=== PATIENT | male | born 1960 | race Caucasian/White ===

== ENCOUNTER → 2016-08-14 | Outpatient (CLI) | payer OTHER ==
--- NOTE | 2016-08-14 09:29 | CTL ---
EXAMINATION TYPE: CT Low Dose Lung DATE OF EXAM ORDERED: 08/14/2016 HISTORY: Lung cancer screening CT DLP: 94.[address] CTDI: 3.0 mGy Automated exposure control for dose reduction was used. COMPARISON: None TECHNIQUE: Low dose computed tomography scan was performed through the chest at 1 mm thick sections a nd reconstructed images in the coronal plane at [address] DIAGNOSTIC QUALITY: Satisfactory FINDINGS: LUNG NODULES: There is a 4 mm nodule in the left upper lobe. Additional 2 to 3 mm subpleural nodulari ty bilaterally. Linear subsegmental changes are seen bilaterally suggestive of scar or atelectasis basilar bronchiect asis changes noted. No pleural effusion or consolidation. Heart is at the upper limits of normal. No significant coronary artery calcification. Aorta of normal caliber with mild atherosclerotic changes. No diagnostic evidence of interstitial pulmonary fibrosis. Mild diffuse emphysematous changes.. Assessment for adenopathy limited by noncontrast technique. No gross evidence of pathologic adenopath y. OTHER FINDINGS: Osseous structures and upper abdomen demonstrate no acute abnormality. Mild hypertrophic change of th e spine noted. Mild diffuse emphysematous changes seen. Shotty adenopathy in the axilla. IMPRESSION: Benign findings FOLLOW UP CT CHEST RECOMMENDATION: [address] LUNG RAD: 2
--- NOTE | 2016-08-14 09:31 | XR ---
Lumbosacral spine HISTORY: Radiculopathy, pain and numbness 5 views of the lumbosacral spine Lumbar vertebral bodies show preserved height and alignment. Bone mineralization is reduced. No evide nt spondylolysis. There is multilevel spondylosis. Loss of disc height greatest at L5-S1 with associa arturo vacuum phenomenon. Atherosclerotic vascular calcifications noted within the aorta. Sclerosis pres ent in the posterior elements of the lumbosacral junction. IMPRESSION: Degenerative disc disease, facet arthropathy. Osteopenia.
== END | disposition home or self-care (01) ==
LOC: RADCTMAIN 08:29
PROVIDERS: ATTEND Family Medicine
DX: Z12.2 Encounter for screening for malignant neoplasm of respiratory organs (principal); M51.36 Other intervertebral disc degeneration, lumbar region; M46.86 Other specified inflammatory spondylopathies, lumbar region; Z87.891 Personal history of nicotine dependence
CPT/HCPCS: 72110; G0297

== ENCOUNTER → 2016-11-04 | Outpatient (CLI) | payer OTHER ==
--- NOTE | 2016-11-04 16:13 | XR ---
Limited skull HISTORY: Pre-MRI 2 views of the skull No radiopaque foreign body evident. IMPRESSION: No counterindication to MRI is evident.
--- NOTE | 2016-11-05 01:51 | MR ---
EXAMINATION TYPE: MR lumbar spine wo con DATE OF EXAM: 11/04/2016 COMPARISON: NONE HISTORY: pain and numbness in back and rt side TECHNIQUE: Multiplanar, multisequence images of the lumbar spine were acquired. There is a 5 mm anterior subluxation of L5 in relation to S1. There is probably a right-sided L5 spon dylolysis. There is hypertrophic facet arthropathy at L5-S1. There is decreased signal and narrowing slightly of the disc spaces from L3 to S1. L5-S1 disc space is more severely narrowed. There is no pa raspinal mass. The upper sacroiliac joints appear intact. There is bilateral narrowing of the neural foramina at L5-S1 due to the subluxation deformity and disc space narrowing. There is a small posteri or L5-S1 lumbar disc herniation. There is no significant spinal stenosis as a result. IMPRESSION: Degenerative first-degree L5-S1 spondylolisthesis. Small posterior L5-S1 disc herniation. No acute arlene ny abnormality. L5-S1 neural foraminal stenosis.
== END | disposition home or self-care (01) ==
LOC: RADMRIMAIN 15:14
PROVIDERS: ATTEND Family Medicine
DX: M99.73 Connective tissue and disc stenosis of intervertebral foramina of lumbar region (principal); M51.17 Intervertebral disc disorders with radiculopathy, lumbosacral region; M43.17 Spondylolisthesis, lumbosacral region; S02.30XA Fracture of orbital floor, unspecified side, initial encounter for closed fracture
CPT/HCPCS: 70250; 72148

== ENCOUNTER → 2016-12-14 | Outpatient (CLI) | payer OTHER ==
[2016-12-14 13:45] VITALS: BP 93/63; PULSE 68; RESP 16
--- NOTE | 2016-12-14 14:16 | P.HPIM ---
History of Present Illness H&P Date: 12/14/16 Chief Complaint: low back pain and right leg pain/numbness/tingling This is a 56-year-old patient referred by Dr. Gibbons for chronic pain in low back with radiation to RLE. Patient has been taking medications from primary care physician including Ultram medications with some relief. Patient denies adverse drug effects from medications. Patient also denies new-onset weakness, bowel/bladder incontinence, or any other signs or symptoms of cauda equina syndrome. There are no signs of acute intoxication, and no indications of medication diversion or overuse. Patient notes that pain worsens significantly with standing and walking, and improves with rest, ice, and medication. Patient has used several types of medications for pain, including NSAIDS, OPIOIDS, TRAMADOL. Patient HAS NOT had surgery. Patient HAS NOT had injections previously. Patient HAS had physical therapy without significant relief. In addition to above, 13-point review of systems is also negative for chest pain , shortness of breath, changes in vision, changes in hearing, new onset weakness , abdominal pain, diarrhea, extreme fatigue, malaise, fever, skin changes, homicidal or suicidal ideation, or bowel or bladder incontinence. Vital Signs: Reviewed in EMR Gen: WDWN, AAOx3, NAD HEENT: NCAT, EOMI, hearing grossly normal Pulm: resp unlabored Abd: soft, NT, ND Neck: supple, trachea midline ROM in flexion lumbar spine: reduced ROM in extension lumbar spine: reduced Lumbar paravertebral tenderness: + Facet loading: + bilateral SI joint tenderness: + R side Tyler's test: + R side Straight leg raise: + RLE at 10 degrees Neuro: CN II-XII grossly intact, muscle strength lower extremities PRESERVED Past Medical History Past Medical History: Hyperlipidemia, Hypertension, Osteoarthritis (OA) Additional Past Medical History / Comment(s): DIZZINESS. History of Any Multi-Drug Resistant Organisms: None Reported Past Surgical History: Tonsillectomy Additional Past Surgical History / Comment(s): RIGHT EYE SURGERY-PLATE. JAW SURGERY. Past Anesthesia/Blood Transfusion Reactions: No Reported Reaction Past Psychological History: Anxiety Smoking Status: Current every day smoker Past Alcohol Use History: Daily, Heavy Additional Past Alcohol Use History / Comment(s): 8 CIGARETTES PER DAY. 6 OR MORE BEERS A DAY FOR 4 YEARS. Past Drug Use History: Marijuana Additional Drug Use History / Comment(s): LAST USED 2 DAYS AGO. - Past Family History Father Family Medical History: GERD/Reflux Mother Family Medical History: Coronary Artery Disease (CAD), Myocardial Infarction (SD ) Medications and Allergies Home Medications Medication Instructions Recorded Confirmed Type Atenolol [Tenormin] 50 mg PO BID 12/14/16 12/14/16 History Atorvastatin [Lipitor] 20 mg PO DAILY 12/14/16 12/14/16 History Butalbital/Aspirin/Caffeine 1 cap PO DIRECTED PRN 12/14/16 12/14/16 History [Gtjlhdiwpm-UEP-Krefylmi Cap 50-325-40] Chlorthalidone 25 mg PO DAILY 12/14/16 12/14/16 History DULoxetine HCL [Cymbalta] 60 mg PO DAILY 12/14/16 12/14/16 History Ibuprofen [Motrin] 800 mg PO DAILY PRN 12/14/16 12/14/16 History Losartan Potassium 100 mg PO DAILY 12/14/16 12/14/16 History Meloxicam [Mobic] 7.5 mg PO Q12HR 12/14/16 12/14/16 History Naproxen 500 mg PO DAILY PRN 12/14/16 12/14/16 History SUMAtriptan SUCCINATE [Imitrex] 100 mg PO DAILY PRN 12/14/16 12/14/16 History Tamsulosin [Flomax] 0.4 mg PO DAILY 12/14/16 12/14/16 History amLODIPine BESYLATE [Norvasc] 5 mg PO DAILY 12/14/16 12/14/16 History traMADol HCL [Ultram] 100 mg PO DAILY PRN 12/14/16 12/14/16 History Allergies Allergy/AdvReac Type Severity Reaction Status Date / Time acetaminophen [From Vicodin] Allergy Severe Itching Verified 12/14/16 13:21 codeine Allergy Severe Itching Verified 12/14/16 13:21 hydrocodone [From Vicodin] Allergy Severe Itching Verified 12/14/16 13:21 Physical Exam Vitals: Intake and Output 12/13/16 12/14/16 12/14/16 22:59 06:59 14:59 Other: Weight 90.718 kg Patient Weight 12/15/16 06:59 Weight 90.718 kg Results Comments: MRI lumbar spine dated 11/04/2016 demonstrates a 5 m anterior subluxation of L5 in relation to S1 with right L5 spondylolysis. There is hypertrophic facet arthropathy worst at the L5-S1 level and narrowing of the L5-S1 disc space. There is bilateral neural foraminal narrowing at the L5-S1 level secondary to the subluxation deformity. There is also small posterior L5-S1 lumbar disc herniation. Assessment and Plan (1) Lumbar disc herniation Status: Acute (2) Anterolisthesis Status: Acute (3) Lumbar facet arthropathy Status: Acute (4) Neural foraminal stenosis of lumbar spine Status: Acute Plan: 1. Explanation: Opioid and psychological risk scores were reviewed. Diagnoses , prognoses, and multiple treatment options including but not limited to physical therapy, interventional therapies, adjuvant medical therapies, narcotic medication therapies, and surgery were discussed with the patient and all questions were answered to the patient's satisfaction. 2. Opioid agreement: no opioids prescribed today 3. Counseling: The patient was counseled extensively on SMOKING CESSATION, BODY MASS INDEX, EXERCISE. Specifically, the patient was instructed regarding the importance of smoking cessation, weight control, and exercise in the context of both chronic pain and overall health. 4. Procedures: LESI series L5-S1 5. Consultations: none 6. Investigations: none 7. Medications: none prescribed 8. Disposition: f/u for procedure as scheduled PQRS measures: 1-Patient's medications are documented in the chart. 2-Tobacco use is positive, counseling given 3-Patient has not had a pneumococcal vaccine. 4-Advanced care planning discussed, patient unable to give. 5-Opioid contract NOT signed with the patient. 6-Pain positive, follow-up visit or procedure scheduled 7-Patient's blood pressure measured and documented, and patient will follow up with PCP 8-Patient's weight was measured, and body mass index ABOVE the normal limits, and counseling was done. Patient instructed to follow up with PCP. 9-Patient WAS identified as an unhealthy alcohol user and was counseled to decrease his alcohol intake to prevent liver damage, cardiac problems, and kidney problems He verbalized understanding. Time with Patient: Greater than 30
== END ==
LOC: PNWHC3 13:00
PROVIDERS: ATTEND Anesthesiology
DX: M99.73 Connective tissue and disc stenosis of intervertebral foramina of lumbar region (principal); M43.16 Spondylolisthesis, lumbar region; M51.26 Other intervertebral disc displacement, lumbar region; M46.86 Other specified inflammatory spondylopathies, lumbar region; F17.200 Nicotine dependence, unspecified, uncomplicated; Z88.5 Allergy status to narcotic agent; Z88.6 Allergy status to analgesic agent; Z79.899 Other long term (current) drug therapy
CPT/HCPCS: 99211

== ENCOUNTER 2017-01-07 06:18 | Day surgery (SDC) | payer OTHER ==
[2017-01-05 16:31] VITALS: BMI 28.8
[~2017-01-07 06:18] MED LIST: LACTATED RINGERS 1,000 ML IV ONE
[2017-01-07 06:54] VITALS: RESP 18; TEMP 98.2
[2017-01-07] MEDS ORDERED: LIDOCAINE 1% 20 ML VIAL (10MG/ML) FOR IV START INTRADERMA ONE (07:05)
[2017-01-07] MEDS ORDERED: IV FLUID CONTINUATION 1,000 ML IV ONE (07:26)
--- NOTE | 2017-01-07 07:26 | P.PCN ---
Date of Procedure: 01/07/17 Preoperative Diagnosis: lumbar radiculopathy Postoperative Diagnosis: lumbar radiculopathy Procedure(s) Performed: lumbar epidural steroid injection under fluoroscopic guidance in the interlaminar approach at the L5-S1 level Anesthesia: MAC (conscious sedation with IV fentanyl and Versed) Surgeon: Mi Younger Pathology: none sent Condition: stable Disposition: PACU Description of Procedure: The patient was seen and identified in the preoperative area. Risks, benefits, complications including but not limited to infections ,bleeding ,allergic reaction to the medications ,nerve damage and not complete pain releife , and alternatives were discussed with the patient. The patient agreed to proceed with the procedure and signed the consent. IV was started, and vital signs were stable. Patient was taken to the OR and time out was completed. The patient was placed in the prone position on procedure table and a pillow was placed under the abdomen to reduce lumbar lordosis. The lumbosacral area was prepped and draped in the usual sterile fashion with Betadine 3.Patient was closely monitored during the procedure. Conscious sedation was used during the procedure to decrease patients anxiety. Vital signs were monitered during the entire procedure. Using anterior-posterior fluoroscopy, the L5-S1 interlaminar space was identified and the skin over this site was marked and then infiltrated with 1% lidocaine subcutaneously. Subsequently, a 20-gauge Tuohy epidural needle was inserted and advanced toward the epidural space using the Loss of resistance to air technique and guided by AP and lateral fluoroscopy. The correct needle position in the epidural space was verified with the injection of 1 mL of the water soluble contrast dye Omnipaque 180 contrast and observing an excellent epidurogram with the epidural spread of the dye, after negative aspiration for blood and CSF and in the absence of paresthesias. Again after negative aspiration, a 8 ml mixture containing 80 mg of Kenalog and 5 ml of preservative free Normal Saline, and 2 ml of preservative free Marcaine 0.25% solution was injected and a washout of epidurogram was seen. Needle was withdrawn intact, skin was cleansed, and bandages were applied. patient tolerated procedure well and was transferred to PACU in stable condition.
[2017-01-07 07:44] VITALS: BP 101/72; PULSE 62
--- NOTE | 2017-01-07 09:45 | FL ---
Fluoroscopy HISTORY: Pain 4 seconds fluoroscopy time supplied to the referring clinician. 2 intraoperative C-arm images docume nt the procedure. See dictated report from anesthesia.
== END 2017-01-07 08:08 | disposition home or self-care (01) ==
LOC: ORPAIN 06:18
PROVIDERS: ATTEND Anesthesiology
DX: G89.29 Other chronic pain (principal); M51.16 Intervertebral disc disorders with radiculopathy, lumbar region; M46.96 Unspecified inflammatory spondylopathy, lumbar region; M48.061 Spinal stenosis, lumbar region without neurogenic claudication; M19.90 Unspecified osteoarthritis, unspecified site; I10 Essential (primary) hypertension; E78.5 Hyperlipidemia, unspecified; F41.9 Anxiety disorder, unspecified; F17.210 Nicotine dependence, cigarettes, uncomplicated; Z79.899 Other long term (current) drug therapy; Z79.1 Long term (current) use of non-steroidal anti-inflammatories (NSAID); Z79.891 Long term (current) use of opiate analgesic; Z88.5 Allergy status to narcotic agent
CPT/HCPCS: 62323; J2250; J3301; Q9965; J3010; 99152

== ENCOUNTER 2017-02-08 06:19 | Day surgery (SDC) | payer OTHER ==
[2017-02-05 09:01] VITALS: BMI 30.1
[~2017-02-08 06:19] MED LIST changes: -LACTATED RINGERS 1,000 ML IV ONE; +LACTATED RINGERS 1,000 ML IV SCH
[2017-02-08 06:43] VITALS: RESP 18; TEMP 96.9
[2017-02-08] MEDS ORDERED: LIDOCAINE 1% 20 ML VIAL (10MG/ML) FOR IV START INTRADERMA ONE (06:45)
[2017-02-08] MEDS ORDERED: IV FLUID CONTINUATION 750 ML IV ONE (07:30)
[2017-02-08 07:55] VITALS: BP 121/76; PULSE 71
--- NOTE | 2017-02-08 08:42 | P.PCN ---
Date of Procedure: 02/08/17 Surgeon: Alexander Davidson Pathology: none sent Condition: stable Disposition: PACU Description of Procedure: PREOPERATIVE DIAGNOSIS: 1-Lumbar radiculitis. POSTOPERATIVE DIAGNOSIS: 1-Lumbar radiculitis. PROCEDURE 1. Lumbar epidural steroid injection under fluoroscopic guidance at the L5-S1 level. 2. Lumbar epidurogram. ANESTHESIA: Local with 1% lidocaine; IV sedation with Versed/fentanyl. EBL: Minimal PROCEDURE INDICATION: The patient with low back pain and radiculitis symptoms unresponsive to conservative treatment. Fluoroscopy was used to optimize visualization of the needle placement and to maximize safety. No use of blood thinners. PROCEDURE DESCRIPTION / TECHNIQUE: The patient was seen and identified in the preoperative area. Risks, benefits, complications, and alternatives were discussed with the patient, including but not limited to bleeding, infection, nerve damage, allergic reactions to medications, and incomplete pain relief. The patient agreed to proceed with the procedure and signed the consent after all questions were answered. IV was started, and vital signs were stable. Patient was taken to the OR and time out was completed to confirm patient position, procedure, laterality of pain, and allergies. The patient was placed in the prone position on procedure table and a pillow was placed under the abdomen to reduce lumbar lordosis. The lumbosacral area was prepped and draped in the usual sterile fashion. Critical pause was taken. Vital signs were closely monitored during the procedure. Conscious sedation was used during the procedure to decrease patients anxiety. Using anterior-posterior fluoroscopy, the L5-S1 interlaminar space was identified and the skin over this site was marked and then infiltrated with 1% lidocaine subcutaneously. Subsequently, a 20-gauge Tuohy epidural needle was inserted and advanced toward the epidural space using the Loss of resistance technique and guided by AP and lateral fluoroscopy. The correct needle position in the epidural space was verified with the injection of 2 mL of the water soluble contrast dye Omnipaque 300 contrast and observing an excellent epidurogram with the epidural spread of the dye, after negative aspiration for blood and CSF and in the absence of paresthesias. Again after negative aspiration, a 6 ml mixture containing 20 mg of PF Decadron and 2 ml of preservative free Normal Saline, and 2 ml of preservative free lidocaine 1% solution was injected and a washout of epidurogram was seen. Needle was withdrawn intact, skin was cleansed, and bandages were applied. COMPLICATIONS: None COMMENTS: DISPOSITION / PLANS: The patient was placed in a supine position and transferred to the recovery area in a stable condition for observation. There was no evidence of lower extremity motor or sensory deficit after the procedure. Patient was discharged from the recovery room after meeting discharge criteria. Home discharge instructions were given to the patient by the staff. The patient was reexamined prior to discharge and there were no issues. The patient will schedule a follow up in the clinic in 2-4 weeks.
--- NOTE | 2017-02-08 08:56 | FL ---
EXAMINATION TYPE: FL guided pain mgmt statistic DATE OF EXAM: 02/08/2017 HISTORY: Flouroscopy time 8 seconds of fluoroscopy provided. IMPRESSION: 1. Fluoroscopy time.
== END 2017-02-08 08:02 | disposition home or self-care (01) ==
LOC: ORPAIN 06:19
PROVIDERS: ATTEND Anesthesiology
DX: M54.16 Radiculopathy, lumbar region (principal); G89.29 Other chronic pain; I10 Essential (primary) hypertension; E78.5 Hyperlipidemia, unspecified; Z88.5 Allergy status to narcotic agent; Z88.6 Allergy status to analgesic agent
CPT/HCPCS: 62323; J2250; J1100; Q9965; J3010; 99152

== ENCOUNTER → 2017-03-16 | Outpatient (CLI) | payer OTHER ==
[2017-03-16 14:12] VITALS: BP 114/76; PULSE 70; RESP 16
--- NOTE | 2017-03-16 14:22 | P.PN ---
Progress Note - Text Progress Note Date: 03/16/17 Patient returns for followup for chronic back pain with radiation to lower legs. Patient recently underwent LESI #1 with Kenalog, LESI #2 with Decadron, the first of which worked substantially for > 1 month and the second of which gave him very little relief. Patient continues on tramadol medications for pain from Dr. Gibbons with good relief. Patient denies adverse drug effects from medications. Today, pt denies new-onset weakness, bowel/bladder incontinence, or any other signs or symptoms of cauda equina syndrome. There are no signs of acute intoxication, and no indications of medication diversion or overuse. In addition to above, 13-point review of systems is also negative for chest pain , shortness of breath, changes in vision, changes in hearing, new onset weakness , abdominal pain, diarrhea, extreme fatigue, malaise, fever, skin changes, homicidal or suicidal ideation, or bowel or bladder incontinence. Vital Signs: Reviewed in EMR Gen: WDWN, AAOx3, NAD HEENT: NCAT, EOMI, hearing grossly normal Pulm: resp unlabored Abd: soft, NT, ND Neck: supple, trachea midline ROM in flexion lumbar spine: reduced ROM in extension lumbar spine: reduced Lumbar paravertebral tenderness: + Facet loading: + R > L SI joint tenderness: + R > L Tyler's test: + R side Straight leg raise: + RLE at 15 degrees Neuro: CN II-XII grossly intact, muscle strength lower extremities PRESERVED Imaging: Reviewed in EMR Assessment: 1. lumbar radiculitis 2. lumbar disc herniation 3. chronic pain syndrome Plan: 1. Explanation: Opioid and psychological risk scores were reviewed. Diagnoses , prognoses, and multiple treatment options including but not limited to physical therapy, interventional therapies, adjuvant medical therapies, narcotic medication therapies, and surgery were discussed with the patient and all questions were answered to the patient's satisfaction. 2. Opioid agreement: no opioids prescribed today 3. Counseling: The patient was counseled extensively on MARIJUANA, SMOKING CESSATION, BODY MASS INDEX, EXERCISE. Specifically, the patient was instructed regarding the importance of smoking cessation, weight control, and exercise in the context of both chronic pain and overall health. 4. Procedures: LESI #3 with Depo Medrol (patient had relief with Kenalog, no relief with Decadron) 5. Consultations: None 6. Investigations: None 7. Medications: none prescribed 8. Disposition: f/u for procedure as scheduled PQRS measures: 1-Patient's medications are documented in the chart. 2-Tobacco use is positive, counseling refused 3-Patient has not had a pneumococcal vaccine. 4-Advanced care planning discussed, patient unable to give. 5-Opioid contract NOT signed with the patient. 6-Pain positive, follow-up visit or procedure scheduled 7-Patient's blood pressure measured and documented, and patient will follow up with the primary care due to hypertension. 8-Patient's weight was measured, and body mass index ABOVE the normal limits, and counseling was done. Patient instructed to follow up with PCP. 9-Patient WAS NOT identified as an unhealthy alcohol user.
== END | disposition home or self-care (01) ==
LOC: PNWHC3 13:46
PROVIDERS: ATTEND Anesthesiology
DX: G89.4 Chronic pain syndrome (principal); M51.16 Intervertebral disc disorders with radiculopathy, lumbar region; Z79.891 Long term (current) use of opiate analgesic
CPT/HCPCS: 99211

== ENCOUNTER 2017-04-27 08:39 | Day surgery (SDC) | payer OTHER ==
[2017-04-23 09:25] VITALS: BMI 30.4
[2017-04-27 08:50] VITALS: TEMP 97.3
[2017-04-27] MEDS ORDERED: LIDOCAINE 1% 20 ML VIAL (10MG/ML) FOR IV START INTRADERMA ONE (08:52)
[2017-04-27] MEDS ORDERED: LACTATED RINGERS 1,000 ML IV ONE (08:52)
--- NOTE | 2017-04-27 09:42 | FL ---
EXAMINATION TYPE: FL guided pain mgmt statistic DATE OF EXAM: 04/27/2017 HISTORY: Flouroscopy time 6 seconds of fluoroscopy provided. IMPRESSION: 1. Fluoroscopy time.
[2017-04-27 09:44] VITALS: RESP 18
[2017-04-27 10:03] VITALS: BP 118/78; PULSE 67
--- NOTE | 2017-04-27 10:20 | P.PCN ---
Date of Procedure: 04/27/17 Surgeon: Alexander Davidson Pathology: none sent Condition: stable Disposition: PACU Description of Procedure: PREOPERATIVE DIAGNOSIS: 1-Lumbar radiculitis. POSTOPERATIVE DIAGNOSIS: 1-Lumbar radiculitis. PROCEDURE 1. Lumbar epidural steroid injection under fluoroscopic guidance at the L5-S1 level. 2. Lumbar epidurogram. ANESTHESIA: Local with 1% lidocaine; IV sedation with Versed/fentanyl. EBL: Minimal PROCEDURE INDICATION: The patient with low back pain and radiculitis symptoms unresponsive to conservative treatment. Fluoroscopy was used to optimize visualization of the needle placement and to maximize safety. No use of blood thinners. PROCEDURE DESCRIPTION / TECHNIQUE: The patient was seen and identified in the preoperative area. Risks, benefits, complications, and alternatives were discussed with the patient, including but not limited to bleeding, infection, nerve damage, allergic reactions to medications, and incomplete pain relief. The patient agreed to proceed with the procedure and signed the consent after all questions were answered. IV was started, and vital signs were stable. Patient was taken to the OR and time out was completed to confirm patient position, procedure, laterality of pain, and allergies. The patient was placed in the prone position on procedure table and a pillow was placed under the abdomen to reduce lumbar lordosis. The lumbosacral area was prepped and draped in the usual sterile fashion. Critical pause was taken. Vital signs were closely monitored during the procedure. Conscious sedation was used during the procedure to decrease patients anxiety. Using anterior-posterior fluoroscopy, the L5-S1 interlaminar space was identified and the skin over this site was marked and then infiltrated with 1% lidocaine subcutaneously. Subsequently, a 20-gauge 3.5-inch Tuohy epidural needle was inserted and advanced toward the epidural space using the Loss of resistance technique and guided by AP and lateral fluoroscopy. The correct needle position in the epidural space was verified with the injection of 2 mL of the water soluble contrast dye Omnipaque 300 contrast and observing an excellent epidurogram with the epidural spread of the dye, after negative aspiration for blood and CSF and in the absence of paresthesias. Again after negative aspiration, a 6 ml mixture containing 80 mg of Depo Medrol and 2 ml of preservative free Normal Saline, and 2 ml of preservative free lidocaine 1% solution was injected and a washout of epidurogram was seen. Needle was withdrawn intact, skin was cleansed, and bandages were applied. COMPLICATIONS: None COMMENTS: DISPOSITION / PLANS: The patient was placed in a supine position and transferred to the recovery area in a stable condition for observation. There was no evidence of lower extremity motor or sensory deficit after the procedure. Patient was discharged from the recovery room after meeting discharge criteria. Home discharge instructions were given to the patient by the staff. The patient was reexamined prior to discharge and there were no issues. The patient will schedule a follow up in the clinic in 2-4 weeks.
== END 2017-04-27 09:48 | disposition home or self-care (01) ==
LOC: ORPAIN 08:39
PROVIDERS: ATTEND Anesthesiology
DX: M54.16 Radiculopathy, lumbar region (principal); E78.5 Hyperlipidemia, unspecified; I10 Essential (primary) hypertension; Z88.6 Allergy status to analgesic agent; Z88.5 Allergy status to narcotic agent
CPT/HCPCS: 62323; J1030; Q9965

== ENCOUNTER → 2017-05-26 | Outpatient (CLI) | payer OTHER ==
[2017-05-26 13:07] VITALS: BP 111/71; PULSE 82; RESP 18; TEMP 98.5
--- NOTE | 2017-05-26 14:02 | P.PN ---
Subjective Progress Note Date: 05/26/17 This is follow-up visit for this patient with a history of severe and chronic low back pain secondary to lumbar degenerative disc disease, lumbar facet arthropathy, we have done Lumbar epidural steroid injections 3 , he developed short-term benefit after each injection , his currently complaining of severe low back pain patient currently on Ultram 50 mg every 6 hours when necessary Patient denies any side effects of the medication, denies excessive drowsiness or sleepiness, denies suicidal ideation, and reports that the current pain medication is NOT helping To control the pain and improve activity of daily living . Patient denies any motor or sensory deficit, denies change in bowel movement or urination, patient denies any fever or night sweats and patient here for follow-up visit and medication refill Objective - Vital Signs Vital signs: Vital Signs Temp 98.5 F 05/26/17 13:00 Pulse 82 05/26/17 13:00 Resp 18 05/26/17 13:00 BP 111/71 05/26/17 13:00 Pulse Ox Intake & Output 05/25/17 05/26/17 05/26/17 18:59 06:59 18:59 Weight 90.718 kg - Exam Physical Examinations : 1-Constitutiona : Cooperative , not in acute distress . 2-HEENT : nech ; supple , no Lymphadenopathy , normal thyroid size . eyes : no ptosis , no icterus, no photophobia . ENT : normal of hearing , normal oropharynx , no Thrush . 3- Respiratory : Chest clear to auscultations Bilaterally , no wheezing , no Rhonchi . 4- Cardiovascular : regular rate and rhythem , S1 , S2 , no S3 , no S4. 5- Gastrointestinal : abdomen soft no tenderness , bowel sounds positive all four quadrents , no organomegally . 6- Genitourinary : Defferred . 7- neurologic : Cranial nerve II to XII intact , no focal neurological deffecit . 8-psychatric : alert , oriented X 3 , appropriate affect , intact judgment and insight . 9-Lymphatic : no Lymphadenopathy . 10- musculoskeltal : cervical spine = motor stregnth in the deltoid and biceps, , Lumber spine = normal moter stegnth lower extremities ,thigh and legs .5/5 deep tendon reflexes : normal Knee Jerk , normal ankle Jerk . lumber facet Loading Test positive strait leg raising test negative bilaterally Fabere test negative bilaterally Assessment and Plan Plan: Assessment and plan= chronic severe low back pain secondary to lumbar degenerative disc disease and lumbar spondylosis and lumbar facet arthropathy Patient had short-term and partial benefit after the lumbar epidural steroid injections done on 3 different occasions, he will be in good candidate to have, agnostic medial branch block lumbar area and if he had a good result and we will proceed with the radiofrequency ablation of the medial branch lumbar area L3-4 , L4-5 , L5-S1 , procedure risk and benefits and alternatives discussed with the patient ,he agreed with proceeding Time with Patient: Less than 30
== END | disposition home or self-care (01) ==
LOC: PNWHC3 12:50
PROVIDERS: ATTEND Specialist
DX: G89.29 Other chronic pain (principal); M51.36 Other intervertebral disc degeneration, lumbar region; M47.816 Spondylosis without myelopathy or radiculopathy, lumbar region; M46.86 Other specified inflammatory spondylopathies, lumbar region; Z79.891 Long term (current) use of opiate analgesic
CPT/HCPCS: 99211

== ENCOUNTER 2017-06-29 06:28 | Day surgery (SDC) | payer OTHER ==
[2017-06-24 09:23] VITALS: BMI 30.4
[2017-06-29 07:28] VITALS: TEMP 97.2
[2017-06-29] MEDS ORDERED: LIDOCAINE 1% 20 ML VIAL (10MG/ML) FOR IV START INTRADERMA ONE (07:28)
--- NOTE | 2017-06-29 08:38 | P.PCN ---
Date of Procedure: 06/29/17 Procedure(s) Performed: PREOPERATIVE DIAGNOSIS : 1- Lumbar spondylosis with Facet Arthropathy without myelopathy . 2- Lumber degenerative disc disease POSTOPERATIVE DIAGNOSIS: 1- Lumbar spondylosis with Facet Arthropathy without myelopathy . 2- Lumber degenerative disc disease PROCEDURE: Diagnostic bilateral L3 -4 , L4 -5 , and L5-S1 medial branch block under fluoroscopy ANESTHESIA: Local with 1% lidocaine 6 ml , moderate sedation with intravenous Versed 2 mg and Fentanyl 100 mcg. EBL: Minimal COMPLICATION: None. IV FLUIDS: 100 mL of normal saline. PROCEDURE INDICATION: Chronic low back pain secondary to Facet arthropathy unresponsive to conservative treatment. PROCEDURE DESCRIPTION: the patient was seen and identified in the preop holding area , risks and benefits and possible complications of the procedure and alternative were discussed with the patient, and the patient agreed to proceed with the procedure and signed the consent IV was started and vital signs monitored during the procedure and fluoroscopy was used to maximize the benefit and accuracy of the needle placement, and sedation was given to decrease patient anxiety, patient was taken to the procedure room and placed in prone position vital signs monitored in the back prepped with chlorhexidine X3 then under strict sterile technique using a right oblique fluoroscopy ,the junction of the transverse process and the superior articulating process of the right L3- 4 , L4- 5, and L5-S1 vertebra which corresponding to the fluoroscopy image of the eye of the Tyler dog on the block side for the medial branches and subsequently , after local infiltration of skin and subcu tissuies with lidocaine 1% one mL at each level ,then 22- gauge Quincke-type needles , 3 needle was used , each one of them placed at the junction of the base of the transverse process and the superior articular process at the appropriate level, and the needle was advanced until the periosteum contacted, needle placement confirmed with AP oblique and lateral view and after appropriate needle placement confirmed, and after negative aspiration for heme and CSF and there was no paresthesia 1-1/2 mL of Marcaine 0.5% mixed with 20 mg Kenalog , then half mL injected at each level after negative aspiration the needle subsequently removed and the same procedure repeated for the left side at left side at L3-4, L4- 5 and L5-S1 levels. At the end of the procedure and the needles removed and a bandage applied after the skin was cleaned the cleaning solution patient taken to recovery room in stable condition and monitors in the recovery room for 20-30 minutes and discharged home in stable condition after discharge criteria met and patient will follow up with the pain clinic in 2-4 weeks
[2017-06-29] MEDS ORDERED: IV FLUID CONTINUATION 800 ML IV ONE (08:48)
[2017-06-29 08:58] VITALS: RESP 18
[2017-06-29 09:25] VITALS: BP 110/74; PULSE 60
--- NOTE | 2017-06-29 12:17 | FL ---
Fluoroscopy HISTORY: Pain 6 seconds fluoroscopy time supplied to the referring clinician. 4 intraoperative C-arm images docume nt the procedure. See dictated report from anesthesia.
== END 2017-06-29 09:23 | disposition home or self-care (01) ==
LOC: ORPAIN 06:28
PROVIDERS: ATTEND Specialist
DX: G89.29 Other chronic pain (principal); M47.816 Spondylosis without myelopathy or radiculopathy, lumbar region; M51.36 Other intervertebral disc degeneration, lumbar region; I10 Essential (primary) hypertension; F17.200 Nicotine dependence, unspecified, uncomplicated; Z88.6 Allergy status to analgesic agent; Z88.5 Allergy status to narcotic agent
CPT/HCPCS: 64493; 64494; 64495; J2250; J3301; J3010; 99152

== ENCOUNTER 2017-07-21 06:41 | Day surgery (SDC) | payer OTHER ==
[2017-07-16 13:58] VITALS: BMI 30.4
[2017-07-21 07:33] VITALS: TEMP 98
[2017-07-21] MEDS ORDERED: LIDOCAINE 1% 20 ML VIAL (10MG/ML) FOR IV START INTRAPLEUR ONE (07:33)
[2017-07-21] MEDS ORDERED: LACTATED RINGERS 1,000 ML IV ONE (07:33)
--- NOTE | 2017-07-21 08:10 | P.PCN ---
Date of Procedure: 07/21/17 Surgeon: Jaime Carrera Description of Procedure: PREOPERATIVE DIAGNOSIS : 1- Lumbar spondylosis with Facet Arthropathy without myelopathy . 2- Lumber degenerative disc disease POSTOPERATIVE DIAGNOSIS: 1- Lumbar spondylosis with Facet Arthropathy without myelopathy . 2- Lumber degenerative disc disease PROCEDURE: Diagnostic bilateral L3 -4 , L4 -5 , and L5-S1 medial branch block under fluoroscopy ANESTHESIA: Local anesthetic, intravenous sedation provided with midazolam 2 mg and fentanyl 100 g EBL: Minimal COMPLICATION: None. IV FLUIDS: none PROCEDURE INDICATION: Chronic low back pain secondary to Facet arthropathy unresponsive to conservative treatment. He reports that he has back pain as well as pain which radiates into both legs bilaterally down to approximately the knees. He is undergone this procedure before. He reports that last time, this relieved his pain for approximately 2-4 hours by 100%. PROCEDURE DESCRIPTION: the patient was seen and identified in the preop holding area , risks and benefits and possible complications of the procedure and alternative were discussed with the patient, and the patient agreed to proceed with the procedure and signed the consent .IV was started and vital signs monitored during the procedure and fluoroscopy was used to maximize the benefit and accuracy of the needle placement, and sedation was given to decrease patient anxiety, patient was taken to the procedure room and placed in prone position vital signs monitored in the back prepped. Under strict sterile technique using a right oblique fluoroscopy ,the junction of the transverse process and the superior articulating process of the right L3- 4 , L4- 5, and L5-S1 vertebra which corresponding to the fluoroscopy image of the eye of the Tyler dog on the block side for the medial branches and subsequently , after local infiltration of skin and subcu tissuies with lidocaine 1% one mL at each level ,then one 25-gauge Quincke-type needles was placed at the junction of the base of the transverse process and the superior articular process at the appropriate level, and the needle was advanced until the periosteum contacted, needle placement confirmed with AP oblique and lateral view and after appropriate needle placement confirmed, and after negative aspiration, 0.5 mL of Marcaine 0.25% mixed with 40 mg depomedrol in divided doses was injected at each level and the needle subsequently removed and the same procedure repeated for the left side at left side at L3-4, L4- 5 and L5-S1 levels. At the end of the procedure and the needles removed and a bandage applied after the skin was cleaned the cleaning solution patient taken to recovery room in stable condition and monitors in the recovery room for 20-30 minutes and discharged home in stable condition after discharge criteria met and patient will follow up repeat of this procedure in 2-4 weeks.
[2017-07-21] MEDS ORDERED: LACTATED RINGERS 1,000 ML IV SCH (08:15)
[2017-07-21 09:02] VITALS: BP 106/69; PULSE 67; RESP 18
[2017-07-21] MEDS ORDERED: IV FLUID CONTINUATION 750 ML IV ONE (09:08)
--- NOTE | 2017-07-21 09:18 | FL ---
Fluoroscopy HISTORY: Pain 3 seconds fluoroscopy time supplied to the referring clinician. 1 intraoperative C-arm images docume nt the procedure. See dictated report from anesthesia.
--- NOTE | 2017-07-23 11:39 | CDI ---
Date: 07/21/17 CDS/Operator Receptionist Name: Leslie Lindo Phone: If any questions, call Anna Alford Defense Travel Administrator at [phone] Patient Name: Jovany Saldana Admit Date: 07/21/17 Discharge Date: 07/21/17 ATTENTION: The [facility] Coding Staff appreciate your assistance in clarifying documentation. Please respond to the clarification below the line at the bottom and electronically sign. The [facility] Coding staff will review the response and follow-up if needed. Please note: Queries are made part of the Legal Health Record. If you have any questions, please contact the Defense Travel Administrator. Dear Dr. Carrera, Please provide clarification on type of sedation provided. The operative report documents LOCAL anesthestic Intravenous sedation provided with Midazolam 2md and Fentanyl 100 Mg. On the Pain Procedure record under Anesthesia Plan, nothing is checked off. Please clarify if Moderate/conscious sedation was provided. Thank you for your kind consideration. The Patient had conscious sedation. thank you. MIKE
== END 2017-07-21 09:13 | disposition home or self-care (01) ==
LOC: ORPAIN 06:41
PROVIDERS: ATTEND Pain Medicine Pain Medicine
DX: G89.29 Other chronic pain (principal); M47.816 Spondylosis without myelopathy or radiculopathy, lumbar region; M51.36 Other intervertebral disc degeneration, lumbar region; Z88.5 Allergy status to narcotic agent
CPT/HCPCS: 64493; 64494; 64495; J2250; J1030; J3010; 99152

== ENCOUNTER 2017-08-11 05:53 | Day surgery (SDC) | payer OTHER ==
[2017-08-11 06:23] VITALS: TEMP 98
[2017-08-11] MEDS ORDERED: LACTATED RINGERS 1,000 ML IV ONE (06:28)
[2017-08-11] MEDS ORDERED: LIDOCAINE 1% 20 ML VIAL (10MG/ML) FOR IV START INTRADERMA ONE (06:28)
[2017-08-11] MEDS ORDERED: LACTATED RINGERS 1,000 ML IV SCH (07:15)
[2017-08-11] MEDS ORDERED: IV FLUID CONTINUATION 1,000 ML IV ONE (07:31)
[2017-08-11 07:36] VITALS: RESP 16
[2017-08-11 07:55] VITALS: BP 96/60; PULSE 57
--- NOTE | 2017-08-11 08:14 | P.PCN ---
Date of Procedure: 08/11/17 Surgeon: Alexander Davidson Pathology: none sent Condition: stable Disposition: PACU Description of Procedure: PREOPERATIVE DIAGNOSIS: Lumbar spondylosis without myelopathy and facet arthropathy. POSTOPERATIVE DIAGNOSIS: Lumbar spondylosis without myelopathy and facet arthropathy. PROCEDURE DESCRIPTION: Patient presents for L3-L4, L4-L5 and L5-S1 diagnostic medial branch blocks under fluoroscopic guidance. The procedure is performed using fluoroscopic guidance during needle placement to assure proper position and maximize safety. ANESTHESIA: Local with 1% lidocaine; conscious sedation EBL: Minimal PROCEDURE INDICATION: Patient with lumbar facet arthropathy signs and symptoms, here for diagnostic medial branch block #3 after little relief from second for one hour only but good relief from first procedure for one week. Pt does not take any blood thinning medications. PROCEDURE DESCRIPTION: The patient was seen and identified in the preoperative area. Risks, benefits, complications, and alternatives were discussed with the patient (including but not limited to incomplete pain relief, bleeding, infection, nerve damage, and allergies to medications), the patient agreed to proceed with the procedure and signed the consent after all questions were answered. Patient was taken to the OR and time out was completed to verify proper patient, position, laterality of pain, and allergies. Pt was placed in the prone position and a pillow was placed under the abdomen to reduce lumbar lordosis. The lumbosacral area was prepped and draped in the usual sterile fashion. Using oblique fluoroscopy, the eye of the "Tyler dog" of right L4 vertebral body, which corresponds to the path of the medial branch originating from the level above, which is L3 in this case, was identified. Subsequently, a 22-gauge 3.5-inch spinal needle was inserted under fluoroscopic guidance toward the eye of the "Tyler dog" of the right L4 vertebral body, corresponding to the junction of the superior articular process and the transverse process of the pedicle of the same level. After needle tip confirmation on lateral view and after negative aspiration for CSF and blood and without paresthesias, 1 mL of a 6 ml solution of 0.5% preservative-free bupivacaine and 40 mg Kenalog was injected. Subsequently the needle was withdrawn intact and the same procedure was repeated for the right L4, right L5, left L3, left L4, and left L5 medial branches which together with right L3 medial branch correspond to the sensory innervation of the bilateral L3-L4, L4-L5, and L5-S1 facet joints. Needle was withdrawn intact after each injection. At the end of the procedure, the skin was cleansed and bandages were applied. COMPLICATIONS: None. DISPOSITION/PLAN: The patient taken to the recovery area after the procedure in a stable condition for observation. Patient was reexamined prior to discharge and there were no issues, and he had immediate relief after the procedure of his back pain. Patient was discharged home, accompanied by an adult, after meeting discharge criteria. Discharge instructions were give to the patient by the staff. Patient was specifically instructed not to drive today and to rest for the rest of the day. Patient will follow up in clinic to discuss efficacy.
--- NOTE | 2017-08-11 09:34 | FL ---
Fluoroscopy HISTORY: Pain 15 seconds fluoroscopy time supplied to the referring clinician. 4 intraoperative C-arm images docum ent the procedure. See dictated report from anesthesia.
== END 2017-08-11 08:10 | disposition home or self-care (01) ==
LOC: ORPAIN 05:53
PROVIDERS: ATTEND Anesthesiology
DX: M47.816 Spondylosis without myelopathy or radiculopathy, lumbar region (principal); I10 Essential (primary) hypertension; E78.5 Hyperlipidemia, unspecified; Z88.6 Allergy status to analgesic agent; Z88.5 Allergy status to narcotic agent
CPT/HCPCS: 64493; 64494; 64495; J2250; J3301

== ENCOUNTER → 2017-08-30 | Outpatient (CLI) | payer OTHER ==
[2017-08-30 12:11] VITALS: BP 128/85; PULSE 77; RESP 18
--- NOTE | 2017-08-30 12:48 | P.PAINPG ---
Subjective Progress Note Date: 08/30/17 This is follow-up visit for this patient with a history of severe and chronic low back pain secondary to lumbar degenerative disc disease, lumbar facet arthropathy, We have done an interventional pain procedure lumbar epidural steroid injections and he got short-term benefits from it, and recently been done diagnostic medial branch block lumbar area L3 to S1, first diagnostic medial branch block pain decreased from 7/10 decreased to 0/10 after the block , the second diagnostic medial branch block patient reported that he had 0 benefit from the injection, and he reported that his pain was the same before and after the block, although this is in the diagnostic medial branch block was repeated, and within steroid injection a few weeks ago and he reported that his pain was 7-8/10 before the block and became 0 /10 after the block Objective - Vital Signs Vital signs: Vital Signs Temp Pulse 77 08/30/17 12:05 Resp 18 08/30/17 12:05 BP 128/85 08/30/17 12:05 Pulse Ox 94 L 08/30/17 12:05 Intake & Output 08/29/17 08/30/17 08/30/17 18:59 06:59 18:59 Weight 90.718 kg - Exam Physical Examinations : 1-Constitutiona : Cooperative , not in acute distress . 2-HEENT : nech ; supple , no Lymphadenopathy , normal thyroid size . eyes : no ptosis , no icterus , no photophobia . ENT : normal of hearing , normal oropharynx , no Thrush . 3- Respiratory : Chest clear to auscultations Bilaterally , no wheezing , no Rhonchi . 4- Cardiovascular : regular rate and rhythem , S1 , S2 , no S3 , no S4. 5- Gastrointestinal : abdomen soft no tenderness , bowel sounds , no organomegally . 6- Genitourinary : Defferred . 7- neurologic : Cranial nerve II to XII intact , no focal neurological deffecit . 8-psychatric : alert , oriented X 3 , appropriate affect , intact judgment and insight . 9-Lymphatic : no Lymphadenopathy . 10- musculoskeltal : , Lumber spine = normal moter stegnth lower extremities ,thigh and legs .5/5 deep tendon reflexes : normal Knee Jerk , normal ankle Jerk . lumber facet Loading Test positive strait leg raising test negative bilaterally Fabere test negative bilaterally Assessment and Plan Plan: Assessment and plan= chronic low back pain secondary to lumbar degenerative disc disease , lumbar spondylosis with lumbar facet arthropathy . Patient had good results after the diagnostic medial branch block He will be good candidate to have radiofrequency ablation of the medial branch lumbar area right side L3-4 , L4 5 ,L5-S1 Patient reported that most of his pain on the right side for this reason we will do the right side only , in the future if he had pain on the left side then will consider doing radiofrequency on the left Time with Patient: Less than 30 PQRS Measure Charge Sheet Measure #130: Documentation of Current Meds in Medical Chart: Patient's medications documented in chart Measure #226: Tobacco Use: Screen & Cessation Intervention: Pt screened for tobacco use AND intervention given Measure #111: Pneumonia Vaccination: Pneumococcal vaccine NOT administered or previously given Measure #47: Advance Care Plan: Advance care planning discussed & documented, plan or surrogate given Measure #412: Opioid Treatment Agreement: No documentation of signed opioid treatment agreement Measure #408: Opioid Therapy Follow-up Evaluation: Patient had NO f/u eval minimum every 3 months during opioid therapy Measure #317: Preventitive Care & Scrn High Bld Press & F/U: Normal blood pressure, f/u not required Measure #128: Body Mass Index (BMI) Screening & Follow-up: BMI documented ABOVE normal parameters - f/u documented Measure #131: Pain Assessment & Follow-up: Pain positive & plan documented, Follow-up scheduled Measure #431: Unhealthy Alcohol Use Preventative Care & Scrn: Patient not identified as an unhealthy alcohol user PQRS Narrative: Smoking Status Current every day smoker Do You Want the Pneumonia No Vaccine AT THIS TIME? Blood Pressure 128/85 Pain Intensity [Lower Back] 5 Scale Used Numeric (1 - 10) Hx Alcohol Use (MH) Yes: 6 OR MORE BEERS PER DAY X 4 YEARS. Home Medications: Ambulatory Orders Atenolol [Tenormin] 100 mg PO DAILY 12/14/16 Atorvastatin [Lipitor] 20 mg PO DAILY 12/14/16 Butalbital/Aspirin/Caffeine [Mffsxazwho-KNM-Fopxirpd Cap 50-325-40] 1 cap PO DIRECTED PRN 12/14/16 Chlorthalidone 25 mg PO DAILY 12/14/16 DULoxetine HCL [Cymbalta] 60 mg PO DAILY 12/14/16 Losartan Potassium 100 mg PO DAILY 12/14/16 SUMAtriptan SUCCINATE [Imitrex] 100 mg PO DAILY PRN 12/14/16 Tamsulosin [Flomax] 0.4 mg PO DAILY 12/14/16 amLODIPine BESYLATE [Norvasc] 5 mg PO DAILY 12/14/16 traMADol HCL [Ultram] 100 mg PO DAILY PRN 12/14/16 Controlled Substance Measures - Controlled Substance Measures Is patient prescribed a controlled substance at discharge?: No When asked, does pt state using other controlled substances?: No If prescribed controlled substance>3 days was MAPS reviewed?: No If Rx opioid, was Start Talking consent form obtained?: No If opioid is for acute pain is fill amount 7 days or less?: No Was information provided regarding opioid addiction?: No
== END | disposition home or self-care (01) ==
LOC: PNWHC3 11:55
PROVIDERS: ATTEND Specialist
DX: G89.29 Other chronic pain (principal); M51.36 Other intervertebral disc degeneration, lumbar region; M47.816 Spondylosis without myelopathy or radiculopathy, lumbar region; M46.96 Unspecified inflammatory spondylopathy, lumbar region; F17.200 Nicotine dependence, unspecified, uncomplicated; Z79.899 Other long term (current) drug therapy; Z79.82 Long term (current) use of aspirin; Z79.891 Long term (current) use of opiate analgesic
CPT/HCPCS: 99211

== ENCOUNTER 2017-10-04 08:37 | Day surgery (SDC) | payer OTHER ==
[2017-09-16 12:26] VITALS: BMI 31.1
[2017-10-04 09:18] VITALS: TEMP 98
[2017-10-04] MEDS ORDERED: LIDOCAINE 1% 20 ML VIAL (10MG/ML) FOR IV START INTRADERMA ONE (09:34)
--- NOTE | 2017-10-04 10:28 | P.PCN ---
Date of Procedure: 10/04/17 Postoperative Diagnosis: PREOPERATIVE DIAGNOSIS: 1-Lumbar Spondylosis with Facet Arthropathy without myelopathy. POSTOPERATIVE DIAGNOSIS: 1- Lumbar Spondylosis with Facet Arthropathy without myelopathy. PROCEDURES : Right Radiofrequency thermocoagulation, L3-L4, L4-L5, and L5-S1 medial branch, with fluoroscopic guidance ANESTHESIA: Moderate sedation with intravenous versed 2 mg and fentaneyl 50 mcg and local infiltration with lidocaine 1% 3 ml EBL: Minimal PROCEDURE INDICATION: The patient with low back pain secondary to lumbar facet arthropathy who had more than 50% relief of her pain with previous diagnostic lumbar medial branch block with bupivacaine. PROCEDURE DESCRIPTION / TECHNIQUE: The patient was seen and identified in the preoperative area. Risks, benefits, complications, including but not limited to risk of infection ,bleeding , allergic reactions to the medications and no complete pain releife , and alternatives were discussed with the patient, the patient agreed to proceed with the procedure and signed the consent. IV was started. Vital signs remained stable throughout the procedure. Patient was taken to the OR and time out was completed. The patient was placed in the prone position on the procedure table. The lumber area was prepped and draped in the usual sterile fashion. Vital signs were closely monitored during the procedure .IV sedation was used during the procedure to decrease patients anxiety. Using AP and then oblique fluoroscopy, the ``eye of the Tyler dog corresponding to the connection between the superior and transverse articular processes of right L3, L4, and L5 were identified, marked, and localized with 1 % lidocaine. Subsequently, a [id number] radiofrequency cannula with a 10- mm active tip was advanced guided by fluoroscopy to each of the ``eyes of the Tyler dog at right L3, L4, and L5. Each site then underwent sensory testing at 50 Hz and 0 to 1 volt and motor testing at 2.5 Hz and 0 to 3 volt with local stimulation, but no radicular symptoms down the legs. Thereafter the right L3-4, L4-5, and L5-S1 sites underwent radiofrequency thermocoagulation at 80 degrees celsius for 90 seconds after injecting 0.5 ml of PF lidocaine 1%. then After the thermocoagulation done , 1 ml of the block solution containing Kenalog 40 mg and 3 ml of Ropivacaine 0.5% was injected at the right L3-4 , L4-5 , and L5-S1, levels after negative aspiration of CSF and blood and with no paresthesias. Cannulas were retracted while injecting lidocaine 1% until the needle is out. At the end of the procedure, the skin was cleansed and bandages were applied. COMPLICATIONS: No acute complications. DISPOSITION / PLANS: The patient was placed in a supine position and transferred to the recovery area in a stable condition for observation and was discharged from the recovery room after meeting discharge criteria. Home discharge instructions given to the patient by the staff. The patient was reexamined prior to discharge. The patient will schedule a follow up in the clinic in 2-4 weeks.
[2017-10-04] MEDS ORDERED: IV FLUID CONTINUATION 700 ML IV ONE (10:35)
[2017-10-04 10:42] VITALS: RESP 16
[2017-10-04 10:53] VITALS: BP 135/89; PULSE 62
--- NOTE | 2017-10-04 10:58 | FL ---
Fluoroscopy HISTORY: Pain 13 seconds fluoroscopy time supplied to the referring clinician. 3 intraoperative C-arm images docum ent the procedure. See dictated report from anesthesia.
== END 2017-10-04 11:13 | disposition home or self-care (01) ==
LOC: ORPAIN 08:37
PROVIDERS: ATTEND Specialist
DX: M47.816 Spondylosis without myelopathy or radiculopathy, lumbar region (principal); I10 Essential (primary) hypertension; Z87.891 Personal history of nicotine dependence; Z88.5 Allergy status to narcotic agent
CPT/HCPCS: 64635; 64636 ×2; J2250; J3301; J3010; 99152

== ENCOUNTER → 2018-01-18 | Outpatient (CLI) | payer OTHER ==
[2018-01-18 12:18] VITALS: BP 127/88; PULSE 71; RESP 16
--- NOTE | 2018-01-18 12:31 | P.PAINPG ---
Subjective Progress Note Date: 01/18/18 Principal diagnosis: Bilateral lumbar radiculopathy This is a 57-year-old gentleman with a long-standing history of back pain as well as leg numbness with standing and numbness in his feet. He is undergone previous diagnostic medial branch nerve blocks as well as radiofrequency ablation which afforded him significant reduction of his back pain. He continues to complain of numbness in his thighs and pain down his legs into his feet when standing. His last MRI demonstrates a herniated nucleus pulposus at L5-S1. He denies bowel or bladder dysfunction. Objective - Vital Signs Vital signs: Vital Signs Temp Pulse 71 01/18/18 12:06 Resp 16 01/18/18 12:06 BP 127/88 01/18/18 12:06 Pulse Ox Intake & Output 01/17/18 01/18/18 01/18/18 18:59 06:59 18:59 Weight 90.718 kg - Exam General: The patient is alert and oriented. Patient is not sedated Patient answers all question appropriately. Cardiac: Heart is regular in rate and rhythm Respiratory: Clear to auscultation. No audible wheezes. Abdomen: Soft nontender nondistended. Lower extremities: Strength is normal bilaterally. Sensation is normal bilaterally. Reflexes are preserved and symmetric bilaterally. Straight leg raise is negative bilaterally. Assessment and Plan (1) Lumbar disc herniation Current Visit: No Status: Acute Code(s): M51.26 - OTHER INTERVERTEBRAL DISC DISPLACEMENT, LUMBAR REGION SNOMED Code(s): 052057248 (2) Lumbar facet arthropathy Current Visit: No Status: Acute Code(s): M12.88 - OTH SPECIFIC ARTHROPATHIES , NEC, OT SITE SNOMED Code(s): 900263551 (3) Neural foraminal stenosis of lumbar spine Narrative/Plan: Plan of Care 1. Medications: Patient will continue to utilize marijuana and alcohol. This is something he regulates himself. He does not utilize opiates secondary to side effects. 2. Interventions: We will schedule the patient for a lumbar epidural steroid injection at L5-S1 using Depo-Medrol. 3. Referrals: None 4. Testing: The patient will have liver function tests as well as PT, PTT and INR tested prior to undergoing this procedure to evaluate for alcohol-induced coagulopathy. 5. Follow-up: Lumbar epidural steroid injection at L5-S1 if left values are okay. Current Visit: No Status: Acute Code(s): M99.83 - OTHER BIOMECHANICAL LESIONS OF LUMBAR REGION SNOMED Code(s): 273391975886 PQRS Measure Charge Sheet Measure #130: Documentation of Current Meds in Medical Chart: Patient's medications documented in chart (She documented) Measure #226: Tobacco Use: Screen & Cessation Intervention: Pt screened for tobacco use AND intervention given Measure #111: Pneumonia Vaccination: Pneumococcal vaccine NOT administered or previously given Measure #47: Advance Care Plan: Advance care planning discussed & documented, pt chose/unable to give Measure #412: Opioid Treatment Agreement: No documentation of signed opioid treatment agreement Measure #408: Opioid Therapy Follow-up Evaluation: Patient had NO f/u eval minimum every 3 months during opioid therapy Measure #317: Preventitive Care & Scrn High Bld Press & F/U: Pre-hypertensive or hypertensive BP documented, pt will f/u with PCP Measure #128: Body Mass Index (BMI) Screening & Follow-up: BMI documented ABOVE normal parameters - f/u documented Measure #131: Pain Assessment & Follow-up: Pain positive & plan documented Measure #431: Unhealthy Alcohol Use Preventative Care & Scrn: Patient identified as unhealthy alcohol user; counseling given PQRS Narrative: Smoking Status Current every day smoker Do You Want the Pneumonia No Vaccine AT THIS TIME? Blood Pressure 127/88 Pain Intensity [Bilateral 8 Lower Back] Scale Used Numeric (1 - 10) Hx Alcohol Use (MH) Yes: 6 OR MORE BEERS PER DAY X 4 YEARS. Home Medications: Ambulatory Orders Atenolol [Tenormin] 100 mg PO DAILY 12/14/16 Atorvastatin [Lipitor] 20 mg PO DAILY 12/14/16 Butalbital/Aspirin/Caffeine [Unsgugbjux-YUL-Kpvkiolu Cap 50-325-40] 1 cap PO DIRECTED PRN 12/14/16 Chlorthalidone 25 mg PO DAILY 12/14/16 DULoxetine HCL [Cymbalta] 60 mg PO DAILY 12/14/16 Losartan Potassium 100 mg PO DAILY 12/14/16 SUMAtriptan SUCCINATE [Imitrex] 100 mg PO DAILY PRN 12/14/16 Tamsulosin [Flomax] 0.4 mg PO DAILY 12/14/16 traMADol HCL [Ultram] 100 mg PO DAILY PRN 12/14/16 Controlled Substance Measures - Controlled Substance Measures Is patient prescribed a controlled substance at discharge?: No
== END ==
LOC: PNWHC3 11:54
PROVIDERS: ATTEND Pain Medicine Pain Medicine
DX: M99.73 Connective tissue and disc stenosis of intervertebral foramina of lumbar region (principal); M51.26 Other intervertebral disc displacement, lumbar region; M46.96 Unspecified inflammatory spondylopathy, lumbar region; F17.200 Nicotine dependence, unspecified, uncomplicated; Z79.899 Other long term (current) drug therapy
CPT/HCPCS: 99211

== ENCOUNTER → 2018-01-18 | Outpatient (CLI) | payer OTHER ==
[2018-01-18 13:31] LABS: Partial Thromboplastin Time 22.9 sec (22.0-30.0); Prothrombin Time 9.8 sec (9.0-12.0)
[2018-01-18 21:44] LABS: ALT 50 U/L (10-49); AST 47 U/L (14-35); Alkaline Phosphatase 82 U/L (41-126); Bilirubin, Conjugated <0.20 mg/dL (0.20-0.40); Globulin 2.1 g/dL (2.1-3.7); Total Bilirubin 0.3 mg/dL (0.2-1.2); Total Protein 6.5 g/dL (6.2-8.2)
== END ==
LOC: LABWHC1 12:34
PROVIDERS: ATTEND Pain Medicine Pain Medicine
DX: D68.9 Coagulation defect, unspecified (principal)
CPT/HCPCS: 36415; 80076; 85610; 85730

== ENCOUNTER → 2018-01-26 | Outpatient (CLI) | payer OTHER ==
[2018-01-26 14:30] LABS: Basophils % (A) 0 %; Eosinophils # (A) 0.3 k/uL (0-0.7); Eosinophils % (A) 4 %; HCT 36.7 % (39.0-53.0); HGB 12.5 gm/dL (13.0-17.5); Lymphocytes # (A) 2.2 k/uL (1.0-4.8); Lymphocytes % (A) 28 %; MCH 34.1 pg (25.0-35.0); MCHC 34.2 g/dL (31.0-37.0); Mean Platelet Volume 6.5; Monocytes # (A) 0.6 k/uL (0-1.0); Monocytes % (A) 8 %; Neutrophils # (A) 4.3 k/uL (1.3-7.7); Neutrophils % (A) 56 %; Platelet Count 240 k/uL (150-450); RBC 3.67 m/uL (4.30-5.90); RDW 12.6 % (11.5-15.5); WBC 7.7 k/uL (3.8-10.6)
== END | disposition home or self-care (01) ==
LOC: LABWHC1 13:31
PROVIDERS: ATTEND Specialist
DX: D69.6 Thrombocytopenia, unspecified (principal)
CPT/HCPCS: 36415; 85025

== ENCOUNTER → 2018-02-03 | Day surgery (SDC) | payer OTHER ==
[2018-02-02 09:47] VITALS: BMI 28.8
[~2018-02-03] MED LIST changes: +IV FLUID CONTINUATION 800 ML IV ONE; +LACTATED RINGERS 1,000 ML IV ONE; -LACTATED RINGERS 1,000 ML IV SCH; +LIDOCAINE 1% 20 ML VIAL (10MG/ML) FOR IV START INTRADERMA ONE
[2018-02-03 07:50] VITALS: TEMP 97.8
--- NOTE | 2018-02-03 08:39 | P.PCN ---
Date of Procedure: 02/03/18 Preoperative Diagnosis: Lumbar radiculopathy Postoperative Diagnosis: Same Procedure(s) Performed: Lumbar epidural steroid injection at L5-S1 Anesthesia: MAC Description of Procedure: PREOPERATIVE DIAGNOSIS: 1-lumbar radiculopathy POSTOPERATIVE DIAGNOSIS: Lumbar radiculopathy PROCEDURE 1. Lumbar epidural steroid injection under fluoroscopic guidance at the L5-S1 level. 2. Lumbar epidurogram. ANESTHESIA: Local with 1% lidocaine 5 ml EBL: Minimal PROCEDURE INDICATION: The patient with low back pain and radiculitis symptoms unresponsive to conservative treatment. Fluoroscopy was used to optimize visualization of the needle placement and to maximize safety. PROCEDURE DESCRIPTION / TECHNIQUE: The patient was seen and identified in the preoperative area. Risks, benefits , complications including but not limited to infections ,bleeding ,allergic reaction to the medications ,nerve damage and incomplete pain relief , as well as alternatives to the procedure were discussed with the patient. The patient agreed to proceed with the procedure and signed the consent. IV was started, and vital signs were stable. Patient was taken to the OR and time out was completed. The patient was placed in the prone position on procedure table and a pillow was placed under the abdomen to reduce lumbar lordosis. The lumbosacral area was prepped and draped in the usual sterile fashion.ere closely monitored during the procedure. Conscious sedation was used during the procedure to decrease patients anxiety. Vital signs was monitered during the entire procedure. Using anterior-posterior fluoroscopy, the L L5-S1 interlaminar space was identified and the skin over this site was marked and then infiltrated with 1% lidocaine subcutaneously. Subsequently, a 20-gauge Tuohy epidural needle was inserted and advanced toward the epidural space using the ``Loss of resistance technique and guided by AP and lateral fluoroscopy. The correct needle position in the epidural space was verified with the injection of 1 mL of the water soluble contrast dye Omnipaque 180 contrast and observing an excellent epidurogram with the epidural spread of the dye, after negative aspiration for blood and CSF and in the absence of paresthesias. Again after negative aspiration, a 4 ml mixture containing 10 mg of Dexamethasone and 3 ml of preservative free Normal Saline was injected and a washout of epidurogram was seen. Needle was withdrawn intact, skin was cleansed, and bandages were applied. COMPLICATIONS: None DISPOSITION / PLANS: The patient was placed in a supine position and transferred to the recovery area in a stable condition for observation. There was no evidence of lower extremity motor or sensory deficit after the procedure. Patient was discharged from the recovery room after meeting discharge criteria. Home discharge instructions were given to the patient by the staff. The patient was reexamined prior to discharge. The patient will schedule a follow up in the clinic in 2-4 weeks.
[2018-02-03 09:05] VITALS: RESP 18
[2018-02-03 09:08] VITALS: BP 105/73; PULSE 87
--- NOTE | 2018-02-03 10:39 | FL ---
Fluoroscopy HISTORY: Pain 1 seconds fluoroscopy time supplied to the referring clinician. 1 intraoperative C-arm images docume nt the procedure. See dictated report from anesthesia.
== END | disposition home or self-care (01) ==
LOC: ORPAIN 07:21
PROVIDERS: ATTEND Hospitalist
DX: M54.16 Radiculopathy, lumbar region (principal); Z88.5 Allergy status to narcotic agent
CPT/HCPCS: 62323; J2250; J1100; J3010; Q9966

== ENCOUNTER → 2018-03-15 | Outpatient (CLI) | payer OTHER ==
[2018-03-15 12:38] VITALS: BP 131/82; PULSE 70; RESP 18
--- NOTE | 2018-03-15 21:31 | P.PN ---
Subjective Progress Note Date: 03/15/18 This is follow-up visit for this patient with a history of severe and chronic low back pain secondary to lumbar degenerative disc disease, lumbar spondylosis with facet arthropathy, We have done an interventional pain procedure lumbar epidural steroid injections and he got short-term benefits from it, and recently within the radiofrequency ablation of the medial branch lumbar area on the right side, he reported that his pain improved significantly and currently has no pain, and since the procedure he had minimal pain and currently is complaining of severe pain mainly on the left side of the low back area ,he uses Ultram 50 mg when necessary, he denies any side effect of the medication, he denies any motor or sensory deficit to denies any fever or night sweats he denies any change in bowel movement or urination. Physical Examinations : 1-Constitutiona : Cooperative , not in acute distress . 2-HEENT : nech ; supple , no Lymphadenopathy , normal thyroid size . eyes : no ptosis , no icterus, no photophobia . ENT : normal of hearing , normal oropharynx , no Thrush . 3- Respiratory : Chest clear to auscultations Bilaterally , no wheezing , no Rhonchi . 4- Cardiovascular : regular rate and rhythem , S1 , S2 , no S3 , no S4. 5- Gastrointestinal : abdomen soft no tenderness , bowel sounds , no organomegally . 6- Genitourinary : Defferred . 7- neurologic : Cranial nerve II to XII intact , no focal neurological deffecit . 8-psychatric : alert , oriented X 3 , appropriate affect , intact judgment and insight . 9-Lymphatic : no Lymphadenopathy . 10- musculoskeltal : Lumber spine moter stegnth lower extremities , thigh and legs 5/5 Right side , 5/5 Left side deep tendon reflexes : normal Knee Jerk , normal ankle Jerk positive lumber facet Loading Test on the left side Range of motion of the lumbar spine decreased strait leg raising test negative bilaterally Fabere test negative bilaterally Sever tenderness over the Sacroiliac joint on the Left sides Assessment and plan= chronic low back pain secondary to lumbar degenerative disc disease , lumbar spondylosis with lumbar facet arthropathy . Patient had good results after the radiofrequency ablation of the medial branch on the right side, he had good response to the diagnostic medial branch block Patient will be good candidate to have radiofrequency ablation of the medial branch on the left side at L3/L4 5/L5-S1 PQRS Measure Charge Sheet Measure #130: Documentation of Current Meds in Medical Chart: Patient's medications documented in chart Measure #226: Tobacco Use: Screen & Cessation Intervention: Pt screened for tobacco use AND intervention given Measure #111: Pneumonia Vaccination: Pneumococcal vaccine NOT administered or previously given Measure #47: Advance Care Plan: Advance care planning discussed & documented, pt chose/unable to give Measure #412: Opioid Treatment Agreement: No documentation of signed opioid treatment agreement Measure #408: Opioid Therapy Follow-up Evaluation: Patient had NO f/u eval minimum every 3 months during opioid therapy Measure #317: Preventitive Care & Scrn High Bld Press & F/U: Normal blood pressure, f/u not required Measure #128: Body Mass Index (BMI) Screening & Follow-up: BMI documented ABOVE normal parameters - f/u documented Measure #131: Pain Assessment & Follow-up: Pain negative & plan not documented Measure #431: Unhealthy Alcohol Use Preventative Care & Scrn: Patient not identified as an unhealthy alcohol user PQRS Narrative: - Controlled Substance Measures Is patient prescribed a controlled substance at discharge?: No When asked, does pt state using other controlled substances?: No If prescribed controlled substance>3 days was MAPS reviewed?: No If Rx opioid, was Start Talking consent form obtained?: No If opioid is for acute pain is fill amount 7 days or less?: No Was information provided regarding opioid addiction?: No Objective - Vital Signs Vital signs: Vital Signs Temp Pulse 70 03/15/18 12:31 Resp 18 03/15/18 12:31 BP 131/82 03/15/18 12:31 Pulse Ox 96 03/15/18 12:31 Intake & Output 03/15/18 03/15/18 03/16/18 06:59 18:59 06:59 Weight 86.183 kg
== END | disposition home or self-care (01) ==
LOC: PNWHC3 12:15
PROVIDERS: ATTEND Specialist
DX: G89.29 Other chronic pain (principal); M54.5 Low back pain; M51.36 Other intervertebral disc degeneration, lumbar region; M47.816 Spondylosis without myelopathy or radiculopathy, lumbar region; M46.86 Other specified inflammatory spondylopathies, lumbar region; Z79.891 Long term (current) use of opiate analgesic
CPT/HCPCS: 99211

== ENCOUNTER 2018-03-29 08:11 | Day surgery (SDC) | payer OTHER ==
[2018-03-28 12:13] VITALS: BMI 28.8
[~2018-03-29 08:11] MED LIST changes: -IV FLUID CONTINUATION 800 ML IV ONE; -LACTATED RINGERS 1,000 ML IV ONE; -LIDOCAINE 1% 20 ML VIAL (10MG/ML) FOR IV START INTRADERMA ONE; +SODIUM CHLORIDE 0.9% 500 ML 500 ML IV SCH
[2018-03-29 09:04] VITALS: RESP 16; TEMP 97.4
[2018-03-29] MEDS ORDERED: LIDOCAINE 1% 20 ML VIAL (10MG/ML) FOR IV START INTRADERMA ONE (09:07)
[2018-03-29] MEDS ORDERED: LACTATED RINGERS 1,000 ML IV ONE (09:07)
[2018-03-29] MEDS: IV FLUID CONTINUATION 1,000 ML IV ONE ×2 (09:09→10:16)
--- NOTE | 2018-03-29 10:06 | P.PCN ---
Date of Procedure: 03/29/18 Surgeon: Mi Younger Pathology: none sent Condition: stable Disposition: PACU Description of Procedure: PREOPERATIVE DIAGNOSIS: Lumbar spondylosis without myelopathy, morbid obesity POSTOPERATIVE DIAGNOSIS: Lumbar spondylosis without myelopathy,morbid obesity PROCEDURES : Left Radiofrequency thermocoagulation L3-L4, L4-L5, and L5-S1 medial branch, with fluoroscopic guidance ANESTHESIA: IV moderate conscious sedation with versed and fentanyl and local infiltration with lidocaine 1% 5 ml EBL: Minimal PROCEDURE INDICATION: The patient with low back pain secondary to lumbar facet arthropathy who had more than 50% relief of her pain with previous diagnostic lumbar medial branch block with bupivacaine. PROCEDURE DESCRIPTION / TECHNIQUE: The patient was seen and identified in the preoperative area. Risks, benefits, complications, including but not limited to risk of infection ,bleeding , allergic reactions to the medications and no complete pain relief , and alternatives were discussed with the patient, the patient agreed to proceed with the procedure and signed the consent. IV was started. Vital signs remained stable throughout the procedure. Patient was taken to the OR and time out was completed. The patient was placed in the prone position on the procedure table. The lumber area was prepped and draped in the usual sterile fashion. . Vital signs were closely monitored during the procedure .IV sedation was used during the procedure to decrease patients anxiety. The target points were identified as follows: For the L5-S1 level which corresponds to the dorsal ramus of L5 the target point was at the superior medial aspect of the sacral ala on the Left side of the spine on the AP view of fluoroscopy and for the L2, L3, and L4 medial branches the target points were at the connection between the transverse process and the superior articular process of L3, L4, and L5 vertebra respectively on the Left oblique view of fluoroscopy. skin was marked, and localized with 1% lidocaineat these points. Subsequently, an 18 [id number] radiofrequency needles with a 10-mm curved active tips were advanced guided by fluoroscopy to each of the target points mentioned above in a superior medial direction to get the active tips as parallel as possible to the medial branches tracks. AP, oblique, and lateral views of fluoroscopy were used to verify needle tips position. Each level then underwent motor testing at 2.5 Hz and 0 to 3 volt with local stimulation, but no radicular symptoms down the legs. Thereafter radiofrequency thermocoagulation at 80 degrees celsius for 90 seconds after injecting 1 ml of PF Marcaine 0.5%(3 mls) with 40 mg of Kenalog. At the end of the procedure, the skin was cleansed and bandages were applied. COMPLICATIONS: No acute complications. DISPOSITION / PLANS: The patient was placed in a supine position and transferred to the recovery area in a stable condition for observation and was discharged from the recovery room after meeting discharge criteria. Home discharge instructions given to the patient by the staff. The patient was reexamined prior to discharge. The patient will schedule a follow up in the clinic in 2-4 weeks.
--- NOTE | 2018-03-29 10:20 | FL ---
EXAMINATION TYPE: FL guided pain mgmt statistic DATE OF EXAM: 03/29/2018 HISTORY: Flouroscopy time 10 seconds of fluoroscopy provided. IMPRESSION: 1. Fluoroscopy time.
[2018-03-29 10:36] VITALS: BP 128/77; PULSE 66
== END 2018-03-29 10:50 | disposition home or self-care (01) ==
LOC: ORPAIN 08:11
PROVIDERS: ATTEND Anesthesiology
DX: M47.816 Spondylosis without myelopathy or radiculopathy, lumbar region (principal); I10 Essential (primary) hypertension; E66.01 Morbid (severe) obesity due to excess calories; Z68.28 Body mass index [BMI] 28.0-28.9, adult
CPT/HCPCS: 64635; 64636 ×2; J2250; J3301; J3010; 99152; 99153

== ENCOUNTER → 2018-05-03 | Outpatient (CLI) | payer OTHER ==
[2018-05-03 11:48] VITALS: RESP 16
[2018-05-03 11:54] VITALS: BP 114/81; PULSE 80; TEMP 97.9
--- NOTE | 2018-05-04 09:42 | P.PAINPG ---
Subjective Progress Note Date: 05/03/18 This is a follow-up visit for this 58 years old male with a chronic history of severe low back pain patient diagnosed with lumbar degenerative disc disease and lumbar spondylosis, recently we did radiofrequency ablation of the medial branch lumbar area on the left side at L3 4 L4 5 and L5-S1, and in September 2017 we did radiofrequency ablation of the medial branch lumbar area on the right side, patient reported that his low back pain improved but currently is complaining of severe numbness and tingling sensation in the lower extremity bilaterally, the numbness this constant and increases with any activity, he denies any fever or night sweats. Patient currently on Tylenol 3 and Motrin 3 times a day when necessary and Cymbalta 60 mg daily, he denies any side effect of the medication, and he is getting prescription refills from his primary care. Objective - Vital Signs Vital signs: Vital Signs Temp 97.9 F 05/03/18 11:48 Pulse 80 05/03/18 11:48 Resp 16 05/03/18 11:48 BP 114/81 05/03/18 11:48 Pulse Ox 99 05/03/18 11:48 Intake & Output 05/03/18 05/04/18 05/04/18 18:59 06:59 18:59 Weight 80 kg - Exam Physical Examinations : -Constitutiona : Cooperative , not in acute distress . -HEENT : nech ; supple , no Lymphadenopathy , normal thyroid size . eyes : no ptosis , no icterus, no photophobia . ENT : normal of hearing , normal oropharynx , no Thrush . - Respiratory : Chest clear to auscultations Bilaterally , no wheezing , no Rhonchi . - Cardiovascula : regular rate and rhythem , S1 , S2 , no S3 , no S4. - Gastrointestina : abdomen soft no tenderness , bowel sounds , no organomegally . - Genitourinary : Defferred . - neurologic : Cranial nerve II to XII intact , no focal neurological deffecit . -psychatric : alert , oriented X 3 , appropriate affect , intact judgment and insight . -Lymphatic : no Lymphadenopathy . - musculoskeltal : Lumber spine moter stegnth lower extremities ,thigh and legs 5/5 Right side , 5/5 Left side deep tendon reflexes : normal Knee Jerk , normal ankle Jerk positive lumber facet Loading Test Range of motion of the lumbar spine Flexion 30 degrees, extension 10 degrees strait leg raising test , positive at degree Fabere test positive RT and positive LT . Sever tenderness over the Sacroiliac joint on the R and L sides Gaenslen test positive bilaterally. Seated flexion test positive bilaterally. Assessment and Plan Plan: Assessment and plan= lumbar radiculopathy, lumbar spondylosis with lumbar facet arthropathy. Patient continue to have low back pain and numbness in the lower extremity bilaterally after the radiofrequency ablation of the medial branch. He could benefit from lumbar epidural steroid injections under fluoroscopy guidance at L5-S1. Patient could benefit from Neurontin 100 mg 3 times a day and can be increased gradually to 300 mg 3 times a day, (should have contract with Dr. Gibbons his primary care, currently Neurontin consider controlled substance) Vi Time with Patient: Less than 30 PQRS Measure Charge Sheet Measure #130: Documentation of Current Meds in Medical Chart: Patient's medications documented in chart Measure #226: Tobacco Use: Screen & Cessation Intervention: Pt screened for tobacco use AND intervention given Measure #111: Pneumonia Vaccination: Pneumococcal vaccine NOT administered or previously given Measure #47: Advance Care Plan: Advance care planning discussed & documented, pt chose/unable to give Measure #412: Opioid Treatment Agreement: No documentation of signed opioid treatment agreement Measure #408: Opioid Therapy Follow-up Evaluation: Patient had NO f/u eval minimum every 3 months during opioid therapy Measure #317: Preventitive Care & Scrn High Bld Press & F/U: Normal blood pressure, f/u not required Measure #128: Body Mass Index (BMI) Screening & Follow-up: BMI documented ABOVE normal parameters - f/u documented Measure #131: Pain Assessment & Follow-up: Pain positive & plan documented, Follow-up scheduled Measure #431: Unhealthy Alcohol Use Preventative Care & Scrn: Patient not identified as an unhealthy alcohol user PQRS Narrative: Smoking Status Current every day smoker Do You Want the Pneumonia No Vaccine AT THIS TIME? Blood Pressure 114/81 Pain Intensity [Bilateral 7 Lower Back] Scale Used Numeric (1 - 10) Hx Alcohol Use (MH) Yes: 2 beers/liquor daily Home Medications: Ambulatory Orders Atenolol [Tenormin] 100 mg PO DAILY 12/14/16 Atorvastatin [Lipitor] 20 mg PO DAILY 12/14/16 Butalbital/Aspirin/Caffeine [Ecxfdpzhqi-KVA-Mnbcpowd Cap 50-325-40] 1 cap PO DIRECTED PRN 12/14/16 Chlorthalidone 25 mg PO DAILY 12/14/16 DULoxetine HCL [Cymbalta] 60 mg PO DAILY 12/14/16 Losartan Potassium 100 mg PO DAILY 12/14/16 SUMAtriptan SUCCINATE [Imitrex] 100 mg PO DAILY PRN 12/14/16 Tamsulosin [Flomax] 0.4 mg PO DAILY 12/14/16 Ibuprofen 800 mg PO QAM PRN 02/02/18 Acetaminophen-Codeine 300-30mg [Tylenol w/codeine #3] 1 tab PO DAILY PRN Controlled Substance Measures - Controlled Substance Measures Is patient prescribed a controlled substance at discharge?: No
== END ==
LOC: PNWHC3 11:30
PROVIDERS: ATTEND Specialist
DX: G89.29 Other chronic pain (principal); M47.26 Other spondylosis with radiculopathy, lumbar region; M46.96 Unspecified inflammatory spondylopathy, lumbar region; F17.200 Nicotine dependence, unspecified, uncomplicated; Z79.899 Other long term (current) drug therapy; Z79.82 Long term (current) use of aspirin; Z79.1 Long term (current) use of non-steroidal anti-inflammatories (NSAID)
CPT/HCPCS: 99211

== ENCOUNTER 2018-05-17 06:09 | Day surgery (SDC) | payer OTHER ==
[2018-05-16 08:46] VITALS: BMI 30.4
[2018-05-17 06:50] VITALS: RESP 16; TEMP 98
[2018-05-17] MEDS ORDERED: LIDOCAINE 1% 20 ML VIAL (10MG/ML) FOR IV START INTRADERMA ONE (06:58)
[2018-05-17] MEDS ORDERED: LACTATED RINGERS 1,000 ML IV ONE (06:58)
[2018-05-17] MEDS ORDERED: SODIUM CHLORIDE 0.9% 500 ML 500 ML IV SCH (07:00)
[2018-05-17 07:27] VITALS: BP 156/118; PULSE 107
== END 2018-05-17 07:42 | disposition home or self-care (01) ==
LOC: ORPAIN 06:09
PROVIDERS: ATTEND Pain Medicine Pain Medicine
DX: M51.06 Intervertebral disc disorders with myelopathy, lumbar region (principal); Z53.9 Procedure and treatment not carried out, unspecified reason; Z88.5 Allergy status to narcotic agent

== ENCOUNTER 2018-05-24 09:38 | Day surgery (SDC) | payer OTHER ==
[2018-05-18 16:23] VITALS: BMI 29.2
[2018-05-24 10:10] VITALS: RESP 18; TEMP 97.6
[2018-05-24] MEDS ORDERED: LIDOCAINE 1% 20 ML VIAL (10MG/ML) FOR IV START INTRADERMA ONE (10:13)
[2018-05-24] MEDS ORDERED: LACTATED RINGERS 1,000 ML IV ONE (10:13)
--- NOTE | 2018-05-24 11:16 | P.PCN ---
Date of Procedure: 05/24/18 Procedure(s) Performed: PREOPERATIVE DIAGNOSIS: 1- Lumbar radiculopathy 2-Lumbar spondylosis with Facet arthropathy without myelopathy POSTOPERATIVE DIAGNOSIS: 1-Lumber radiculopathy 2-Lumbar spondylosis with Facet arthropathy without myelopathy PROCEDURE 1. Lumbar epidural steroid injection under fluoroscopic guidance at the L5-S1 level. 2. Lumbar epidurogram. ANESTHESIA: Local with 1% lidocaine 3 ml and , moderate sedation with intravenous Versed 2 mg ,and fentanyle 50 Mcg EBL: Minimal PROCEDURE INDICATION: The patient with low back pain and radiculitis symptoms unresponsive to conservative treatment. Fluoroscopy was used to optimize visualization of the needle placement and to maximize safety. PROCEDURE DESCRIPTION / TECHNIQUE: The patient was seen and identified in the preoperative area. Risks, benefits, complications including but not limited to infections ,bleeding ,allergic reaction to the medications ,nerve damage and not complete pain releife , and alternatives were discussed with the patient. The patient agreed to proceed with the procedure and signed the consent. IV was started, and vital signs were stable. Patient was taken to the OR and time out was completed. The patient was placed in the prone position on procedure table and a pillow was placed under the abdomen to reduce lumbar lordosis. The lumbosacral area was prepped and draped in the usual sterile fashion.ere closely monitored during the procedure. Conscious sedation was used during the procedure to decrease patients anxiety. Vital signs was monitered during the entire procedure. Using anterior-posterior fluoroscopy, the L5-S1 interlaminar space was identifi ed and the skin over this site was marked and then infiltrated with 1% lidocaine subcutaneously. Subsequently, a 20-gauge Tuohy epidural needle was inserted and advanced toward the epidural space using the ``Loss of resistance technique and guided by AP and lateral fluoroscopy. The correct needle position in the epidural space was verified with the injection of 2 mL of the water soluble contrast dye Isovue 200 contrast and observing an excellent epidurogram with the epidural spread of the dye, after negative aspiration for blood and CSF and in the absence of paresthesias. Again after negative aspiration, a 6 ml mixture containing 80 mg of Depo-medrol , and 2 ml of preservative free Normal Saline, and 2 ml of preservative free lidocaine 1% solution was injected and a washout of epidurogram was seen. Needle was withdrawn intact, skin was cleansed, and bandages were applied. COMPLICATIONS: None DISPOSITION / PLANS: The patient was placed in a supine position and transferred to the recovery area in a stable condition for observation. There was no evidence of lower extremity motor or sensory deficit after the procedure. Patient was discharged from the recovery room after meeting discharge criteria. Home discharge instructions were given to the patient by the staff. The patient was reexamined prior to discharge. The patient will schedule a follow up in the clinic in 2-4 weeks.
[2018-05-24] MEDS ORDERED: IV FLUID CONTINUATION 1,000 ML IV ONE (11:22)
[2018-05-24 11:25] VITALS: PULSE 57
[2018-05-24 11:38] VITALS: BP 113/74
--- NOTE | 2018-05-24 11:38 | FL ---
EXAMINATION TYPE: FL guided pain mgmt statistic DATE OF EXAM: 05/24/2018 HISTORY: Flouroscopy time 1 seconds of fluoroscopy provided. IMPRESSION: 1. Fluoroscopy time.
== END 2018-05-24 11:52 | disposition home or self-care (01) ==
LOC: ORPAIN 09:38
PROVIDERS: ATTEND Specialist
DX: M47.26 Other spondylosis with radiculopathy, lumbar region (principal); M51.16 Intervertebral disc disorders with radiculopathy, lumbar region; I10 Essential (primary) hypertension; Z88.5 Allergy status to narcotic agent
CPT/HCPCS: 62323; J2250; J1030; J3010; Q9966

== ENCOUNTER → 2018-06-09 | Outpatient (CLI) | payer OTHER ==
[2018-06-09 13:38] VITALS: BP 122/90; RESP 16
--- NOTE | 2018-06-09 14:25 | P.PN ---
Subjective Progress Note Date: 06/09/18 This is follow-up visit for this patient with a history of severe and chronic low back pain secondary to lumbar degenerative disc diseases , lumbar spondylosis with facet arthropathy, We have done interventional pain procedures lumbar epidural steroid injections, and radiofrequency ablation of the medial branch lumbar area Patient's report that he had no benefits from the interventional pain procedures, he continued to have severe low back pain with radiation to the lower extremity associated with numbness and tingling sensation Patients currently on Neurontin 300 mg 3 times a day Motrin 600 mg every 8 hours, Tylenol 3 when necessary Patient denies any side effects of the medication, denies excessive drowsiness or sleepiness, denies suicidal ideation, and reports that the current pain medication is helping to control the pain and improve activity of daily living is getting prescription refills from his primary care Patient denies any motor or sensory deficit , patient denies any fever or night sweats, denies any change in the bowel movements or urination Physical Examinations : -Constitutional : Cooperative , not in acute distress . -HEENT : nech ; supple , no Lymphadenopathy , no Thyromegaly , normal thyroid size . eyes : no ptosis , no icterus, no photophobia . ENT : normal of hearing , normal oropharynx , no Thrush . - Respiratory : Chest clear to auscultations Bilaterally , no wheezing , no Rhonchi . - Cardiovascular : regular rate and rhythem , S1 , S2 , no S3 , no S4. - Gastrointestinal : abdomen soft no tenderness , bowel sounds positive all four quadrents , no organomegally . - Genitourinary : Defferred . - neurologic: Cranial nerve II to XII intact , no focal neurological deffecit . - Psychatric: alert , oriented X 3 , appropriate affect , intact judgment and insight . - Lymphatic : no Lymphadenopathy . - Musculoskeltal : exams of the cervical spine = motor strength normal bilateral upper extremities facet loading test cervical area positive. exams of the Lumber spine =motor strength lower extremities ,thigh and legs .5/5 deep tendon reflexes : normal Knee Jerk , normal ankle Jerk . lumber facet Loading Test positive strait leg raising test positive at 30 degree , RT ,LT , Fabere test positive RT and positive LT . Range of motion: Range of motion in flexion of the lumbar spine 30 degrees Range of motion range of motion of extension of the lumbar spine 10 Assessment and plan = Lumbar radiculopathy , lumbar degenerative disc disease , lumbar spondylosis with facet arthropathy without myelopathy Patient had no benefit from interventional pain procedures, lumbar epidural steroid injections, and had no benefit from radiofrequency ablation of the medial branch We'll order MRI of the lumbar spine to evaluate if there is any new trauma causing his persistent symptoms , and possibly patient will be referred for surgical evaluation Patient reported that he already done physical therapy without any benefit, and he presented to physical therapy increased his pain Objective - Vital Signs Vital signs: Vital Signs Temp Pulse Resp 16 06/09/18 13:30 BP 122/90 06/09/18 13:30 Pulse Ox 95 06/09/18 13:30 Intake & Output 06/08/18 06/09/18 06/09/18 18:59 06:59 18:59 Weight 86.183 kg
== END ==
LOC: PNWHC3 12:46
PROVIDERS: ATTEND Specialist
DX: M51.16 Intervertebral disc disorders with radiculopathy, lumbar region (principal); M47.26 Other spondylosis with radiculopathy, lumbar region; M46.96 Unspecified inflammatory spondylopathy, lumbar region
CPT/HCPCS: 99211

== ENCOUNTER → 2018-06-23 | Outpatient (CLI) | payer OTHER ==
--- NOTE | 2018-06-23 19:02 | MR ---
EXAMINATION TYPE: MR lumbar spine wo con DATE OF EXAM: 06/23/2018 COMPARISON: 11/04/2016 HISTORY: 58-year-old male Low back pain TECHNIQUE: Multiplanar, multisequence images of the lumbar spine were acquired. FINDINGS: Vertebral body heights are preserved. Facet arthropathy lower lumbar spine with grade 1 anterolisthesis at L5-S1. Mild multilevel degenerative disc disease with variable disc desiccation and disc bulging. More moder ate degenerative change at L5-S1 with disc vacuum and diffuse disc bulging. Conus medullaris is normal. Mild heterogeneous marrow signal without suspicious bone marrow placement. There is fatty Modic type II endplate change at L5-S1 with slight associated Modic type I changes well. No prevertebral or paravertebral soft tissue abnormality. There is epidural lipomatosis demonstrated from L3-L4 levels extending inferiorly. By the L5 level, t here is trefoil configuration to the thecal sac, unchanged from prior. However, the degree of epidura l lipomatosis has progressed up to the L3 level. At T12-L1, no spinal canal or foraminal stenosis. At L1-L2, the spinal canal or foraminal stenosis. At L2-L3, prominent dorsal epidural fat and ligamentum flavum thickening. There is mild attenuation o f the thecal sac without significant spinal canal or foraminal stenosis. At L3-L4, there is bulging disc with ligamentum flavum thickening and facet are uropathy. Prominent d orsal epidural fat. There is overall mild to moderate attenuation of the thecal sac, increased from p rior. Mild bilateral inferior foraminal narrowing. At L4, there is progressive ventral epidural fat now causing moderate to severe thecal sac compressio n with loss of CSF signal. At L4-L5, there is diffuse disc bulge with facet arthropathy and ligamentum flavum thickening. There is epidural lipomatosis with now moderate to severe thecal sac compression. Some areas show loss of C SF signal. There is mild bilateral neural foraminal stenosis. At L5, after for configuration to the thecal sac is demonstrated. At L5-S1, disc bulge with facet arthropathy, ligamentum flavum thickening, and epidural lipomatosis a long with grade 1 anterolisthesis. Changes result in severe bilateral neural foraminal stenosis stabl e to slightly progressed from prior. Trefoil configuration to the thecal sac is unchanged. IMPRESSION: 1. Mild multilevel degenerative disc disease, more moderate at L5-S1 with associated Modic type II an d some Modic type II endplate change, all relatively similar. 2. Facet arthropathy and ligamentum flavum thickening is also relatively similar. Trace grade 1 anter olisthesis at L5-S1 unchanged. 3. However, there has been progression in epidural lipomatosis from L3 down. The previous epidural li pomatosis at L5 down continues to show trefoil configuration to the thecal sac secondary to circumfer ential compression. The trefoil configuration now extends to just below L4-L5 where there is moderate to severe thecal sac compression. Additional moderate to severe thecal sac compression opposite L4. Overall mild to moderate thecal sac compression at L3-L4 due to increased epidural lipomatosis. 4. Stable to slightly progressed severe bilateral neuroforaminal stenosis at L5-S1.
== END | disposition home or self-care (01) ==
LOC: RADMRIMAIN 11:43
PROVIDERS: ATTEND Specialist
DX: M48.07 Spinal stenosis, lumbosacral region (principal); M51.17 Intervertebral disc disorders with radiculopathy, lumbosacral region; M46.97 Unspecified inflammatory spondylopathy, lumbosacral region; M24.28 Disorder of ligament, vertebrae; G95.29 Other cord compression
CPT/HCPCS: 72148

== ENCOUNTER → 2018-06-29 | Outpatient (CLI) | payer OTHER ==
[2018-06-29 14:52] VITALS: BP 151/100; PULSE 74; RESP 16; TEMP 98.2
--- NOTE | 2018-06-29 21:10 | P.PN ---
Progress Note - Text Progress Note Date: 06/29/18 This is follow-up visit for this patient with a history of severe and chronic low back pain secondary to lumbar degenerative disc diseases , lumbar spondylosis with facet arthropathy, We have done interventional pain procedures lumbar epidural steroid injections, and radiofrequency ablation of the medial branch lumbar area Patient's report that he had no benefits from the interventional pain procedures, he continued to have severe low back pain with radiation to the lower extremity associated with numbness and tingling sensation Patients currently on Neurontin 300 mg 3 times a day Motrin 800 mg every 8 hours, Tylenol 3 when necessary Patient denies any side effects of the medication, denies excessive drowsiness or sleepiness, denies suicidal ideation, and reports that the current pain medication is helping to control the pain and improve activity of daily living is getting prescription refills from his primary care Patient denies any motor or sensory deficit , patient denies any fever or night sweats, denies any change in the bowel movements or urination, patient had a new MRI done a few days ago, at each patient had multilevel lumbar degenerative disc disease, and he had epidural lipomatosis, and multilevel lumbar facet arthropathy, patient will be referred to orthopedic spine surgeon for evaluation for possible surgical intervention, patient referred to Dr. Peace
== END ==
LOC: PNWHC3 13:49
PROVIDERS: ATTEND Specialist
DX: G89.29 Other chronic pain (principal); M51.36 Other intervertebral disc degeneration, lumbar region; M47.816 Spondylosis without myelopathy or radiculopathy, lumbar region; M46.96 Unspecified inflammatory spondylopathy, lumbar region; Z79.899 Other long term (current) drug therapy; Z79.1 Long term (current) use of non-steroidal anti-inflammatories (NSAID)
CPT/HCPCS: 99211

== ENCOUNTER → 2018-08-03 | Outpatient (CLI) | payer OTHER ==
[2018-08-03 11:00] LABS: Basophils % (A) 0 %; Eosinophils # (A) 0.2 k/uL (0-0.7); Eosinophils % (A) 3 %; HCT 36.3 % (39.0-53.0); HGB 11.8 gm/dL (13.0-17.5); Lymphocytes # (A) 1.6 k/uL (1.0-4.8); Lymphocytes % (A) 17 %; MCHC 32.5 g/dL (31.0-37.0); MCV 98.5 fL (80.0-100.0); Mean Platelet Volume 6.7; Monocytes # (A) 0.8 k/uL (0-1.0); Monocytes % (A) 8 %; Neutrophils # (A) 6.6 k/uL (1.3-7.7); Neutrophils % (A) 69 %; Platelet Count 304 k/uL (150-450); RBC 3.68 m/uL (4.30-5.90); RDW 13.8 % (11.5-15.5); WBC 9.5 k/uL (3.8-10.6)
[2018-08-03 11:01] LABS: Calcium 9.8 mg/dL (8.4-10.2); Potassium 5.2 mmol/L (3.5-5.1)
[2018-08-03 11:03] LABS: INR 0.9 (<1.2); Partial Thromboplastin Time 24.8 sec (22.0-30.0); Prothrombin Time 9.9 sec (9.0-12.0)
--- NOTE | 2018-08-03 13:55 | XR ---
EXAMINATION TYPE: XR chest 2V DATE OF EXAM: 08/03/2018 COMPARISON: CT chest 08/14/2016 HISTORY: Presurgical testing TECHNIQUE: Frontal and lateral views of the chest are obtained. FINDINGS: There is blunting the right costophrenic angle. Hyperinflation with flattening the hemidia phragms is noted. There is no evident pneumothorax. Aorta is dense. Heart is normal in size. IMPRESSION: Difficult to exclude small effusion on the right although sometimes blunting of the cost ophrenic angles be seen with hyperinflation. Correlate for COPD.
== END ==
LOC: LABPAT 09:17
PROVIDERS: ATTEND Orthopaedic Surgery Orthopaedic Surgery of the Spine
DX: Z01.818 Encounter for other preprocedural examination (principal); Z01.812 Encounter for preprocedural laboratory examination; R91.8 Other nonspecific abnormal finding of lung field; M48.061 Spinal stenosis, lumbar region without neurogenic claudication
CPT/HCPCS: 36415; 71046; 80048; 85025; 85610; 85730; 87070

== ENCOUNTER → 2018-08-10 | Day surgery (SDC) | payer OTHER ==
[~2018-08-10] MED LIST changes: +BACITRACIN 50,000 UNIT, POLYMYXIN B 500,000 UNIT in SODIUM CHLORIDE 0.9% IRRIGATIO 1,00... IRRIGATION ONE; +GLYCOPYRROLATE 0.2 MG/ML 2 ML VIAL ONE; +LACTATED RINGERS 1,000 ML IV SCH; +LIDOCAINE 1% 20 ML VIAL (10MG/ML) FOR IV START INTRADERMA PRN; +MIDAZOLAM 2 MG/2 ML VIAL ONE; +NEOSTIGMINE 1 MG/ML 10 ML VIAL ONE; +ONDANSETRON 4 MG/2 ML VIAL IVP ONE; +PHENYLEPHRINE-0.9% NACL SYG 1 MG/10 ML SYRINGE ONE; +PROPOFOL 10 MG/ML 20 ML VIAL IV ONE; +ROCURONIUM BROMIDE 10 MG/ML 10 ML VIAL IV ONE; -SODIUM CHLORIDE 0.9% 500 ML 500 ML IV SCH; +SUCCINYLCHOLINE CHLORIDE 100 MG/5 ML SYR IV ONE; +ceFAZolin IN SWFI 2 GM/20 ML SYRINGE IVP ONE; +ePHEDrine SULFATE/0.9% NACL/PF 50 MG/5 ML SYRINGE IV ONE; +fentaNYL (PF) 50 MCG/ML 2 ML AMP IV PRN
--- NOTE | 2018-08-10 10:58 | P.DS ---
Providers Date of admission: 08/10/18 07:50 Attending physician: Elin Peace Primary care physician: [facility] [place] Course: Patient is a 58-year-old male who presented today to the hospital for surgery for his lumbar spine with our service. He has a long history of issues with his lumbar spine and was found have severe disc degeneration with stenosis correlate well with his lower extremity radiculopathy. He was scheduled for decompression and fusion at L5-S1 with the orthopedic spine service. He had undergone preoperative medical evaluation and clearance prior to his presentation. The patient was seen and examined in the preoperative holding area with our service as well as with anesthesia. We answered his questions appropriately and the surgical site was marked. He is not having chest pain shortness of breath. He is not having lightheadedness or dizziness. He had signed his informed consent for surgical intervention for minimally invasive decompression fusion and all L5-S1 as planned. The patient was brought to the operating room by anesthesia staff and anesthesiologist. Once he is in the room he was on his stretcher he was sedated and intubated by anesthesia in standard fashion. However as he was intubated his blood pressure dropped to the 60s over 30s. His airway and C-spine were stable and they continue to monitor his blood pressure closely and provide treatment with medication to support his blood pressure. He was somewhat slow to respond and did come up into the 70s over 50s. He continues to be monitored closely and have continued medical treatment for his blood pressure support which had little response remained 70s over 50s. The patient was not having cardiac-monitoring changes but his blood pressure was minimally responsive beyond this. Due to his hypotension and the nature of the procedure with him in a prone position with several hours of surgical intervention we felt that it would be safest for him to forego his elective surgery today. It was decided that the patient should be woken up and have further evaluation with cardiology to further monitor and treat his blood pressure issues or closely before proceeding with surgical intervention. I discussed with anesthesiology at length. I discussed this with his as well and she understands. The patient has been woken up by anesthesia and will go through postanesthesia recovery area where he'll be able to be discharged when stable from postanesthesia recovery for further workup and follow up and potential rescheduling at a later date. Patient Condition at Discharge: Fair Plan - Discharge Summary Discharge Rx Participant: No New Discharge Prescriptions: No Action Butalbital/Aspirin/Caffeine [Mfklgirhvn-VPD-Idqlaomg Cap 50-325-40] 1 cap PO DIRECTED PRN PRN Reason: Migraine Headache SUMAtriptan SUCCINATE [Imitrex] 100 mg PO DAILY PRN PRN Reason: Migraine Headache Losartan Potassium 100 mg PO QAM Atorvastatin [Lipitor] 20 mg PO HS@1100 Chlorthalidone 25 mg PO QAM Tamsulosin [Flomax] 0.4 mg PO DAILY DULoxetine HCL [Cymbalta] 60 mg PO DAILY Atenolol [Tenormin] 100 mg PO HS@1100 Ibuprofen 800 mg PO QAM PRN PRN Reason: Pain Gabapentin [Neurontin] 300 mg PO HS Vitamin B Complex 1 cap PO DAILY Discharge Medication List Atenolol [Tenormin] 100 mg PO HS@1100 12/14/16 [History] Atorvastatin [Lipitor] 20 mg PO HS@1100 12/14/16 [History] Butalbital/Aspirin/Caffeine [Ymnrhpdldg-AWD-Ttpqjmom Cap 50-325-40] 1 cap PO DIRECTED PRN 12/14/16 [History] Chlorthalidone 25 mg PO QAM 12/14/16 [History] DULoxetine HCL [Cymbalta] 60 mg PO DAILY 12/14/16 [History] Losartan Potassium 100 mg PO QAM 12/14/16 [History] SUMAtriptan SUCCINATE [Imitrex] 100 mg PO DAILY PRN 12/14/16 [History] Tamsulosin [Flomax] 0.4 mg PO DAILY 12/14/16 [History] Ibuprofen 800 mg PO QAM PRN 02/02/18 [History] Gabapentin [Neurontin] 300 mg PO HS 05/16/18 [History] Vitamin B Complex 1 cap PO DAILY 08/04/18 [History] Follow up Appointment(s)/Referral(s): Elin Peace DO [Doctor of Osteopathic Medicine] - 1 Week Discharge Disposition: HOME SELF-CARE
[2018-08-10 11:24] VITALS: TEMP 97.5
[2018-08-10 12:12] VITALS: BP 128/80; PULSE 65; RESP 16
== END ==
LOC: 2ORMAIN 07:50 → OR 07:50 → UNDOADMIN 07:50 → EDSTATUS 11:30 → UNDODISIN 12:37
PROVIDERS: ATTEND Orthopaedic Surgery Orthopaedic Surgery of the Spine
DX: M51.16 Intervertebral disc disorders with radiculopathy, lumbar region (principal); M48.061 Spinal stenosis, lumbar region without neurogenic claudication; M43.16 Spondylolisthesis, lumbar region; I10 Essential (primary) hypertension; E78.49 Other hyperlipidemia; J44.9 Chronic obstructive pulmonary disease, unspecified; Z87.891 Personal history of nicotine dependence; K21.9 Gastro-esophageal reflux disease without esophagitis; Z79.891 Long term (current) use of opiate analgesic; Z79.899 Other long term (current) drug therapy; Z97.3 Presence of spectacles and contact lenses; E88.2 Lipomatosis, not elsewhere classified; G43.909 Migraine, unspecified, not intractable, without status migrainosus; Z88.6 Allergy status to analgesic agent; Z88.5 Allergy status to narcotic agent; Z97.2 Presence of dental prosthetic device (complete) (partial); Z53.8 Procedure and treatment not carried out for other reasons
CPT/HCPCS: 22630; 84132; J2250; J2710; J2405; J2370; J0330; J2704; 86850; 86900; 86901

== ENCOUNTER → 2018-11-03 | Outpatient (CLI) | payer OTHER ==
[2018-11-03 12:10] LABS: Appearance,Urine Clear (Clear); Basophils % (A) 1 %; Bilirubin,Urine Negative (Negative); Blood,Urine Negative (Negative); Color,Urine Yellow; Eosinophils # (A) 0.3 k/uL (0-0.7); Eosinophils % (A) 4 %; Glucose,Urine (UA) Negative (Negative); HCT 36.6 % (39.0-53.0); HGB 12.2 gm/dL (13.0-17.5); Ketones,Urine Negative (Negative); Leukocyte Esterase,Urine Negative (Negative); Lymphocytes # (A) 1.7 k/uL (1.0-4.8); Lymphocytes % (A) 20 %; MCH 33.5 pg (25.0-35.0); MCHC 33.2 g/dL (31.0-37.0); MCV 100.6 fL (80.0-100.0); Mean Platelet Volume 6.9; Monocytes # (A) 0.6 k/uL (0-1.0); Monocytes % (A) 7 %; Neutrophils # (A) 5.6 k/uL (1.3-7.7); Neutrophils % (A) 67 %; Nitrite,Urine Negative (Negative); PH, Urine 6.5 (5.0-8.0); Platelet Count 287 k/uL (150-450); Protein,Urine Negative (Negative); RBC 3.64 m/uL (4.30-5.90); RDW 13.8 % (11.5-15.5); Specific Gravity,Urine 1.012 (1.001-1.035); Urobilinogen,Urine <2.0 mg/dL (<2.0); WBC 8.4 k/uL (3.8-10.6)
[2018-11-03 12:14] LABS: Calcium 9.9 mg/dL (8.4-10.2); Potassium 4.9 mmol/L (3.5-5.1); Prothrombin Time 10.3 sec (9.0-12.0)
[2018-11-03 12:15] LABS: Partial Thromboplastin Time 25.3 sec (22.0-30.0)
== END | disposition home or self-care (01) ==
LOC: LABPAT 11:01
PROVIDERS: ATTEND Orthopaedic Surgery Orthopaedic Surgery of the Spine
DX: Z01.812 Encounter for preprocedural laboratory examination (principal); M51.26 Other intervertebral disc displacement, lumbar region
CPT/HCPCS: 36415; 80048; 81003; 85025; 85610; 85730; 87070

== ENCOUNTER 2018-11-09 06:18 | Inpatient (IN) | payer OTHER ==
[~2018-11-09 06:18] MED LIST changes: +DEXAMETHASONE SOD PHOSPHATE 10 MG/ML 1 ML VIAL IV ONE; -GLYCOPYRROLATE 0.2 MG/ML 2 ML VIAL ONE; -LACTATED RINGERS 1,000 ML IV SCH; +MIDAZOLAM 2 MG/2 ML VIAL IV PRN; -MIDAZOLAM 2 MG/2 ML VIAL ONE; -NEOSTIGMINE 1 MG/ML 10 ML VIAL ONE; -PHENYLEPHRINE-0.9% NACL SYG 1 MG/10 ML SYRINGE ONE; -PROPOFOL 10 MG/ML 20 ML VIAL IV ONE; -ROCURONIUM BROMIDE 10 MG/ML 10 ML VIAL IV ONE; +SCOPOLAMINE 1.5MG/72HR PATCH TRANSDERM ONE; -SUCCINYLCHOLINE CHLORIDE 100 MG/5 ML SYR IV ONE; -ceFAZolin IN SWFI 2 GM/20 ML SYRINGE IVP ONE; -ePHEDrine SULFATE/0.9% NACL/PF 50 MG/5 ML SYRINGE IV ONE; -fentaNYL (PF) 50 MCG/ML 2 ML AMP IV PRN
[2018-11-09] MEDS: LACTATED RINGERS 1,000 ML IV SCH ×2 (06:46→16:05)
[2018-11-09] MEDS ORDERED: PROPOFOL 10 MG/ML 20 ML VIAL IV ONE (07:31)
[2018-11-09] MEDS ORDERED: fentaNYL (PF) 50 MCG/ML 2 ML AMP ONE (07:31)
[2018-11-09] MEDS ORDERED: PHENYLEPHRINE-0.9% NACL SYG 1 MG/10 ML SYRINGE ONE (07:31)
[2018-11-09] MEDS ORDERED: NEOSTIGMINE 1 MG/ML 10 ML VIAL ONE (07:31)
[2018-11-09] MEDS ORDERED: GLYCOPYRROLATE 0.2 MG/ML 2 ML VIAL ONE (07:31)
[2018-11-09] MEDS ORDERED: ePHEDrine SULFATE/0.9% NACL/PF 50 MG/5 ML SYRINGE IV ONE (07:31)
[2018-11-09] MEDS ORDERED: SUCCINYLCHOLINE CHLORIDE 100 MG/5 ML SYR IV ONE (07:31)
[2018-11-09] MEDS ORDERED: diphenhydrAMINE 50 MG/ML 1 ML VIAL ONE (07:31)
[2018-11-09] MEDS ORDERED: MIDAZOLAM 2 MG/2 ML VIAL ONE (07:31)
[2018-11-09] MEDS ORDERED: CALCIUM CHLORIDE 100 MG/ML 10 ML SYRINGE ONE (07:31)
[2018-11-09] MEDS ORDERED: LIDOCAINE 1% INJ 10MG/ML (20 ML MDV) ONE (07:31)
[2018-11-09] MEDS ORDERED: ROCURONIUM BROMIDE 10 MG/ML 10 ML VIAL IV ONE (07:31)
[2018-11-09] MEDS ORDERED: ONDANSETRON 4 MG/2 ML VIAL ONE (07:31)
[2018-11-09] MEDS ORDERED: KETAMINE 10 MG/ML 20 ML VIAL ONE (07:31)
[2018-11-09] MEDS ORDERED: VASOPRESSIN 20 UNIT/ML 1 ML VIAL ONE (07:31)
[2018-11-09] MEDS ORDERED: THROMBIN (BOVINE) 5,000 UNIT VIAL TOPICAL ONE (08:14)
[2018-11-09] MEDS ORDERED: LIDOCAINE 0.5%-EPI 1:200,000 50 ML VIAL SQ ONE (08:14)
[2018-11-09] MEDS ORDERED: GELATIN SPONGE,ABSORB (LARGE) 1 EACH SPONGE TOPICAL ONE (08:14)
[2018-11-09] MEDS ORDERED: LACTATED RINGERS 1,000 ML IV ONE ×2 (08:23→08:58)
--- NOTE | 2018-11-09 11:09 | FL ---
EXAMINATION TYPE: FL guidance operating room DATE OF EXAM: 11/09/2018 CLINICAL HISTORY: Low back pain. TECHNIQUE: Fluoroscopy. COMPARISON: None. FINDINGS: Fluoroscopic guidance was provided during pain relief procedure performed by Dr. Milan . A total of 35 seconds of fluoroscopic time was utilized during the procedure and 8 spot images are ac quired. Images acquired shows localization of the lumbosacral spine. IMPRESSION: As Above.
[2018-11-09] MEDS ORDERED: BENZOCAINE/MENTHOL LOZENG 1 EACH LOZENGE MUCOUS MEM PRN (11:15)
[2018-11-09] MEDS: HYDROmorphone 0.5 MG/0.5 ML SYRINGE IVP PRN ×2 (11:15→11:46)
[2018-11-09] MEDS ORDERED: HYDROmorphone 0.5 MG/0.5 ML SYRINGE IVP PRN (11:15)
[2018-11-09] MEDS ORDERED: HYDROcodone/APAP 5-325MG 1 EACH TAB PO PRN (11:15)
[2018-11-09] MEDS ORDERED: MAGNESIUM HYDROXIDE 2,400 MG/10 ML CUP PO PRN (11:15)
[2018-11-09] MEDS ORDERED: ONDANSETRON 4 MG/2 ML VIAL IVP PRN (11:15)
[2018-11-09] MEDS ORDERED: diphenhydrAMINE 50 MG CAP PO PRN (11:18)
[2018-11-09] MEDS ORDERED: diphenhydrAMINE 2% CREAM 28.4 GM TUBE TOPICAL PRN (11:18)
--- NOTE | 2018-11-09 11:26 | P.OP ---
Date of Procedure: 11/09/18 Preoperative Diagnosis: Spinal stenosis L5-S1, degenerative disc disease L5-S1, facet arthrosis L5-S1, bilateral lower extremity radiculopathy Postoperative Diagnosis: Same Anesthesia: GETA Pathology: none sent Condition: stable Disposition: PACU Description of Procedure: DESCRIPTION OF PROCEDURE(S): BRIEF OPERATIVE NOTE Preoperative Diagnosis: Spinal stenosis L5-S1, degenerative disc disease L5-S1, facet arthrosis L5-S1, bilateral lower extremity radiculopathy Postoperative Diagnosis:Spinal stenosis L5-S1, degenerative disc disease L5-S1, facet arthrosis L5-S1, bilateral lower extremity radiculopathy Procedure: Laminectomy and decompression L5-S1 Minimally invasive Posterior lateral decompression and facet fusion L5-S1 Minimally invasive Transforaminal lumbar interbody fusion for a 360 fusion L5-S1 Discectomy for decompression L5-S1 Placement of interbody graft L5-S1 Local autogenous bone grafting Harvesting of bone marrow aspirate via the pedicle of L5 Use of Cell Saver Use of bone graft extenders Use of computer navigation surgical system Surgeon: Dr. Peace Lead Operator: Dio North is present throughout the entire the case persistence during positioning, dissection, exposure, visualization, and all crucial elements of the case as well as closure. Anesthesia: General anesthesia Estimated blood loss: Approximately 80 mL Complications: None apparent Components implanted: K2M minimally invasive [place] pedicle screw system with interbody cage and 1 osteal amp sponge to supplemental local autogenous and bone marrow aspirate grafts and 30 mL of DBX bone fibers Disposition: To recovery room in good stable condition. OPERATIVE INDICATIONS The patient has had long-standing issues in their lower back and lower extremities. He is having worsening pain in his back and his lower extremities despite aggressive conservative care. He is having neurogenic claudication with radiculopathy and severe back pain. We next we tried to have him go through surgery several months ago but he had some issues with his blood pressure which have been medically managed in the interim and he has been significant stabilized medically. The patient has been through conservative treatment. He is not having any benefit despite aggressive conservative care for his back and he was interested in surgical intervention. We discussed various treatment options including surgery, and the patient wishes to proceed with surgery We discussed the risk, patient's alternatives and benefits of surgery including but not limited to, risk of bleeding risk of infection, risk of need for further surgery, risk of decreased, loss of motion, muscle function, malunion nonunion, hardware failure, nerve damage, paralysis, heart attack, blindness and . OPERATIVE SUMMARY After discussing all the risks, patient alternatives and benefits at length, the patient elected to proceed with surgical intervention, signed informed consent, and presented for their procedure. The patient was seen and examined in the preoperative holding area and the surgical site was marked. The patient was given antibiotics and brought to the operating room. The patient was sedated and intubated by anesthesia in standard fashion. The patient was positioned on to the operating room table in a prone position on the appropriate frame which was well-padded and well molded. We were careful to pad any bony prominences and pressure points. We were careful to maintain the patient's cervical spine and good neutral alignment and position throughout. The patient was prepped and draped in a normal standard fashion. An appropriate timeout and keystone protocol performed. We were able to proceed with the surgery. The local wound area was infiltrated with local anesthetic. I was able utilize C-arm guidance and computer navigation to establish appropriate position over the pedicles bilaterally at the appropriate levels. I was able place a bony fixation computer navigation sensor with pins in the posterior superior iliac spine 2 on the left. His were well fixed and the navigation system was aligned and covered appropriately to correlate with the C- arm guidance and navigation system and appropriate transportation. With the appropriate levels confirmed at L5 and S1 was able to make small stab incisions over the appropriate pedicle sites bilaterally. Utilizing C-arm and computer n avigation able to establish a Jamshidi needle over the lateral aspect of the pedicle and advanced the trocar into the pedicle being careful not to breech superiorly inferiorly medially or laterally. Position was confirmed regularly with AP and lateral images on C-arm and with the computer navigation system. I was able to establish the trocar into the pedicle appropriately into the posterior aspect of the vertebral body bilaterally at the appropriate levels. This was done at each of the pedicle positions and each of the vertebrae. I was able place the guidewire into the trocar and into the vertebral body appropriately under C-arm guidance and computer navigation. Dissection was taken down over the wire to the appropriate starting position for the screw placed. The appropriate length screw was chosen, threaded over the guidewire and screwed appropriately into the pedicle and vertebral body under C-arm guidance and computer navigation in excellent alignment and position with good bony purchase. This is done at each of the screw sites at the appropriate levels at L5 and S1. With the screws intact I extended the incision to connect the screw hole sites on the most symptomatic side on the right. I dissected down to establish access over the pars and lamina to the base of the spinous process. I was able to expose the facet joint. The capsule the facet was taken down and showed some facet arthrosis at the joint. I was able to use a combination of curettes and Kerrison rongeurs and a high-speed drill to take down the facet joint and do a facetectomy. Partial laminectomy was also performed. I was able get excellent foraminal decompression and central decompression with undermining across midline to perform a laminectomy centrally and contralaterally. As able get go od central decompression. The ligamentum flavum was taken down to further decompress centrally and at bilateral neural foramen. I was able to expose the disc space and visualize the traversing nerve root. Note was made of some disc protrusion at the level causing further compression of the nerve root. There is severe disc height loss. I was able to establish a annulotomy at the appropriate level protecting soft tissue and neural structures. Note was made of some disc desiccation at the disc. I performed a complete discectomy with accommodation of curettes and rasps and scrapers. I was able get good endplate preparation at the disc space. I sized for the appropriate size interbody spacer protecting the soft tissue and neural structures. The wound was copiously irrigated and suctioned dry. There is no evidence of any dural tear or leak. I was able to pack the disc space with local autogenous bone graft as well as a small amount of bone graft which was also placed into the interbody cage itself. Protecting the soft tissue structures and neural structures I was able place the interbody cage in good alignment and good position with good fit and fill at the interbody space. His issues was confirmed with C-arm guidance. Good hemostasis maintained. There is no evidence of any dural tear or leak. The wound was irrigated and suctioned dry. With the hardware intact, intraoperative C-arm imaging was again taken which showed good alignment and position of the hardware at the appropriate levels at L5 and S1. We were then able to measure, contour and place the rods and ap propriate hardware bilaterally. I was able to place capcrews, tighten them down, and torque them with the torque screwdriver appropriately. With this intact I was able to place the local autogenous bone graft with additional bone graft enhancer as necessary into the posterior lateral gutters over the decorticated transverse processes. The remainder of the bone graft was placed over the facet joint on the contralateral side after taking down the facet joint capsule. With the bone graft intact, a stable construct, and good decompression at the appropriate levels, we were able to proceed with closure. Good hemostasis was maintained. There is no evidence of dural tear or leak. The fascia was closed for a watertight closure. he subcuticular tissue was closed with absorbable suture. The wound was cleaned and dried and dressed with the appropriate dressing. The drapes were broken down. The patient was gently rolled back onto their hospital bed being careful to maintain their cervical spine and good neutral alignment and position. They were woken up by anesthesia, extubated, and brought to the recovery room in good stable condition. The patient will be admitted to the hospital for appropriate postoperative care, medical management and monitoring. We will continue to follow them closely about the postoperative course.
[2018-11-09] MEDS: SODIUM CHLORIDE 0.9% 1,000 ML IV SCH (11:32)
[2018-11-09 12:30] VITALS: BMI 29.6
[2018-11-09] MEDS: HYDROcodone/APAP 5-325MG 1 EACH TAB PO PRN ×2 (12:36→21:35)
[2018-11-09] MEDS: PANTOPRAZOLE 40 MG/10 ML VIAL IVP SCH (13:52)
[2018-11-09 14:10] LABS: Albumin 3.2 g/dL (3.5-5.0); Calcium 9.3 mg/dL (8.4-10.2); Potassium 3.6 mmol/L (3.5-5.1); Total Bilirubin 0.4 mg/dL (0.2-1.3); Total Protein 5.4 g/dL (6.3-8.2)
--- NOTE | 2018-11-09 14:11 | XR ---
Lumbar spine HISTORY: L5-S1 stenosis 8 intraoperative C-arm images document the procedure
[2018-11-09 14:54] LABS: Basophils # (A) 0.1 k/uL (0-0.2); Basophils % (A) 1 %; Eosinophils # (A) 0.1 k/uL (0-0.7); Eosinophils % (A) 1 %; HCT 29.3 % (39.0-53.0); Lymphocytes # (A) 0.7 k/uL (1.0-4.8); Lymphocytes % (A) 7 %; MCHC 32.9 g/dL (31.0-37.0); MCV 100.1 fL (80.0-100.0); Mean Platelet Volume 6.7; Monocytes # (A) 0.5 k/uL (0-1.0); Monocytes % (A) 5 %; Neutrophils # (A) 8.7 k/uL (1.3-7.7); Neutrophils % (A) 85 %; Platelet Count 220 k/uL (150-450); RBC 2.92 m/uL (4.30-5.90); RDW 12.7 % (11.5-15.5); WBC 10.2 k/uL (3.8-10.6)
[2018-11-09 14:55] LABS: HGB 9.6 gm/dL (13.0-17.5)
[2018-11-09] MEDS: HYDROmorphone 1 MG/ML 1 ML SYRINGE IVP PRN ×2 (15:23→19:18)
[2018-11-09] MEDS: CYCLOBENZAPRINE 10 MG TAB PO PRN (16:20)
[2018-11-09] MEDS ORDERED: ARTIFICIAL TEARS-HYPROMELLOSE DROPS 15 ML BTL LEFT EYE PRN (18:27)
--- NOTE | 2018-11-09 22:55 | CONS ---
CONSULTATION CHIEF COMPLAINT: Itchiness, redness and pain in the left eye. HISTORY OF PRESENT ILLNESS: Patient developed itchiness and redness in the left eye today, possibly after the chest procedure he had done. PAST OPHTHALMIC HISTORY (EYE HISTORY): The patient had a right orbital floor fracture 4 years ago and a bone graft was inserted under the right eyeball. The patient denies any double vision. EYE EXAMINATION: Vision is 20/30 OU with reading glasses. Extraocular motility full. Lids normal. Left eye shows 1+ conjunctival injection. Cornea shows a small corneal abrasion 1 mm at 6 o'clock. Very superficial. Intraocular pressure was 18 mmHg both eyes. Retina was deferred. ASSESSMENT: 1. Left corneal abrasion. 2. Left conjunctivitis. PLAN: I advised the patient to use Artificial Tears 3 times a day for the left eye until discharge. Patient to call our office for further followup for a full eye examination, including glasses checked. MMODL / IJN: [id number] /
[2018-11-10] MEDS: CYCLOBENZAPRINE 10 MG TAB PO PRN (00:41)
[2018-11-10] MEDS: SODIUM CHLORIDE 0.9% 1,000 ML IV SCH (00:44)
[2018-11-10] MEDS: HYDROmorphone 1 MG/ML 1 ML SYRINGE IVP PRN ×2 (02:04→07:31)
[2018-11-10] MEDS: HYDROcodone/APAP 5-325MG 1 EACH TAB PO PRN (05:37)
[2018-11-10] MEDS: PANTOPRAZOLE 40 MG/10 ML VIAL IVP SCH (07:31)
[2018-11-10 07:54] VITALS: RESP 16
--- NOTE | 2018-11-10 08:06 | P.PN ---
Progress Note - Text Progress Note Date: 11/10/18 Postoperative day #1 Patient is seen and examined today at bedside. The patient has some pain around the surgical site as expected. Pain is being controlled with medication. The Jorge is still intact. He had required some IV medication as well as oral medication overnight. He is tolerating his breakfast adequately. He says he was not able to sleep as of this pain and discomfort. Physical Exam Afebrile with stable vital signs Abdomen is soft nontender. Chest has good excursion deep and space expiration The incision site is clean dry and intact. No erythema there is no purulence. There is no significant drainage on the dressing. His back is clear. Extremities have not had neurologic change from prior to surgery. He has sustained dorsal flexion plantar flexion and EHL intact Calves and thighs were soft nontender without evidence of DVT. Assessment/Plan Postoperative day #1 status post minimally invasive decompression and fusion with computer navigation at L5-S1 for his severe disc degeneration with listhesis and stenosis and lower extremity radiculopathy. Patient is progressing as expected from the surgery. He is hoping to potentially go home today or tomorrow morning. He still has full intact and he has not yet been up out of bed so he needs to be able to urinate on his own and getting in and out of bed on his own and ambulate independently before he can go home. He feels he will be able to tolerate his pain adequately with oral medication today. It is more likely patient is able to go home tomorrow once he is able to mobilize independently, void freely, tolerating oral medications adequately as well as his diet as long as his wound stays clear. I discussed this with him at bedside and he understands. We will continue to increase the patient's mobilization with therapy. We will continue pain control with oral or IV medications. We'll continue to follow patient closely.
[2018-11-10 08:38] LABS: Basophils # (A) 0.3 k/uL (0-0.2); Basophils % (A) 2 %; Eosinophils # (A) 0.2 k/uL (0-0.7); Eosinophils % (A) 2 %; HGB 10.6 gm/dL (13.0-17.5); Lymphocytes # (A) 0.4 k/uL (1.0-4.8); Lymphocytes % (A) 3 %; MCH 33.3 pg (25.0-35.0); MCV 100.9 fL (80.0-100.0); Mean Platelet Volume 8.6; Monocytes # (A) 0.9 k/uL (0-1.0); Monocytes % (A) 7 %; Neutrophils # (A) 11.3 k/uL (1.3-7.7); Neutrophils % (A) 86 %; Platelet Count 197 k/uL (150-450); RBC 3.17 m/uL (4.30-5.90); RDW 12.8 % (11.5-15.5); WBC 13.2 k/uL (3.8-10.6)
[2018-11-10] MEDS ORDERED: SENNOSIDES-DOCUSATE SODIUM 1 EACH TAB PO SCH (09:00)
[2018-11-10] MEDS ORDERED: ATENOLOL 50 MG TAB PO SCH ×2 (11:00)
--- NOTE | 2018-11-10 11:17 | P.CONS ---
History of Present Illness - Reason for Consult Consult date: 11/09/18 Medical management hypertension, gastro-reflux disease, anxiety, ongoing ni Requesting physician: Elin Peace - Chief Complaint Back pain, spinal stenosis, degenerative disc disease - History of Present Illness This is a 58-year-old gentleman with history of gastroesophageal reflux disease, hypertension, nicotine dependence, anxiety, right orbital floor fracture with arlene ne graft and spinal stenosis/degenerative disc disease/facet arthrosis/bilateral lower extremity radiculopathy of L5-S1 and multiple other medical issues, status post laminectomy and decompression of L5-S1. Tolerated procedure well. Shortly after returning to [facility] unit developed postoperative hypotension, received 1 unit IV fluid bolus with significant clinical improvement. Hemoglobin 9.6, c reatinine 1.28 Vital signs stable. Pain currently controlled. Complains of left eye itchiness and redness, grinder operator consulted. Denies lightheadedness dizziness or focal deficits. Denies chest pain, palpitations or shortness of breath. Reports he is currently nicotine dependence as well as medical marijuana use. Review of Systems ROS Statement: Those systems with pertinent positive or pertinent negative responses have been documented in the HPI. ROS Other: All systems not noted in ROS Statement are negative. Past Medical History Past Medical History: GERD/Reflux, Hyperlipidemia, Hypertension, Osteoarthritis (OA) Additional Past Medical History / Comment(s): occ.DIZZINESS; migraines; DDD. herniated disk, gets numbness right and left foot which occ has caused falls. uses cane at times History of Any Multi-Drug Resistant Organisms: None Reported Past Surgical History: Tonsillectomy Additional Past Surgical History / Comment(s): RIGHT EYE surgery for shattered eye socket-plastic PLATE. JAW SURGERY age 11. Pain Procedures Past Anesthesia/Blood Transfusion Reactions: No Reported Reaction, Previous Problems w/ Anesthesia Additional Past Anesthesia/Blood Transfusion Reaction / Comm: patient states his blood paper went low surgery was cancelled Past Psychological History: Anxiety Smoking Status: Current every day smoker Past Alcohol Use History: Occasional Additional Past Alcohol Use History / Comment(s): started smoking at age 11 smokes approx 1/4 - 1/2 PPD, has smoked for 40 yrs. drinks beer and mixed drinks DAILY 1-2 drinks a day per patient Past Drug Use History: Marijuana Additional Drug Use History / Comment(s): medical-INSTRUCTED TO REFRAIN FROM USE FOR AT LEAST 24 HOURS PRIOR TO PROCEDURE - Past Family History Father Family Medical History: GERD/Reflux Mother Family Medical History: Coronary Artery Disease (CAD), Myocardial Infarction (IN) Medications and Allergies Home Medications Medication Instructions Recorded Confirmed Type Atenolol [Tenormin] 100 mg PO HS@1100 12/14/16 11/09/18 History Atorvastatin [Lipitor] 20 mg PO HS@1100 12/14/16 11/09/18 History Butalbital/Aspirin/Caffeine 1 cap PO DAILY PRN 12/14/16 11/09/18 History [Dhjqmkmjih-BNE-Jhstqkjm Cap 50-325-40] Chlorthalidone 25 mg PO DAILY@1600 12/14/16 11/09/18 History DULoxetine HCL [Cymbalta] 60 mg PO DAILY@1600 12/14/16 11/09/18 History Losartan Potassium 100 mg PO DAILY@1600 12/14/16 11/09/18 History SUMAtriptan SUCCINATE [Imitrex] 100 mg PO DAILY PRN 12/14/16 11/09/18 History Tamsulosin [Flomax] 0.4 mg PO DAILY@1600 12/14/16 11/09/18 History Gabapentin [Neurontin] 300 mg PO HS 05/16/18 11/09/18 History Vitamin B Complex 1 cap PO DAILY 08/04/18 11/09/18 History Acetaminophen Tab [Tylenol Tab] 650 mg PO Q4H PRN 11/02/18 11/09/18 History HYDROcodone/APAP 5-325MG [[place] 5] 1 - 2 each PO Q4H #56 tab 11/10/18 Rx Allergies Allergy/AdvReac Type Severity Reaction Status Date / Time codeine Allergy Severe Itching Verified 11/09/18 12:08 hydrocodone [From Vicodin] Allergy Severe Itching Verified 11/09/18 12:08 Physical Exam Vitals: Vital Signs Temp Pulse Pulse Resp BP Pulse Ox 11/09/18 15:20 111/76 11/09/18 14:00 69 113/77 11/09/18 13:45 69 123/77 11/09/18 13:30 73 118/73 11/09/18 13:15 72 127/82 11/09/18 13:00 68 104/73 11/09/18 12:45 71 100/64 11/09/18 12:30 71 68/39 11/09/18 12:15 97.5 F L 74 16 98/66 93 L 11/09/18 12:00 86 16 98/60 98 11/09/18 11:45 97 18 101/61 98 11/09/18 11:30 65 16 96/61 92 L 11/09/18 11:15 68 16 102/62 92 L 11/09/18 11:00 97.0 F L 73 16 127/70 96 11/09/18 06:36 97.0 F L 74 16 119/58 97 Intake and Output 11/09/18 11/09/18 11/09/18 06:59 14:59 22:59 Intake Total 100 3151 Output Total 180 Balance 100 2971 Intake: IV 100 2151 Intake, IV Titration 1000 Amount Sodium Chloride 0.9% 1, 1000 000 ml @ 75 mls/hr IV . [id number] [facility] Rx#:[id number] Output: Urine 130 Estimated Blood Loss 50 Other: Weight 88.451 kg PHYSICAL EXAM: VITAL SIGNS: As above GENERAL: Sitting up in bed, no acute distress HEENT: Conjunctivae normal. eyes normal. NECK: No JVD. No thyroid enlargement. No LNs CARDIOVASCULAR: S1, S2 regular.No murmur RESPIRATION: Breath sounds diminished in the bases.No rhonchi or crackles. No bronchial breathing. ABDOMEN: Soft, nontender . No guarding. no masses palpable. No ascites, No hepatosplenomegaly.Bowel sounds heard. LEGS: No edema. no swelling. Calves nontender. PSYCHIATRY: Alert and oriented X3, mood and affect normal. NERVOUS SYSTEM: Cranial N 2-12 grossly normal. Moves all 4 limbs. Diffuse weakness No focal deficits. Strength and sensation grossly intact.. Skin: no lesions, no rash . Back dressing clean dry and intact. Lymphatic system. No LN neck axilla or groin. Results CBC & Chem 7: 11/10/18 07:00 11/10/18 07:00 Labs: Abnormal Lab Results - Last 24 Hours (Table) 11/09/18 11/09/18 Range/Units 13:27 13:27 RBC 2.92 L (4.30-5.90) m/uL Hgb 9.6 L D (13.0-17.5) gm/dL Hct 29.3 L (39.0-53.0) % MCV 100.1 H (80.0-100.0) fL Neutrophils # 8.7 H (1.3-7.7) k/uL Lymphocytes # 0.7 L (1.0-4.8) k/uL Sodium 132 L (137-145) mmol/L Creatinine 1.28 H (0.66-1.25) mg/dL Glucose 116 H (74-99) mg/dL Total Protein 5.4 L (6.3-8.2) g/dL Albumin 3.2 L (3.5-5.0) g/dL Assessment and Plan Assessment: -Status post laminectomy and decompression of L5-S1, secondary to spinal stenosis/degenerative disc disease/facet arthrosis/bilateral lower extremity radiculopathy of L5-S1 . -Anemia, postop, expected outcome. -Possible left corneal abrasion, conjunctivitis -Gastroesophageal reflux disease -Hyperlipidemia -Hypertension -Osteoarthritis -Anxiety -Ongoing nicotine dependence -Medical marijuana use Plan: Continue on current medication regime ,monitoring and symptomatic treatment. Finishing up IV fluid bolus with maintenance IV fluids of 0.9 at 100 MLS ordered. GI prophylaxis in place. Reviewing her medications, antihypertensives temporarily on hold, will reevaluate in a.m. smoking cessation readdressed. Aggressive pulmonary toileting with incentive spirometer reinforced. Close monitoring of hemoglobin with repeat labs ordered for a.m. Tool Design Checker consult in place .Further recommendations to follow. The impression and plan of care has been dictated as directed. : I performed a history and examination of this patient, discussed the same with the dictator. I agree with the dictator's note ,documented as a scribe. Any additional findings or plans will be noted. Time taken: 35 minutes
--- NOTE | 2018-11-10 12:02 | CDI ---
Documentation Clarification Form Date: 11/10/2018 11:46:36 AM From: Minal Emanuel RN, CCDS Admit Date: 11/09/2018 6:18:00 AM Patient Name: Jovany Saldana Visit Number: [id number] Discharge Date: ATTENTION: The Clinical Documentation Specialists (CDI) and [facility] Coding Staff appreciate your assistance in clarifying documentation. Please respond to the clarification below the line at the bottom and electronically sign. The CDI & [facility] Coding staff will review the response and follow-up if needed. Please note: Queries are made part of the Legal Health Record. If you have any questions, please contact the author of this message via ITS. Dr. Carlos Gibbons A diagnosis of anemia lacks specificity to accurately reflect your patients severity of condition and clarification is needed. History/Risk Factors: Hypertension, Right orbital floor fracture with bone graft, Spinal Stenosis, Clinical indicators: 58-year-old male who is post laminectomy and decompression of L5-S1. 11/09/[address] Gibbons has noted anemia, postop, expected outcome and additional clarification is needed. In the OR report: Estimated blood loss: Approximately 80 mL. Hemoglobin: 9.6 (was 12.2 on 11/03/18 per lab report) Hematocrit: 29.3 Treatment: Monitor CBC In order to capture the severity of condition, please clarify the type of anemia and etiology if known: Acute blood loss anemia, Expected Other, please specify Unable to determine (Last Revision: November 2016) MTDD
--- NOTE | 2018-11-10 12:38 | CDI ---
Documentation Clarification Form Date: 11/10/2018 12:03:35 PM From: Minal Emanuel RN, CCDS Admit Date: 11/09/2018 6:18:00 AM Patient Name: Jovany Saldana Visit Number: [id number] Discharge Date: ATTENTION: The Clinical Documentation Specialists (CDI) and [facility] Coding Staff appreciate your assistance in clarifying documentation. Please respond to the clarification below the line at the bottom and electronically sign. The CDI & [facility] Coding staff will review the response and follow-up if needed. Please note: Queries are made part of the Legal Health Record. If you have any questions, please contact the author of this message via ITS. Dr. Carlos Gibbons Postoperative hypotension is documented in your consult on 11/09/18 and further clarification is needed. Patients Admitting Diagnosis: Spinal stenosis, DJD Post-Operative Diagnosis: same Procedure performed: Laminectomy and Decompression of L5-S1 History/Risk Factors: Spinal stenosis, DJD, Hypertension, Nicotine dependence Clinical Indicators: 58-year-old male who was status post laminectomy and decompression of L5-S1. Shortly after returning to [facility] unit develop postoperative hypertension per documentation He was treated with 1 unit IV fluid bolus with significant clinical improvement. Vital signs: 98/66 74 16 97.5 93 % 2/L NC; 68/39 71, 100/64 71, 104/82 68, 127/82 72 Treatment 1 unit IV fliuid bolus Antihypertensives on hold (reevaluate) Monitor Vital signs Monitor CBC In order to accurately reflect this patients severity of illness, please clarify if the post-operative diagnosis Postoperative Hypotension is: An expected post-procedural or post-surgical condition (specify cause if known) An unexpected post-procedural or post-surgical condition, related to the patients underlying medical comorbidities Other, please specify Unable to determine (Last Revision: May 2018) MTDD
[2018-11-10 15:20] VITALS: BP 148/88; PULSE 105; TEMP 98.5
[2018-11-10] MEDS ORDERED: TAMSULOSIN 0.4 MG CAP.ER.24H PO SCH (16:00)
[2018-11-10] MEDS ORDERED: DULoxetine HCL 60 MG CAPSULE.DR PO SCH (16:00)
--- NOTE | 2018-11-10 16:03 | US ---
EXAMINATION TYPE: US venous doppler duplex UE RT DATE OF EXAM: 11/10/2018 COMPARISON: NONE CLINICAL HISTORY: redness. Right arm swelling and pain. SIDE PERFORMED: Right There is normal flow, compressability and vascular waveforms within the visualized right internal j ugular vein, left subclavian vein, axillary vein, brachial, radial and ulnar veins. Right Arm: Negative for DVT There is superficial thrombus noted in the basilic in the upper arm, and the cephalic in the lower a rm. IMPRESSION: Superficial venous thrombosis
[2018-11-10] MEDS ORDERED: GABAPENTIN 100 MG CAP PO SCH (21:00)
[2018-11-11] MEDS ORDERED: PANTOPRAZOLE 40 MG TABLET PO SCH (07:30)
--- NOTE | 2018-11-11 08:15 | P.DS ---
Providers Date of admission: 11/09/18 06:18 Expected date of discharge: 11/10/18 Attending physician: Elin Peace Consults: 11/09/18 11:15 Consult Physician Routine Consulting Provider: Carlos Gibbons Consult Reason/Comments: Medical management Do you want consulting provider notified?: Yes 11/09/18 12:23 Consult Physician Urgent Consulting Provider: Ana Rosa Boucher Consult Reason/Comments: possible corneal abrasion Do you want consulting provider notified?: Yes Primary care physician: Carlos Gibbons - Discharge Diagnosis(es) (1) Facet arthropathy, lumbosacral Status: Acute (2) Facet arthritis, degenerative, L5-S1 level, lumbosacral spine Status: Acute (3) Lumbosacral spinal stenosis Status: Acute (4) Radiculopathy with lower extremity symptoms Status: Acute (5) Hypertension Status: Acute (6) Hyperlipidemia Status: Acute Hospital Course: This is a pleasant 58-year-old male who presented with L5-S1 facet arthrosis, spinal canal stenosis, and degenerative disc disease with bilateral lower extremity radiculopathy who failed outpatient conservative therapy. He was admitted for an L5-S1 minimally invasive posterior lateral decompression and fusion with transforaminal lumbar interbody fusion. The patient tolerated the procedure well and did well postoperatively. His Jorge catheter was discontinued. He was able to ambulate on his own with the assistance of a walker. His pain was able to be controlled with oral medications. He felt he was ready for discharge home. Condition on day of discharge stable. Patient will be discharged home. Patient was cleared preoperatively for surgery by Dr. Gibbons. Patient is eating and voiding freely without difficulty. Patient may shower Tegaderm dressing intact. Patient may remove Tegaderm dressing in 3 days and shower without a dressing at that time. Patient should keep Exofin glue intact and allow it to fall off naturally. Patient should refrain from driving until at least after their first follow-up appointment in the office. Patient should avoid excessive bending, lifting, and twisting; no lifting greater than 10 pounds. Patient is given a prescription for [place] 5 mg/325 mg 1-2 tabs every 4 hours as needed for pain, dispensed #56 at discharge. MAPS was reviewed. An "Opioid Start Talking" form was signed. Patient is also given a prescription for docusate 100 mg by mouth twice a day dispensed #60 as needed for constipation. Patient may resume his other previously prescribed home medications. He should avoid anti-inflammatories over the next 6 weeks postoperatively. Patient does have a medical history which includes hypertension and hyperlipidemia. Procedures: L5-S1 minimally invasive posterior lateral decompression and fusion with transforaminal lumbar interbody fusion Patient Condition at Discharge: Stable Plan - Discharge Summary Discharge Rx Participant: Yes New Discharge Prescriptions: New HYDROcodone/APAP 5-325MG [[place] 5] 1 - 2 each PO Q4H #56 tab Docusate [Colace] 100 mg PO BID #60 capsule No Action Butalbital/Aspirin/Caffeine [Jkrhcxbntp-TRR-Bqocihrj Cap 50-325-40] 1 cap PO DAILY PRN PRN Reason: Migraine Headache SUMAtriptan SUCCINATE [Imitrex] 100 mg PO DAILY PRN PRN Reason: Migraine Headache Losartan Potassium 100 mg PO DAILY@1600 Atorvastatin [Lipitor] 20 mg PO HS@1100 Chlorthalidone 25 mg PO DAILY@1600 Tamsulosin [Flomax] 0.4 mg PO DAILY@1600 DULoxetine HCL [Cymbalta] 60 mg PO DAILY@1600 Atenolol [Tenormin] 100 mg PO HS@1100 Gabapentin [Neurontin] 300 mg PO HS Vitamin B Complex 1 cap PO DAILY Acetaminophen Tab [Tylenol Tab] 650 mg PO Q4H PRN PRN Reason: Pain Discharge Medication List Atenolol [Tenormin] 100 mg PO HS@1100 12/14/16 [History] Atorvastatin [Lipitor] 20 mg PO HS@1100 12/14/16 [History] Butalbital/Aspirin/Caffeine [Vfscgnyhzt-HYA-Okarlptu Cap 50-325-40] 1 cap PO DAILY PRN 12/14/16 [History] Chlorthalidone 25 mg PO DAILY@1600 12/14/16 [History] DULoxetine HCL [Cymbalta] 60 mg PO DAILY@1600 12/14/16 [History] Losartan Potassium 100 mg PO DAILY@1600 12/14/16 [History] SUMAtriptan SUCCINATE [Imitrex] 100 mg PO DAILY PRN 12/14/16 [History] Tamsulosin [Flomax] 0.4 mg PO DAILY@1600 12/14/16 [History] Gabapentin [Neurontin] 300 mg PO HS 05/16/18 [History] Vitamin B Complex 1 cap PO DAILY 08/04/18 [History] Acetaminophen Tab [Tylenol Tab] 650 mg PO Q4H PRN 11/02/18 [History] Docusate [Colace] 100 mg PO BID #60 capsule 11/10/18 [Rx] HYDROcodone/APAP 5-325MG [[place] 5] 1 - 2 each PO Q4H #56 tab 11/10/18 [Rx] Follow up Appointment(s)/Referral(s): Elin Peace DO [Doctor of Osteopathic Medicine] - 11/25/18 1:00 pm [facility],Equipment [NON-STAFF] - As Needed (walker) Activity/Diet/Wound Care/Special Instructions: Keep site clean. May shower with waterproof Tegaderm intact. Do not soak in a tub. After 72 hours postoperatively, patient May remove dressing and then may shower with area uncovered. Leave Steri-Strips intact and allow them to fall off on their own. May ambulate as tolerated. Avoid heavy or rigorous activity. No repetitive bending twisting or lifting. No overhead work. Discharge Disposition: HOME SELF-CARE
--- NOTE | 2018-11-11 10:51 | P.PN ---
Subjective Progress Note Date: 11/10/18 This is a 58-year-old gentleman with history of gastroesophageal reflux disease, hypertension, nicotine dependence, anxiety, right orbital floor fracture with bone graft and spinal stenosis/degenerative disc disease/facet arthrosis/bilateral lower extremity radiculopathy of L5-S1 and multiple other medical issues, status post laminectomy and decompression of L5-S1. Tolerated procedure well. Shortly after returning to [facility] unit developed postoperative hypotension, received 1 unit IV fluid bolus with significant clinical improvement. Hemoglobin 9.6, creatinine 1.28 Vital signs stable. Pain curre ntly controlled. Complains of left eye itchiness and redness, papeterie table assembler consulted. Denies lightheadedness dizziness or focal deficits. Denies chest pain, palpitations or shortness of breath. Reports he is currently nicotine dependence as well as medical marijuana use. 11/10/18 reports did not sleep well secondary to pain, received further IV pain medication, pain currently controlled .Jorge discontinued, voiding without difficulty. Passing flatus, no bowel movement. PT at bedside and patient is scheduled to get up out of bed for the first time with walker assistance. Denies lightheadedness dizziness or focal deficits. Evaluated by papeterie table assembler, recommendations noted. Sodium 128 Hemoglobin improved, 10.6. Good diet intake with no nausea vomiting or diarrhea. Creatinine improving, 1.15, baseline. Complaints of Right forearm tenderness with mild edema, faint red streak distal to IV site Objective - Vital Signs Vital signs: Vital Signs Temp 98.7 F 11/10/18 07:00 Pulse 101 H 11/10/18 07:00 Resp 16 11/10/18 07:00 BP 142/82 11/10/18 07:00 Pulse Ox 92 L 11/10/18 07:00 Intake & Output 11/09/18 11/10/18 11/10/18 18:59 06:59 18:59 Intake Total 3151 480 Output Total 180 1800 700 Balance 2971 -1320 -700 Intake: IV 2151 Intake, IV Titration 1000 Amount Sodium Chloride 0.9% 1, 1000 000 ml @ 75 mls/hr IV . [id number] [facility] Rx#:[id number] Oral 480 Output: Urine 130 1800 700 Uretheral (Jorge) 700 Estimated Blood Loss 50 Other: Voiding Method Indwelling Catheter Indwelling Catheter Indwelling Catheter - Exam VITAL SIGNS: As above GENERAL: Sitting up in bed, no acute distress HEENT: Conjunctivae normal. eyes normal. Oral mucosa moist NECK: No JVD. No thyroid enlargement. No LNs CARDIOVASCULAR: S1, S2 regular.No murmur RESPIRATION: Breath sounds diminished in the bases.No rhonchi or crackles. No bronchial breathing. ABDOMEN: Soft, nontender . No guarding. no masses palpable. No ascites, No hepatosplenomegaly.Bowel sounds heard. LEGS: No edema. no swelling. Calves nontender. PSYCHIATRY: Alert and oriented X3, mood and affect normal. NERVOUS SYSTEM: Cranial N 2-12 grossly normal. Moves all 4 limbs. Diffuse weakness No focal deficits. Strength and sensation grossly intact.. Skin: no lesions, no rash . Back dressing clean dry and intact. Lymphatic system. No LN neck axilla or groin. - Labs CBC & Chem 7: 11/10/18 07:00 11/10/18 07:00 Labs: Abnormal Lab Results - Last 24 Hours (Table) 11/09/18 11/09/18 11/10/18 Range/Units 13:27 13:27 07:00 WBC 13.2 H (3.8-10.6) k/uL RBC 2.92 L 3.17 L (4.30-5.90) m/uL Hgb 9.6 L D 10.6 L (13.0-17.5) gm/dL Hct 29.3 L 32.0 L (39.0-53.0) % MCV 100.1 H 100.9 H (80.0-100.0) fL Neutrophils # 8.7 H 11.3 H (1.3-7.7) k/uL Lymphocytes # 0.7 L 0.4 L (1.0-4.8) k/uL Basophils # 0.3 H (0-0.2) k/uL Sodium 132 L (137-145) mmol/L Chloride (98-107) mmol/L Carbon Dioxide (22-30) mmol/L Creatinine 1.28 H (0.66-1.25) mg/dL Glucose 116 H (74-99) mg/dL Total Protein 5.4 L (6.3-8.2) g/dL Albumin 3.2 L (3.5-5.0) g/dL 11/10/18 Range/Units 07:00 WBC (3.8-10.6) k/uL RBC (4.30-5.90) m/uL Hgb (13.0-17.5) gm/dL Hct (39.0-53.0) % MCV (80.0-100.0) fL Neutrophils # (1.3-7.7) k/uL Lymphocytes # (1.0-4.8) k/uL Basophils # (0-0.2) k/uL Sodium 128 L (137-145) mmol/L Chloride 95 L (98-107) mmol/L Carbon Dioxide 17 L (22-30) mmol/L Creatinine (0.66-1.25) mg/dL Glucose (74-99) mg/dL Total Protein (6.3-8.2) g/dL Albumin (3.5-5.0) g/dL Assessment and Plan Assessment: -Status post laminectomy and decompression of L5-S1, secondary to spinal stenosis/degenerative disc disease/facet arthrosis/bilateral lower extremity radiculopathy of L5-S1 . -Postoperative hypotension, expected outcome, status post fluid boluse, resolved. -Acute blood loss Anemia, postop, expected outcome. -Left corneal abrasion, conjunctivitis -Gastroesophageal reflux disease -Hyperlipidemia -Hypertension -Osteoarthritis -Anxiety -Ongoing nicotine dependence -Medical marijuana use Plan: Continue on current medication regime ,monitoring and symptomatic treatment. Antihypertensives slowly reintroduced. Continue aggressive pulmonary toileting with incentive spirometer reinforced. Smoking cessation readdressed.Further recommendations to follow. The impression and plan of care has been dictated as directed. : I performed a history and examination of this patient, discussed the same with the dictator. I agree with the dictator's note ,documented as a scribe. Any additional findings or plans will be noted. Time taken: 35 minutes
== END 2018-11-10 15:44 | disposition home or self-care (01) | DRG 454 ==
LOC: 2ORMAIN 06:18 → 4SSUR 11:06
PROVIDERS: ADMIT Orthopaedic Surgery Orthopaedic Surgery of the Spine; ATTEND Orthopaedic Surgery Orthopaedic Surgery of the Spine
PROC: 0SG3071 Fusion of Lumbosacral Joint with Autologous Tissue Substitute, Posterior Approach, Posterior Column, Open Approach (ICD-10-PCS; principal; 2018-11-09 07:30)
PROC: 0ST40ZZ Resection of Lumbosacral Disc, Open Approach (ICD-10-PCS; principal; 2018-11-09 07:30)
PROC: 0SG30AJ Fusion of Lumbosacral Joint with Interbody Fusion Device, Posterior Approach, Anterior Column, Open Approach (ICD-10-PCS; principal; 2018-11-09 07:30)
PROC: 30233H0 Transfusion of Autologous Whole Blood into Peripheral Vein, Percutaneous Approach (ICD-10-PCS; principal; 2018-11-09 07:30)
DX: M48.07 Spinal stenosis, lumbosacral region (principal); D62 Acute posthemorrhagic anemia; M51.17 Intervertebral disc disorders with radiculopathy, lumbosacral region; M47.27 Other spondylosis with radiculopathy, lumbosacral region; M46.97 Unspecified inflammatory spondylopathy, lumbosacral region; I10 Essential (primary) hypertension; E78.5 Hyperlipidemia, unspecified; F17.210 Nicotine dependence, cigarettes, uncomplicated; F41.9 Anxiety disorder, unspecified; H10.9 Unspecified conjunctivitis; K21.9 Gastro-esophageal reflux disease without esophagitis; S05.02XA Injury of conjunctiva and corneal abrasion without foreign body, left eye, initial encounter; Z79.891 Long term (current) use of opiate analgesic; Z71.6 Tobacco abuse counseling; Z79.899 Other long term (current) drug therapy; Z82.49 Family history of ischemic heart disease and other diseases of the circulatory system; I95.9 Hypotension, unspecified
CPT/HCPCS: 72100; 80048; 80053; 85025; 86850; 86900; 86901; 94760

== ENCOUNTER 2020-12-11 10:33 | Inpatient (IN) | payer OTHER ==
--- NOTE | 2020-12-11 12:01 | ED ---
General Adult HPI - General Chief complaint: Recheck/Abnormal Lab/Rx Stated complaint: Liver failure Time Seen by Provider: 12/11/20 10:53 Source: patient, family, RN notes reviewed Mode of arrival: wheelchair Limitations: no limitations - History of Present Illness Initial comments: Patient is a 60-year-old male that presents to emergency department sent by primary care for possible liver failure. Patient notes that he is been drinking alcohol since he was 14 years old. He notes that this morning he drank a pint of vodka with orange juice prior to arrival. Patient notes that his abdomen is distended and uncomfortable. Patient notes that he is also retaining fluid in his bilateral lower extremities. Patient notes that he's been putting is o ffered to on. He denied any chest pain shortness of breath headache nausea vomiting diarrhea constipation fever fatigue chills. - Related Data Home Medications Medication Instructions Recorded Confirmed Atenolol [Tenormin] 100 mg PO HS@1100 12/14/16 11/09/18 Atorvastatin [Lipitor] 20 mg PO HS@1100 12/14/16 11/09/18 Butalbital/Aspirin/Caffeine 1 cap PO DAILY PRN 12/14/16 11/09/18 [Hluksqdqej-VWJ-Exfhdtri Cap 50-325-40] Chlorthalidone 25 mg PO DAILY@1600 12/14/16 11/09/18 DULoxetine HCL [Cymbalta] 60 mg PO DAILY@1600 12/14/16 11/09/18 Losartan Potassium 100 mg PO DAILY@1600 12/14/16 11/09/18 SUMAtriptan SUCCINATE [Imitrex] 100 mg PO DAILY PRN 12/14/16 11/09/18 Tamsulosin [Flomax] 0.4 mg PO DAILY@1600 12/14/16 11/09/18 Gabapentin [Neurontin] 300 mg PO HS 05/16/18 11/09/18 Vitamin B Complex 1 cap PO DAILY 08/04/18 11/09/18 Acetaminophen Tab [Tylenol Tab] 650 mg PO Q4H PRN 11/02/18 11/09/18 Previous Rx's Medication Instructions Recorded Docusate [Colace] 100 mg PO BID #60 capsule 11/10/18 HYDROcodone/APAP 5-325MG [Chamberlain 5] 1 - 2 each PO Q4H #56 tab 11/10/18 Allergies Allergy/AdvReac Type Severity Reaction Status Date / Time codeine Allergy Severe Itching Verified 12/11/20 10:45 hydrocodone [From Vicodin] Allergy Severe Itching Verified 12/11/20 10:45 Review of Systems ROS Statement: Those systems with pertinent positive or pertinent negative responses have been documented in the HPI. ROS Other: All systems not noted in ROS Statement are negative. Past Medical History Past Medical History: GERD/Reflux, Hyperlipidemia, Hypertension, Osteoarthritis (OA) Additional Past Medical History / Comment(s): occ.DIZZINESS; migraines; DDD. herniated disk, gets numbness right and left foot which occ has caused falls. uses cane at times History of Any Multi-Drug Resistant Organisms: None Reported Past Surgical History: Tonsillectomy Additional Past Surgical History / Comment(s): RIGHT EYE surgery for shattered eye socket-plastic PLATE. JAW SURGERY age 11. Pain Procedures Past Anesthesia/Blood Transfusion Reactions: No Reported Reaction, Previous Problems w/ Anesthesia Additional Past Anesthesia/Blood Transfusion Reaction / Comment(s): patient states his blood paper went low surgery was cancelled Past Psychological History: Anxiety Smoking Status: Current every day smoker Past Alcohol Use History: Heavy, Occasional Past Drug Use History: Marijuana - Past Family History Father Family Medical History: GERD/Reflux Mother Family Medical History: Coronary Artery Disease (CAD), Myocardial Infarction ([place]) General Exam Limitations: no limitations General appearance: alert, in no apparent distress Head exam: Present: atraumatic, normocephalic, normal inspection Eye exam: Present: normal appearance, PERRL, EOMI. Absent: scleral icterus, conjunctival injection, periorbital swelling ENT exam: Present: normal exam, mucous membranes moist Neck exam: Present: normal inspection Respiratory exam: Present: normal lung sounds bilaterally. Absent: respiratory distress, wheezes, rales, rhonchi, stridor Cardiovascular Exam: Present: regular rate, normal rhythm, normal heart sounds. Absent: systolic murmur, diastolic murmur, rubs, gallop, clicks GI/Abdominal exam: Present: soft, distended, normal bowel sounds. Absent: tenderness, guarding, rebound, rigid Extremities exam: Present: normal inspection, full ROM, normal capillary refill, pedal edema (2+ bilaterally). Absent: tenderness, joint swelling, calf tenderness Neurological exam: Present: alert, oriented X3 Psychiatric exam: Present: normal affect, normal mood Skin exam: Present: warm, dry, intact, normal color, other (Jaundiced). Absent: rash Course Vital Signs 12/11/20 10:45 Temperature 99.2 F Pulse Rate 121 H Respiratory 18 Rate Blood Pressure 113/80 O2 Sat by Pulse 96 Oximetry Medical Decision Making - Medical Decision Making 60-year-old male sent by primary care for possible liver failure, chronic alcoholic. Labs, CT of the abdomen and pelvis, Covid test ordered. CT shows diffuse abdominal ascites cannot rule out neoplasm pancreas, possible colitis. Case discussed with Dr. Butt, patient will be admitted. Dr. Gibbons was consulted looks of the abdomen with GI and interventional radiology on consult for paracentesis. - Lab Data Lab Results 12/11/20 Range/Units 12:23 Coronavirus (PCR) Not Detected (Not Detectd) - Radiology Data Radiology results: report reviewed, image reviewed Abdominal CT: Diffuse abdominal ascites correlate for hepatocellular disease. Cannot exclude a mass near the MAKE process and head of the pancreas posteriorly. Recommend MRI to exclude pancreatic neoplasm. Consider tumor marker analysis. Mild thickening of the wall the right colon could be related to the ascites correlate clinically to exclude mild colitis. Bibasilar subsegmental atelectasis favored over infiltrate correlate clinically pleural- based calcification can be associated with absestos lately disease. Disposition Clinical Impression: Ascites, Abdominal distention, Jaundice Disposition: ADMITTED IP TO THIS HOSP Condition: Stable Is patient prescribed a controlled substance at d/c from ED?: No Referrals: Carlos Gibbons MD [Primary Care Provider] - 1-2 days Time of Disposition: 13:46
--- NOTE | 2020-12-11 12:41 | CT ---
EXAMINATION TYPE: CT abdomen pelvis w con DATE OF EXAM: 12/11/2020 COMPARISON: HISTORY: Generalized pain with distention. CT DLP: 1878.9 mGycm Automated exposure control for dose reduction was used. CONTRAST: CT scan of the abdomen pelvis is performed with IV Contrast, patient injected with 100 mL of Isovue 3 00. FINDINGS- LUNG BASES-subsegmental peripheral areas of consolidation noted. Pleural-based calcifications are not ed. LIVER/GB-liver is somewhat lobulated and heterogeneous contour. Correlate for hepatocellular disease. There is diffuse abdominal ascites. Vicarious excretion of contrast in the gallbladder. PANCREAS-lung the posterior margin of the uncinate process there is a 1 cm hypoechoic nodule regard t o the pancreas. Neoplastic process not excluded. MRI strongly advised. Correlate with serum tumor mar kers.. SPLEEN- No gross abnormality is seen. ADRENALS- No gross abnormality is seen. KIDNEYS/BLADDER- no hydronephrosis nephrolithiasis or renal mass. BOWEL- no bowel dilatation. Normal appendix. LYMPH NODES- No greater than 1cm abdominal or pelvic lymph nodes areappreciated. OSSEOUS STRUCTURES-postsurgical change lower lumbar spine. Chronic rib deformities noted. Mild degene rative disc disease and hypertrophic changes.. OTHER- aorta of normal caliber with atherosclerotic changes of the aorta and its branches including the mesenteric vasculature.. IMPRESSION- 1. Diffuse abdominal ascites correlate for hepatocellular disease. 2. Could not exclude a mass near the uncinate process and head of the pancreas posteriorly. Recommend MRI to exclude pancreatic neoplasm. Consider tumor marker analysis. 3. Mild thickening the wall the right colon could be related to the ascites correlate clinically to e xclude a mild colitis. 4. Bibasilar subsegmental atelectasis favored over infiltrate correlate clinically. Pleural-based sanchez cifications can be associated with asbestos related disease.
[2020-12-11] MEDS ORDERED: NALOXONE 0.4 MG/ML 1 ML VIAL IV PRN (13:40)
[2020-12-11] MEDS: SODIUM CHLORIDE 0.9% 1,000 ML IV SCH (14:39)
[2020-12-11 16:10] LABS: Basophils # (A) 0.1 k/uL (0-0.2); Basophils % (A) 0 %; Eosinophils # (A) 0.2 k/uL (0-0.7); Eosinophils % (A) 2 %; HCT 34.9 % (39.0-53.0); HGB 11.4 gm/dL (13.0-17.5); Lymphocytes % (A) 8 %; MCH 37.7 pg (25.0-35.0); MCHC 32.8 g/dL (31.0-37.0); MCV 114.9 fL (80.0-100.0); Macrocytosis Marked; Mean Platelet Volume 9.4; Monocytes # (A) 0.9 k/uL (0-1.0); Monocytes % (A) 7 %; Neutrophils # (A) 10.5 k/uL (1.3-7.7); Neutrophils % (A) 82 %; Platelet Count 191 k/uL (150-450); RBC 3.03 m/uL (4.30-5.90); RDW 12.7 % (11.5-15.5); WBC 12.8 k/uL (3.8-10.6)
[2020-12-11 16:18] LABS: African American GFR (CKD) >90 (>60 ml/min/1.73 sqM); Anion Gap 10 mmol/L; Blood Urea Nitrogen 13 mg/dL (9-20); Carbon Dioxide 19 mmol/L (22-30); Chloride 95 mmol/L (98-107); Glucose 101 mg/dL (74-99); Potassium 4.5 mmol/L (3.5-5.1); Sodium 124 mmol/L (137-145)
[2020-12-11 16:19] LABS: ALT 71 U/L (4-49); AST 123 U/L (17-59); Albumin 2.9 g/dL (3.5-5.0); Alkaline Phosphatase 222 U/L (38-126); Amylase 54 U/L (30-110); Calcium 8.8 mg/dL (8.4-10.2); Lipase 366 U/L (23-300); Non-African American GFR(CKD) >90 (>60 ml/min/1.73 sqM); Total Bilirubin 4.9 mg/dL (0.2-1.3); Total Protein 6.6 g/dL (6.3-8.2)
[2020-12-11 16:24] LABS: INR 1.3 (<1.2); Partial Thromboplastin Time 22.5 sec (22.0-30.0); Prothrombin Time 13.5 sec (9.0-12.0)
[2020-12-11] MEDS: traMADol 50 MG TAB PO SCH (19:49)
[2020-12-12] MEDS: SODIUM CHLORIDE 0.9% 1,000 ML IV SCH ×4 (00:17→23:47)
[2020-12-12] MEDS: traMADol 50 MG TAB PO SCH ×3 (08:13→23:45)
[2020-12-12] MEDS ORDERED: THIAMINE 100 MG/ML 2 ML VIAL IM STA (09:34)
[2020-12-12] MEDS ORDERED: LORazepam 2 MG/ML INJ IV PRN ×3 (09:34)
[2020-12-12] MEDS: ALBUMIN HUMAN 25% 50 ML in EMPTY BAG 1 BAG IVPB SCH ×4 (11:53→16:07)
[2020-12-12] MEDS: FOLIC ACID 1 MG TAB PO SCH (11:57)
[2020-12-12] MEDS: TAMSULOSIN 0.4 MG CAP.ER.24H PO SCH (11:57)
[2020-12-12] MEDS: PANTOPRAZOLE 40 MG/10 ML VIAL IVP SCH (11:57)
[2020-12-12] MEDS: DULoxetine HCL 60 MG CAPSULE.DR PO SCH (11:57)
--- NOTE | 2020-12-12 13:28 | P.HPIM ---
History of Present Illness H&P Date: 12/12/20 Chief Complaint: Ascites, abdominal pain This is a 60-year-old gentleman with past medical history of gastroesophageal reflux disease, hypertension, ongoing nicotine dependence, anxiety, spinal stenosis/degenerative disc disease, alcohol abuse/dependence-drinks daily, presented to the ER with worsening abdominal pain, abdominal distention and lower extremity edema. Reports prior to arriving, consumed a pint of vodka with orange juice. Denies chest pain, palpitations or shortness of breath. Denies lightheadedness dizziness or focal deficits. Patient's brother has been living at patient's house, creating increased stress as per . Patient states has not had diagnostic paracentesis previously. CT of abdomen and pelvis reporting diffuse abdominal ascites, possible hepatocellular disease, possible mass near the uncinate process and head of the pancreas posteriorly,mild thickened right colon, bibasilar subsegmental atelectasis.Afebrile, WBC 12.3. Hemoglobin 11.4, platelets 191, INR 1.3, sodium 124, potassium 4.5, BUN 13, creatinine 0.79, total bili 4.9, AST 123, ALT 71, alk phos 222, albumin 2.9, lipase 366. Review of Systems ROS Statement: Those systems with pertinent positive or pertinent negative responses have been documented in the HPI. ROS Other: All systems not noted in ROS Statement are negative. Past Medical History Past Medical History: GERD/Reflux, Hyperlipidemia, Hypertension, Osteoarthritis (OA) Additional Past Medical History / Comment(s): occ.DIZZINESS; migraines; DDD. herniated disk, gets numbness right and left foot which occ has caused falls. uses cane at times History of Any Multi-Drug Resistant Organisms: None Reported Past Surgical History: Tonsillectomy Additional Past Surgical History / Comment(s): RIGHT EYE surgery for shattered eye socket-plastic PLATE. JAW SURGERY age 11. Pain Procedures. back surgery 2019 Past Anesthesia/Blood Transfusion Reactions: No Reported Reaction, Previous Problems w/ Anesthesia Additional Past Anesthesia/Blood Transfusion Reaction / Comment(s): Blood pressure dropped too low, surgery was cancelled. Past Psychological History: Anxiety Smoking Status: Current every day smoker Past Alcohol Use History: Heavy, Occasional Additional Past Alcohol Use History / Comment(s): started smoking at age 11 smokes approx 1/4 - 1/2 PPD, has smoked for 40 yrs. drinks beer and mixed drinks DAILY 3-4 drinks a day per patient Past Drug Use History: Marijuana Additional Drug Use History / Comment(s): medical-INSTRUCTED TO REFRAIN FROM USE FOR AT LEAST 24 HOURS PRIOR TO PROCEDURE - Past Family History Father Family Medical History: GERD/Reflux Mother Family Medical History: Coronary Artery Disease (CAD), Myocardial Infarction ([place]) Medications and Allergies Home Medications Medication Instructions Recorded Confirmed Type DULoxetine HCL [Cymbalta] 60 mg PO DAILY 12/14/16 12/11/20 History Tamsulosin [Flomax] 0.4 mg PO DAILY 12/14/16 12/11/20 History Albuterol Sulfate [Proair Hfa] 2 puff INHALATION RT-Q4H PRN 12/11/20 12/11/20 History Allergies Allergy/AdvReac Type Severity Reaction Status Date / Time codeine Allergy Severe Itching Verified 12/11/20 16:07 hydrocodone [From Vicodin] Allergy Severe Itching Verified 12/11/20 16:07 Physical Exam Vitals: Vital Signs Temp Pulse Pulse Pulse Resp BP BP 12/12/20 11:15 100 18 144/100 12/12/20 11:00 98 18 142/98 12/12/20 10:45 101 H 16 140/98 12/12/20 10:30 104 H 18 140/99 12/12/20 10:15 105 H 16 144/104 12/12/20 10:00 105 H 18 144/100 12/12/20 09:41 109 H 18 126/83 12/12/20 07:51 98.1 F 108 H 18 138/95 12/12/20 02:00 98.1 F 108 H 153/113 12/11/20 23:16 98.1 F 94 16 139/101 12/11/20 21:43 98.8 F 110 H 19 123/85 12/11/20 13:45 94 16 Pulse Ox 12/12/20 11:15 96 12/12/20 11:00 95 12/12/20 10:45 96 12/12/20 10:30 96 12/12/20 10:15 96 12/12/20 10:00 95 12/12/20 09:41 95 12/12/20 07:51 93 L 12/12/20 02:00 93 L 12/11/20 23:16 94 L 12/11/20 21:43 97 12/11/20 13:45 Intake and Output 12/11/20 12/12/20 12/12/20 22:59 06:59 14:59 Intake Total 400 Output Total 500 Balance -100 Intake: Oral 400 Output: Urine 500 Other: # Voids 3 Weight 93.44 kg PHYSICAL EXAM: VITAL SIGNS: As above GENERAL: Sitting up in bed, no acute distress, jaundiced. HEENT: Conjunctivae normal. eyes normal. NECK: No JVD. No thyroid enlargement. No LNs CARDIOVASCULAR: S1, S2 regular.No murmur RESPIRATION: Breath sounds diminished in the bases.No rhonchi or crackles. No bronchial breathing. ABDOMEN: Soft, distended, diffuse generalized tenderness, No guarding. no ma sses palpable. Positive ascites.Bowel sounds heard. LEGS: Positive edema, Calves nontender. PSYCHIATRY: Alert and oriented X3, mood and affect normal. NERVOUS SYSTEM: Cranial N 2-12 grossly normal. Moves all 4 limbs. No focal deficits. Strength and sensation grossly intact. Skin: Warm and dry, no rash Results CBC & Chem 7: 12/11/20 11:49 12/11/20 11:49 Labs: Abnormal Lab Results - Last 24 Hours (Table) 12/11/20 12/11/20 12/11/20 Range/Units 11:49 11:49 11:49 WBC 12.8 H (3.8-10.6) k/uL RBC 3.03 L (4.30-5.90) m/uL Hgb 11.4 L (13.0-17.5) gm/dL Hct 34.9 L (39.0-53.0) % MCV 114.9 H (80.0-100.0) fL MCH 37.7 H (25.0-35.0) pg Neutrophils # 10.5 H (1.3-7.7) k/uL Macrocytosis Marked A PT 13.5 H (9.0-12.0) sec INR 1.3 H (<1.2) Sodium 124 L (137-145) mmol/L Chloride 95 L (98-107) mmol/L Carbon Dioxide 19 L (22-30) mmol/L Glucose 101 H (74-99) mg/dL Total Bilirubin 4.9 H (0.2-1.3) mg/dL AST 123 H (17-59) U/L ALT 71 H (4-49) U/L Alkaline Phosphatase 222 H (38-126) U/L Albumin 2.9 L (3.5-5.0) g/dL Lipase 366 H (23-300) U/L Thrombosis Risk Factor Assmnt - Choose All That Apply Any of the Below Risk Factors Present?: Yes Each Factor Represents 1 point: Age 41-60 years, Minor surgery planned, Swollen legs (current) Thrombosis Risk Factor Assessment Total Risk Factor Score: 3 Thrombosis Risk Factor Assessment Level: Moderate Risk Assessment and Plan Assessment: Abdominal pain, positive ascites, hepatocellular disease -Possible pancreatic mass, GI following -Alcohol abuse, dependence, drinks beer and mixed drinks daily -Gastroesophageal reflux disease -Hyperlipidemia -Hypertension -Osteoarthritis -Anxiety -Ongoing nicotine dependence -Medical marijuana use Plan: Continue on current medication regime ,monitoring and symptomatic treatment. Ammonia level ordered. Ultrasound pending, diagnostic and therapeutic Paracentesis pending. Monitor for DTs,CIWA protocol. Possible kerr creatic mass, further workup/tumor markers as per GI eval/review/recommendations. Alcohol abstinence reinforced. The impression and plan of care has been dictated as directed. : I performed a history and examination of this patient, discussed the same with the dictator. I agree with the dictator's note ,documented as a scribe. Any additional findings or plans will be noted.
--- NOTE | 2020-12-12 14:32 | US ---
EXAMINATION TYPE: US paracentesis abd w/image DATE OF EXAM: 12/12/2020 COMPARISON: NONE HISTORY: Ascites. PROCEDURE: Maximal barrier technique was utilized. The skin overlying a suitable pocket of fluid was localized with ultrasound and the overlying skin was prepped and draped. Ultrasound was utilized with sterile technique. Lidocaine was used for local anesthesia and a skin yelitza made with a scalpel. Catheter was advanced under direct ultrasound guidance into a suitable pocket of fluid and approximately 10.3 lite rs of serous fluid were removed. Catheter was withdrawn and hemostasis achieved. There is no immedi ate complication; the patient is discharged in stable condition. IMPRESSION: STATUS POST ULTRASOUND GUIDED PARACENTESIS FOR PALLIATION OF ASCITES. Specimen sent for laboratory analysis. THIS PROCEDURE WAS PERFORMED BY THE UNDERSIGNED.
[2020-12-12 15:27] LABS: Appearance,BF Clear; Color,BF Yellow; Nucleated Cells, Body Fluid 28 /uL; RBC, Body Fluid 79 /uL
[2020-12-12 15:30] LABS: Mononuclear WBC,Body Fluid 69 %; Polynuclear WBC,Body Fluid 31 %; Total Cells Counted,Body Fluid 100
[2020-12-12 16:08] LABS: Appearance,Urine Clear (Clear); Bilirubin,Urine 2+ (Negative); Blood,Urine Negative (Negative); Color,Urine Orange; Glucose,Urine (UA) Negative (Negative); Ketones,Urine Trace (Negative); Leukocyte Esterase,Urine Negative (Negative); Nitrite,Urine Negative (Negative); PH, Urine 6.5 (5.0-8.0); Protein,Urine Trace (Negative); Specific Gravity,Urine 1.042 (1.001-1.035)
[2020-12-12] MEDS: THIAMINE 100 MG TAB PO SCH (16:08)
--- NOTE | 2020-12-12 16:56 | P.CONS ---
History of Present Illness - Reason for Consult Consult date: 12/12/20 ascites Requesting physician: Carlos Gibbons - Chief Complaint Abdominal pain and distention - History of Present Illness This a 60-year-old male who presented to the emergency department with complaints of abdominal pain and distention. Patient states he started noticing abdominal distention approximately one month ago along with swelling in his lower extremities. He has a significant history of alcohol abuse since the age of [age] years old. He has been drinking up to at least 1/5 a day of vodka since he has been on [facility] leave. He denies previously being diagnosed with alcoholic cirrhosis of the liver, he has not followed with a [facility] or liver specialist. He has no previous history of paracentesis. On admission he had a CT of the abdomen and pelvis that showed abdominal ascites correlate for hepatocellular disease. Cannot exclude a mass near the uncinate process and head of the pancreas posteriorly. Recommend MRI to exclude pancreatic neoplasm. Consider tumor marker analysis. Mild thickening of the wall of the right colon could be related to ascites correlate clinically to exclude a mild colitis. Bibasilar subsegmental atelectasis favored over infiltrate correlate clinically. Pleural-based calcifications can be associated with us this disc related disease He denies any previous history of liver disease or hepatitis. He underwent a paracentesis today with removal of 10.3 L of fluid with fluid studies pending. He denies any previous history of pancreatitis. He currently states he is feeling much better. Denies any abdominal pain, fever, nausea, or vomiting. Review of Systems REVIEW OF SYSTEMS: CARDIOPULMONARY: No chest pain or shortness of breath. Lower extremity swelling. Gastrointestinal: Abdominal pain and distention. No nausea or vomiting. No hematemesis, coffee-ground emesis. No rectal bleeding, or melena. GENITOURINARY: No dysuria or hematuria. MUSCULOSKELETAL: Reports normal range of motion., Joint pain. SKIN: No rashes. No jaundice. ENDOCRINE: No chills, fevers. No excessive weight gain or loss. No polydipsia or polyuria. PSYCHIATRIC: Unremarkable. NEUROLOGY: No change in mental status. Denies dizziness, headache. ENT: Vision unremarkable. CONSTITUTIONAL: No recent weight loss. No fever, chills, night sweats. Past Medical History Past Medical History: GERD/Reflux, Hyperlipidemia, Hypertension, Osteoarthritis (OA) Additional Past Medical History / Comment(s): occ.DIZZINESS; migraines; DDD. herniated disk, gets numbness right and left foot which occ has caused falls. uses cane at times History of Any Multi-Drug Resistant Organisms: None Reported Past Surgical History: Tonsillectomy Additional Past Surgical History / Comment(s): RIGHT EYE surgery for shattered eye socket-plastic PLATE. JAW SURGERY age 11. Pain Procedures. back surgery 2020 Past Anesthesia/Blood Transfusion Reactions: No Reported Reaction, Previous Problems w/ Anesthesia Additional Past Anesthesia/Blood Transfusion Reaction / Comm: Blood pressure dropped too low, surgery was cancelled. Past Psychological History: Anxiety Smoking Status: Current every day smoker Past Alcohol Use History: Heavy, Occasional Additional Past Alcohol Use History / Comment(s): started smoking at age 11 smokes approx 1/4 - 1/2 PPD, has smoked for 40 yrs. drinks beer and mixed drinks DAILY 3-4 drinks a day per patient Past Drug Use History: Marijuana Additional Drug Use History / Comment(s): medical-INSTRUCTED TO REFRAIN FROM USE FOR AT LEAST 24 HOURS PRIOR TO PROCEDURE - Past Family History Father Family Medical History: GERD/Reflux Mother Family Medical History: Coronary Artery Disease (CAD), Myocardial Infarction ([place]) Medications and Allergies Home Medications Medication Instructions Recorded Confirmed Type DULoxetine HCL [Cymbalta] 60 mg PO DAILY 12/14/16 12/11/20 History Tamsulosin [Flomax] 0.4 mg PO DAILY 12/14/16 12/11/20 History Albuterol Sulfate [Proair Hfa] 2 puff INHALATION RT-Q4H PRN 12/11/20 12/11/20 History Allergies Allergy/AdvReac Type Severity Reaction Status Date / Time codeine Allergy Severe Itching Verified 12/11/20 16:07 hydrocodone [From Vicodin] Allergy Severe Itching Verified 12/11/20 16:07 Physical Exam Vitals: Vital Signs Temp Pulse Pulse Resp BP BP Pulse Ox 12/12/20 07:51 98.1 F 108 H 18 138/95 93 L 12/12/20 02:00 98.1 F 108 H 153/113 93 L 12/11/20 23:16 98.1 F 94 16 139/101 94 L 12/11/20 21:43 98.8 F 110 H 19 123/85 97 12/11/20 13:45 94 16 12/11/20 10:45 99.2 F 121 H 18 113/80 96 Intake and Output 12/11/20 12/12/20 12/12/20 22:59 06:59 14:59 Intake Total 400 Output Total 500 Balance -100 Intake: Oral 400 Output: Urine 500 Other: # Voids 3 Weight 93.44 kg General appearance: The patient is alert, oriented, appears in no acute distress. HET: Head is normocephalic and atraumatic. Conjunctiva pink. Sclera icteric. Neck: Supple without lymphadenopathy. Trachea midline. Heart: S1 S2. Regular rate and rhythm. Lungs: Clear to auscultation. Abdomen: Soft, nontender, nondistended with bowel sounds. No guarding or rig idity. Skin: No rashes. Jaundice. Extremities: Normal skin color and turgor. Bilateral lower extremity pitting edema. Neurological: No focal deficits. Alert and oriented x3. Results CBC & Chem 7: 12/11/20 11:49 12/11/20 11:49 Labs: Abnormal Lab Results - Last 24 Hours (Table) 12/11/20 12/11/20 12/11/20 Range/Units 11:49 11:49 11:49 WBC 12.8 H (3.8-10.6) k/uL RBC 3.03 L (4.30-5.90) m/uL Hgb 11.4 L (13.0-17.5) gm/dL Hct 34.9 L (39.0-53.0) % MCV 114.9 H (80.0-100.0) fL MCH 37.7 H (25.0-35.0) pg Neutrophils # 10.5 H (1.3-7.7) k/uL Macrocytosis Marked A PT 13.5 H (9.0-12.0) sec INR 1.3 H (<1.2) Sodium 124 L (137-145) mmol/L Chloride 95 L (98-107) mmol/L Carbon Dioxide 19 L (22-30) mmol/L Glucose 101 H (74-99) mg/dL Total Bilirubin 4.9 H (0.2-1.3) mg/dL AST 123 H (17-59) U/L ALT 71 H (4-49) U/L Alkaline Phosphatase 222 H (38-126) U/L Albumin 2.9 L (3.5-5.0) g/dL Lipase 366 H (23-300) U/L Comments: CT of the abdomen and pelvis that showed abdominal ascites correlate for hepatocellular disease. Cannot exclude a mass near the uncinate process and head of the pancreas posteriorly. Recommend MRI to e Assessment and Plan (1) Ascites Narrative/Plan: D10-year-old male who presented to the emergency department with complaints of abdominal pain and distention. Patient has a significant history of alcohol abuse over the past 30 or more years since age of 14. He admits to drinking one fifth of vodka a day. No previous history of liver disease, no previous history of ascites or paracentesis. He had a CT of the abdomen and pelvis concerning for large amount of ascites, also seen was a pancreatic lesion. Patient denies any previous history of pancreatitis. States he noticed abdominal distention and swelling in lower extremities beginning about one month ago which progressively had gotten worse. Likely patient has ascites consistent with portal hypertension from alcoholic cirrhosis of the liver. Fluid studies are pending. Patient did receive albumin status post paracentesis of 10.3 L removed. Current Visit: Yes Status: Acute Code(s): R18.8 - OTHER ASCITES SNOMED Code(s): 252800518 (2) Jaundice Current Visit: Yes Status: Acute Code(s): R17 - UNSPECIFIED JAUNDICE SNOMED Code(s): 34799636 Plan: 1. Continue symptomatic and supportive care 2. Agree with paracentesis 3. Fluid studies ordered 4. Start Aldactone 100 mg daily and Lasix 40 mg daily 5. Continue to watch and monitor for alcohol withdrawal symptoms 6. Albumin ordered status post paracentesis 7. MRI of the pancreas ordered 8. Repeat daily CMP, CA-19-9 ordered, hepatitis panel ordered Thank you for this consultation, we will continue to follow. Dr. Karly Tobin I agree with the dictator's note, documented as a scribe by Cheryl Duke.
[2020-12-13] MEDS: SODIUM CHLORIDE 0.9% 1,000 ML IV SCH ×3 (02:01→20:45)
[2020-12-13 05:02] LABS: Total Protein, Body Fluid 1250 mg/dL
[2020-12-13 05:27] LABS: Albumin, Fluid Source Peritoneal Fluid
[2020-12-13 08:23] LABS: ALT 47 U/L (4-49); AST 88 U/L (17-59); African American GFR (CKD) >90 (>60 ml/min/1.73 sqM); Albumin 2.9 g/dL (3.5-5.0); Albumin/Globulin Ratio 0.9; Alkaline Phosphatase 156 U/L (38-126); Anion Gap 6 mmol/L; Blood Urea Nitrogen 13 mg/dL (9-20); Calcium 8.5 mg/dL (8.4-10.2); Carbon Dioxide 25 mmol/L (22-30); Chloride 95 mmol/L (98-107); Globulin 3.1 g/dL; Glucose 99 mg/dL (74-99); Non-African American GFR(CKD) >90 (>60 ml/min/1.73 sqM); Potassium 4.7 mmol/L (3.5-5.1); Sodium 126 mmol/L (137-145); Total Bilirubin 4.6 mg/dL (0.2-1.3)
[2020-12-13] MEDS: FUROSEMIDE 40 MG TAB PO SCH (08:32)
[2020-12-13] MEDS: THIAMINE 100 MG TAB PO SCH ×2 (08:32→16:59)
[2020-12-13] MEDS: PANTOPRAZOLE 40 MG/10 ML VIAL IVP SCH (08:32)
[2020-12-13] MEDS: FOLIC ACID 1 MG TAB PO SCH (08:32)
[2020-12-13] MEDS: DULoxetine HCL 60 MG CAPSULE.DR PO SCH (08:32)
[2020-12-13] MEDS: TAMSULOSIN 0.4 MG CAP.ER.24H PO SCH (08:32)
[2020-12-13] MEDS: traMADol 50 MG TAB PO SCH ×3 (08:33→21:18)
[2020-12-13] MEDS: SPIRONOLACTONE 25 MG TAB PO SCH (08:33)
[2020-12-13 09:30] LABS: HCT 32.5 % (39.6-50.0); HGB 10.7 g/dL (13.0-17.0); MCH 36.8 pg (27.0-32.0); MCHC 32.9 g/dL (32.0-37.0); MCV 111.7 fL (80.0-97.0); Mean Platelet Volume 11.1 fL (9.5-12.2); Platelet Count 172 X 10*3/uL (140-440); RBC 2.91 X 10*6/uL (4.40-5.60); WBC 10.69 X 10*3/uL (4.50-10.00)
[2020-12-13 09:40] LABS: INR 1.27 (0.90-1.11); Prothrombin Time 13.6 sec (9.9-11.9)
[2020-12-13 11:26] LABS: Basophils # (A) 0.02 X 10*3/uL (0.00-0.10); Basophils % (A) 0.2 %; Eosinophils # (A) 0.06 X 10*3/uL (0.04-0.35); Eosinophils % (A) 0.6 %; Lymphocytes # (A) 0.67 X 10*3/uL (0.90-5.00); Lymphocytes % (A) 6.3 %; Monocytes # (A) 1.05 X 10*3/uL (0.20-1.00); Monocytes % (A) 9.8 %; Neutrophils % (A) 82.3 %
[2020-12-13 11:27] LABS: Macrocytosis (M) 3+
--- NOTE | 2020-12-13 12:16 | MR ---
EXAMINATION TYPE: MR pancreas wo/w con DATE OF EXAM: 12/13/2020 COMPARISON: CT abdomen and pelvis 2 days ago HISTORY: Abnormal CT with pancreatic lesion CONTRAST: Standard multiplanar, multisequence MRI departmental protocol images were obtained without contrast a nd with 9 mL intravenous Gadavist gadolinium contrast. Imaging performed of the abdomen focusing on the pancreas. FINDINGS: Pancreas: Exam noted suboptimal as there is significant artifact on images acquired particularly post contrast fat saturation images. Corresponding to CT there is persistent suspicious oval lesion in the inferior aspect of the uncinate process of the pancreas measuring approximately 2.1 x 1.1 cm coronal image 19. This likely shows diminished enhancement relative to adjacent pancreatic gland on postcont rast images seen best image 28 series 1301. It is likely just superior to the duodenal sweep or proxi mal third portion. Remainder pancreas is normal in size without ductal dilatation. Other: Persistent small to moderate amount of intra-abdominal ascites less prominent than recent CT. Interval paracentesis noted. Marked signal dropout in the liver is present. Finding consistent with m arked diffuse fatty infiltration. Dependent density nearly completely fills the gallbladder lumen of increased T1 and diminished T2 signal. Correlate clinically. Persistent distended margins. Bowel loops show mild to moderate diffuse wall thickening particularly central small bowel loops. The y are slightly more prominent. Finding presumed product of underlying hepatocellular disease. There is suspicious exophytic lesion from the upper pole right kidney measuring 2.4 cm image 54 serie s [address] axial image 31 in retrospect. This may have some enhancement and washout o n visualizing series 1101 versus 1201 and subsequent later postcontrast images. No hydronephrosis elba aterally. This does not show significant enhancement on the delayed postcontrast coronal sequence. Artifact from postsurgical change lumbosacral junction is present. IMPRESSION: Suboptimal study. Suspicious lesion measured 2.0 x 1.0 cm inferior uncinate process could reflect solid pancreatic mass or adjacent adenopathy. Consider endoscopic ultrasound to further eval uate and/or sample. Correlate with tumor markers. Improved ascites after interval paracentesis. Marke d fatty infiltration of liver redemonstrated. New diffuse bowel wall thickening is presumed product o f underlying hepatocellular disease. Suspicious exophytic lesion upper pole of the right kidney could reflect proteinaceous cyst but enhancing solid mass cannot be excluded. Advise ultrasound follow-up to further evaluate.
[2020-12-13 12:32] LABS: Hepatitis A Antibody IgM Nonreactive (Nonreactive); Hepatitis B Core IgM Nonreactive (Nonreactive); Hepatitis B Surface Antigen Nonreactive (Nonreactive); Hepatitis C IgG Antibody Nonreactive (Nonreactive)
--- NOTE | 2020-12-13 14:58 | P.PN ---
Subjective Progress Note Date: 12/13/20 This is a 60-year-old gentleman with past medical history of gastroesophageal reflux disease, hypertension, ongoing nicotine dependence, anxiety, spinal stenosis/degenerative disc disease, alcohol abuse/dependence-drinks daily, presented to the ER with worsening abdominal pain, abdominal distention and low er extremity edema. Reports prior to arriving, consumed a pint of vodka with orange juice. Denies chest pain, palpitations or shortness of breath. Denies lightheadedness dizziness or focal deficits. Patient's brother has been living at patient's house, creating increased stress as per . Patient states has not had diagnostic paracentesis previously. CT of abdomen and pelvis reporting diffuse abdominal ascites, possible hepatocellular disease, possible mass near the uncinate process and head of the pancreas posteriorly,mild thickened right colon, bibasilar subsegmental atelectasis.Afebrile, WBC 12.3. Hemoglobin 11.4, platelets 191, INR 1.3, sodium 124, potassium 4.5, BUN 13, creatinine 0.79, total bili 4.9, AST 123, ALT 71, alk phos 222, albumin 2.9, lipase 366. 12/13/2020 Active Dts, seeing cats in his room. Ammonia level XI. Continues on CIWA protocol. Yesterday underwent large volume paracentesis 10.3 L of serous fluid removed, tolerated procedure well. Ascites fluid cultures pending. This morning underwent pancreas MRI, suboptimal study, suspicious lesion measuring 2 x 1 cm inferior uncinate process, possible solid pancreatic mass or adjacent adenopathy. CA-19 pending. Afebrile. Objective - Vital Signs Vital signs: Vital Signs Temp 98.1 F 12/13/20 07:28 Pulse 100 12/13/20 07:28 Resp 16 12/13/20 07:28 BP 120/84 12/13/20 07:28 Pulse Ox 94 L 12/13/20 02:13 Intake & Output 12/12/20 12/13/20 12/13/20 18:59 06:59 18:59 Intake Total 480 Output Total 0 Balance 0 480 Intake: Oral 480 Output: Urine 0 Other: Voiding Method Toilet # Voids 3 0 2 # Bowel Movements 0 - Exam PHYSICAL EXAM: VITAL SIGNS: As above GENERAL: Sitting up in bed, no acute distress, jaundiced. HEENT: Conjunctivae normal. eyes normal. NECK: No JVD. No thyroid enlargement. No LNs CARDIOVASCULAR: S1, S2 regular.No murmur RESPIRATION: Breath sounds diminished in the bases.No rhonchi or crackles. No bronchial breathing. ABDOMEN: Soft, distended, diffuse generalized tenderness, No guarding. no masses palpable. Positive ascites.Bowel sounds heard. LEGS: Decreased edema, Calves nontender. PSYCHIATRY: Alert and oriented X3, mood and affect normal. NERVOUS SYSTEM: Cranial N 2-12 grossly normal. Moves all 4 limbs. No focal deficits. Strength and sensation grossly intact. Skin: Warm and dry, no rash - Labs CBC & Chem 7: 12/13/20 06:01 12/13/20 06:01 Labs: Abnormal Lab Results - Last 24 Hours (Table) 12/11/20 12/13/20 12/13/20 Range/Units 12:23 06:01 06:01 WBC 10.69 H (4.50-10.00) X 10*3/uL RBC 2.91 L (4.40-5.60) X 10*6/uL Hgb 10.7 L (13.0-17.0) g/dL Hct 32.5 L (39.6-50.0) % MCV 111.7 H (80.0-97.0) fL MCH 36.8 H (27.0-32.0) pg Immature Gran # 0.09 H (0.00-0.04) X 10*3/uL Neutrophils # 8.80 H (1.80-7.70) X 10*3/uL Lymphocytes # 0.67 L (0.90-5.00) X 10*3/uL Monocytes # 1.05 H (0.20-1.00) X 10*3/uL PT 13.6 H (9.9-11.9) sec INR 1.27 H (0.90-1.11) Sodium (137-145) mmol/L Chloride (98-107) mmol/L Total Bilirubin (0.2-1.3) mg/dL AST (17-59) U/L Alkaline Phosphatase (38-126) U/L Total Protein (6.3-8.2) g/dL Albumin (3.5-5.0) g/dL Ur Specific [place] 1.042 H (1.001-1.035) Urine Protein Trace H (Negative) Urine Ketones Trace H (Negative) Urine Bilirubin 2+ H (Negative) 12/13/20 Range/Units 06:01 WBC (4.50-10.00) X 10*3/uL RBC (4.40-5.60) X 10*6/uL Hgb (13.0-17.0) g/dL Hct (39.6-50.0) % MCV (80.0-97.0) fL MCH (27.0-32.0) pg Immature Gran # (0.00-0.04) X 10*3/uL Neutrophils # (1.80-7.70) X 10*3/uL Lymphocytes # (0.90-5.00) X 10*3/uL Monocytes # (0.20-1.00) X 10*3/uL PT (9.9-11.9) sec INR (0.90-1.11) Sodium 126 L (137-145) mmol/L Chloride 95 L (98-107) mmol/L Total Bilirubin 4.6 H (0.2-1.3) mg/dL AST 88 H (17-59) U/L Alkaline Phosphatase 156 H (38-126) U/L Total Protein 6.0 L (6.3-8.2) g/dL Albumin 2.9 L (3.5-5.0) g/dL Ur Specific [place] (1.001-1.035) Urine Protein (Negative) Urine Ketones (Negative) Urine Bilirubin (Negative) Microbiology - Last 24 Hours (Table) 12/12/20 10:00 Gram Stain - Preliminary Ascites Fluid Body Fluid Culture - Preliminary 12/12/20 10:00 Anaerobic Culture - Preliminary Ascites Fluid Assessment and Plan Assessment: Abdominal pain, positive ascites, hepatocellular disease -Possible pancreatic mass, -Alcohol abuse, dependence, drinks beer and mixed drinks daily -Gastroesophageal reflux disease -Hyperlipidemia -Hypertension -Osteoarthritis -Anxiety -Ongoing nicotine dependence -Medical marijuana use Plan: Continue on current medication regime ,monitoring and symptomatic treatment. Maintain CIWA protocol. Possible pancreatic mass, tumor markers pending. Outpatient EUS. If CA-19-9 elevated consult oncology. Alcohol abstinence reinforced. The impression and plan of care has been dictated as directed. : I performed a history and examination of this patient, discussed the same with the dictator. I agree with the dictator's note ,documented as a scribe. Any additional findings or plans will be noted.
--- NOTE | 2020-12-13 15:36 | P.PN ---
Subjective Progress Note Date: 12/13/20 Principal diagnosis: Ascites This a 60-year-old male who presented to the emergency department with complaints of abdominal distention and jaundice. He has a significant history of alcohol abuse since age of 14. Admits to drinking about a fifth of vodka a day. He was noted to have abdominal ascites and underwent paracentesis with temporary 3 L removed. He also had concern for a pancreatic lesion on the CT of the abdomen and pelvis. MRI of pancreas shows suspicious lesion measuring 2.0 x 1.0 cm inferior gluconate process could reflect solid pancreatic mass or adjacent adenopathy. Consider endoscopic ultrasound to further evaluate and/or sample. Correlate with tumor markers. Improved ascites after interval paracentesis. Marked fatty infiltration of liver redemonstrated. New diffuse bowel wall thickening is presumed product of underlying hepatocellular disease. Suspicious exophytic lesion upper pole of the right kidney could reflect protein A show a cyst but enhancing solid mass cannot be excluded and 5 ultrasound follow-up for further evaluation. Today he states abdominal distention and pain is much improved. He does seem to be going through some withdrawals and the does have some shakes and tremors. He denies any nausea or vomiting. Bowel movements normal. Hepatitis panel nonreactive. WBC 10.69 hemoglobin 10.7 hematocrit 32, platelet count 172,000 INR 1.27 Total bilirubin 4.6 AST 88 ALT 47 alkaline phosphatase 156 ammonia 11 Objective - Vital Signs Vital signs: Vital Signs Temp 98.1 F 12/13/20 07:28 Pulse 100 12/13/20 07:28 Resp 16 12/13/20 07:28 BP 120/84 12/13/20 07:28 Pulse Ox 94 L 12/13/20 02:13 Intake & Output 12/12/20 12/13/20 12/13/20 18:59 06:59 18:59 Output Total 0 Balance 0 Output: Urine 0 Other: Voiding Method Toilet # Voids 3 0 # Bowel Movements 0 - Exam General appearance: The patient is alert, oriented, appears in no acute distress. HET: Head is normocephalic and atraumatic. Conjunctiva pink. Sclera icteric. Neck: Supple without lymphadenopathy. Abdomen: Soft, nontender, nondistended with bowel sounds. No guarding or rigidity. Extremities: Normal skin color and turgor. Bilateral pedal edema Skin: No rashes, jaundice Neurological: No focal deficits. Alert and oriented x3. - Labs CBC & Chem 7: 12/13/20 06:01 12/13/20 06:01 Labs: Abnormal Lab Results - Last 24 Hours (Table) 12/11/20 12/13/20 12/13/20 Range/Units 12:23 06:01 06:01 WBC 10.69 H (4.50-10.00) X 10*3/uL RBC 2.91 L (4.40-5.60) X 10*6/uL Hgb 10.7 L (13.0-17.0) g/dL Hct 32.5 L (39.6-50.0) % MCV 111.7 H (80.0-97.0) fL MCH 36.8 H (27.0-32.0) pg Sodium 126 L (137-145) mmol/L Chloride 95 L (98-107) mmol/L Total Bilirubin 4.6 H (0.2-1.3) mg/dL AST 88 H (17-59) U/L Alkaline Phosphatase 156 H (38-126) U/L Total Protein 6.0 L (6.3-8.2) g/dL Albumin 2.9 L (3.5-5.0) g/dL Ur Specific [place] 1.042 H (1.001-1.035) Urine Protein Trace H (Negative) Urine Ketones Trace H (Negative) Urine Bilirubin 2+ H (Negative) Microbiology - Last 24 Hours (Table) 12/12/20 10:00 Gram Stain - Preliminary Ascites Fluid Body Fluid Culture - Preliminary 12/12/20 10:00 Anaerobic Culture - Preliminary Ascites Fluid Assessment and Plan (1) Ascites Narrative/Plan: D10-year-old male who presented to the emergency department with complaints of abdominal pain and distention. Patient has a significant history of alcohol abuse over the past 30 or more years since age of 14. He admits to drinking one fifth of vodka a day. No previous history of liver disease, no previous history of ascites or paracentesis. He had a CT of the abdomen and pelvis concerning for large amount of ascites, also seen was a pancreatic lesion. Patient denies any previous history of pancreatitis. States he noticed abdominal distention and swelling in lower extremities beginning about one month ago which progre ssively had gotten worse. Likely patient has ascites consistent with portal hypertension from alcoholic cirrhosis of the liver. Fluid studies are pending. Patient did receive albumin status post paracentesis of 10.3 L removed. Current Visit: Yes Status: Acute Code(s): R18.8 - OTHER ASCITES SNOMED Code(s): 931354302 (2) Jaundice Current Visit: Yes Status: Acute Code(s): R17 - UNSPECIFIED JAUNDICE SNOMED Code(s): 22605945 (3) Alcoholic cirrhosis of liver Current Visit: Yes Status: Acute Code(s): K70.30 - ALCOHOLIC CIRRHOSIS OF LIVER WITHOUT ASCITES SNOMED Code(s): 867468623 (4) Alcohol abuse Current Visit: Yes Status: Acute Code(s): F10.10 - ALCOHOL ABUSE, UNCOMPLICATED SNOMED Code(s): 29910082 (5) Pancreatic lesion Narrative/Plan: Patient underwent MRI of the pancreaswith findings of a suspicious lesion measuring 2.0 x 1.0 cm inferior night process could reflect solid pancreatic mass or adjacent adenopathy. Consider endoscopic ultrasound to further evaluate and/or sample. Correlate with tumor markers. Improved ascites after interval paracentesis. Marked fatty infiltration of liver redemonstrated. New diffuse bowel wall thickening presumed products of underlying hepatocellular disease. Patient will need follow-up with gastroenterology and will be preferred to [facility] for outpatient EUS. This was discussed with both the patient and his . Current Visit: Yes Status: Acute Code(s): K86.9 - DISEASE OF PANCREAS, UNSPECIFIED SNOMED Code(s): 2484554 Plan: 1. Continue symptomatic and supportive care 2. Agree with paracentesis 3. Fluid studies ordered 4. Continue Aldactone 100 mg daily and Lasix 40 mg daily 5. Continue to monitor for alcohol withdrawal symptoms 6. MRI of the pancreas ordered and reviewed. Recommend patient EUS done at [facility]. This can be done as an outpatient. 7. CA-19-9 has been ordered, results are pending. 8. Hepatitis panel ordered, nonreactive 9. Patient will need outpatient follow-up with gastroenterology 10. Recommend Alcohol cessation Dr. Karly Tobin I agree with the dictator's note, documented as a scribe by Cheryl Duke.
[2020-12-14] MEDS: SODIUM CHLORIDE 0.9% 1,000 ML IV SCH ×2 (05:03→12:50)
[2020-12-14] MEDS: THIAMINE 100 MG TAB PO SCH (07:50)
[2020-12-14] MEDS: PANTOPRAZOLE 40 MG/10 ML VIAL IVP SCH (07:50)
[2020-12-14] MEDS: TAMSULOSIN 0.4 MG CAP.ER.24H PO SCH (07:50)
[2020-12-14] MEDS: FOLIC ACID 1 MG TAB PO SCH (07:50)
[2020-12-14] MEDS: DULoxetine HCL 60 MG CAPSULE.DR PO SCH (07:51)
[2020-12-14] MEDS: SPIRONOLACTONE 25 MG TAB PO SCH (07:51)
[2020-12-14] MEDS: FUROSEMIDE 40 MG TAB PO SCH (07:51)
[2020-12-14] MEDS: traMADol 50 MG TAB PO SCH ×2 (07:59→12:49)
--- NOTE | 2020-12-14 11:49 | P.DS ---
Providers Date of admission: 12/11/20 13:40 Expected date of discharge: 12/14/20 Attending physician: Carlos Gibbons Consults: 12/11/20 13:41 Consult Physician Urgent Consulting Provider: Amanda Tobin Consult Reason/Comments: ascites/liver failure Do you want consulting provider notified?: Yes 12/11/20 13:45 Consult Physician Urgent Consulting Provider: Juan Jose Aldana Consult Reason/Comments: ascites Do you want consulting provider notified?: Yes Primary care physician: Carlos Gibbons [facility] Course: This is a 60-year-old gentleman with past medical history of gastroesophageal reflux disease, hypertension, ongoing nicotine dependence, anxiety, spinal stenosis/degenerative disc disease, alcohol abuse/dependence-drinks daily, presented to the ER with worsening abdominal pain, abdominal distention and lower extremity edema. Reports prior to arriving, consumed a pint of vodka with orange juice. Denies chest pain, palpitations or shortness of breath. Denies lightheadedness dizziness or focal deficits. Patient's brother has been living at patient's house, creating increased stress as per . Patient states has not had diagnostic paracentesis previously. CT of abdomen and pelvis reporting diffuse abdominal ascites, possible hepatocellular disease, possible mass near the uncinate process and head of the pancreas posteriorly,mild thickened right colon, bibasilar subsegmental atelectasis.Afebrile, WBC 12.3. Hemoglobin 11.4, platelets 191, INR 1.3, sodium 124, potassium 4.5, BUN 13, creatinine 0.79, total bili 4.9, AST 123, ALT 71, alk phos 222, albumin 2.9, lipase 366. 12/13/2020 Active Dts, seeing cats in his room. Ammonia level XI. Continues on CIWA protocol. Yesterday underwent large volume paracentesis 10.3 L of serous fluid removed, tolerated procedure well. Ascites fluid cultures pending. This morning underwent pancreas MRI, suboptimal study, suspicious lesion measuring 2 x 1 cm inferior uncinate process, possible solid pancreatic mass or adjacent adenopathy. CA-19 pending. Afebrile. 12/14/2020: Patient is doing better. No significant DTs. Liver failure, and possible pancreatic mass. He remains on Lasix and spironolactone for diuresis. He reports no plans to return to drinking alcohol. CA-19-9 is still pending. He is requesting discharge. We discussed at length the need for outpatient follow-up need for alcohol abstinence. He seems to understand this. He currently is stable he'll be discharged home. Patient Condition at Discharge: Stable Plan - Discharge Summary Discharge Rx Participant: No New Discharge Prescriptions: New B Complex W-C No.20/Folic Acid [Renal Caps Softgel] 1 mg PO DAILY #90 Spironolactone [Aldactone] 100 mg PO DAILY 30 Days #30 tab Furosemide [Lasix] 40 mg PO DAILY #30 tab Continue Tamsulosin [Flomax] 0.4 mg PO DAILY DULoxetine HCL [Cymbalta] 60 mg PO DAILY Albuterol Sulfate [Proair Hfa] 2 puff INHALATION RT-Q4H PRN PRN Reason: Shortness Of Breath Discharge Medication List DULoxetine HCL [Cymbalta] 60 mg PO DAILY 12/14/16 [History] Tamsulosin [Flomax] 0.4 mg PO DAILY 12/14/16 [History] Albuterol Sulfate [Proair Hfa] 2 puff INHALATION RT-Q4H PRN 12/11/20 [History] B Complex W-C No.20/Folic Acid [Renal Caps Softgel] 1 mg PO DAILY #90 12/14/20 [Rx] Furosemide [Lasix] 40 mg PO DAILY #30 tab 12/14/20 [Rx] Spironolactone [Aldactone] 100 mg PO DAILY 30 Days #30 tab 12/14/20 [Rx] Follow up Appointment(s)/Referral(s): Carlos Gibbons MD [Primary Care Provider] - 1-2 days Amanda Tobin MD [STAFF PHYSICIAN] - 1 Week Discharge Disposition: HOME SELF-CARE
[2020-12-14 15:21] VITALS: BP 143/88; PULSE 121; RESP 18; TEMP 98.3
[2020-12-14 20:26] LABS: Cancer Antigen 19-9 24.2 U/mL (0.0-34.9)
== END 2020-12-14 15:27 | disposition home or self-care (01) | DRG 442 ==
LOC: EC 10:33 → 4SSUR 13:40
PROVIDERS: ADMIT Family Medicine; ATTEND Family Medicine
PROC: 0W9G3ZX Drainage of Peritoneal Cavity, Percutaneous Approach, Diagnostic (ICD-10-PCS; principal; 2020-12-12)
DX: K72.90 Hepatic failure, unspecified without coma (principal); J98.11 Atelectasis; K76.6 Portal hypertension; E78.5 Hyperlipidemia, unspecified; F10.10 Alcohol abuse, uncomplicated; F17.200 Nicotine dependence, unspecified, uncomplicated; F41.9 Anxiety disorder, unspecified; I10 Essential (primary) hypertension; K21.9 Gastro-esophageal reflux disease without esophagitis; K70.31 Alcoholic cirrhosis of liver with ascites; K76.0 Fatty (change of) liver, not elsewhere classified; K86.9 Disease of pancreas, unspecified; M19.90 Unspecified osteoarthritis, unspecified site; Z20.822 Contact with and (suspected) exposure to COVID-19; Z79.899 Other long term (current) drug therapy; Z82.49 Family history of ischemic heart disease and other diseases of the circulatory system
CPT/HCPCS: 49083; 74177; 74183; 80053; 80074; 81003; 82042; 82140; 82150; 83690; 83880; 84157; 85025; 85610; 85730; 86301; 87070; 87075; 87205; 87635; 88108; 88305; 89050; 96372; 99285

== ENCOUNTER 2021-09-26 22:31 | Emergency (ER) | payer OTHER ==
[2021-09-26 22:40] VITALS: BP 165/95; PULSE 84; RESP 22; TEMP 97.9
--- NOTE | 2021-09-26 23:29 | XR ---
EXAMINATION TYPE: XR foot complete RT DATE OF EXAM: 09/26/2021 COMPARISON: None HISTORY: Pain TECHNIQUE: 3 views FINDINGS: There is nondisplaced acute transverse fracture across the base of the second metatarsal. N o dislocation. Tarsal bones are intact. The toes appear intact.. IMPRESSION: Acute nondisplaced second metatarsal fracture.
--- NOTE | 2021-09-26 23:32 | ED ---
Lower Extremity Injury HPI - General Chief Complaint: Extremity Injury, Lower Stated Complaint: Right Foot Injury Time Seen by Provider: 09/26/21 22:43 Source: patient, family, RN notes reviewed Mode of arrival: wheelchair Limitations: no limitations - History of Present Illness Initial Comments: This is a 61-year-old male who presents to the emergency department for a right foot injury. Patient states that last night he tripped over his foot and fell. When he fell, his foot turned downwards and all of the pressure and all of his weight went onto the right foot. States that the pain is continuing to get worse. He has not taken any medications for the pain or iced the foot. He is using a cane to ambulate. Denies any fevers, chills, sore throat, cough, dyspnea, chest pain, palpitations, abdominal pain, nausea, vomiting, diarrhea, back pain, or headaches. MD Complaint: foot injury Onset/Timin Type of Injury: hyperextension Place: home Improves With: immobilization, rest Worsens With: weight bearing, movement, palpation Context: fall Associated Symptoms: swelling, unable to bear weight - Related Data Home Medications Medication Instructions Recorded Confirmed DULoxetine HCL [Cymbalta] 60 mg PO DAILY 12/14/16 12/11/20 Tamsulosin [Flomax] 0.4 mg PO DAILY 12/14/16 12/11/20 Albuterol Sulfate [Proair Hfa] 2 puff INHALATION RT-Q4H PRN 12/11/20 12/11/20 Previous Rx's Medication Instructions Recorded B Complex W-C No.20/Folic Acid 1 mg PO DAILY #90 12/14/20 [Renal Caps Softgel] Furosemide [Lasix] 40 mg PO DAILY #30 tab 12/14/20 Spironolactone [Aldactone] 100 mg PO DAILY 30 Days #30 tab 12/14/20 Allergies Allergy/AdvReac Type Severity Reaction Status Date / Time codeine Allergy Severe Itching Verified 09/26/21 22:40 hydrocodone [From Vicodin] Allergy Severe Itching Verified 09/26/21 22:40 Review of Systems ROS Statement: Those systems with pertinent positive or pertinent negative responses have been documented in the HPI. ROS Other: All systems not noted in ROS Statement are negative. Past Medical History Past Medical History: GERD/Reflux, Hyperlipidemia, Hypertension, Osteoarthritis (OA) Additional Past Medical History / Comment(s): occ.DIZZINESS; migraines; DDD. herniated disk, gets numbness right and left foot which occ has caused falls. uses cane at times History of Any Multi-Drug Resistant Organisms: None Reported Past Surgical History: Tonsillectomy Additional Past Surgical History / Comment(s): RIGHT EYE surgery for shattered eye socket-plastic PLATE. JAW SURGERY age 11. Pain Procedures. back surgery 2020 Past Anesthesia/Blood Transfusion Reactions: No Reported Reaction, Previous Problems w/ Anesthesia Additional Past Anesthesia/Blood Transfusion Reaction / Comment(s): Blood pressure dropped too low, surgery was cancelled. Past Psychological History: Anxiety Smoking Status: Current every day smoker Past Alcohol Use History: Heavy, Occasional Past Drug Use History: Marijuana - Past Family History Father Family Medical History: GERD/Reflux Mother Family Medical History: Coronary Artery Disease (CAD), Myocardial Infarction (ME) General Exam Limitations: no limitations General appearance: alert, in no apparent distress Head exam: Present: atraumatic, normocephalic, normal inspection Respiratory exam: Present: normal lung sounds bilaterally. Absent: respiratory distress, wheezes, rales, rhonchi, stridor Cardiovascular Exam: Present: regular rate, normal rhythm, normal heart sounds. Absent: systolic murmur, diastolic murmur, rubs, gallop, clicks Extremities exam: Present: other (Swelling, ecchymosis, and tenderness over the right midfoot. 2+ dorsalis pedis and tibialis posterior pulses and capillary refill less than 1 second. Full range of motion at the ankle.) Neurological exam: Present: alert, oriented X3, CN II-XII intact Psychiatric exam: Present: normal affect, normal mood Skin exam: Present: warm, dry, intact, normal color. Absent: rash Course Vital Signs 09/26/21 22:35 Temperature 97.9 F Pulse Rate 84 Respiratory 22 Rate Blood Pressure 165/95 O2 Sat by Pulse 96 Oximetry Medical Decision Making - Medical Decision Making This is a 61-year-old male who presents to the emergency department with right foot pain. X-rays obtained revealing a nondisplaced second metatarsal fracture. Patient was given a postop shoe and instructed to either wear this or something with a hard sole. He was also given Aren bandages in the event he wants to wrap the foot as well. Advised him to ice the foot for the first 2-3 days followed by heat there afterwards. Also instructed him to take Tylenol and ibuprofen as needed for pain relief. He can bear weight as tolerated, but should not put pressure on it if it is too painful. Follow-up for orthopedics provided, instructed him to contact the office next week. Return precautions reviewed in depth, the patient is instructed to return to the emergency department with any new, worsening, or concerning symptoms. Patient verbalized understanding. This case was discussed in detail with the attending ED physician. Presentation, findings, and treatment plan discussed in detail as well. - Radiology Data Radiology results: report reviewed, image reviewed Disposition Clinical Impression: Fracture of metatarsal of right foot, closed Disposition: HOME SELF-CARE Instructions (If sedation given, give patient instructions): Foot Fracture in Adults (ED), Post Surgical Shoe (ED) Additional Instructions: Return to the emergency department with any new, worsening, or concerning symptoms. Make sure you are wearing a hard sole shoe such as the one provided. You may walk on the foot as tolerated, but do not put excess pressure on it if it is too painful. You may also wrap the foot with an Aren bandage if you would like. Apply ice for the first 2-3 days followed by heat there afterwards. Take ibuprofen and Tylenol as needed for pain relief. Contact orthopedics as listed below for a follow-up appointment. Is patient prescribed a controlled substance at d/c from ED?: No Referrals: Carlos Gibbons MD [Primary Care Provider] - 1-2 days Gerardo Lovett MD [STAFF PHYSICIAN] - 1-2 days
== END 2021-09-26 23:56 | disposition home or self-care (01) ==
LOC: EC 22:31
DX: S92.324A Nondisplaced fracture of second metatarsal bone, right foot, initial encounter for closed fracture (principal); K21.9 Gastro-esophageal reflux disease without esophagitis; E78.5 Hyperlipidemia, unspecified; I10 Essential (primary) hypertension; M19.90 Unspecified osteoarthritis, unspecified site; F41.9 Anxiety disorder, unspecified; F17.200 Nicotine dependence, unspecified, uncomplicated; F12.90 Cannabis use, unspecified, uncomplicated; Z88.5 Allergy status to narcotic agent; Z79.899 Other long term (current) drug therapy; W01.0XXA Fall on same level from slipping, tripping and stumbling without subsequent striking against object, initial encounter; Y93.9 Activity, unspecified
CPT/HCPCS: 99284

== ENCOUNTER 2024-02-21 05:42 | Emergency (ER) | payer OTHER ==
[2024-02-21 06:05] VITALS: TEMP 97.3
--- NOTE | 2024-02-21 06:14 | ED ---
Fall HPI - General Chief Complaint: Fall Stated Complaint: Fall Time Seen by Provider: 02/21/24 05:59 Source: patient, EMS, RN notes reviewed Mode of arrival: EMS Limitations: no limitations - History of Present Illness Initial Comments: 63-year-old male presents emergency department chief complaint of left shoulder injury. Patient tripped and fell at home onto his left shoulder there is no head injury no loss conscious. Per patient's he is at his baseline. Patient had no complaints of neck, back pain no leg injuries. Patient had a prior left shoulder injury with clavicle fracture - Related Data Home Medications Medication Instructions Recorded Confirmed DULoxetine HCL [Cymbalta] 60 mg PO DAILY 12/14/16 12/11/20 Tamsulosin [Flomax] 0.4 mg PO DAILY 12/14/16 12/11/20 Albuterol Sulfate [Proair Hfa] 2 puff INHALATION RT-Q4H PRN 12/11/20 12/11/20 Previous Rx's Medication Instructions Recorded B Complex W-C No.20/Folic Acid 1 mg PO DAILY #90 12/14/20 [Renal Caps Softgel] Furosemide [Lasix] 40 mg PO DAILY #30 tab 12/14/20 Spironolactone [Aldactone] 100 mg PO DAILY 30 Days #30 tab 12/14/20 Allergies Allergy/AdvReac Type Severity Reaction Status Date / Time codeine Allergy Severe Itching Verified 02/21/24 05:47 hydrocodone [From Vicodin] Allergy Severe Itching Verified 02/21/24 05:47 Review of Systems ROS Statement: Those systems with pertinent positive or pertinent negative responses have been documented in the HPI. ROS Other: All systems not noted in ROS Statement are negative. Past Medical History Past Medical History: GERD/Reflux, Hyperlipidemia, Hypertension, Osteoarthritis (OA) Additional Past Medical History / Comment(s): occ.DIZZINESS; migraines; DDD. herniated disk, gets numbness right and left foot which occ has caused falls. uses cane at times History of Any Multi-Drug Resistant Organisms: None Reported Past Surgical History: Tonsillectomy Additional Past Surgical History / Comment(s): RIGHT EYE surgery for shattered eye socket-plastic PLATE. JAW SURGERY age 11. Pain Procedures. back surgery 2019 Past Anesthesia/Blood Transfusion Reactions: No Reported Reaction, Previous Problems w/ Anesthesia Additional Past Anesthesia/Blood Transfusion Reaction / Comment(s): Blood pressure dropped too low, surgery was cancelled. Past Psychological History: Anxiety Smoking Status: Current every day smoker Past Alcohol Use History: Heavy, Occasional Past Drug Use History: Marijuana - Past Family History Father Family Medical History: GERD/Reflux Mother Family Medical History: Coronary Artery Disease (CAD), Myocardial Infarction (PA) General Exam Limitations: no limitations General appearance: alert, in no apparent distress Head exam: Present: atraumatic, normocephalic, normal inspection Neck exam: Present: normal inspection, full ROM. Absent: tenderness, meningismus, lymphadenopathy Respiratory exam: Present: normal lung sounds bilaterally. Absent: respiratory distress, wheezes, rales, rhonchi, stridor Cardiovascular Exam: Present: regular rate, normal rhythm, normal heart sounds. Absent: systolic murmur, diastolic murmur, rubs, gallop, clicks Extremities exam: Absent: full ROM (Range of motion left shoulder, there is moderate swelling, tenderness with palpation neurovascular intact), other Back exam: Present: full ROM. Absent: tenderness, paraspinal tenderness, vertebral tenderness Neurological exam: Present: alert, oriented X3, CN II-XII intact, reflexes normal. Absent: motor sensory deficit Course Vital Signs 02/21/24 02/21/24 05:43 05:59 Temperature 97.2 F L 97.3 F L Pulse Rate 74 76 Respiratory 16 16 Rate Blood Pressure 116/84 100/74 O2 Sat by Pulse 94 L 93 L Oximetry Medical Decision Making - Medical Decision Making Was pt. sent in by a medical professional or institution (, PA, IMPLEMENTATION CONSULTANT, urgent care, hospital, or care home...) When possible be specific @ -No Did you speak to anyone other than the patient for history (EMS, parent, family, police, friend...)? What history was obtained from this source @ -No Did you review nursing and triage notes (agree or disagree)? Why? @ -I reviewed and agree with nursing and triage notes Were old charts reviewed (outside hosp., previous admission, EMS record, old EKG, old radiological studies, urgent care reports/EKG's, care home records)? Report findings @ -No old charts were reviewed Differential Diagnosis (chest pain, altered mental status, abdominal pain women, abdominal pain men, vaginal bleeding, weakness, fever, dyspnea, syncope, headache, dizziness, GI bleed, back pain, seizure, CVA, palpatations, mental health, musculoskeletal)? @ -[Fall, shoulder dislocation, arm fracture EKG interpreted by me (3pts min.). @ -None X-rays interpreted by me (1pt min.). @ -X-ray shows comminuted humerus shaft fracture CT interpreted by me (1pt min.). @ -None done U/S interpreted by me (1pt. min.). @ -None done What testing was considered but not performed or refused? (CT, X-rays, U/S, labs)? Why? @ -None What meds were considered but not given or refused? Why? @ -None Did you discuss the management of the patient with other professionals (professionals i.e. , PA, IMPLEMENTATION CONSULTANT, lab, RT, psych nurse, social work associate, sink cutter, teacher, banking officer, caseworker protective services)? Give summary @ -No Was smoking cessation discussed for >3mins.? @ -No Was critical care preformed (if so, how long)? @ -No Were there social determinants of health that impacted care today? How? (Homelessness, low income, unemployed, alcoholism, drug addiction, transportation, low edu. Level, literacy, decrease access to med. care, longterm, rehab)? @ -No Was there de-escalation of care discussed even if they declined (Discuss DNR or withdrawal of care, Hospice)? DNR status @ -No What co-morbidities impacted this encounter? (DM, HTN, Smoking, COPD, CAD, Cancer, CVA, ARF, Chemo, Hep., AIDS, mental health diagnosis, sleep apnea, morbid obesity)? @ -None Was patient admitted / discharged? Hospital course, mention meds given and route, prescriptions, significant lab abnormalities, going to OR and other pertinent info. @ -[Discharge patient is neurovascular intact without any complaints of paresthesias or associated hand lower arm weakness. Patient has room with in which they was given very strict return parameters for concerns of any nerve involvement. Patient is comfortable in a sling and is continue to be neurovascular intact. They advised that they need to call orthopedics this morning for very close follow-up and strict return parameters were outlined for patient and significant other Undiagnosed new problem with uncertain prognosis? @ -No Drug Therapy requiring intensive monitoring for toxicity (Heparin, Nitro, Insulin, Cardizem)? @ -No Were any procedures done? @ -No Diagnosis/symptom? @ -Fall, left humerus fracture Acute, or Chronic, or Acute on Chronic? @ -Acute Uncomplicated (without systemic symptoms) or Complicated (systemic symptoms)? @ -Uncomplicated Side effects of treatment? @ -No Exacerbation, Progression, or Severe Exacerbation? @ -No Poses a threat to life or bodily function? How? (Chest pain, USA, PA, pneumonia, PE, COPD, DKA, ARF, appy, cholecystitis, CVA, Diverticulitis, Homicidal, Suicidal, threat to staff... and all critical care pts) @ -No Disposition Clinical Impression: Fall, Left humeral fracture Disposition: HOME SELF-CARE Condition: Stable Instructions (If sedation given, give patient instructions): Arm Fracture in Adults (ED) Additional Instructions: Please return to the Emergency Department if symptoms worsen or any other concerns. Is patient prescribed a controlled substance at d/c from ED?: No Referrals: Carlos Gibbons MD [Primary Care Provider] - 1-2 days Fer Kim MD [STAFF PHYSICIAN] - 1-2 days Time of Disposition: 07:19
--- NOTE | 2024-02-21 07:27 | XR ---
EXAMINATION TYPE: XR shoulder limited LT DATE OF EXAM: 02/21/2024 6:26 AM COMPARISON: None. CLINICAL INDICATION: Male, 63 years old with history of pain TECHNIQUE: Three views of the 2 views shoulder are obtained. FINDINGS: There is some cortical irregularity along the distal third left clavicle suggesting old hea led fracture deformity. This may correlate clinically. There is a comminuted fracture of the left hum eral proximal shaft. Immediately positioned butterfly fragment measures 7.3 cm long. There is lateral apex angulation. Some nodular density along the periphery of the left mid to lower lung probably pro minent rib end and can be reassessed at follow-up to exclude a nodule. IMPRESSION: 1. Comminuted fracture proximal humeral shaft with lateral apex angulation and a medially positioned butterfly fragment measuring 7.4 cm long. 2. Subtle nodular density along the periphery of the left mid to lower lung probably prominent rib en d and can be reassessed at follow-up to exclude an underlying pulmonary nodule. Recommend 3-4 week fo llow-up chest x-ray to reassess. [facility], , 02/21/2024 7:25 AM
[2024-02-21 07:44] VITALS: BP 97/62; PULSE 75; RESP 18
== END 2024-02-21 07:44 | disposition home or self-care (01) ==
LOC: EC 05:42
DX: S42.302A Unspecified fracture of shaft of humerus, left arm, initial encounter for closed fracture (principal); F17.200 Nicotine dependence, unspecified, uncomplicated; Z88.5 Allergy status to narcotic agent; Z88.8 Allergy status to other drugs, medicaments and biological substances; W01.0XXA Fall on same level from slipping, tripping and stumbling without subsequent striking against object, initial encounter; Y92.009 Unspecified place in unspecified non-institutional (private) residence as the place of occurrence of the external cause
CPT/HCPCS: 99284

== ENCOUNTER 2024-05-17 12:03 | Inpatient (IN) | payer OTHER ==
--- NOTE | 2024-05-17 13:11 | ED ---
General Adult HPI - General Chief complaint: Shortness of Breath Stated complaint: cough Time Seen by Provider: 05/17/24 12:45 Source: patient, RN notes reviewed, old records reviewed Mode of arrival: ambulatory Limitations: no limitations - History of Present Illness Initial comments: Patient is a 64-year-old male who was sent in by his PCP for evaluation of ascites and jaundice. States he thinks he had the flu 2 or 3 weeks ago. Thought this was causing weakness as well as cough and congestion. States he got up improved however he once again began feeling weak. For the last few weeks he has also noticed worsening abdominal distention. Unknown amount of time for his jaundice and scleral icterus. Denies any nausea or vomiting. De nies abdominal pain or chest pain. States that as the abdomen becomes more distended, he has noticed some increased shortness of breath. States he has required drainage of ascitic fluid previously. He denies any fevers, chills, cough. Presents for further evaluation. Was sent by his PCP, Dr. Macario for abdominal workup, as well as a CT of the chest abdomen pelvis. He was in agreement this plan.Patient is an everyday drinker but states he has never gone through withdrawals. Has one 4 to 5 ounce beverage per day. States he drinks rum and coke. - Related Data Home Medications Medication Instructions Recorded Confirmed Tamsulosin [Flomax] 0.4 mg PO DAILY 12/14/16 05/17/24 Albuterol Sulfate [Proair Hfa] 2 puff INHALATION RT-Q4H PRN 12/11/20 05/17/24 Atorvastatin [Lipitor] 20 mg PO HS 05/17/24 05/17/24 DULoxetine HCL 40 mg PO DAILY 05/17/24 05/17/24 Furosemide [Lasix] 20 mg PO DAILY 05/17/24 05/17/24 Levothyroxine Sodium [Synthroid] 25 mcg PO DAILY 05/17/24 05/17/24 SUMAtriptan succinate [Imitrex] 50 mg PO DIRECTED PRN 05/17/24 05/17/24 Spironolactone [Aldactone] 25 mg PO DAILY 05/17/24 05/17/24 Vitamin B Complex 1 cap PO DAILY 05/17/24 05/17/24 amLODIPine [Norvasc] 10 mg PO DAILY 05/17/24 05/17/24 hydrOXYzine pamoate [Vistaril] 25 mg PO TID PRN 05/17/24 05/17/24 Allergies Allergy/AdvReac Type Severity Reaction Status Date / Time codeine Allergy Severe Itching Verified 05/17/24 17:44 hydrocodone [From Vicodin] Allergy Severe Itching Verified 05/17/24 17:44 Review of Systems ROS Statement: Those systems with pertinent positive or pertinent negative responses have been documented in the HPI. Review of Systems: CONST: Denies fever EYES: Denies blurry vision ENT: Denies nasal congestion C/V: Denies Chest pain RESP: Denies shortness of breath GI: Endorses abdominal distention : Denies dysuria SKIN: Denies rash. MSK: Denies joint pain. NEURO: Denies headache ROS Other: All systems not noted in ROS Statement are negative. Past Medical History Past Medical History: GERD/Reflux, Hyperlipidemia, Hypertension, Liver Disease, Osteoarthritis (OA) Additional Past Medical History / Comment(s): occ.DIZZINESS; migraines; DDD. herniated disk, gets numbness right and left foot which occ has caused falls. uses cane at times History of Any Multi-Drug Resistant Organisms: None Reported Past Surgical History: Orthopedic Surgery, Tonsillectomy Additional Past Surgical History / Comment(s): RIGHT EYE surgery for shattered eye socket-plastic PLATE. JAW SURGERY age 11. Pain Procedures. back surgery 2019, lt humerus fx with repair Past Anesthesia/Blood Transfusion Reactions: No Reported Reaction, Previous Problems w/ Anesthesia Additional Past Anesthesia/Blood Transfusion Reaction / Comment(s): Blood pressure dropped too low, surgery was cancelled. Past Psychological History: Anxiety Smoking Status: Current every day smoker Past Alcohol Use History: Heavy, Occasional Past Drug Use History: Marijuana - Past Family History Father Family Medical History: GERD/Reflux Mother Family Medical History: Coronary Artery Disease (CAD), Myocardial Infarction (MS) General Exam - General Exam Comments Initial Comments: General: Appears in no acute distress. HEAD: Normal with no signs of head trauma. EYES: EOMI. Patient's right pupil is minimally reactive to light and blown when compared with the left pupil. Patient states this is a chronic finding from a chronic injury from when he was in [facility]. Scleral icterus. Visual acuity appears to be at baseline. ENT: Hearing grossly intact, normal oropharynx. RESPIRATORY: Clear breath sounds bilaterally. No wheezes, rales, or rhonchi. C/V: Regular rate and rhythm. S1 and S2 auscultated, no edema, peripheral pulses 2+ and intact throughout ABD: Abdomen is distended. Abdomen is nontender. No guarding or rebound tenderness. Seems to have a fluid wave. Concerning for ascites. EXT: Normal range of motion, no obvious deformity SKIN: Patient has jaundice. NEURO: Oriented x 4. No focal deficits. Limitations: no limitations Course Vital Signs 05/17/24 05/17/24 05/17/24 12:10 13:38 16:24 Temperature 97.9 F Pulse Rate 110 H 109 H 112 H Respiratory 24 18 18 Rate Blood Pressure 138/82 138/86 120/83 O2 Sat by Pulse 93 L 94 L 96 Oximetry 05/17/24 19:27 Temperature Pulse Rate 108 H Respiratory 16 Rate Blood Pressure 144/79 O2 Sat by Pulse 94 L Oximetry Medical Decision Making - Medical Decision Making Was pt. sent in by a medical professional or institution (, PA, ENROLLMENT PROCESSOR, urgent care, hospital, or long term...) When possible be specific @ -No Did you speak to anyone other than the patient for history (EMS, parent, family, police, friend...)? What history was obtained from this source @ -Sent by Dr. Macario, his PCP for evaluation for ascites and jaundice. Did you review nursing and triage notes (agree or disagree)? Why? @ -I reviewed and agree with nursing and triage notes Were old charts reviewed (outside hosp., previous admission, EMS record, old E KG, old radiological studies, urgent care reports/EKG's, long term records)? Report findings @ -No old charts were reviewed Differential Diagnosis (chest pain, altered mental status, abdominal pain women, abdominal pain men, vaginal bleeding, weakness, fever, dyspnea, syncope, headache, dizziness, GI bleed, back pain, seizure, CVA, palpatations, mental health, musculoskeletal)? @ -Hepatobiliary cancer, alcoholic cirrhosis, obstructive hepatobiliary pathology. This list is not all inclusive. EKG interpreted by me (3pts min.). @ -As above X-rays interpreted by me (1pt min.). @ -X-ray negative for any obvious acute cardiopulmonary process. CT interpreted by me (1pt min.). @ -CT abdomen pelvis and chest negative for any obvious acute process. Patient does have cirrhotic liver with ascites. Patient has a change in morphology of the right upper renal pole lesion of unknown significance. Patient has gallstones but no evidence of cholecystitis. Patient has some groundglass opaci ties which is likely related to air trapping as he has no significant symptoms at this time. U/S interpreted by me (1pt. min.). @ -None done What testing was considered but not performed or refused? (CT, X-rays, U/S, labs)? Why? @ -None What meds were considered but not given or refused? Why? @ -None Did you discuss the management of the patient with other professionals (professionals i.e. , PA, ENROLLMENT PROCESSOR, lab, RT, psych nurse, social science teacher, lean manufacturing leader, teacher, budget officer, case liner)? Give summary @ - I spoke with Dr. Macario the admitting physician who did want the patient admitted under himself with Dr. Tobin on as consult Was smoking cessation discussed for >3mins.? @ -No Was critical care preformed (if so, how long)? @ -No Were there social determinants of health that impacted care today? How? (Homelessness, low income, unemployed, alcoholism, drug addiction, transportation, low edu. Level, literacy, decrease access to med. care, shelter, rehab)? @ -No Was there de-escalation of care discussed even if they declined (Discuss DNR or withdrawal of care, Hospice)? DNR status @ -No What co-morbidities impacted this encounter? (DM, HTN, Smoking, COPD, CAD, Cancer, CVA, ARF, Chemo, Hep., AIDS, mental health diagnosis, sleep apnea, morbid obesity)? @ -Alcohol abuse Was patient admitted / discharged? Hospital course, mention meds given and route, prescriptions, significant lab abnormalities, going to OR and other pertinent info. @ -Based on the patient's presentation and physical exam, presents emergency department for workup of hepatobiliary pathology for jaundice, scleral icterus, abdominal distention. Sent by his PCP Dr. Macario. Will obtain abdominal labs, CT imaging. Patient was in agreement this plan. He is currently resting comfortably at this time. Vitals are within acceptable limits. EKG shows no signs of acute ischemia.Imaging negative for any obvious acute process but patient does have a cirrhotic liver with an indeterminate etiology right upper pole kidney lesion. No evidence of pancreatitis, cholecystitis, or choledocholithiasis. No evidence of pancreatic mass. Patient's laboratory studies returned remarkable for a conjugated hyperbilirubinemia with mildly elevated LFTs and alk phos and mildly elevated lipase. Creatinine is slightly elevated to 1.51. Slight hypokalemia at 3.2. Lactic acid is elevated at 5.6 but I do believe this is likely related to his cirrhotic liver and alcohol intoxication. We will continue to monitor. All symptoms have been progressive. I did discuss with the patient as well as and patient will be admitted. I spoke with Dr. Macario the admitting physician who did want the patient admitted under himself with Dr. Tobin on as consult. Patient placed on CIWA protocol. Made n.p.o. after midnight in case there is decision to perform procedure tomorrow. He was in agreement this plan. He is resting comfortably with no acute complaints at this time. Undiagnosed new problem with uncertain prognosis? @ -No Drug Therapy requiring intensive monitoring for toxicity (Heparin, Nitro, Insulin, Cardizem)? @ -No Were any procedures done? @ -No Diagnosis/symptom? @ -Hyperbilirubinemia secondary to liver cirrhosis, alcohol intoxication Acute, or Chronic, or Acute on Chronic? @ -Acute Uncomplicated (without systemic symptoms) or Complicated (systemic symptoms)? @ -Complicated Side effects of treatment? @ -None Exacerbation, Progression, or Severe Exacerbation] @ -No Poses a threat to life or bodily function? @ -Potentially, yes - Lab Data Result diagrams: 05/17/24 13:37 05/17/24 13:37 Lab Results 05/17/24 05/17/24 05/17/24 Range/Units 13:06 13:37 13:37 WBC 13.8 H (3.8-10.6) k/uL RBC 3.38 L (4.30-5.90) m/uL Hgb 12.2 L (13.0-17.5) gm/dL Hct 36.1 L (39.0-53.0) % MCV 106.8 H (80.0-100.0) fL MCH 36.1 H (25.0-35.0) pg MCHC 33.8 (31.0-37.0) g/dL RDW 15.5 (11.5-15.5) % Plt Count 172 (150-450) k/uL MPV 8.6 Neutrophils % 79 % Lymphocytes % 10 % Monocytes % 8 % Eosinophils % 1 % Basophils % 0 % Neutrophils # 11.0 H (1.3-7.7) k/uL Lymphocytes # 1.4 (1.0-4.8) k/uL Monocytes # 1.1 H (0-1.0) k/uL Eosinophils # 0.1 (0-0.7) k/uL Basophils # 0.0 (0-0.2) k/uL Macrocytosis Moderate PT 14.3 H (10.0-12.5) sec INR 1.4 H (<1.2) APTT 25.1 (22.0-30.0) sec Sodium (137-145) mmol/L Potassium (3.5-5.1) mmol/L Chloride (98-107) mmol/L Carbon Dioxide (22-30) mmol/L Anion Gap mmol/L BUN (9-20) mg/dL Creatinine (0.66-1.25) mg/dL Est GFR (CKD-EPI)AfAm (>60 ml/min/1.73 sqM) Est GFR (CKD-EPI)NonAf (>60 ml/min/1.73 sqM) Glucose (74-99) mg/dL Lactic Ac Sepsis Rflx Plasma Lactic Acid Bert (0.7-2.0) mmol/L Calcium (8.4-10.2) mg/dL Total Bilirubin (0.2-1.3) mg/dL Conjugated Bilirubin (0.0-0.3) mg/dL Unconjugated Bilirubin (0.0-1.1) mg/dL Delta Bilirubin (0.0-0.2) mg/dL AST (17-59) U/L ALT (4-49) U/L Alkaline Phosphatase (38-126) U/L Total Protein (6.3-8.2) g/dL Albumin (3.5-5.0) g/dL Amylase (30-110) U/L Lipase (23-300) U/L Serum Alcohol mg/dL Influenza Type A (PCR) Not Detected (Not Detectd) Influenza Type B (PCR) Not Detected (Not Detectd) RSV (PCR) Not Detected (Not Detectd) SARS-CoV-2 (PCR) Not Detected (Not Detectd) 05/17/24 05/17/24 05/17/24 Range/Units 13:37 13:37 14:14 WBC (3.8-10.6) k/uL RBC (4.30-5.90) m/uL Hgb (13.0-17.5) gm/dL Hct (39.0-53.0) % MCV (80.0-100.0) fL MCH (25.0-35.0) pg MCHC (31.0-37.0) g/dL RDW (11.5-15.5) % Plt Count (150-450) k/uL MPV Neutrophils % % Lymphocytes % % Monocytes % % Eosinophils % % Basophils % % Neutrophils # (1.3-7.7) k/uL Lymphocytes # (1.0-4.8) k/uL Monocytes # (0-1.0) k/uL Eosinophils # (0-0.7) k/uL Basophils # (0-0.2) k/uL Macrocytosis PT (10.0-12.5) sec INR (<1.2) APTT (22.0-30.0) sec Sodium 131 L (137-145) mmol/L Potassium 3.2 L (3.5-5.1) mmol/L Chloride 93 L (98-107) mmol/L Carbon Dioxide 17 L (22-30) mmol/L Anion Gap 21 mmol/L BUN 16 (9-20) mg/dL Creatinine 1.51 H (0.66-1.25) mg/dL Est GFR (CKD-EPI)AfAm 56 (>60 ml/min/1.73 sqM) Est GFR (CKD-EPI)NonAf 49 (>60 ml/min/1.73 sqM) Glucose 101 H (74-99) mg/dL Lactic Ac Sepsis Rflx Y Plasma Lactic Acid Bert 5.6 H* (0.7-2.0) mmol/L Calcium 9.1 (8.4-10.2) mg/dL Total Bilirubin 18.9 H* (0.2-1.3) mg/dL Conjugated Bilirubin 10.0 H (0.0-0.3) mg/dL Unconjugated Bilirubin 3.8 H (0.0-1.1) mg/dL Delta Bilirubin 5.1 H (0.0-0.2) mg/dL AST 353 H (17-59) U/L ALT 129 H (4-49) U/L Alkaline Phosphatase 354 H (38-126) U/L Total Protein 8.4 H (6.3-8.2) g/dL Albumin 4.0 (3.5-5.0) g/dL Amylase 57 (30-110) U/L Lipase 496 H (23-300) U/L Serum Alcohol 127 mg/dL Influenza Type A (PCR) (Not Detectd) Influenza Type B (PCR) (Not Detectd) RSV (PCR) (Not Detectd) SARS-CoV-2 (PCR) (Not Detectd) 05/17/24 Range/Units 16:41 WBC (3.8-10.6) k/uL RBC (4.30-5.90) m/uL Hgb (13.0-17.5) gm/dL Hct (39.0-53.0) % MCV (80.0-100.0) fL MCH (25.0-35.0) pg MCHC (31.0-37.0) g/dL RDW (11.5-15.5) % Plt Count (150-450) k/uL MPV Neutrophils % % Lymphocytes % % Monocytes % % Eosinophils % % Basophils % % Neutrophils # (1.3-7.7) k/uL Lymphocytes # (1.0-4.8) k/uL Monocytes # (0-1.0) k/uL Eosinophils # (0-0.7) k/uL Basophils # (0-0.2) k/uL Macrocytosis PT (10.0-12.5) sec INR (<1.2) APTT (22.0-30.0) sec Sodium (137-145) mmol/L Potassium (3.5-5.1) mmol/L Chloride (98-107) mmol/L Carbon Dioxide (22-30) mmol/L Anion Gap mmol/L BUN (9-20) mg/dL Creatinine (0.66-1.25) mg/dL Est GFR (CKD-EPI)AfAm (>60 ml/min/1.73 sqM) Est GFR (CKD-EPI)NonAf (>60 ml/min/1.73 sqM) Glucose (74-99) mg/dL Lactic Ac Sepsis Rflx Plasma Lactic Acid Bert 5.9 H* (0.7-2.0) mmol/L Calcium (8.4-10.2) mg/dL Total Bilirubin (0.2-1.3) mg/dL Conjugated Bilirubin (0.0-0.3) mg/dL Unconjugated Bilirubin (0.0-1.1) mg/dL Delta Bilirubin (0.0-0.2) mg/dL AST (17-59) U/L ALT (4-49) U/L Alkaline Phosphatase (38-126) U/L Total Protein (6.3-8.2) g/dL Albumin (3.5-5.0) g/dL Amylase (30-110) U/L Lipase (23-300) U/L Serum Alcohol mg/dL Influenza Type A (PCR) (Not Detectd) Influenza Type B (PCR) (Not Detectd) RSV (PCR) (Not Detectd) SARS-CoV-2 (PCR) (Not Detectd) - EKG Data -: EKG Interpreted by Me EKG Comments: 12-lead Electrocardiogram Interpretation Note EKG was reviewed and interpreted by myself. 12-lead ECG performed at 1306is interpreted by me as revealing sinus tachycardia at a rate of 109 beats per minute. [place] is normal. CT interval is 177 ms, QRS durations 105 ms, QTc is 358 ms.. There were no ST or T wave abnormalities to suggest myocardial ische jarred or injury. R wave progression across the precordium was delayed. By my interpretation this EKG is non-diagnostic for acute ischemia. Disposition Clinical Impression: Liver cirrhosis, Alcohol intoxication, Hyperbilirubinemia Disposition: ADMITTED IP TO THIS HOSP Condition: Stable Time of Disposition: 17:00
[2024-05-17 13:49] LABS: Basophils % (A) 0 %; Eosinophils # (A) 0.1 k/uL (0-0.7); Eosinophils % (A) 1 %; HCT 36.1 % (39.0-53.0); HGB 12.2 gm/dL (13.0-17.5); Lymphocytes # (A) 1.4 k/uL (1.0-4.8); Lymphocytes % (A) 10 %; MCH 36.1 pg (25.0-35.0); MCHC 33.8 g/dL (31.0-37.0); MCV 106.8 fL (80.0-100.0); Macrocytosis Moderate; Mean Platelet Volume 8.6; Monocytes # (A) 1.1 k/uL (0-1.0); Monocytes % (A) 8 %; Neutrophils % (A) 79 %; Platelet Count 172 k/uL (150-450); RBC 3.38 m/uL (4.30-5.90); RDW 15.5 % (11.5-15.5); WBC 13.8 k/uL (3.8-10.6)
[2024-05-17 13:55] LABS: Influenza A Not Detected (Not Detectd); Influenza B Not Detected (Not Detectd); RSV Not Detected (Not Detectd)
[2024-05-17 14:04] LABS: ALT 129 U/L (4-49); African American GFR (CKD) 56 (>60 ml/min/1.73 sqM); Amylase 57 U/L (30-110); Anion Gap 21 mmol/L; Bilirubin, Delta 5.1 mg/dL (0.0-0.2); Bilirubin,Unconjugated 3.8 mg/dL (0.0-1.1); Blood Urea Nitrogen 16 mg/dL (9-20); Calcium 9.1 mg/dL (8.4-10.2); Carbon Dioxide 17 mmol/L (22-30); Chloride 93 mmol/L (98-107); Glucose 101 mg/dL (74-99); Lipase 496 U/L (23-300); Non-African American GFR(CKD) 49 (>60 ml/min/1.73 sqM); Sodium 131 mmol/L (137-145); Total Protein 8.4 g/dL (6.3-8.2)
[2024-05-17 14:19] LABS: Total Bilirubin 18.9 mg/dL (0.2-1.3)
[2024-05-17 14:20] LABS: Alcohol 127 mg/dL
[2024-05-17 14:21] LABS: AST 353 U/L (17-59); Alkaline Phosphatase 354 U/L (38-126); Potassium 3.2 mmol/L (3.5-5.1)
[2024-05-17 14:23] LABS: INR 1.4 (<1.2); Partial Thromboplastin Time 25.1 sec (22.0-30.0); Prothrombin Time 14.3 sec (10.0-12.5)
--- NOTE | 2024-05-17 14:48 | XR ---
EXAMINATION TYPE: XR chest 1V portable DATE OF EXAM: 05/17/2024 2:41 PM COMPARISON: Chest radiographs from 08/03/2018. CLINICAL INDICATION: Male, 64 years old with history of cough; TECHNIQUE: XR chest 1V portable Frontal view of the chest. FINDINGS: Lungs/Pleura: There is flattening of the diaphragm with increased lucency of the lungs. No evidence o f pneumothorax, pleural effusion or focal consolidation. Pulmonary vascularity: Unremarkable. Heart/mediastinum: Cardiomediastinal silhouette is unremarkable. Musculoskeletal: No acute osseous pathology. IMPRESSION: 1. No acute cardiopulmonary disease process. 2. COPD changes. [facility], , 05/17/2024 2:46 PM
[2024-05-17] MEDS ORDERED: LORazepam 2 MG/ML INJ IV PRN ×2 (15:06)
[2024-05-17] MEDS: ONDANSETRON 4 MG/2 ML VIAL IVP STA (16:22)
[2024-05-17] MEDS: THIAMINE 100 MG/ML 2 ML VIAL IM STA (16:22)
--- NOTE | 2024-05-17 16:32 | CT ---
EXAMINATION TYPE: CT ChestAbdPelvis w con CT DLP: 1856 mGycm, Automated exposure control for dose reduction was used. DATE OF EXAM: 05/17/2024 4:16 PM COMPARISON: Chest radiograph from same day. CT abdomen and pelvis 12/11/2020, CT low-dose lungs 2016, MR pancreas 12/13/2020. CLINICAL INDICATION:Male, 64 years old with history of ascites, jaundice; PHH, Ascites, jaundice. Technique: Multiple axial images of the chest, abdomen, and pelvis were obtained following the intrav enous administration of 80 mL Isovue-300. Two-dimensional coronal and sagittal reconstructions were o btained. Findings: CHEST: LUNGS/ PLEURA: Right lower lobe posterior calcified pleural plaques. Correlate for prior asbestosis e xposure. Scattered regions of linear scarring or atelectasis. Patchy groundglass opacities within the bilateral upper lungs. No suspicious pulmonary nodule or mass. No pneumothorax or pleural effusion. AIRWAY: Patent and unremarkable.. HEART: Size within normal limits.No pericardial effusion. Small aortic valvular calcifications. Mild coronary artery calcifications present. MEDIASTINUM: No evidence of adenopathy. VASCULATURE: No aortic aneurysm. Mild atherosclerotic calcification of the aorta and its branches. MUSCULOSKELETAL: No acute osseous abnormalities. Left shoulder anchor screws identified. No aggressiv e osseous lesion. Remote left-sided rib fractures. SOFT TISSUES/LYMPH NODES: Bilateral gynecomastia. LOWER NECK: No significant findings. ABDOMEN: ABDOMEN LIVER: Marked hepatic steatosis with suggested surface nodularity. Heterogenous enhancement of the li renetta. The hepatic veins and portal venous system appear patent. GALLBLADDER AND BILE DUCTS: Cholelithiasis. No biliary ductal dilatation. PANCREAS: Unremarkable. SPLEEN: Unremarkable. ADRENAL GLANDS: Unremarkable. KIDNEYS AND URETERS: No evidence of hydronephrosis or renal calculus. The kidneys enhance symmetrical ly. Right renal upper pole heterogenous enhancing 3.9 cm lesion with some fat internal attenuation. T his is changed morphology from prior CT when it was predominantly heterogenous enhancing. PELVIS BLADDER: Incompletely distended but grossly unremarkable. REPRODUCTIVE: Unremarkable. ABDOMEN & PELVIS STOMACH AND BOWEL: Stomach and duodenum are unremarkable. No evidence of bowel obstruction. PERITONEUM: No evidence of pneumoperitoneum. Moderate amount of ascites throughout the abdomen and pe lvis. VASCULATURE: Moderate atherosclerotic calcifications are present throughout the abdominal aorta and i ts branches. No abdominal aortic aneurysm. MUSCULOSKELETAL: No acute osseous abnormalities. No aggressive osseous lesion. Postsurgical changes f rom posterior lumbar fusion involving L5-S1 with disc spacer. LYMPH NODES: No gross evidence for lymphadenopathy. SOFT TISSUE/ABDOMINAL WALL: Unremarkable IMPRESSION: 1. Moderate volume ascites with marked hepatic hepatic steatosis and cirrhotic appearance. 2. Changed morphology of previously seen right renal upper pole 3.9 cm lesion now demonstrating inte rnal fat with some enhancement. Previously was predominantly enhancing throughout. Correlate with cli nical history for prior intervention otherwise this raises concern for possible fat-containing renal cell carcinoma versus other etiologies. Consider further evaluation with MR abdomen renal mass protoc ol. 3. Cholelithiasis. 4. Subtle patchy groundglass opacities within the bilateral upper lobes which could represent air-tr apping versus developing infectious/inflammatory processes versus pulmonary edema. [facility], , 05/17/2024 4:29 PM
[2024-05-17] MEDS ORDERED: NALOXONE 0.4 MG/ML 1 ML VIAL IV PRN (17:01)
[2024-05-17] MEDS: SODIUM CHLORIDE 0.9% 1,000 ML IV STA (18:20)
[2024-05-17] MEDS: ONDANSETRON 4 MG/2 ML VIAL IVP PRN (18:22)
[2024-05-17] MEDS ORDERED: ALBUTEROL NEBULIZED 2.5 MG/3 ML INHALATION PRN (20:09)
[2024-05-17] MEDS: ATORVASTATIN 20 MG TAB PO SCH (21:18)
[2024-05-17] MEDS: POTASSIUM CHLORIDE ER 20 MEQ TAB.ER PO STA (21:19)
[2024-05-17] MEDS: SODIUM CHLORIDE 0.9% 1,000 ML IV ONE (21:20)
[2024-05-17] MEDS: IBUPROFEN 400 MG TAB PO PRN (21:21)
[2024-05-17 22:56] LABS: Appearance,Urine Cloudy (Clear); Bilirubin,Urine 3+ (Negative); Blood,Urine Negative (Negative); Color,Urine Dark Brown; Glucose,Urine (UA) Negative (Negative); Ketones,Urine Negative (Negative); Leukocyte Esterase,Urine Negative (Negative); Mucus,Urine Rare /hpf; Nitrite,Urine Negative (Negative); Protein,Urine Trace (Negative); RBC,Urine <1 /hpf (0-5); Specific Gravity,Urine 1.022 (1.001-1.035); Squamous Epithelial Cell,Urine 1 /hpf (0-4); WBC,Urine 2 /hpf (0-5)
[2024-05-18] MEDS: hydrOXYzine pamoate 25 MG CAP PO PRN (00:22)
[2024-05-18] MEDS: SODIUM CHLORIDE 0.9% 500 ML 500 ML IV ONE (04:08)
[2024-05-18] MEDS: LEVOTHYROXINE 25 MCG TAB PO SCH (05:17)
[2024-05-18 05:42] LABS: Anisocytosis Slight; HCT 31.9 % (39.0-53.0); HGB 10.2 gm/dL (13.0-17.5); MCH 36.3 pg (25.0-35.0); MCHC 32.1 g/dL (31.0-37.0); Macrocytosis Marked; Mean Platelet Volume 9.6; Platelet Count 155 k/uL (150-450); RBC 2.82 m/uL (4.30-5.90); RDW 16.4 % (11.5-15.5); WBC 15.2 k/uL (3.8-10.6)
[2024-05-18 05:56] LABS: ALT 103 U/L (4-49); AST 319 U/L (17-59); African American GFR (CKD) 43 (>60 ml/min/1.73 sqM); Albumin 3.2 g/dL (3.5-5.0); Alkaline Phosphatase 271 U/L (38-126); Anion Gap 21 mmol/L; Blood Urea Nitrogen 19 mg/dL (9-20); Calcium 8.5 mg/dL (8.4-10.2); Carbon Dioxide 14 mmol/L (22-30); Chloride 97 mmol/L (98-107); Glucose 81 mg/dL (74-99); Non-African American GFR(CKD) 37 (>60 ml/min/1.73 sqM); Potassium 3.7 mmol/L (3.5-5.1); Sodium 132 mmol/L (137-145); Total Protein 6.9 g/dL (6.3-8.2)
[2024-05-18 06:38] LABS: Total Bilirubin 18.8 mg/dL (0.2-1.3)
[2024-05-18] MEDS: TAMSULOSIN 0.4 MG CAP.ER.24H PO SCH (08:55)
[2024-05-18] MEDS: FUROSEMIDE 20 MG TAB PO SCH (08:56)
[2024-05-18] MEDS: SPIRONOLACTONE 25 MG TAB PO SCH (08:56)
[2024-05-18] MEDS: amLODIPine 10 MG TAB PO SCH (08:56)
[2024-05-18] MEDS: SODIUM CHLORIDE 0.9% 1,000 ML IV SCH (08:56)
[2024-05-18] MEDS: DULoxetine HCL 20 MG CAPSULE.DR PO SCH (08:57)
[2024-05-18] MEDS: LORazepam 2 MG/ML INJ IV PRN (08:57)
[2024-05-18 09:12] LABS: Lymphocytes # (M) 2.28 k/uL (1.0-4.8); Neutrophils # (M) 12.92 k/uL (1.3-7.7); Neutrophils % (M) 85 %; Nucleated Red Blood Cells 0 /100 WBC (0-0); Total Cells Counted 100
--- NOTE | 2024-05-18 09:21 | US ---
EXAMINATION TYPE: US abdomen limited DATE OF EXAM: 05/18/2024 COMPARISON: 05/17/2024 CLINICAL INDICATION: Male, 64 years old with history of Abdominal distention, evaluate for ascites fo r par; ascites TECHNIQUE: Grayscale imaging of the abdomen for ascites. FINDINGS: Ascites fluid is visualized. IMPRESSION: To moderate amount of ascites present [facility], , 05/18/2024 9:19 AM
--- NOTE | 2024-05-18 09:37 | P.HPIM ---
History of Present Illness H&P Date: 05/18/24 Chief Complaint: Abdominal pain, ascites This is a 64-year-old male with past medical history of gastroesophageal reflux disease, hypertension, ongoing nicotine dependence, anxiety, spinal stenosis/degenerative disc disease, alcohol abuse/dependence, paracentesis presented to the ER per recommendations of his PCP with worsening abdominal pain, abdominal distention, shortness of breath and fatigue. States last drink yesterday, rum and coke. Serum alcohol 127 on admission. Denies nausea ,vomiting or diarrhea. denies chest pain, palpitations. Denies lightheadedness dizziness or focal deficits. CT of chest abdomen and pelvis reporting moderate volume ascites with marked hepatic steatosis and cirrhotic appearance, change morphology previously seen right renal upper pole 3.9 cm lesion demonstrating internal fat with some enhancement and, previously predominantly enhancing throughout, correlate for prior intervention otherwise raises concern for possible fat-containing renal cell carcinoma versus other etiologies, cholelithiasis, septal patchy groundglass opacities within the bilateral upper lobes representing air trapping versus developing infectious inflammatory process versus pulmonary edema. Afebrile, WBC 13.8, 15.2. Hemoglobin 10.2, platelets 155, INR 1.4, sodium 132 bicarb 14 BUN 19 creatinine 1.89, lactic acid 6.7, total bili 18.8, conjugated bili 10, unconjugated bili 3.8 AST 319, ALT 103, alk phos 271, albumin 3.2, lipase 496. UA reporting trace of protein negative nitrates 3+ bilirubin negative leukocytes. Viral screen negative. Mild tachycardia, blood pressures stable, maintaining O2 sats of 93% on 2-1/2 L on nasal cannula. Continues on IV fluid hydration, CIWA protocol. Recent CIWA score 9. Review of Systems ROS Statement: Those systems with pertinent positive or pertinent negative responses have been documented in the HPI. ROS Other: All systems not noted in ROS Statement are negative. Past Medical History Past Medical History: GERD/Reflux, Hyperlipidemia, Hypertension, Liver Disease, Osteoarthritis (OA) Additional Past Medical History / Comment(s): occ.DIZZINESS; migraines; DDD. herniated disk, gets numbness right and left foot which occ has caused falls. uses cane at times, alcohol abuse History of Any Multi-Drug Resistant Organisms: None Reported Past Surgical History: Orthopedic Surgery, Tonsillectomy Additional Past Surgical History / Comment(s): RIGHT EYE surgery for shattered eye socket-plastic PLATE. JAW SURGERY age 11. Pain Procedures. back surgery 2019, lt humerus fx with repair, paracentesis Past Anesthesia/Blood Transfusion Reactions: No Reported Reaction, Previous Problems w/ Anesthesia Additional Past Anesthesia/Blood Transfusion Reaction / Comment(s): Blood pressure dropped too low, surgery was cancelled. Smoking Status: Current every day smoker - Past Family History Father Family Medical History: GERD/Reflux Mother Family Medical History: Coronary Artery Disease (CAD), Myocardial Infarction ([place]) Medications and Allergies Home Medications Medication Instructions Recorded Confirmed Type Tamsulosin [Flomax] 0.4 mg PO DAILY 12/14/16 05/17/24 History Albuterol Sulfate [Proair Hfa] 2 puff INHALATION RT-Q4H PRN 12/11/20 05/17/24 History Atorvastatin [Lipitor] 20 mg PO HS 05/17/24 05/17/24 History DULoxetine HCL 40 mg PO DAILY 05/17/24 05/17/24 History Furosemide [Lasix] 20 mg PO DAILY 05/17/24 05/17/24 History Levothyroxine Sodium [Synthroid] 25 mcg PO DAILY 05/17/24 05/17/24 History SUMAtriptan succinate [Imitrex] 50 mg PO BID PRN 05/17/24 05/18/24 History Spironolactone [Aldactone] 25 mg PO DAILY 05/17/24 05/17/24 History Vitamin B Complex 1 cap PO DAILY 05/17/24 05/17/24 History amLODIPine [Norvasc] 10 mg PO DAILY 05/17/24 05/17/24 History hydrOXYzine pamoate [Vistaril] 25 mg PO TID PRN 05/17/24 05/17/24 History Allergies Allergy/AdvReac Type Severity Reaction Status Date / Time codeine Allergy Severe Itching Verified 05/17/24 17:44 hydrocodone [From Vicodin] Allergy Severe Itching Verified 05/17/24 17:44 Physical Exam Vitals: Vital Signs Temp Pulse Pulse Resp BP BP Pulse Ox 05/18/24 08:41 98 F 107 H 19 146/81 93 L 05/18/24 03:51 97.8 F 115 H 22 122/78 92 L 05/18/24 01:44 115 H 20 120/71 96 05/17/24 23:35 111 H 20 161/96 93 L 05/17/24 19:27 108 H 16 144/79 94 L 05/17/24 16:24 112 H 18 120/83 96 05/17/24 13:38 109 H 18 138/86 94 L 05/17/24 12:10 97.9 F 110 H 24 138/82 93 L Intake and Output 05/17/24 05/18/24 05/18/24 22:59 06:59 14:59 Output Total 400 Balance -400 Output: Urine 400 Straight 400 Other: Voiding Method Indwelling Catheter # Bowel Movements 1 Weight 104.326 kg PHYSICAL EXAM: VITAL SIGNS: As above GENERAL: Sitting up in bed, no acute distress, jaundiced. HEENT: Conjunctivae normal. Sclera icteric NECK: Supple no JVD. No thyroid enlargement. No LNs CARDIOVASCULAR: S1, S2 regular.No murmur RESPIRATION: Breath sounds diminished in the bases.No rhonchi or crackles. ABDOMEN: Soft, distended, diffuse generalized tenderness, No guarding. no masses palpable. Positive ascites.Bowel sounds heard. LEGS: Positive edema, Calves nontender. PSYCHIATRY: Alert and oriented X3, mood and affect normal. NERVOUS SYSTEM: Cranial N 2-12 grossly normal. No focal deficits. Skin: Warm and dry, no rash Results CBC & Chem 7: 05/18/24 03:39 05/18/24 03:39 Labs: Abnormal Lab Results - Last 24 Hours (Table) 05/17/24 05/17/24 05/17/24 Range/Units 13:37 13:37 13:37 WBC 13.8 H (3.8-10.6) k/uL RBC 3.38 L (4.30-5.90) m/uL Hgb 12.2 L (13.0-17.5) gm/dL Hct 36.1 L (39.0-53.0) % MCV 106.8 H (80.0-100.0) fL MCH 36.1 H (25.0-35.0) pg RDW (11.5-15.5) % Neutrophils # 11.0 H (1.3-7.7) k/uL Monocytes # 1.1 H (0-1.0) k/uL Macrocytosis PT 14.3 H (10.0-12.5) sec INR 1.4 H (<1.2) Sodium 131 L (137-145) mmol/L Potassium 3.2 L (3.5-5.1) mmol/L Chloride 93 L (98-107) mmol/L Carbon Dioxide 17 L (22-30) mmol/L Creatinine 1.51 H (0.66-1.25) mg/dL Glucose 101 H (74-99) mg/dL Plasma Lactic Acid Bert (0.7-2.0) mmol/L Total Bilirubin 18.9 H* (0.2-1.3) mg/dL Conjugated Bilirubin 10.0 H (0.0-0.3) mg/dL Unconjugated Bilirubin 3.8 H (0.0-1.1) mg/dL Delta Bilirubin 5.1 H (0.0-0.2) mg/dL AST 353 H (17-59) U/L ALT 129 H (4-49) U/L Alkaline Phosphatase 354 H (38-126) U/L Total Protein 8.4 H (6.3-8.2) g/dL Albumin (3.5-5.0) g/dL Lipase 496 H (23-300) U/L Urine Protein (Negative) Urine Bilirubin (Negative) Urine Mucus (None) /hpf 05/17/24 05/17/24 05/17/24 Range/Units 13:37 16:41 20:45 WBC (3.8-10.6) k/uL RBC (4.30-5.90) m/uL Hgb (13.0-17.5) gm/dL Hct (39.0-53.0) % MCV (80.0-100.0) fL MCH (25.0-35.0) pg RDW (11.5-15.5) % Neutrophils # (1.3-7.7) k/uL Monocytes # (0-1.0) k/uL Macrocytosis PT (10.0-12.5) sec INR (<1.2) Sodium (137-145) mmol/L Potassium (3.5-5.1) mmol/L Chloride (98-107) mmol/L Carbon Dioxide (22-30) mmol/L Creatinine (0.66-1.25) mg/dL Glucose (74-99) mg/dL Plasma Lactic Acid Bert 5.6 H* 5.9 H* 5.2 H* (0.7-2.0) mmol/L Total Bilirubin (0.2-1.3) mg/dL Conjugated Bilirubin (0.0-0.3) mg/dL Unconjugated Bilirubin (0.0-1.1) mg/dL Delta Bilirubin (0.0-0.2) mg/dL AST (17-59) U/L ALT (4-49) U/L Alkaline Phosphatase (38-126) U/L Total Protein (6.3-8.2) g/dL Albumin (3.5-5.0) g/dL Lipase (23-300) U/L Urine Protein (Negative) Urine Bilirubin (Negative) Urine Mucus (None) /hpf 05/17/24 05/18/24 05/18/24 Range/Units 22:50 00:14 03:39 WBC 15.2 H (3.8-10.6) k/uL RBC 2.82 L (4.30-5.90) m/uL Hgb 10.2 L (13.0-17.5) gm/dL Hct 31.9 L (39.0-53.0) % MCV 113.0 H D (80.0-100.0) fL MCH 36.3 H (25.0-35.0) pg RDW 16.4 H (11.5-15.5) % Neutrophils # (1.3-7.7) k/uL Monocytes # (0-1.0) k/uL Macrocytosis Marked A PT (10.0-12.5) sec INR (<1.2) Sodium (137-145) mmol/L Potassium (3.5-5.1) mmol/L Chloride (98-107) mmol/L Carbon Dioxide (22-30) mmol/L Creatinine (0.66-1.25) mg/dL Glucose (74-99) mg/dL Plasma Lactic Acid Bert 6.0 H* (0.7-2.0) mmol/L Total Bilirubin (0.2-1.3) mg/dL Conjugated Bilirubin (0.0-0.3) mg/dL Unconjugated Bilirubin (0.0-1.1) mg/dL Delta Bilirubin (0.0-0.2) mg/dL AST (17-59) U/L ALT (4-49) U/L Alkaline Phosphatase (38-126) U/L Total Protein (6.3-8.2) g/dL Albumin (3.5-5.0) g/dL Lipase (23-300) U/L Urine Protein Trace H (Negative) Urine Bilirubin 3+ H (Negative) Urine Mucus Rare H (None) /hpf 05/18/24 05/18/24 Range/Units 03:39 03:39 WBC (3.8-10.6) k/uL RBC (4.30-5.90) m/uL Hgb (13.0-17.5) gm/dL Hct (39.0-53.0) % MCV (80.0-100.0) fL MCH (25.0-35.0) pg RDW (11.5-15.5) % Neutrophils # (1.3-7.7) k/uL Monocytes # (0-1.0) k/uL Macrocytosis PT (10.0-12.5) sec INR (<1.2) Sodium 132 L (137-145) mmol/L Potassium (3.5-5.1) mmol/L Chloride 97 L (98-107) mmol/L Carbon Dioxide 14 L (22-30) mmol/L Creatinine 1.89 H (0.66-1.25) mg/dL Glucose (74-99) mg/dL Plasma Lactic Acid Bert 6.7 H* (0.7-2.0) mmol/L Total Bilirubin 18.8 H* (0.2-1.3) mg/dL Conjugated Bilirubin (0.0-0.3) mg/dL Unconjugated Bilirubin (0.0-1.1) mg/dL Delta Bilirubin (0.0-0.2) mg/dL AST 319 H (17-59) U/L ALT 103 H (4-49) U/L Alkaline Phosphatase 271 H (38-126) U/L Total Protein (6.3-8.2) g/dL Albumin 3.2 L (3.5-5.0) g/dL Lipase (23-300) U/L Urine Protein (Negative) Urine Bilirubin (Negative) Urine Mucus (None) /hpf Thrombosis Risk Factor Assmnt - Choose All That Apply Any of the Below Risk Factors Present?: No Other Risk Factors: Yes Each Risk Factor Represents 2 Points: Age 61-74 years Other congenital or acquired thrombophilia - If yes, enter type in comment: No Thrombosis Risk Factor Assessment Total Risk Factor Score: 2 Thrombosis Risk Factor Assessment Level: Low Risk Assessment and Plan Assessment: Abdominal pain, positive ascites, hepatocellular disease. Serum alcohol 127 on admission. Hyperbilirubinemia Alcohol abuse, dependence since age 14 Alcoholic cirrhosis of liver, portal hypertension Acute hypoxic respiratory failure secondary to the above Prior MRI reported pancreatic lesion 12/19 with recommended outpatient EUS at [facility]. Patient states completed some of the workup. PCP reports patient had a ERCP with no biopsy. Lactic acidosis Leukocytosis Acute renal failure, possibly hepatorenal syndrome Acute metabolic acidosis secondary to the above Right renal upper pole 3.9 cm lesion, reported per CT, suspicious for malignancy. Further workup with urology. Cholelithiasis Gastroesophageal reflux disease Hyperlipidemia Hypertension Osteoarthritis Anxiety Ongoing nicotine dependence Medical marijuana use Plan: Continue on current medication regime ,monitoring and symptomatic treatment. Ammonia level, CA 19-9 ordered. Diagnostic/therapeutic paracentesis with interventional radiology, pending with albumin replacement for large-volume as per GI. Monitor for DTs,CIWA protocol. Alcohol abstinence reinforced. GI and nephrology consults in place. Bicarb drip. urology consulted regarding suspicious renal lesion per CT. The impression and plan of care has been dictated as directed. : I performed a history and examination of this patient, discussed the same with the dictator. I agree with the dictator's note ,documented as a scribe. Any additional findings or plans will be noted.
[2024-05-18 10:16] LABS: Lactic Acid, Venous 3.1 mmol/L (0.7-2.0)
--- NOTE | 2024-05-18 11:34 | P.NPCON ---
History of Present Illness - Reason for Consult acute renal failure - History of Present Illness Patient is a 64-year-old male with history of hypertension alcohol abuse gastroesophageal reflux disease who is admitted to the hospital with history of abdominal pain and increased abdominal distention and shortness of breath. Patient stated that he had stopped drinking alcohol for about a year and recently restarted. He noticed that his urine was very dark-colored and he felt extremely fatigued and short of breath for the past few days. No history of use of NSAIDs Patient had been on diuretics at home No previous history of kidney diseases. Serum bilirubin noted at 18.8. Serum creatinine was 1.5 on admission and increased to 1.89 today. Jorge catheter has been placed. 400 mL of urine obtained on straight cath. No hypotension noted. Lactic acid elevated at 6.7, decreased to 3.1 now. Currently maintained on IV fluids. No diarrhea reported Past Medical History Past Medical History: GERD/Reflux, Hyperlipidemia, Hypertension, Liver Disease, Osteoarthritis (OA) Additional Past Medical History / Comment(s): occ.DIZZINESS; migraines; DDD. herniated disk, gets numbness right and left foot which occ has caused falls. uses cane at times, alcohol abuse History of Any Multi-Drug Resistant Organisms: None Reported Past Surgical History: Orthopedic Surgery, Tonsillectomy Additional Past Surgical History / Comment(s): RIGHT EYE surgery for shattered eye socket-plastic PLATE. JAW SURGERY age 11. Pain Procedures. back surgery 2019, lt humerus fx with repair, paracentesis Past Anesthesia/Blood Transfusion Reactions: No Reported Reaction, Previous Problems w/ Anesthesia Additional Past Anesthesia/Blood Transfusion Reaction / Comment(s): Blood pressure dropped too low, surgery was cancelled. Smoking Status: Current every day smoker - Past Family History Father Family Medical History: GERD/Reflux Mother Family Medical History: Coronary Artery Disease (CAD), Myocardial Infarction ([place]) Medications and Allergies Home Medications Medication Instructions Recorded Confirmed Type Tamsulosin [Flomax] 0.4 mg PO DAILY 12/14/16 05/17/24 History Albuterol Sulfate [Proair Hfa] 2 puff INHALATION RT-Q4H PRN 12/11/20 05/17/24 History Atorvastatin [Lipitor] 20 mg PO HS 05/17/24 05/17/24 History DULoxetine HCL 40 mg PO DAILY 05/17/24 05/17/24 History Furosemide [Lasix] 20 mg PO DAILY 05/17/24 05/17/24 History Levothyroxine Sodium [Synthroid] 25 mcg PO DAILY 05/17/24 05/17/24 History SUMAtriptan succinate [Imitrex] 50 mg PO BID PRN 05/17/24 05/18/24 History Spironolactone [Aldactone] 25 mg PO DAILY 05/17/24 05/17/24 History Vitamin B Complex 1 cap PO DAILY 05/17/24 05/17/24 History amLODIPine [Norvasc] 10 mg PO DAILY 05/17/24 05/17/24 History hydrOXYzine pamoate [Vistaril] 25 mg PO TID PRN 05/17/24 05/17/24 History Allergies Allergy/AdvReac Type Severity Reaction Status Date / Time codeine Allergy Severe Itching Verified 05/17/24 17:44 hydrocodone [From Vicodin] Allergy Severe Itching Verified 05/17/24 17:44 Physical Exam Vitals: Vital Signs Temp Pulse Pulse Resp BP BP Pulse Ox 05/18/24 08:41 98 F 107 H 19 146/81 93 L 05/18/24 03:51 97.8 F 115 H 22 122/78 92 L 05/18/24 01:44 115 H 20 120/71 96 05/17/24 23:35 111 H 20 161/96 93 L 05/17/24 19:27 108 H 16 144/79 94 L 05/17/24 16:24 112 H 18 120/83 96 05/17/24 13:38 109 H 18 138/86 94 L 05/17/24 12:10 97.9 F 110 H 24 138/82 93 L Intake and Output 05/17/24 05/18/24 05/18/24 22:59 06:59 14:59 Output Total 400 Balance -400 Output: Urine 400 Straight 400 Other: Voiding Method Indwelling Catheter # Bowel Movements 1 Weight 104.326 kg Patient is awake, comfortable, no acute distress Alert oriented x 3 Examination of the heart S1-S2 Examination of the lungs decreased breath sounds at the bases Abdomen is soft distended with ascites nontender Examination of lower extremities shows trace edema 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 Acute kidney injury, ATN versus hepatorenal syndrome. Patient also had mild urine retention, 400 mL of urine obtained on straight cath, currently with indwelling Jorge catheter. Patient received Motrin yesterday in the ER, now discontinued. UA is benign. No obstruction noted on CT of the abdomen 2. EtOH related chronic liver disease with portal hypertension and ascites. Alcohol level 127 on admission 3. Lactic acidosis 4. 3.9 cm right renal lesion, needs further workup down the road 5. Anion gap metabolic acidosis associated with acute kidney injury and lactic acidosis Plan: Continue with IV fluids Changed to IV bicarb Repeat labs in a.m. Avoid NSAIDs and other nephrotoxic agents Add Sandostatin Agree with paracentesis Albumin x 1 Continue with indwelling Jorge catheter Add midodrine if blood pressure is on the lower side. Thank you for the consultation. We will continue to follow the patient with you during his hospitalization.
--- NOTE | 2024-05-18 12:39 | US ---
EXAMINATION TYPE: US paracentesis abd w/image DATE OF EXAM: 05/18/2024 11:54 AM CLINICAL INDICATION:Male, 64 years old with history of see IR consult for ordering information; cirrh osis and ascites. COMPARISON: Limited abdominal ultrasound earlier today. CT one day earlier ATTENDING: Dr. Bernabe PROCEDURE: Informed consent was obtained. The risks of the procedure were extensively explained incl uding risk of damage to surrounding bowel with perforation and need for additional procedures. Procedure was performed in the emergency room. Ultrasound imaging of the abdomen demonstrate ascitic fluid. An appropriate access site was localized to the right lower abdomen. Timeout was taken per pro tocol. The skin was prepped and draped in the usual sterile fashion and then locally anesthetized wit h 1% lidocaine. The peritoneal cavity was then accessed via a 5-[place] one-step needle/catheter. Ap proximately 4350 mL of clear straw-colored fluid was obtained. Samples were sent to the lab for brandon sis. Patient tolerated procedure well without immediate complication. Hemostasis at the procedural site w as obtained with a sterile bandage placed. The patient was monitored in the emergency room following the procedure and was admitted in stable condition. IMPRESSION: Ultrasound guided diagnostic and therapeutic paracentesis, with approximately 4350 cc of clear straw- colored fluid drained. Pathology results pending. No immediate complications were evident. [facility], , 05/18/2024 12:37 PM
[2024-05-18] MEDS: DEXTROSE 5% IN WATER 1,000 ML with SODIUM BICARB (1 MEQ/ML) 150 ML IV SCH (13:09)
[2024-05-18] MEDS: PANTOPRAZOLE 40 MG/10 ML VIAL IVP SCH (13:09)
[2024-05-18] MEDS: ALBUMIN HUMAN 25% 50 ML in EMPTY BAG 1 BAG IVPB SCH (14:35)
--- NOTE | 2024-05-18 16:00 | P.CONS ---
History of Present Illness - Reason for Consult Consult date: 05/18/24 lauren rodriguez Requesting physician: Armin Jordan - Chief Complaint Jaundice, abdominal distention - History of Present Illness This is a 64-year-old male with past medical history of gastroesophageal reflux disease, hypertension, ongoing nicotine dependence, anxiety, spinal stenosis/degenerative disc disease, alcohol abuse/dependence, liver disease secondary to alcoholism with previous paracentesis presented to the ER per recommendations of his PCP with worsening abdominal pain, abdominal distention, and jaundice. Gastroenterology was consulted for hyperbilirubinemia and liver cirrhosis. States last drink yesterday, rum and coke. Reports drinking daily since age of 14. About 4 years ago patient was seen by gastroenterology for alcohol liver disease and ascites.. Patient states that he followed with gastroenterology for about a year and then stopped going. Apparently patient also had concerns for possible pancreatic mass a few years ago as well and was seen down at [facility] and underwent ERCP but was told that they pancreas just had shadowing. They had no further follow-up. Serum alcohol 127 on admission. Denies nausea ,vomiting or diarrhea. denies chest pain, palpitations. Denies lightheadedness dizziness or focal deficits. CT of chest abdomen and pelvis reporting moderate volume ascites with marked hepatic steatosis and cirrhotic appearance, change morphology previously seen right renal upper pole 3.9 cm lesion demonstrating internal fat with some enhancement and, previously predominantly enhancing throughout, correlate for prior intervention otherwise raises concern for possible fat-containing renal cell carcinoma versus other etiologies, cholelithiasis, septal patchy groundglass opacities within the bilateral upper lobes representing air trapping versus developing infectious inflammatory process versus pulmonary edema. Afebrile, WBC 13.8, 15.2. Hemoglobin 10.2, platelets 155, INR 1.4, sodium 132 bicarb 14 BUN 19 creatinine 1.89, lactic acid 6.7, total bili 18.8, conjugated bili 10, unconjugated bili 3.8 AST 319, ALT 103, alk phos 271, albumin 3.2, lipase 496. Patient has Lasix 20 mg daily ordered as well as Aldactone 25 mg daily as well as multiple other home medications however does not take daily as ordered. Patient states as well as his significant other at the bedside that they did not noticed that he was jaundice or skin was yellow. He does report though about a week ago abdominal distention starting and dark urine. Review of Systems REVIEW OF SYSTEMS: CARDIOPULMONARY: No chest pain or shortness of breath. Gastrointestinal: Abdominal pain and distention. No nausea or vomiting. No hematemesis, coffee-ground emesis. No rectal bleeding, or melena. GENITOURINARY: No dysuria or hematuria. Dark urine for 1 week. MUSCULOSKELETAL: Reports normal range of motion., Joint pain. SKIN: No rashes. Jaundice. ENDOCRINE: No chills, fevers. No excessive weight gain or loss. No polydipsia or polyuria. PSYCHIATRIC: Daily alcohol use. NEUROLOGY: No change in mental status. Denies dizziness, headache. ENT: Vision unremarkable. CONSTITUTIONAL: No recent weight loss. No fever, chills, night sweats. Past Medical History Past Medical History: GERD/Reflux, Hyperlipidemia, Hypertension, Liver Disease, Osteoarthritis (OA) Additional Past Medical History / Comment(s): occ.DIZZINESS; migraines; DDD. herniated disk, gets numbness right and left foot which occ has caused falls. uses cane at times, alcohol abuse History of Any Multi-Drug Resistant Organisms: None Reported Past Surgical History: Orthopedic Surgery, Tonsillectomy Additional Past Surgical History / Comment(s): RIGHT EYE surgery for shattered eye socket-plastic PLATE. JAW SURGERY age 11. Pain Procedures. back surgery 2019, lt humerus fx with repair, paracentesis Past Anesthesia/Blood Transfusion Reactions: No Reported Reaction, Previous Problems w/ Anesthesia Additional Past Anesthesia/Blood Transfusion Reaction / Comm: Blood pressure dropped too low, surgery was cancelled. Smoking Status: Current every day smoker - Past Family History Father Family Medical History: GERD/Reflux Mother Family Medical History: Coronary Artery Disease (CAD), Myocardial Infarction (NC) Medications and Allergies Home Medications Medication Instructions Recorded Confirmed Type Tamsulosin [Flomax] 0.4 mg PO DAILY 12/14/16 05/17/24 History Albuterol Sulfate [Proair Hfa] 2 puff INHALATION RT-Q4H PRN 12/11/20 05/17/24 History Atorvastatin [Lipitor] 20 mg PO HS 05/17/24 05/17/24 History DULoxetine HCL 40 mg PO DAILY 05/17/24 05/17/24 History Furosemide [Lasix] 20 mg PO DAILY 05/17/24 05/17/24 History Levothyroxine Sodium [Synthroid] 25 mcg PO DAILY 05/17/24 05/17/24 History SUMAtriptan succinate [Imitrex] 50 mg PO BID PRN 05/17/24 05/18/24 History Spironolactone [Aldactone] 25 mg PO DAILY 05/17/24 05/17/24 History Vitamin B Complex 1 cap PO DAILY 05/17/24 05/17/24 History amLODIPine [Norvasc] 10 mg PO DAILY 05/17/24 05/17/24 History hydrOXYzine pamoate [Vistaril] 25 mg PO TID PRN 05/17/24 05/17/24 History Allergies Allergy/AdvReac Type Severity Reaction Status Date / Time codeine Allergy Severe Itching Verified 05/17/24 17:44 hydrocodone [From Vicodin] Allergy Severe Itching Verified 05/17/24 17:44 Physical Exam Vitals: Vital Signs Temp Pulse Pulse Resp BP BP Pulse Ox 05/18/24 03:51 97.8 F 115 H 22 122/78 92 L 05/18/24 01:44 115 H 20 120/71 96 05/17/24 23:35 111 H 20 161/96 93 L 05/17/24 19:27 108 H 16 144/79 94 L 05/17/24 16:24 112 H 18 120/83 96 05/17/24 13:38 109 H 18 138/86 94 L 05/17/24 12:10 97.9 F 110 H 24 138/82 93 L Intake and Output 05/17/24 05/18/24 05/18/24 22:59 06:59 14:59 Output Total 400 Balance -400 Output: Urine 400 Straight 400 Other: Voiding Method Indwelling Catheter # Bowel Movements 1 Weight 104.326 kg General appearance: The patient is alert, oriented, appears in no acute distress. HET: Head is normocephalic and atraumatic. Conjunctiva pink. Sclera deeply icteric. Neck: Supple without lymphadenopathy. Trachea midline. Heart: Regular. Lungs: Equal expansion, normal respiratory effort. Abdomen: Soft, nontender, nondistended. Skin: No rashes. Jaundice. Extremities: Normal skin color and turgor. Lower extremity edema. Neurological: No focal deficits. Alert and oriented x3. Results CBC & Chem 7: 05/18/24 03:39 05/18/24 03:39 Labs: Abnormal Lab Results - Last 24 Hours (Table) 05/17/24 05/17/24 05/17/24 Range/Units 13:37 13:37 13:37 WBC 13.8 H (3.8-10.6) k/uL RBC 3.38 L (4.30-5.90) m/uL Hgb 12.2 L (13.0-17.5) gm/dL Hct 36.1 L (39.0-53.0) % MCV 106.8 H (80.0-100.0) fL MCH 36.1 H (25.0-35.0) pg RDW (11.5-15.5) % Neutrophils # 11.0 H (1.3-7.7) k/uL Monocytes # 1.1 H (0-1.0) k/uL Macrocytosis PT 14.3 H (10.0-12.5) sec INR 1.4 H (<1.2) Sodium 131 L (137-145) mmol/L Potassium 3.2 L (3.5-5.1) mmol/L Chloride 93 L (98-107) mmol/L Carbon Dioxide 17 L (22-30) mmol/L Creatinine 1.51 H (0.66-1.25) mg/dL Glucose 101 H (74-99) mg/dL Plasma Lactic Acid Bert (0.7-2.0) mmol/L Total Bilirubin 18.9 H* (0.2-1.3) mg/dL Conjugated Bilirubin 10.0 H (0.0-0.3) mg/dL Unconjugated Bilirubin 3.8 H (0.0-1.1) mg/dL Delta Bilirubin 5.1 H (0.0-0.2) mg/dL AST 353 H (17-59) U/L ALT 129 H (4-49) U/L Alkaline Phosphatase 354 H (38-126) U/L Total Protein 8.4 H (6.3-8.2) g/dL Albumin (3.5-5.0) g/dL Lipase 496 H (23-300) U/L Urine Protein (Negative) Urine Bilirubin (Negative) Urine Mucus (None) /hpf 05/17/24 05/17/24 05/17/24 Range/Units 13:37 16:41 20:45 WBC (3.8-10.6) k/uL RBC (4.30-5.90) m/uL Hgb (13.0-17.5) gm/dL Hct (39.0-53.0) % MCV (80.0-100.0) fL MCH (25.0-35.0) pg RDW (11.5-15.5) % Neutrophils # (1.3-7.7) k/uL Monocytes # (0-1.0) k/uL Macrocytosis PT (10.0-12.5) sec INR (<1.2) Sodium (137-145) mmol/L Potassium (3.5-5.1) mmol/L Chloride (98-107) mmol/L Carbon Dioxide (22-30) mmol/L Creatinine (0.66-1.25) mg/dL Glucose (74-99) mg/dL Plasma Lactic Acid Bert 5.6 H* 5.9 H* 5.2 H* (0.7-2.0) mmol/L Total Bilirubin (0.2-1.3) mg/dL Conjugated Bilirubin (0.0-0.3) mg/dL Unconjugated Bilirubin (0.0-1.1) mg/dL Delta Bilirubin (0.0-0.2) mg/dL AST (17-59) U/L ALT (4-49) U/L Alkaline Phosphatase (38-126) U/L Total Protein (6.3-8.2) g/dL Albumin (3.5-5.0) g/dL Lipase (23-300) U/L Urine Protein (Negative) Urine Bilirubin (Negative) Urine Mucus (None) /hpf 05/17/24 05/18/24 05/18/24 Range/Units 22:50 00:14 03:39 WBC 15.2 H (3.8-10.6) k/uL RBC 2.82 L (4.30-5.90) m/uL Hgb 10.2 L (13.0-17.5) gm/dL Hct 31.9 L (39.0-53.0) % MCV 113.0 H D (80.0-100.0) fL MCH 36.3 H (25.0-35.0) pg RDW 16.4 H (11.5-15.5) % Neutrophils # (1.3-7.7) k/uL Monocytes # (0-1.0) k/uL Macrocytosis Marked A PT (10.0-12.5) sec INR (<1.2) Sodium (137-145) mmol/L Potassium (3.5-5.1) mmol/L Chloride (98-107) mmol/L Carbon Dioxide (22-30) mmol/L Creatinine (0.66-1.25) mg/dL Glucose (74-99) mg/dL Plasma Lactic Acid Bert 6.0 H* (0.7-2.0) mmol/L Total Bilirubin (0.2-1.3) mg/dL Conjugated Bilirubin (0.0-0.3) mg/dL Unconjugated Bilirubin (0.0-1.1) mg/dL Delta Bilirubin (0.0-0.2) mg/dL AST (17-59) U/L ALT (4-49) U/L Alkaline Phosphatase (38-126) U/L Total Protein (6.3-8.2) g/dL Albumin (3.5-5.0) g/dL Lipase (23-300) U/L Urine Protein Trace H (Negative) Urine Bilirubin 3+ H (Negative) Urine Mucus Rare H (None) /hpf 05/18/24 Range/Units 03:39 WBC (3.8-10.6) k/uL RBC (4.30-5.90) m/uL Hgb (13.0-17.5) gm/dL Hct (39.0-53.0) % MCV (80.0-100.0) fL MCH (25.0-35.0) pg RDW (11.5-15.5) % Neutrophils # (1.3-7.7) k/uL Monocytes # (0-1.0) k/uL Macrocytosis PT (10.0-12.5) sec INR (<1.2) Sodium 132 L (137-145) mmol/L Potassium (3.5-5.1) mmol/L Chloride 97 L (98-107) mmol/L Carbon Dioxide 14 L (22-30) mmol/L Creatinine 1.89 H (0.66-1.25) mg/dL Glucose (74-99) mg/dL Plasma Lactic Acid Bert (0.7-2.0) mmol/L Total Bilirubin 18.8 H* (0.2-1.3) mg/dL Conjugated Bilirubin (0.0-0.3) mg/dL Unconjugated Bilirubin (0.0-1.1) mg/dL Delta Bilirubin (0.0-0.2) mg/dL AST 319 H (17-59) U/L ALT 103 H (4-49) U/L Alkaline Phosphatase 271 H (38-126) U/L Total Protein (6.3-8.2) g/dL Albumin 3.2 L (3.5-5.0) g/dL Lipase (23-300) U/L Urine Protein (Negative) Urine Bilirubin (Negative) Urine Mucus (None) /hpf Comments: CT of chest abdomen and pelvis reporting moderate volume ascites with marked hepatic steatosis and cirrhotic appearance, change morphology previously seen right renal upper pole 3.9 cm lesion demonstrating internal fat with some enhancement and, previously predominantly enhancing throughout, correlate for prior intervention otherwise raises concern for possible fat-containing renal cell carcinoma versus other etiologies, cholelithiasis, septal patchy groundglass opacities within the bilateral upper lobes representing air trapping versus developing infectious inflammatory process versus pulmonary edema. Assessment and Plan (1) Alcoholic cirrhosis of liver Narrative/Plan: 64-year-old male presenting with abdominal distention secondary to ascites and jaundice secondary to hyperbilirubinemia both caused by underlying liver disease from lung to history of alcoholism. Patient with decompensated alcoholic cirrhosis of the liver requiring paracentesis, with acute alcohol hepatitis. Paracentesis ordered. Continue with symptomatic and supportive treatment. Discussed with family and patient severity of liver cirrhosis, need for complete alcohol abstinence. Current Visit: No Status: Acute Code(s): K70.30 - ALCOHOLIC CIRRHOSIS OF LIVER WITHOUT ASCITES SNOMED Code(s): 399851790 (2) Hyperbilirubinemia Current Visit: Yes Status: Acute Code(s): E80.6 - OTHER DISORDERS OF BILIRUBIN METABOLISM SNOMED Code(s): 61652311 (3) Alcohol abuse Current Visit: No Status: Acute Code(s): F10.10 - ALCOHOL ABUSE, UNCOMP LICATED SNOMED Code(s): 89923694 (4) Ascites Narrative/Plan: Paracentesis ordered. Albumin ordered status post paracentesis of 4.3 L removed. Diuretics per recommendations from nephrology. Current Visit: No Status: Acute Code(s): R18.8 - OTHER ASCITES SNOMED Code(s): 529978690 (5) Jaundice Current Visit: No Status: Acute Code(s): R17 - UNSPECIFIED JAUNDICE SNOMED Code(s): 41405590 (6) Acute kidney injury Current Visit: Yes Status: Acute Code(s): N17.9 - ACUTE KIDNEY FAILURE, UNSPECIFIED SNOMED Code(s): 05508926 (7) Lactic acidosis Current Visit: Yes Status: Acute Code(s): E87.20 - ACIDOSIS, UNSPECIFIED SNOMED Code(s): 44095562 (8) Leukocytosis Current Visit: Yes Status: Acute Code(s): D72.829 - ELEVATED WHITE BLOOD CELL COUNT, UNSPECIFIED SNOMED Code(s): 396483656 Plan: 1. Continue symptomatic and supportive care 2. Paracentesis ordered with fluid studies 3. Albumin ordered post paracentesis 4. Patient may have low-sodium diet 5. Diuretics per recommendations from nephrology 6. Start lactulose 30 g 3 times daily titrate to have 3-4 bowel movements daily 7. Daily CBC, CMP, INR 8. Recommend complete alcohol abstinence 9. Recommend smoking cessation 10. Patient will need close outpatient follow-up with gastroenterology 11. Rest of medical management per primary medical team Thank you for this consultation, we will continue to follow. Dr. Lauren Rodriguez I agree with the dictator's note, documented as a scribe by Cheryl Duke.
[2024-05-18] MEDS: OCTREOTIDE 100 MCG/ML INJ SQ SCH (17:39)
[2024-05-18] MEDS: LACTULOSE 20 GM/30 ML CUP PO SCH (17:39)
[2024-05-18 19:23] LABS: T. Protein, Body Fluid Source Ascites; Total Protein, Body Fluid 520 mg/dL
[2024-05-18 19:52] LABS: Albumin, Fluid Source Other
[2024-05-18 20:50] LABS: Appearance,BF Clear (Clear)
[2024-05-19 08:03] LABS: Basophils # (A) 0.04 X 10*3/uL (0.00-0.10); Basophils % (A) 0.3 %; Eosinophils % (A) 0.8 %; HCT 24.8 % (39.6-50.0); HGB 8.9 g/dL (13.0-17.0); Lymphocytes # (A) 0.88 X 10*3/uL (0.90-5.00); Lymphocytes % (A) 7.5 %; MCHC 35.9 g/dL (32.0-37.0); MCV 100.4 FL (80.0-97.0); Monocytes # (A) 0.87 X 10*3/uL (0.20-1.00); Monocytes % (A) 7.4 %; NRBC Per 100 WBC 0.02 X 10*3/uL (0.00-0.01); Neutrophils # (A) 9.78 X 10*3/uL (1.80-7.70); Platelet Count 117 X 10*3/uL (140-440); RBC 2.47 X 10*6/uL (4.40-5.60); RDW 19.6 % (11.5-14.5); WBC 11.79 X 10*3/uL (4.50-10.00)
[2024-05-19 08:48] LABS: ALT 112 U/L (10-49); AST 296 U/L (14-35); Alkaline Phosphatase 215 U/L (41-126); Blood Urea Nitrogen 22.6 mg/dL (9.0-27.0); Calcium 8.2 mg/dL (8.7-10.3); Carbon Dioxide 23.9 mmol/L (21.6-31.8); Chloride 93 mmol/L (96-109); Globulin 2.5 g/dL (1.6-3.3); Glucose 177 mg/dL (70-110); Potassium 3.9 mmol/L (3.5-5.5); Sodium 129 mmol/L (135-145); Total Bilirubin 18.3 mg/dL (0.3-1.2); Total Protein 5.5 g/dL (6.2-8.2)
--- NOTE | 2024-05-19 10:24 | P.PN ---
Subjective Progress Note Date: 05/19/24 This is a 64-year-old male with past medical history of gastroesophageal reflux disease, hypertension, ongoing nicotine dependence, anxiety, spinal stenosis/degenerative disc disease, alcohol abuse/dependence, paracentesis presented to the ER per recommendations of his PCP with worsening abdominal pain, abdominal distention, shortness of breath and fatigue. States last drink yesterday, rum and coke. Serum alcohol 127 on admission. Denies nausea ,vomiting or diarrhea. denies chest pain, palpitations. Denies lightheadedness dizziness or focal deficits. CT of chest abdomen and pelvis reporting moderate volume ascites with marked hepatic steatosis and cirrhotic appearance, change morphology previously seen right renal upper pole 3.9 cm lesion demonstrating internal fat with some enhancement and, previously predominantly enhancing throughout, correlate for prior intervention otherwise raises concern for possible fat-containing renal cell carcinoma versus other etiologies, cholelithiasis, septal patchy groundglass opacities within the bilateral upper lobes representing air trapping versus developing infectious inflammatory process versus pulmonary edema. Afebrile, WBC 13.8, 15.2. Hemoglobin 10.2, platelets 155, INR 1.4, sodium 132 bicarb 14 BUN 19 creatinine 1.89, lactic acid 6.7, total bili 18.8, conjugated bili 10, unconjugated bili 3.8 AST 319, ALT 103, alk phos 271, albumin 3.2, lipase 496. UA reporting trace of protein negative nitrates 3+ bilirubin negative leukocytes. Viral screen negative. Mild tachycardia, blood pressures stable, maintaining O2 sats of 93% on 2-1/2 L on nasal cannula. Continues on IV fluid hydration, CIWA protocol. Recent CIWA score 9. 05/19/2024 underwent paracentesis yesterday with 4350 ml of clear straw-colored fluid drained. Denies abdominal pain, tolerated procedure well. Pathology pending. CA 19-9 33.3 (0.0-34.9). Maintained on lactulose, ammonia decreased to 55.one BM documented for yesterday. Less restless, minimal tremors,continues on CIWA protocol, recent CIWA score 0. Denies chest pain, palpitations or shortness of breath. Maintaining O2 sats in the 90s on 3 L nasal cannula. Afebrile, WBC decreased to 11.79. Hemoglobin 8.9, platelets 117. Lactic acid WNL, 1.8. Sodium 129 potassium 3.9. Continues on bicarb drip, bicarb improved ,23.9. BUN 22.6, creatinine 2. T. bili 18.3, AST 296, ALT 112, alk phos 215. Albumin 3. Objective - Vital Signs Vital signs: Vital Signs Temp 97.5 F L 05/19/24 08:00 Pulse 85 05/19/24 08:00 Resp 18 05/19/24 08:00 BP 111/70 05/19/24 08:00 Pulse Ox 92 L 05/19/24 08:00 FiO2 Intake & Output 05/18/24 05/19/24 05/19/24 18:59 06:59 18:59 Output Total 800 Balance -800 Output: Urine 800 Other: Voiding Method Indwelling Catheter # Voids 0 - Exam PHYSICAL EXAM: VITAL SIGNS: As above GENERAL: Sitting up in bed, no acute distress, jaundiced. HEENT: Conjunctivae normal. Sclera icteric NECK: Supple no JVD. No thyroid enlargement. No LNs CARDIOVASCULAR: S1, S2 regular.No murmur RESPIRATION: Breath sounds diminished in the bases.No rhonchi or crackles. ABDOMEN: Soft, distended, nontender, no guarding. no masses palpable.+BS. LEGS: Mild edema, Calves nontender. PSYCHIATRY: Alert and oriented X3, mood and affect normal. NERVOUS SYSTEM: Cranial N 2-12 grossly normal. No focal deficits. Skin: Warm and dry, no rash - Labs CBC & Chem 7: 05/19/24 04:50 05/19/24 04:50 Labs: Abnormal Lab Results - Last 24 Hours (Table) 05/18/24 05/18/24 05/18/24 Range/Units 03:39 03:39 09:30 WBC (4.50-10.00) X 10*3/uL RBC (4.40-5.60) X 10*6/uL Hgb (13.0-17.0) g/dL Hct (39.6-50.0) % MCV (80.0-97.0) FL MCH (27.0-32.0) pg RDW (11.5-14.5) % Plt Count (140-440) X 10*3/uL Immature Gran # (0.00-0.04) X 10*3/uL Neutrophils # (1.80-7.70) X 10*3/uL Neutrophils # (Manual) 12.92 H (1.3-7.7) k/uL Lymphocytes # (0.90-5.00) X 10*3/uL NRBC/100 WBC Diff (0.00-0.01) X 10*3/uL Plasma Lactic Acid Bert 6.7 H* 3.1 H* (0.7-2.0) mmol/L Ammonia 77 H (<30) umol/L 05/18/24 05/18/24 05/19/24 Range/Units 12:22 15:22 04:50 WBC 11.79 H (4.50-10.00) X 10*3/uL RBC 2.47 L (4.40-5.60) X 10*6/uL Hgb 8.9 L (13.0-17.0) g/dL Hct 24.8 L (39.6-50.0) % MCV 100.4 H (80.0-97.0) FL MCH 36.0 H (27.0-32.0) pg RDW 19.6 H (11.5-14.5) % Plt Count 117 L (140-440) X 10*3/uL Immature Gran # 0.12 H (0.00-0.04) X 10*3/uL Neutrophils # 9.78 H (1.80-7.70) X 10*3/uL Neutrophils # (Manual) (1.3-7.7) k/uL Lymphocytes # 0.88 L (0.90-5.00) X 10*3/uL NRBC/100 WBC Diff 0.02 H (0.00-0.01) X 10*3/uL Plasma Lactic Acid Bert 2.6 H* 2.8 H* (0.7-2.0) mmol/L Ammonia (<30) umol/L 05/19/24 Range/Units 04:50 WBC (4.50-10.00) X 10*3/uL RBC (4.40-5.60) X 10*6/uL Hgb (13.0-17.0) g/dL Hct (39.6-50.0) % MCV (80.0-97.0) FL MCH (27.0-32.0) pg RDW (11.5-14.5) % Plt Count (140-440) X 10*3/uL Immature Gran # (0.00-0.04) X 10*3/uL Neutrophils # (1.80-7.70) X 10*3/uL Neutrophils # (Manual) (1.3-7.7) k/uL Lymphocytes # (0.90-5.00) X 10*3/uL NRBC/100 WBC Diff (0.00-0.01) X 10*3/uL Plasma Lactic Acid Bert (0.7-2.0) mmol/L Ammonia 55 H (<30) umol/L Microbiology - Last 24 Hours (Table) 05/18/24 11:50 Gram Stain - Preliminary Ascites Fluid Body Fluid Culture - Preliminary Assessment and Plan Assessment: Abdominal pain, positive ascites, hepatocellular disease. Serum alcohol 127 on admission. Status post large-volume paracentesis, 4350ml on 05/18/24 Hyperbilirubinemia Alcohol abuse, dependence since age 14 Alcoholic cirrhosis of liver, portal hypertension Acute hypoxic respiratory failure secondary to the above Hyponatremia Prior MRI reported pancreatic lesion 12/19 with recommended outpatient EUS at [facility]. Patient states completed some of the workup. PCP reports patient had a ERCP with no biopsy. Lactic acidosis, resolved Leukocytosis, improving Acute renal failure, possibly hepatorenal syndrome Acute metabolic acidosis secondary to the above Right renal upper pole 3.9 cm lesion, reported per CT, suspicious for malignancy. Further workup with urology. Cholelithiasis Gastroesophageal reflux disease Hyperlipidemia Hypertension Osteoarthritis Anxiety Ongoing nicotine dependence Medical marijuana use Plan: Continue on current medication regime ,monitoring and symptomatic treatment. Maintain lactulose with goal of 2-3 bowel movements daily.close monitoring of ammonia, T Bili/LFTs with repeat levels ordered for a.m. paracentesis pathology pending .[facility] protocol. Alcohol abstinence reinforced. IV fluids as per nephrology. The impression and plan of care has been dictated as directed. : I performed a history and examination of this patient, discussed the same with the dictator. I agree with the dictator's note ,documented as a scribe. Any additional findings or plans will be noted.
--- NOTE | 2024-05-19 11:44 | P.PN ---
Subjective Progress Note Date: 05/19/24 Principal diagnosis: Hyperbilirubinemia, liver cirrhosis This is a 64-year-old male with past medical history of gastroesophageal reflux disease, hypertension, ongoing nicotine dependence, anxiety, spinal stenosis/degenerative disc disease, alcohol abuse/dependence, liver disease secondary to alcoholism with previous paracentesis presented to the ER per recommendations of his PCP with worsening abdominal pain, abdominal distention, and jaundice. Gastroenterology was consulted for hyperbilirubinemia and liver cirrhosis. States last drink yesterday, rum and coke. Reports drinking daily since age of 14. About 4 years ago patient was seen by gastroenterology for alcohol liver disease and ascites.. Patient states that he followed with gastroenterology for about a year and then stopped going. Apparently patient also had concerns for possible pancreatic mass a few years ago as well and was seen down at [facility] and underwent ERCP but was told that they pa ncreas just had shadowing. They had no further follow-up. Serum alcohol 127 on admission. Denies nausea ,vomiting or diarrhea. denies chest pain, palpitations. Denies lightheadedness dizziness or focal deficits. CT of chest abdomen and pelvis reporting moderate volume ascites with marked hepatic steatosis and cirrhotic appearance, change morphology previously seen right renal upper pole 3.9 cm lesion demonstrating internal fat with some enhancement and, previously predominantly enhancing throughout, correlate for prior intervention otherwise raises concern for possible fat-containing renal cell carcinoma versus other etiologies, cholelithiasis, septal patchy groundglass opacities within the bilateral upper lobes representing air trapping versus developing infectious inflammatory process versus pulmonary edema. Afebrile, WBC 13.8, 15.2. Hemoglobin 10.2, platelets 155, INR 1.4, sodium 132 bicarb 14 BUN 19 creatinine 1.89, lactic acid 6.7, total bili 18.8, conjugated bili 10, unconjugated bili 3.8 AST 319, ALT 103, alk phos 271, albumin 3.2, lipase 496. Patient has Lasix 20 mg daily ordered as well as Aldactone 25 mg daily as well as multiple other home medications however does not take daily as ordered. Patient states as well as his significant other at the bedside that they did not noticed that he was jaundice or skin was yellow. He does report though about a week ago abdominal distention starting and dark urine. 05/19/2024 Patient seen and examined as a follow-up this morning. He was resting in bed. He was easily arousable. Alert. Remains very jaundice. Yesterday underwent paracentesis with 4 point liters removed. He denies any abdominal pain, nausea or vomiting. WBC 11.7 hemoglobin 8.9 platelet count 117,000 sodium 129 potassium 3.9 BUN 22 creatinine 2.0 total bilirubin 18.3 AST 296 ALT 112 alkaline phosphatase 215 Objective - Vital Signs Vital signs: Vital Signs Temp 97.5 F L 05/19/24 08:00 Pulse 85 05/19/24 08:02 Resp 18 05/19/24 08:02 BP 111/70 05/19/24 08:00 Pulse Ox 92 L 05/19/24 08:00 FiO2 Intake & Output 05/18/24 05/19/24 05/19/24 18:59 06:59 18:59 Output Total 800 Balance -800 Output: Urine 800 Other: Voiding Method Indwelling Catheter Indwelling Catheter # Voids 0 - Exam General appearance: The patient is alert, oriented, appears in no acute distress. HET: Head is normocephalic and atraumatic. Conjunctiva pink. Sclera deeply icteric.. Neck: Supple without lymphadenopathy. Abdomen: Soft, nontender, hepatomegaly, nondistended. Extremities: Normal skin color and turgor. Lower extremity edema Skin: Jaundice. Neurological: No focal deficits. Alert and oriented. - Labs CBC & Chem 7: 05/19/24 04:50 05/19/24 04:50 Labs: Abnormal Lab Results - Last 24 Hours (Table) 05/18/24 05/18/24 05/19/24 Range/Units 12:22 15:22 04:50 WBC 11.79 H (4.50-10.00) X 10*3/uL RBC 2.47 L (4.40-5.60) X 10*6/uL Hgb 8.9 L (13.0-17.0) g/dL Hct 24.8 L (39.6-50.0) % MCV 100.4 H (80.0-97.0) FL MCH 36.0 H (27.0-32.0) pg RDW 19.6 H (11.5-14.5) % Plt Count 117 L (140-440) X 10*3/uL Immature Gran # 0.12 H (0.00-0.04) X 10*3/uL Neutrophils # 9.78 H (1.80-7.70) X 10*3/uL Lymphocytes # 0.88 L (0.90-5.00) X 10*3/uL NRBC/100 WBC Diff 0.02 H (0.00-0.01) X 10*3/uL Sodium (135-145) mmol/L Chloride (96-109) mmol/L Anion Gap (4.00-12.00) mmol/L Creatinine (0.6-1.5) mg/dL Est GFR (CKD-EPI) (>=60) BUN/Creatinine Ratio (12.00-20.00) Ratio Glucose (70-110) mg/dL Plasma Lactic Acid Bert 2.6 H* 2.8 H* (0.7-2.0) mmol/L Calcium (8.7-10.3) mg/dL Total Bilirubin (0.3-1.2) mg/dL AST (14-35) U/L ALT (10-49) U/L Alkaline Phosphatase (41-126) U/L Ammonia (<30) umol/L Total Protein (6.2-8.2) g/dL Albumin (3.8-4.9) g/dL Albumin/Globulin Ratio (1.60-3.17) Ratio 05/19/24 05/19/24 Range/Units 04:50 04:50 WBC (4.50-10.00) X 10*3/uL RBC (4.40-5.60) X 10*6/uL Hgb (13.0-17.0) g/dL Hct (39.6-50.0) % MCV (80.0-97.0) FL MCH (27.0-32.0) pg RDW (11.5-14.5) % Plt Count (140-440) X 10*3/uL Immature Gran # (0.00-0.04) X 10*3/uL Neutrophils # (1.80-7.70) X 10*3/uL Lymphocytes # (0.90-5.00) X 10*3/uL NRBC/100 WBC Diff (0.00-0.01) X 10*3/uL Sodium 129 L (135-145) mmol/L Chloride 93 L (96-109) mmol/L Anion Gap 12.10 H (4.00-12.00) mmol/L Creatinine 2.0 H (0.6-1.5) mg/dL Est GFR (CKD-EPI) 37 L (>=60) BUN/Creatinine Ratio 11.30 L (12.00-20.00) Ratio Glucose 177 H (70-110) mg/dL Plasma Lactic Acid Bert (0.7-2.0) mmol/L Calcium 8.2 L (8.7-10.3) mg/dL Total Bilirubin 18.3 H (0.3-1.2) mg/dL AST 296 H (14-35) U/L ALT 112 H (10-49) U/L Alkaline Phosphatase 215 H (41-126) U/L Ammonia 55 H (<30) umol/L Total Protein 5.5 L (6.2-8.2) g/dL Albumin 3.0 L (3.8-4.9) g/dL Albumin/Globulin Ratio 1.20 L (1.60-3.17) Ratio Microbiology - Last 24 Hours (Table) 05/18/24 11:50 Gram Stain - Preliminary Ascites Fluid Body Fluid Culture - Preliminary Assessment and Plan (1) Alcoholic cirrhosis of liver Narrative/Plan: 64-year-old male presenting with abdominal distention secondary to ascites and jaundice secondary to hyperbilirubinemia both caused by underlying liver disease from lung to history of alcoholism. Patient with decompensated alcoholic cirr hosis of the liver requiring paracentesis, with acute alcohol hepatitis. Paracentesis ordered. Continue with symptomatic and supportive treatment. Discussed with family and patient severity of liver cirrhosis, need for complete alcohol abstinence. Current Visit: No Status: Acute Code(s): K70.30 - ALCOHOLIC CIRRHOSIS OF LIVER WITHOUT ASCITES SNOMED Code(s): 843740936 (2) Hyperbilirubinemia Current Visit: Yes Status: Acute Code(s): E80.6 - OTHER DISORDERS OF BILIRUBIN METABOLISM SNOMED Code(s): 58168014 (3) Alcohol abuse Current Visit: No Status: Acute Code(s): F10.10 - ALCOHOL ABUSE, UNCOMPLICATED SNOMED Code(s): 70416229 (4) Ascites Narrative/Plan: Paracentesis ordered. Albumin ordered status post paracentesis of 4.3 L removed. Diuretics per recommendations from nephrology. Current Visit: No Status: Acute Code(s): R18.8 - OTHER ASCITES SNOMED Code(s): 955593568 (5) Jaundice Current Visit: No Status: Acute Code(s): R17 - UNSPECIFIED JAUNDICE SNOMED Code(s): 84438869 (6) Acute kidney injury Current Visit: Yes Status: Acute Code(s): N17.9 - ACUTE KIDNEY FAILURE, UNSPECIFIED SNOMED Code(s): 24040067 (7) Lactic acidosis Current Visit: Yes Status: Acute Code(s): E87.20 - ACIDOSIS, UNSPECIFIED SNOMED Code(s): 65607692 (8) Leukocytosis Current Visit: Yes Status: Acute Code(s): D72.829 - ELEVATED WHITE BLOOD C ELL COUNT, UNSPECIFIED SNOMED Code(s): 786027914 (9) Hyponatremia Current Visit: Yes Status: Acute Code(s): E87.1 - HYPO-OSMOLALITY AND HYPONATREMIA SNOMED Code(s): 89394978 (10) Hyperammonemia Current Visit: Yes Status: Acute Code(s): E72.20 - DISORDER OF UREA CYCLE METABOLISM, UNSPECIFIED SNOMED Code(s): 3243495 Plan: 1. Continue symptomatic and supportive care 2. Continue lactulose 30 g 3 times daily, titrate to have 3-4 bowel movements daily 3. Daily CBC, CMP, ammonia level 4. Paracentesis as needed 5. Continue with recommendations from nephrology. Will defer diuretic management to nephrology. 6. Recommend complete alcohol abstinence. This was discussed with patient and significant other. 7. Patient will need close outpatient follow-up with gastroenterology 8. From a gastroenterology standpoint once LFTs continue to trend down and kidney function stable patient can be discharged Thank you for allowing us to participate in the care of the patient, the GI service will sign off, gastroenterology will not be available at the hospital this weekend and through next week. If further evaluation by gastroenterology is required the patient will need transfer as per the primary team's discretion. Dr. Karly Tobin I agree with the dictator's note, documented as a scribe by Cheryl Duke.
--- NOTE | 2024-05-19 13:11 | P.GSCN ---
History of Present Illness Consult date: 05/19/24 Reason for Consult: Right renal mass Requesting physician: Mariam Barlow History of present illness: The patient is a 64-year-old white male with a history of alcoholic cirrhosis with ascites and portal hypertension. He is now admitted with symptoms of abdominal pain and distention associated with dyspnea and fatigue. CT scan imaging shows a right upper pole renal mass, measuring approximately 3.9 cm in size. The mass was previously seen on a CT scan in November 2020, measuring approximately 3.2 cm at that time. In 2020, the mass appeared to enhance. The appearance of the mass is now different, as it appears to have a high fat content. The patient has an unremarkable urologic history and denies both esperanza turia and flank pain. He underwent paracentesis yesterday. Review of Systems - Gastrointestinal Reports abdominal pain - Genitourinary Reports as per HPI Past Medical History Past Medical History: GERD/Reflux, Hyperlipidemia, Hypertension, Liver Disease, Osteoarthritis (OA) Additional Past Medical History / Comment(s): occ.DIZZINESS; migraines; DDD. he rniated disk, gets numbness right and left foot which occ has caused falls. uses cane at times, alcohol abuse History of Any Multi-Drug Resistant Organisms: None Reported Past Surgical History: Orthopedic Surgery, Tonsillectomy Additional Past Surgical History / Comment(s): RIGHT EYE surgery for shattered eye socket-plastic PLATE. JAW SURGERY age 11. Pain Procedures. back surgery 2019, lt humerus fx with repair, paracentesis Past Anesthesia/Blood Transfusion Reactions: No Reported Reaction, Previous Problems w/ Anesthesia Additional Past Anesthesia/Blood Transfusion Reaction / Comm: Blood pressure dropped too low, surgery was cancelled. Smoking Status: Current every day smoker - Past Family History Father Family Medical History: GERD/Reflux Mother Family Medical History: Coronary Artery Disease (CAD), Myocardial Infarction (NH) Medications and Allergies Home Medications Medication Instructions Recorded Confirmed Type Tamsulosin [Flomax] 0.4 mg PO DAILY 12/14/16 05/17/24 History Albuterol Sulfate [Proair Hfa] 2 puff INHALATION RT-Q4H PRN 12/11/20 05/17/24 History Atorvastatin [Lipitor] 20 mg PO HS 05/17/24 05/17/24 History DULoxetine HCL 40 mg PO DAILY 05/17/24 05/17/24 History Furosemide [Lasix] 20 mg PO DAILY 05/17/24 05/17/24 History Levothyroxine Sodium [Synthroid] 25 mcg PO DAILY 05/17/24 05/17/24 History SUMAtriptan succinate [Imitrex] 50 mg PO BID PRN 05/17/24 05/18/24 History Spironolactone [Aldactone] 25 mg PO DAILY 05/17/24 05/17/24 History Vitamin B Complex 1 cap PO DAILY 05/17/24 05/17/24 History amLODIPine [Norvasc] 10 mg PO DAILY 05/17/24 05/17/24 History hydrOXYzine pamoate [Vistaril] 25 mg PO TID PRN 05/17/24 05/17/24 History Allergies Allergy/AdvReac Type Severity Reaction Status Date / Time codeine Allergy Severe Itching Verified 05/17/24 17:44 hydrocodone [From Vicodin] Allergy Severe Itching Verified 05/17/24 17:44 Surgical - Exam Vital Signs Temp Pulse Resp BP Pulse Ox 97.9 F 110 H 24 138/82 93 L 05/17/24 12:10 05/17/24 12:10 05/17/24 12:10 05/17/24 12:10 05/17/24 12:10 - General well developed, well nourished, no distress - Respiratory normal respiratory effort - Abdomen Moderately distended, non-tender. - Psychiatric oriented to time, oriented to person, oriented to place, speech is normal, memory intact Results - Labs 05/19/24 04:50 05/19/24 04:50 Abnormal Lab Results - Last 24 Hours (Table) 05/18/24 05/18/24 05/18/24 Range/Units 03:39 03:39 09:30 Neutrophils # (Manual) 12.92 H (1.3-7.7) k/uL Plasma Lactic Acid Bert 6.7 H* 3.1 H* (0.7-2.0) mmol/L Ammonia 77 H (<30) umol/L 05/18/24 05/18/24 05/19/24 Range/Units 12:22 15:22 04:50 Neutrophils # (Manual) (1.3-7.7) k/uL Plasma Lactic Acid Bert 2.6 H* 2.8 H* (0.7-2.0) mmol/L Ammonia 55 H (<30) umol/L Microbiology - Last 24 Hours (Table) 05/18/24 11:50 Gram Stain - Preliminary Ascites Fluid - Imaging CT scan - abdomen: report reviewed, image reviewed Assessment and Plan (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 I explained to them that most renal masses are malignant in nature. The high fat content of the tumor makes me somewhat less suspicious of malignancy. Percutaneous biopsies are sometimes performed to make this determination. Treatment options include partial nephrectomy and percutaneous cryoablation. Given the patient's advanced liver disease, I feel that the risk of any of these procedures is excessive and thus unwarranted. I have suggested he consider a second opinion at a tertiary care center upon discharge. Please notify me if I can be of any further assistance during this hospitalization. Time with Patient: Greater than 30
[2024-05-19 15:12] LABS: INR 1.61 sec (0.93-1.11); Prothrombin Time 17.7 sec (9.9-11.9)
--- NOTE | 2024-05-19 16:41 | CDI ---
Documentation Clarification Form Date: 05/19/2024 04:34:33 PM From: Minal Emanuel Phone: [phone] Admit Date: 05/17/2024 05:01:00 PM Patient Name: Jovany Saldana Visit Number: [id number] Discharge Date: ATTENTION: The Clinical Documentation Specialists (CDI) and [facility] Coding Staff appreciate your assistance in clarifying documentation. Please respond to the clarification below the line at the bottom and electronically sign. The CDI & [facility] Coding staff will review the response and follow-up if needed. Please note: Queries are made part of the Legal Health Record. If you have any questions, please contact the author of this message via ITS. Doctor/Provider: Mariam Barlow Acute hypoxic respiratory failure secondary to alcoholic cirrhosis of liver, portal hypertension is documented in the H/P and subsequent progress notes which may lack sufficient clinical evidence/support in the medical record. Additional clarification is requested. History/Risk Factors: Hypertension, Alcoholic cirrhosis of liver, portal hypertension, Alcohol abuse, ascites, current smoker Clinical Indicators: 64-year-old male with worsening abdominal pain, abdominal distention, shortness of breath and fatigue. 05/17 ED Resp: Denies shortness of breath Respiratory: Clear breath sounds bilaterally. No wheezes, rales, or rhonchi 05/17 VS (12:10 138/82 110 24 97.9 93% RA 05/18 Respirations: Breath sounds diminished in the bases. No rhonchi or crackles. VS (14:53 134/65 105 18 96% 2.5 L NC Treatment: Monitor O2 Sat's (Titrate) Diagnostic/therapeutic paracentesis Please clarify if acute hypoxic respiratory failure is a valid diagnosis? [ ] No, acute hypoxic respiratory failure is ruled out [ ] Yes, acute hypoxic respiratory failure as evidence by (additional clinical support): [ ] Other (please specify diagnosis) [ ] Unable to determine (Template Last Revised: July 2023) On 05/23 he went into respiratory failure saying worsening respiratory failure from ascites Query answered per pulmonnary Acute hypoxemic respiratory failure, likely on the basis of severe abdominal ascites, and mild fluid overload Dictated By: Janusz Ervin DO Signed By: <Electronically signed by Janusz Ervin DO> 05/23/24 1144 MTDD
--- NOTE | 2024-05-19 17:08 | CDI ---
Documentation Clarification Form Date: 05/19/2024 04:44:22 PM From: Minal Emanuel RN, CCDS Phone: [phone] Admit Date: 05/17/2024 05:01:00 PM Patient Name: Jovany Saldana Visit Number: [id number] Discharge Date: ATTENTION: The Clinical Documentation Specialists (CDI) and [facility] Coding Staff appreciate your assistance in clarifying documentation. Please respond to the clarification below the line at the bottom and electronically sign. The CDI & [facility] Coding staff will review the response and follow-up if needed. Please note: Queries are made part of the Legal Health Record. If you have any questions, please contact the author of this message via ITS. Doctor. Barbara Chiu Conflicting documentation has been found in the medical record. As attending physician, please provide clarification. 05/18/24 Nephrology consult: Acute kidney injury, ATN versus hepatorenal syndrome. Patient also had mild urine retention, 400 mL of urine obtained on straight Cath, currently with indwelling Jorge catheter. History/Risk Factors: Hypertension, Alcoholic cirrhosis of liver, portal hypertension, Alcohol abuse, ascites, current smoker Clinical Indicators: 64-year-old male with worsening abdominal pain, abdominal distention, shortness of breath and fatigue. Serum bilirubin noted at 18.8. Creatinine 1.5 and increased to 1.89 on 05/18/24. No hypotension noted. Lactic acid elevated at 6.7, decreased to 3.[address] Abdomen: To moderate amount of ascites present. No obstruction Treatment: Changed to IV bicarb @80 mls/hr. Repeat labs in a.m. 05/20/24 Avoid NSAIDs and other nephrotoxic agents Sandostatin 100 mcg sq. q 8 hr. Paracentesis Albumin x 1 Please clarify which diagnosis is most appropriate: [ x] Acute kidney injury, ATN [ ] Hepatorenal syndrome. [ ] Other (please specify) [ ] Unable to determine (Template Last Revised: April 2020) MTDD
[2024-05-19] MEDS: LORazepam 1 MG/0.5 ML VIAL IV PRN (18:49)
--- NOTE | 2024-05-19 19:21 | P.PN ---
Subjective Patient is seen for follow-up for acute kidney injury. Overall feeling better. Currently maintained on IV fluids. Urine output seems to have improved. Tolerating oral intake. Status post paracentesis yesterday with about 4 L of fluid removed. Objective - Vital Signs Vital signs: Vital Signs Temp 97.7 F 05/19/24 12:12 Pulse 87 05/19/24 12:12 Resp 24 05/19/24 14:32 BP 115/72 05/19/24 12:12 Pulse Ox 91 L 05/19/24 12:12 FiO2 Intake & Output 05/19/24 05/19/24 05/20/24 06:59 18:59 06:59 Intake Total 10 Output Total 800 250 Balance -800 -240 Intake: IV 10 Invasive Line 1 10 Output: Urine 800 250 Other: Voiding Method Indwelling Catheter Indwelling Catheter # Voids 0 # Bowel Movements 1 - Exam Patient is awake, comfortable, no acute distress Examination of the heart S1 and S2 Examination of the lungs bilateral breath sounds are heard Abdomen is soft nontender distended with ascites Examination of lower extremities shows edema trace bilaterally [employer] exam grossly intact - Labs CBC & Chem 7: 05/19/24 04:50 05/19/24 04:50 Labs: Abnormal Lab Results - Last 24 Hours (Table) 05/19/24 05/19/24 05/19/24 Range/Units 04:50 04:50 04:50 WBC 11.79 H (4.50-10.00) X 10*3/uL RBC 2.47 L (4.40-5.60) X 10*6/uL Hgb 8.9 L (13.0-17.0) g/dL Hct 24.8 L (39.6-50.0) % MCV 100.4 H (80.0-97.0) FL MCH 36.0 H (27.0-32.0) pg RDW 19.6 H (11.5-14.5) % Plt Count 117 L (140-440) X 10*3/uL Immature Gran # 0.12 H (0.00-0.04) X 10*3/uL Neutrophils # 9.78 H (1.80-7.70) X 10*3/uL Lymphocytes # 0.88 L (0.90-5.00) X 10*3/uL NRBC/100 WBC Diff 0.02 H (0.00-0.01) X 10*3/uL PT (9.9-11.9) sec INR (0.93-1.11) sec Sodium 129 L (135-145) mmol/L Chloride 93 L (96-109) mmol/L Anion Gap 12.10 H (4.00-12.00) mmol/L Creatinine 2.0 H (0.6-1.5) mg/dL Est GFR (CKD-EPI) 37 L (>=60) BUN/Creatinine Ratio 11.30 L (12.00-20.00) Ratio Glucose 177 H (70-110) mg/dL Calcium 8.2 L (8.7-10.3) mg/dL Total Bilirubin 18.3 H (0.3-1.2) mg/dL AST 296 H (14-35) U/L ALT 112 H (10-49) U/L Alkaline Phosphatase 215 H (41-126) U/L Ammonia 55 H (<30) umol/L Total Protein 5.5 L (6.2-8.2) g/dL Albumin 3.0 L (3.8-4.9) g/dL Albumin/Globulin Ratio 1.20 L (1.60-3.17) Ratio 03// Range/Units 04:50 WBC (4.50-10.00) X 10*3/uL RBC (4.40-5.60) X 10*6/uL Hgb (13.0-17.0) g/dL Hct (39.6-50.0) % MCV (80.0-97.0) FL MCH (27.0-32.0) pg RDW (11.5-14.5) % Plt Count (140-440) X 10*3/uL Immature Gran # (0.00-0.04) X 10*3/uL Neutrophils # (1.80-7.70) X 10*3/uL Lymphocytes # (0.90-5.00) X 10*3/uL NRBC/100 WBC Diff (0.00-0.01) X 10*3/uL PT 17.7 H (9.9-11.9) sec INR 1.61 H (0.93-1.11) sec Sodium (135-145) mmol/L Chloride (96-109) mmol/L Anion Gap (4.00-12.00) mmol/L Creatinine (0.6-1.5) mg/dL Est GFR (CKD-EPI) (>=60) BUN/Creatinine Ratio (12.00-20.00) Ratio Glucose (70-110) mg/dL Calcium (8.7-10.3) mg/dL Total Bilirubin (0.3-1.2) mg/dL AST (14-35) U/L ALT (10-49) U/L Alkaline Phosphatase (41-126) U/L Ammonia (<30) umol/L Total Protein (6.2-8.2) g/dL Albumin (3.8-4.9) g/dL Albumin/Globulin Ratio (1.60-3.17) Ratio Microbiology - Last 24 Hours (Table) 05/18/24 11:50 Gram Stain - Preliminary Ascites Fluid Body Fluid Culture - Preliminary Assessment and Plan Assessment: 1. Acute kidney injury, ATN versus hepatorenal syndrome. Patient also had mild urine retention, 400 mL of urine obtained on straight cath, currently with indwelling Jorge catheter. Patient received Motrin in the ER, now discontinued. UA is benign. No obstruction noted on CT of the abdomen 2. EtOH related chronic liver disease with portal hypertension and ascites. Alcohol level 127 on admission 3. Lactic acidosis 4. 3.9 cm right renal lesion, needs further workup down the road 5. Anion gap metabolic acidosis associated with acute kidney injury and lactic acidosis Plan: DC IV bicarb Switch to Ringer lactate Repeat labs in a.m. Avoid NSAIDs and other nephrotoxic agents Add Sandostatin Continue with indwelling Jorge catheter Add midodrine if blood pressure is on the lower side.
[2024-05-20] MEDS: LACTATED RINGERS 1,000 ML IV SCH (01:24)
[2024-05-20 09:54] LABS: Basophils # (A) 0.05 X 10*3/uL (0.00-0.10); Basophils % (A) 0.4 %; Eosinophils # (A) 0.11 X 10*3/uL (0.04-0.35); Eosinophils % (A) 0.9 %; HCT 24.7 % (39.6-50.0); HGB 8.7 g/dL (13.0-17.0); Lymphocytes # (A) 1.09 X 10*3/uL (0.90-5.00); Lymphocytes % (A) 8.4 %; MCH 35.8 pg (27.0-32.0); MCHC 35.2 g/dL (32.0-37.0); MCV 101.6 FL (80.0-97.0); Mean Platelet Volume 11.5 FL (9.5-12.2); Monocytes # (A) 1.08 X 10*3/uL (0.20-1.00); Monocytes % (A) 8.4 %; NRBC Per 100 WBC 0.03 X 10*3/uL (0.00-0.01); Neutrophils # (A) 10.38 X 10*3/uL (1.80-7.70); Neutrophils % (A) 80.4 %; Platelet Count 106 X 10*3/uL (140-440); RBC 2.43 X 10*6/uL (4.40-5.60); RDW 19.8 % (11.5-14.5); WBC 12.91 X 10*3/uL (4.50-10.00)
--- NOTE | 2024-05-20 10:38 | P.PN ---
Subjective Progress Note Date: 05/20/24 Principal diagnosis: Alcoholism with liver cirrhosis, persistent scleral icterus, persistent jaundice Status post paracentesis, denies abdominal pain, persistent jaundice, persistent ammonia level elevated. Currently maintaining lactulose, currently on CIWA protocol recent CIWA score 0 denies chest pain shortness of breath improved significantly O2 sats in the 90s on 3 L nasal cannula patient is afebrile labs reviewed Objective - Vital Signs Vital signs: Vital Signs Temp 97.8 F 05/20/24 07:13 Pulse 99 05/20/24 07:13 Resp 18 05/20/24 07:13 BP 113/70 05/20/24 07:13 Pulse Ox 93 L 05/20/24 07:13 FiO2 Intake & Output 05/19/24 05/20/24 05/20/24 18:59 06:59 18:59 Intake Total 10 10 Output Total 250 601 Balance -240 -591 Intake: IV 10 10 Invasive Line 1 10 Invasive Line 2 10 Output: Urine 250 600 Urine/Stool Mix 1 Other: Voiding Method Indwelling Catheter Indwelling Catheter # Voids 1 # Bowel Movements 1 - Exam General: [Patient awake, alert and oriented times 3. Patient in no acute distress.] Persistent scleral icterus, jaundice improved HEENT: [PERRL. EOMI. No pharyngeal erythema or exudate.] Neck: [No adenopathy.] Cardiac: [Heart regular in rate and rhythm. No S3. No S4. No clicks, rubs. No murmur.] Lungs: [Clear to auscultation bilaterally.] Abdomen: [No mass. No organomegaly. Bowel sounds presnt and normoactive in all 4 quadrants.] Gross ascites improved Extremes: [No edema no cyanosis no claudication normal pulses] : Male genitalia Musculoskeletal: [No joint erythema, edema or tenderness.] Skin: Jaundice Neurologic: [No lateralizing deficits. CN II - XII grossly intact.] Lymphatic: [No adenopathy.] - Labs CBC & Chem 7: 05/20/24 04:23 05/19/24 04:50 Labs: Abnormal Lab Results - Last 24 Hours (Table) 05/19/24 05/20/24 05/20/24 Range/Units 04:50 04:23 04:23 WBC 12.91 H (4.50-10.00) X 10*3/uL RBC 2.43 L (4.40-5.60) X 10*6/uL Hgb 8.7 L (13.0-17.0) g/dL Hct 24.7 L (39.6-50.0) % MCV 101.6 H (80.0-97.0) FL MCH 35.8 H (27.0-32.0) pg RDW 19.8 H (11.5-14.5) % Plt Count 106 L (140-440) X 10*3/uL Immature Gran # 0.20 H (0.00-0.04) X 10*3/uL Neutrophils # 10.38 H (1.80-7.70) X 10*3/uL Monocytes # 1.08 H (0.20-1.00) X 10*3/uL NRBC/100 WBC Diff 0.03 H (0.00-0.01) X 10*3/uL PT 17.7 H (9.9-11.9) sec INR 1.61 H (0.93-1.11) sec Ammonia 86 H (<30) umol/L Microbiology - Last 24 Hours (Table) 05/18/24 11:50 Gram Stain - Preliminary Ascites Fluid Body Fluid Culture - Preliminary Assessment and Plan (1) Acute kidney injury Current Visit: Yes Status: Acute Code(s): N17.9 - ACUTE KIDNEY FAILURE, UNSPECIFIED SNOMED Code(s): 85657823 (2) Alcohol intoxication Current Visit: Yes Status: Acute Code(s): F10.929 - ALCOHOL USE, UNSPECIFIED WITH INTOXICATION, UNSPECIFIED SNOMED Code(s): 51538041 (3) Hyperammonemia Current Visit: Yes Status: Acute Code(s): E72.20 - DISORDER OF UREA CYCLE METABOLISM, UNSPECIFIED SNOMED Code(s): 6862054 (4) Hyperbilirubinemia Current Visit: Yes Status: Acute Code(s): E80.6 - OTHER DISORDERS OF BILIRUBIN METABOLISM SNOMED Code(s): 26755214 (5) Hyponatremia Current Visit: Yes Status: Acute Code(s): E87.1 - HYPO-OSMOLALITY AND HYPONATREMIA SNOMED Code(s): 90959266 (6) Lactic acidosis Current Visit: Yes Status: Acute Code(s): E87.20 - ACIDOSIS, UNSPECIFIED SNOMED Code(s): 80351697 (7) Leukocytosis Current Visit: Yes Status: Acute Code(s): D72.829 - ELEVATED WHITE BLOOD CELL COUNT, UNSPECIFIED SNOMED Code(s): 506837989 (8) Liver cirrhosis Current Visit: Yes Status: Acute Code(s): K74.60 - UNSPECIFIED CIRRHOSIS OF LIVER SNOMED Code(s): 06830366 (9) Abdominal distention Current Visit: No Status: Acute Code(s): R14.0 - ABDOMINAL DISTENSION (GASEOUS) SNOMED Code(s): 90539661 (10) Alcohol abuse Current Visit: No Status: Acute Code(s): F10.10 - ALCOHOL ABUSE, [facility] OMPLICATED SNOMED Code(s): 31647520 Plan: Minimal abdominal pain, positive ascites Hepatocellular disease Alcohol abuse history Cirrhosis of the liver secondary to alcoholism, portal hypertension Acute hypoxic respiratory failure secondary to all the above Hyponatremia improving Lactic acidosis resolved Leukocytosis improving Acute renal failure probable hepatorenal syndrome Right renal upper pole 3.9 cm lesion reported per CT suspicious for malignancy urology to evaluate Hyperlipidemia Hypertension Gastroesophageal reflux Ongoing nicotine dependence Time with Patient: Greater than 30
[2024-05-20 11:11] LABS: ALT 107 U/L (10-49); AST 249 U/L (14-35); Albumin 2.8 g/dL (3.8-4.9); Albumin/Globulin Ratio 1.17 Ratio (1.60-3.17); Alkaline Phosphatase 216 U/L (41-126); BUN/Creat Ratio 12.25 Ratio (12.00-20.00); Blood Urea Nitrogen 19.6 mg/dL (9.0-27.0); Calcium 8.3 mg/dL (8.7-10.3); Carbon Dioxide 25.6 mmol/L (21.6-31.8); Chloride 90 mmol/L (96-109); Globulin 2.4 g/dL (1.6-3.3); Glucose 151 mg/dL (70-110); Potassium 2.7 mmol/L (3.5-5.5); Sodium 131 mmol/L (135-145); Total Bilirubin 18.9 mg/dL (0.3-1.2); Total Protein 5.2 g/dL (6.2-8.2)
[2024-05-20] MEDS ORDERED: Potassium Replacement Protocol 1 EACH MISC MISCELLANE PRN ×2 (11:37→18:57)
--- NOTE | 2024-05-20 12:09 | P.PN ---
Subjective Patient is seen for follow-up for acute kidney injury. Currently maintained on IV fluids This morning patient is more sleepy. He has not been eating much. Urine output documented at 850 mL for 24 hours, improved Status post paracentesisn on 05/17/2024 with about 4 L of fluid removed. Objective - Vital Signs Vital signs: Vital Signs Temp 97.8 F 05/20/24 07:13 Pulse 99 05/20/24 07:13 Resp 18 05/20/24 07:13 BP 113/70 05/20/24 07:13 Pulse Ox 93 L 05/20/24 07:13 FiO2 Intake & Output 05/19/24 05/20/24 05/20/24 18:59 06:59 18:59 Intake Total 10 10 Output Total 250 601 Balance -240 -591 Intake: IV 10 10 Invasive Line 1 10 Invasive Line 2 10 Output: Urine 250 600 Urine/Stool Mix 1 Other: Voiding Method Indwelling Catheter Indwelling Catheter Indwelling Catheter # Voids 1 # Bowel Movements 1 - Exam Patient is sleeping but arousable, more tired today Examination of the heart S1 and S2 Examination of the lungs bilateral breath sounds are heard Abdomen is soft nontender distended with ascites Examination of lower extremities shows edema trace bilaterally [employer] exam grossly intact - Labs CBC & Chem 7: 05/20/24 04:23 05/20/24 04:23 Labs: Abnormal Lab Results - Last 24 Hours (Table) 05/19/24 05/20/24 05/20/24 Range/Units 04:50 04:23 04:23 WBC 12.91 H (4.50-10.00) X 10*3/uL RBC 2.43 L (4.40-5.60) X 10*6/uL Hgb 8.7 L (13.0-17.0) g/dL Hct 24.7 L (39.6-50.0) % MCV 101.6 H (80.0-97.0) FL MCH 35.8 H (27.0-32.0) pg RDW 19.8 H (11.5-14.5) % Plt Count 106 L (140-440) X 10*3/uL Immature Gran # 0.20 H (0.00-0.04) X 10*3/uL Neutrophils # 10.38 H (1.80-7.70) X 10*3/uL Monocytes # 1.08 H (0.20-1.00) X 10*3/uL NRBC/100 WBC Diff 0.03 H (0.00-0.01) X 10*3/uL PT 17.7 H (9.9-11.9) sec INR 1.61 H (0.93-1.11) sec Sodium 131 L (135-145) mmol/L Potassium 2.7 A* (3.5-5.5) mmol/L Chloride 90 L (96-109) mmol/L Anion Gap 15.40 H (4.00-12.00) mmol/L Creatinine 1.6 H (0.6-1.5) mg/dL Est GFR (CKD-EPI) 48 L (>=60) Glucose 151 H (70-110) mg/dL Calcium 8.3 L (8.7-10.3) mg/dL Total Bilirubin 18.9 H (0.3-1.2) mg/dL AST 249 H (14-35) U/L ALT 107 H (10-49) U/L Alkaline Phosphatase 216 H (41-126) U/L Ammonia (<30) umol/L Total Protein 5.2 L (6.2-8.2) g/dL Albumin 2.8 L (3.8-4.9) g/dL Albumin/Globulin Ratio 1.17 L (1.60-3.17) Ratio 05/20/ Range/Units 04:23 WBC (4.50-10.00) X 10*3/uL RBC (4.40-5.60) X 10*6/uL Hgb (13.0-17.0) g/dL Hct (39.6-50.0) % MCV (80.0-97.0) FL MCH (27.0-32.0) pg RDW (11.5-14.5) % Plt Count (140-440) X 10*3/uL Immature Gran # (0.00-0.04) X 10*3/uL Neutrophils # (1.80-7.70) X 10*3/uL Monocytes # (0.20-1.00) X 10*3/uL NRBC/100 WBC Diff (0.00-0.01) X 10*3/uL PT (9.9-11.9) sec INR (0.93-1.11) sec Sodium (135-145) mmol/L Potassium (3.5-5.5) mmol/L Chloride (96-109) mmol/L Anion Gap (4.00-12.00) mmol/L Creatinine (0.6-1.5) mg/dL Est GFR (CKD-EPI) (>=60) Glucose (70-110) mg/dL Calcium (8.7-10.3) mg/dL Total Bilirubin (0.3-1.2) mg/dL AST (14-35) U/L ALT (10-49) U/L Alkaline Phosphatase (41-126) U/L Ammonia 86 H (<30) umol/L Total Protein (6.2-8.2) g/dL Albumin (3.8-4.9) g/dL Albumin/Globulin Ratio (1.60-3.17) Ratio Microbiology - Last 24 Hours (Table) 05/18/24 11:50 Gram Stain - Preliminary Ascites Fluid Body Fluid Culture - Preliminary Assessment and Plan Assessment: 1. Acute kidney injury, ATN versus hepatorenal syndrome. Patient also had mild urine retention, 400 mL of urine obtained on straight cath, currently with indwelling Jorge catheter. Patient received Motrin in the ER, now discontinued. UA is benign. No obstruction noted on CT of the abdomen 2. EtOH related chronic liver disease with portal hypertension and ascites. Alcohol level 127 on admission 3. Lactic acidosis, resolved 4. 3.9 cm right renal lesion, needs further workup down the road 5. Anion gap metabolic acidosis associated with acute kidney injury and lactic acidosis 6. Hypokalemia, replace aggressively. Continue Aldactone Plan: Continue with Ringer lactate Replace potassium aggressively as it can exacerbate metabolic encephalopathy Monitor for hepatic encephalopathy Repeat labs in a.m. Avoid NSAIDs and other nephrotoxic agents Continue Sandostatin Continue with indwelling Jorge catheter Continue midodrine if blood pressure is on the lower side.
[2024-05-20] MEDS: POTASSIUM CHLORIDE ER 20 MEQ TAB.ER PO SCH ×2 (12:59→20:08)
[2024-05-20 14:14] LABS: INR 1.74 sec (0.93-1.11); Prothrombin Time 18.7 sec (9.9-11.9)
[2024-05-20] MEDS ORDERED: ZINC OXIDE PASTE (Z-GUARD) 1 APPLIC TOPICAL PRN (19:40)
[2024-05-21] MEDS: POTASSIUM CHLORIDE ER 20 MEQ TAB.ER PO SCH (01:32)
--- NOTE | 2024-05-21 12:18 | P.PN ---
Subjective Patient is seen for follow-up for acute kidney injury. History of alcoholic liver disease with liver cirrhosis and ascites. Currently maintained on IV fluids This morning patient is more sleepy. He has not been eating much. Urine output documented at 950 mL for 24 hours, improved Status post paracentesisn on 05/17/2024 with about 4 L of fluid removed. Labs are pending from today. Objective - Vital Signs Vital signs: Vital Signs Temp 98 F 05/21/24 06:42 Pulse 102 H 05/21/24 06:42 Resp 20 05/21/24 06:42 BP 106/70 05/21/24 06:42 Pulse Ox 92 L 05/21/24 06:42 FiO2 Intake & Output 05/20/24 05/21/24 05/21/24 18:59 06:59 18:59 Output Total 500 450 Balance -500 -450 Weight 104.326 kg Output: Urine 500 450 Other: Voiding Method Indwelling Catheter Indwelling Catheter Indwelling Catheter # Voids 2 # Bowel Movements 2 2 2 - Exam Patient is more awake today Examination of the heart S1 and S2 Examination of the lungs bilateral breath sounds are heard Abdomen is soft nontender distended with ascites Examination of lower extremities shows edema trace bilaterally [employer]LE [employer]ACER exam grossly intact - Labs CBC & Chem 7: 05/20/24 04:23 05/20/24 23:59 Labs: Abnormal Lab Results - Last 24 Hours (Table) 05/20/24 05/20/24 05/20/24 Range/Units 04:23 18:18 23:59 PT 18.7 H (9.9-11.9) sec INR 1.74 H (0.93-1.11) sec Potassium 3.0 L 3.1 L (3.5-5.1) mmol/L Microbiology - Last 24 Hours (Table) 05/18/24 11:50 Anaerobic Culture - Preliminary Ascites Fluid 05/18/24 11:50 Gram Stain - Preliminary Ascites Fluid Body Fluid Culture - Preliminary Assessment and Plan Assessment: 1. Acute kidney injury, ATN versus hepatorenal syndrome. Patient also had mild urine retention, 400 mL of urine obtained on straight cath, currently with indwelling Jorge catheter. Received Motrin in the ER, now discontinued. UA is benign. No obstruction noted on CT of the abdomen 2. EtOH related chronic liver disease with portal hypertension and ascites. Alcohol level 127 on admission 3. Lactic acidosis, resolved 4. 3.9 cm right renal lesion, needs further workup down the road 5. Anion gap metabolic acidosis associated with acute kidney injury and lactic acidosis 6. Hypokalemia, replace aggressively. Continue Aldactone Plan: Continue with Ringer lactate Replace potassium aggressively as it can exacerbate metabolic encephalopathy Monitor for hepatic encephalopathy Repeat labs in a.m. Avoid NSAIDs and other nephrotoxic agents Continue Sandostatin Continue with indwelling Jorge catheter Continue midodrine if blood pressure is on the lower side.
--- NOTE | 2024-05-21 13:24 | P.PN ---
Subjective Progress Note Date: 05/21/24 Principal diagnosis: Alcoholism with liver cirrhosis, persistent scleral icterus, persistent jaundice Status post paracentesis, denies abdominal pain, persistent jaundice, persistent ammonia level elevated. Currently maintaining lactulose, currently on CIWA protocol recent CIWA score 0 denies chest pain shortness of breath improved significantly O2 sats in the 90s on 3 L nasal cannula patient is afebrile labs reviewed, patient improving slowly Objective - Vital Signs Vital signs: Vital Signs Temp 98 F 05/21/24 06:42 Pulse 102 H 05/21/24 06:42 Resp 20 05/21/24 06:42 BP 106/70 05/21/24 06:42 Pulse Ox 92 L 05/21/24 06:42 FiO2 Intake & Output 05/20/24 05/21/24 05/21/24 18:59 06:59 18:59 Output Total 500 450 Balance -500 -450 Weight 104.326 kg Output: Urine 500 450 Other: Voiding Method Indwelling Catheter Indwelling Catheter Indwelling Catheter # Voids 2 # Bowel Movements 2 2 2 - Exam General: [Patient awake, alert and oriented times 3. Patient in no acute distress.] Persistent scleral icterus, jaundice improved HEENT: [PERRL. EOMI. No pharyngeal erythema or exudate.] Neck: [No adenopathy.] Cardiac: [Heart regular in rate and rhythm. No S3. No S4. No clicks, rubs. No murmur.] Lungs: [Clear to auscultation bilaterally.] Abdomen: [No mass. No organomegaly. Bowel sounds presnt and normoactive in all 4 quadrants.] Gross ascites improved Extremes: [No edema no cyanosis no claudication normal pulses] : Male genitalia Musculoskeletal: [No joint erythema, edema or tenderness.] Skin: Jaundice Neurologic: [No lateralizing deficits. CN II - XII grossly intact.] Lymphatic: [No adenopathy.] - Labs CBC & Chem 7: 05/20/24 04:23 05/20/24 23:59 Labs: Abnormal Lab Results - Last 24 Hours (Table) 05/20/24 05/20/24 05/20/24 Range/Units 04:23 18:18 23:59 PT 18.7 H (9.9-11.9) sec INR 1.74 H (0.93-1.11) sec Potassium 3.0 L 3.1 L (3.5-5.1) mmol/L Microbiology - Last 24 Hours (Table) 05/18/24 11:50 Gram Stain - Preliminary Ascites Fluid Body Fluid Culture - Preliminary 05/18/24 11:50 Anaerobic Culture - Preliminary Ascites Fluid Assessment and Plan (1) Acute kidney injury Current Visit: Yes Status: Acute Code(s): N17.9 - ACUTE KIDNEY FAILURE, UNSPECIFIED SNOMED Code(s): 91779123 (2) Alcohol intoxication Current Visit: Yes Status: Acute Code(s): F10.929 - ALCOHOL USE, UNSPECIFIED WITH INTOXICATION, UNSPECIFIED SNOMED Code(s): 52804894 (3) Hyperammonemia Current Visit: Yes Status: Acute Code(s): E72.20 - DISORDER OF UREA CYCLE METABOLISM, UNSPECIFIED SNOMED Code(s): 3061943 (4) Hyperbilirubinemia Current Visit: Yes Status: Acute Code(s): E80.6 - OTHER DISORDERS OF BILIRUBIN METABOLISM SNOMED Code(s): 27012007 (5) Hyponatremia Current Visit: Yes Status: Acute Code(s): E87.1 - HYPO-OSMOLALITY AND HYPONATREMIA SNOMED Code(s): 70603463 (6) Lactic acidosis Current Visit: Yes Status: Acute Code(s): E87.20 - ACIDOSIS, UNSPECIFIED SNOMED Code(s): 45405974 (7) Leukocytosis Current Visit: Yes Status: Acute Code(s): D72.829 - ELEVATED WHITE BLOOD CELL COUNT, UNSPECIFIED SNOMED Code(s): 382581841 (8) Liver cirrhosis Current Visit: Yes Status: Acute Code(s): K74.60 - UNSPECIFIED CIRRHOSIS OF LIVER SNOMED Code(s): 27933110 (9) Abdominal distention Current Visit: No Status: Acute Code(s): R14.0 - ABDOMINAL DISTENSION (GASEOUS) SNOMED Code(s): 95323648 (10) Alcohol abuse Current Visit: No Status: Acute Code(s): F10.10 - ALCOHOL ABUSE, UNCOMPLICATED SNOMED Code(s): 57974788 Plan: Minimal abdominal pain, positive ascites Hepatocellular disease Alcohol abuse history Cirrhosis of the liver secondary to alcoholism, portal hypertension Acute hypoxic respiratory failure secondary to all the above Hyponatremia improving Lactic acidosis resolved Leukocytosis improving Acute renal failure probable hepatorenal syndrome Right renal upper pole 3.9 cm lesion reported per CT suspicious for malignancy urology to evaluate Hyperlipidemia Hypertension Gastroesophageal reflux Ongoing nicotine dependence Time with Patient: Greater than 30
[2024-05-21 14:04] LABS: ALT 102 U/L (10-49); AST 217 U/L (14-35); Albumin 2.9 g/dL (3.8-4.9); Albumin/Globulin Ratio 1.21 Ratio (1.60-3.17); Alkaline Phosphatase 208 U/L (41-126); BUN/Creat Ratio 14.33 Ratio (12.00-20.00); Blood Urea Nitrogen 17.2 mg/dL (9.0-27.0); Calcium 8.5 mg/dL (8.7-10.3); Carbon Dioxide 24.3 mmol/L (21.6-31.8); Chloride 97 mmol/L (96-109); Globulin 2.4 g/dL (1.6-3.3); Glucose 133 mg/dL (70-110); Potassium 4.1 mmol/L (3.5-5.5); Sodium 133 mmol/L (135-145); Total Bilirubin 20.5 mg/dL (0.3-1.2); Total Protein 5.3 g/dL (6.2-8.2)
[2024-05-22 10:23] LABS: HCT 25.6 % (39.6-50.0); HGB 8.9 g/dL (13.0-17.0); MCH 36.3 pg (27.0-32.0); MCHC 34.8 g/dL (32.0-37.0); MCV 104.5 FL (80.0-97.0); NRBC Per 100 WBC 0.02 X 10*3/uL (0.00-0.01); Platelet Count 89 X 10*3/uL (140-440); RBC 2.45 X 10*6/uL (4.40-5.60); RDW 20.4 % (11.5-14.5); WBC 12.89 X 10*3/uL (4.50-10.00)
--- NOTE | 2024-05-22 10:36 | P.PN ---
Subjective Progress Note Date: 05/22/24 This is a 64-year-old male with past medical history of gastroesophageal reflux disease, hypertension, ongoing nicotine dependence, anxiety, spinal stenosis/degenerative disc disease, alcohol abuse/dependence, paracentesis presented to the ER per recommendations of his PCP with worsening abdominal pain, abdominal distention, shortness of breath and fatigue. States last drink yesterday, rum and coke. Serum alcohol 127 on admission. Denies nausea ,vomiting or diarrhea. denies chest pain, palpitations. Denies lightheadedness dizziness or focal deficits. CT of chest abdomen and pelvis reporting moderate volume ascites with marked hepatic steatosis and cirrhotic appearance, change morphology previously seen right renal upper pole 3.9 cm lesion demonstrating internal fat with some enhancement and, previously predominantly enhancing throughout, correlate for prior intervention otherwise raises concern for possible fat-containing renal cell carcinoma versus other etiologies, cholelithiasis, septal patchy groundglass opacities within the bilateral upper lobes representing air trapping versus developing infectious inflammatory process versus pulmonary edema. Afebrile, WBC 13.8, 15.2. Hemoglobin 10.2, platelets 155, INR 1.4, sodium 132 bicarb 14 BUN 19 creatinine 1.89, lactic acid 6.7, total bili 18.8, conjugated bili 10, unconjugated bili 3.8 AST 319, ALT 103, alk phos 271, albumin 3.2, lipase 496. UA reporting trace of protein negative nitrates 3+ bilirubin negative leukocytes. Viral screen negative. Mild tachycardia, blood pressures stable, maintaining O2 sats of 93% on 2-1/2 L on nasal cannula. Continues on IV fluid hydration, CIWA protocol. Recent CIWA score 9. 05/19/2024 underwent paracentesis yesterday with 4350 ml of clear straw-colored fluid drained. Denies abdominal pain, tolerated procedure well. Pathology pending. CA 19-9 33.3 (0.0-34.9). Maintained on lactulose, ammonia decreased to 55.one BM documented for yesterday. Less restless, minimal tremors,continues on CIWA protocol, recent CIWA score 0. Denies chest pain, palpitations or shortness of breath. Maintaining O2 sats in the 90s on 3 L nasal cannula. Afebrile, WBC decreased to 11.79. Hemoglobin 8.9, platelets 117. Lactic acid WNL, 1.8. Sodium 129 potassium 3.9. Continues on bicarb drip, bicarb improved ,23.9. BUN 22.6, creatinine 2. T. bili 18.3, AST 296, ALT 112, alk phos 215. Albumin 3. 05/22/2024 Maintained on lactulose, ammonia level decreased to 19. CIWA score 2. CMP pending. Continues on Sandostatin. Hemoglobin 8.9, platelets 89. Mild tachycardia. Blood pressure soft, on IV fluids. afebrile, WBC 12.89. Maintaining O2 sats in the low 90s on 5 L nasal cannula. Low-sodium diet, poor oral intake. Denies nausea or vomiting. denies abdominal pain. paracentesis pathology reported negative for malignancy. Objective - Vital Signs Vital signs: Vital Signs Temp 98.2 F 05/22/24 07:29 Pulse 108 H 05/22/24 08:43 Resp 17 05/22/24 07:29 BP 112/58 05/22/24 08:43 Pulse Ox 90 L 05/22/24 07:29 FiO2 Intake & Output 05/21/24 05/22/24 05/22/24 18:59 06:59 18:59 Intake Total 1140 Output Total 400 350 Balance 740 -350 Intake: Oral 1140 Output: Urine 400 350 Other: Voiding Method Indwelling Catheter Indwelling Catheter # Bowel Movements 5 4 - Exam PHYSICAL EXAM: VITAL SIGNS: As above GENERAL: Sitting up in bed, no acute distress, jaundiced. HEENT: Conjunctivae normal. Sclera icterus NECK: Supple no JVD. No thyroid enlargement. No LNs CARDIOVASCULAR: S1, S2 regular.No murmur RESPIRATION: Breath sounds diminished in the bases.No rhonchi or crackles. ABDOMEN: Soft, distended, nontender, positive ascites no guarding. Hepatomegaly.+BS. LEGS: Lower extremity edema, Calves nontender. PSYCHIATRY: Alert and oriented X3, mood and affect normal. NERVOUS SYSTEM: Cranial N 2-12 grossly normal. No focal deficits. Skin: Warm and dry, no rash - Labs CBC & Chem 7: 05/22/24 07:21 05/22/24 07:21 Labs: Abnormal Lab Results - Last 24 Hours (Table) 05/21/24 Range/Units 07:32 Sodium 133 L (135-145) mmol/L Glucose 133 H (70-110) mg/dL Calcium 8.5 L (8.7-10.3) mg/dL Total Bilirubin 20.5 H (0.3-1.2) mg/dL AST 217 H (14-35) U/L ALT 102 H (10-49) U/L Alkaline Phosphatase 208 H (41-126) U/L Total Protein 5.3 L (6.2-8.2) g/dL Albumin 2.9 L (3.8-4.9) g/dL Albumin/Globulin Ratio 1.21 L (1.60-3.17) Ratio Microbiology - Last 24 Hours (Table) 05/18/24 11:50 Gram Stain - Final Ascites Fluid Body Fluid Culture - Final Assessment and Plan Assessment: Abdominal pain, positive ascites, hepatocellular disease. Serum alcohol 127 on admission. Status post large-volume paracentesis, 4350ml on 05/18/24 Hyperbilirubinemia Hyperammonemia Alcohol abuse, dependence since age 14 Alcoholic cirrhosis of liver, portal hypertension Acute hypoxic respiratory failure secondary to the above Hyponatremia Urinary retention requiring Jorge catheter Prior MRI reported pancreatic lesion 12/19 with recommended outpatient EUS at [facility]. Patient states completed some of the workup. PCP reports patient had a ERCP with no biopsy. Lactic acidosis, resolved Leukocytosis, improving Acute renal failure, possibly hepatorenal syndrome Acute metabolic acidosis secondary to the above Right renal upper pole 3.9 cm lesion, reported per CT, suspicious for malignancy. urology following, recommending second opinion at a tertiary care center upon discharge. Cholelithiasis Gastroesophageal reflux disease Hyperlipidemia Hypertension Osteoarthritis Anxiety Ongoing nicotine dependence Medical marijuana use Plan: Continue on current medication regime ,monitoring and symptomatic treatment. CMP,Hep./Iron panels pending. Low-salt diet,norvasc discontinued. IV fluids/diuretics as per nephrology.Maintain lactulose with goal of 3 bowel movements daily.close monitoring of ammonia, T Bili/LFTs with repeat levels ordered for a.m. CIWA protocol. Alcohol abstinence reinforced. The impression and plan of care has been dictated as directed. : I performed a history and examination of this patient, discussed the same with the dictator. I agree with the dictator's note ,documented as a scribe. Any additional findings or plans will be noted.
--- NOTE | 2024-05-22 11:41 | P.PN ---
Subjective Patient is seen in follow-up for acute kidney injury. On IV fluids. Renal function improving. Denies chest pain or shortness of breath. Admits to loose bowel movements. Vital signs are stable. General: No acute distress. HEENT: Head exam is unremarkable. LUNGS: No audible rhonchi or wheezes. HEART: Rate and Rhythm are regular. ABDOMEN: Nontender. EXTREMITITES: No edema. Objective - Vital Signs Vital signs: Vital Signs Temp 98.2 F 05/22/24 07:29 Pulse 108 H 05/22/24 08:43 Resp 17 05/22/24 07:29 BP 112/58 05/22/24 08:43 Pulse Ox 90 L 05/22/24 07:29 FiO2 Intake & Output 05/21/24 05/22/24 05/22/24 18:59 06:59 18:59 Intake Total 1140 Output Total 400 350 Balance 740 -350 Intake: Oral 1140 Output: Urine 400 350 Other: Voiding Method Indwelling Catheter Indwelling Catheter # Bowel Movements 5 4 - Labs CBC & Chem 7: 05/22/24 07:21 05/21/24 07:32 Labs: Abnormal Lab Results - Last 24 Hours (Table) 05/21/24 05/22/24 Range/Units 07:32 07:21 WBC 12.89 H (4.50-10.00) X 10*3/uL RBC 2.45 L (4.40-5.60) X 10*6/uL Hgb 8.9 L (13.0-17.0) g/dL Hct 25.6 L (39.6-50.0) % MCV 104.5 H (80.0-97.0) FL MCH 36.3 H (27.0-32.0) pg RDW 20.4 H (11.5-14.5) % Plt Count 89 L (140-440) X 10*3/uL NRBC/100 WBC Diff 0.02 H (0.00-0.01) X 10*3/uL Sodium 133 L (135-145) mmol/L Glucose 133 H (70-110) mg/dL Calcium 8.5 L (8.7-10.3) mg/dL Total Bilirubin 20.5 H (0.3-1.2) mg/dL AST 217 H (14-35) U/L ALT 102 H (10-49) U/L Alkaline Phosphatase 208 H (41-126) U/L Total Protein 5.3 L (6.2-8.2) g/dL Albumin 2.9 L (3.8-4.9) g/dL Albumin/Globulin Ratio 1.21 L (1.60-3.17) Ratio Microbiology - Last 24 Hours (Table) 05/18/24 11:50 Gram Stain - Final Ascites Fluid Body Fluid Culture - Final Assessment and Plan Plan: Assessment: 1. Acute kidney injury secondary to ATN with concern for hepatorenal syndrome. UA benign. No hydronephrosis noted on imaging. Renal function improving. Creatinine 1.2 today. 2. 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 Status post paracentesis this admission with 4 L drained. 3. Right renal lesion noted on ultrasound. Patient will need to see urology outpatient. 4. Metabolic acidosis secondary to acute kidney injury and lactic acidosis. Improved. 5. Volume overload. 6. Anemia. Rule out iron deficiency. Plan: Hep-Lock IV fluids. Increase Aldactone frequency to twice daily. Stop amlodipine. Maintain low-salt diet. Avoid nephrotoxins. Continue to monitor renal function and urine output. Check iron studies.
[2024-05-22 12:35] LABS: ALT 101 U/L (10-49); AST 222 U/L (14-35); Albumin 2.7 g/dL (3.8-4.9); Albumin/Globulin Ratio 1.23 Ratio (1.60-3.17); Alkaline Phosphatase 201 U/L (41-126); BUN/Creat Ratio 12.77 Ratio (12.00-20.00); Blood Urea Nitrogen 16.6 mg/dL (9.0-27.0); Calcium 8.6 mg/dL (8.7-10.3); Carbon Dioxide 24.8 mmol/L (21.6-31.8); Chloride 98 mmol/L (96-109); Globulin 2.2 g/dL (1.6-3.3); Glucose 139 mg/dL (70-110); Potassium 3.7 mmol/L (3.5-5.5); Sodium 133 mmol/L (135-145); Total Bilirubin 21.1 mg/dL (0.3-1.2); Total Protein 4.9 g/dL (6.2-8.2)
[2024-05-22 15:41] LABS: % Iron Saturation 65.26 (15.00-50.00)
[2024-05-22] MEDS: IPRATROPIUM-ALBUTEROL 3 ML NEB INHALATION SCH (16:01)
[2024-05-22] MEDS: SPIRONOLACTONE 25 MG TAB PO SCH (23:06)
[2024-05-23] MEDS: IPRATROPIUM-ALBUTEROL 3 ML NEB INHALATION PRN (00:53)
--- NOTE | 2024-05-23 02:53 | XR ---
EXAM: XR Chest, 2 Views CLINICAL HISTORY: a team sob TECHNIQUE: Frontal and lateral views of the chest. COMPARISON: May 17, 2024 FINDINGS: Lungs: Low lung volumes with coarse interstitial markings throughout both lungs suggesting underlying emphysema. There is new moderate diffuse edema versus pneumonia throughout both lungs. Pleural space: Unremarkable. No pneumothorax. Heart: The cardiac silhouette is mildly enlarged. Mediastinum: Unremarkable. Normal mediastinal contour. Bones/joints: Unremarkable. No acute fracture. Vasculature: The aortic arch is mildly calcified. Upper abdomen: Unremarkable as visualized. No pneumoperitoneum under the diaphragm. IMPRESSION: 1. Low lung volumes with coarse interstitial markings throughout both lungs suggesting underlying emphysema. There is new moderate diffuse edema versus pneumonia throughout both lungs. 2. The cardiac silhouette is mildly enlarged.
[2024-05-23 08:14] LABS: Glucose,Whole Blood 193 mg/dL (70-110)
[2024-05-23 08:18] LABS: ALT 103 U/L (4-49); AST 262 U/L (17-59); African American GFR (CKD) 44 (>60 ml/min/1.73 sqM); Albumin 2.5 g/dL (3.5-5.0); Albumin/Globulin Ratio 0.7; Alkaline Phosphatase 211 U/L (38-126); Anion Gap 8 mmol/L; Blood Urea Nitrogen 21 mg/dL (9-20); Calcium 8.2 mg/dL (8.4-10.2); Carbon Dioxide 24 mmol/L (22-30); Chloride 96 mmol/L (98-107); Globulin 3.5 g/dL; Glucose 144 mg/dL (74-99); Magnesium 1.4 mg/dL (1.6-2.3); Non-African American GFR(CKD) 38 (>60 ml/min/1.73 sqM); Potassium 3.5 mmol/L (3.5-5.1); Sodium 128 mmol/L (137-145)
[2024-05-23 08:26] LABS: NT-Pro-B-Type Natriuretic Pept 632 pg/mL
[2024-05-23 08:30] LABS: Total Bilirubin 22.2 mg/dL (0.2-1.3)
--- NOTE | 2024-05-23 09:36 | P.PN ---
Subjective Progress Note Date: 05/23/24 This is a 64-year-old male with past medical history of gastroesophageal reflux disease, hypertension, ongoing nicotine dependence, anxiety, spinal stenosis/degenerative disc disease, alcohol abuse/dependence, paracentesis presented to the ER per recommendations of his PCP with worsening abdominal pain, abdominal distention, shortness of breath and fatigue. States last drink yesterday, rum and coke. Serum alcohol 127 on admission. Denies nausea ,vomiting or diarrhea. denies chest pain, palpitations. Denies lightheadedness dizziness or focal deficits. CT of chest abdomen and pelvis reporting moderate volume ascites with marked hepatic steatosis and cirrhotic appearance, change morphology previously seen right renal upper pole 3.9 cm lesion demonstrating internal fat with some enhancement and, previously predominantly enhancing throughout, correlate for prior intervention otherwise raises concern for possible fat-containing renal cell carcinoma versus other etiologies, cholelithiasis, septal patchy groundglass opacities within the bilateral upper lobes representing air trapping versus developing infectious inflammatory process versus pulmonary edema. Afebrile, WBC 13.8, 15.2. Hemoglobin 10.2, platelets 155, INR 1.4, sodium 132 bicarb 14 BUN 19 creatinine 1.89, lactic acid 6.7, total bili 18.8, conjugated bili 10, unconjugated bili 3.8 AST 319, ALT 103, alk phos 271, albumin 3.2, lipase 496. UA reporting trace of protein negative nitrates 3+ bilirubin negative leukocytes. Viral screen negative. Mild tachycardia, blood pressures stable, maintaining O2 sats of 93% on 2-1/2 L on nasal cannula. Continues on IV fluid hydration, CIWA protocol. Recent CIWA score 9. 05/19/2024 underwent paracentesis yesterday with 4350 ml of clear straw-colored fluid drained. Denies abdominal pain, tolerated procedure well. Pathology pending. CA 19-9 33.3 (0.0-34.9). Maintained on lactulose, ammonia decreased to 55.one BM documented for yesterday. Less restless, minimal tremors,continues on CIWA protocol, recent CIWA score 0. Denies chest pain, palpitations or shortness of breath. Maintaining O2 sats in the 90s on 3 L nasal cannula. Afebrile, WBC decreased to 11.79. Hemoglobin 8.9, platelets 117. Lactic acid WNL, 1.8. Sodium 129 potassium 3.9. Continues on bicarb drip, bicarb improved ,23.9. BUN 22.6, creatinine 2. T. bili 18.3, AST 296, ALT 112, alk phos 215. Albumin 3. 05/22/2024 Maintained on lactulose, ammonia level decreased to 19. CIWA score 2. CMP pending. Continues on Sandostatin. Hemoglobin 8.9, platelets 89. Mild tachycardia. Blood pressure soft, on IV fluids. afebrile, WBC 12.89. Maintaining O2 sats in the low 90s on 5 L nasal cannula. Low-sodium diet, poor oral intake. Denies nausea or vomiting. denies abdominal pain. paracentesis pathology reported negative for malignancy. 05/23/2024 condition declined last night, requiring A team and transferred to stepdown unit. Currently requiring 80% FiO2. Chest x-ray reporting emphysema with new moderate edema versus pneumonia bilateral lungs. T. bili increased to 22.2, ammonia increased to 38 on lactulose, creatinine worsening 1.86, sodium decreased to 128. Sodium decreased to 128, potassium 3.5, magnesium 1.4. Objective - Vital Signs Vital signs: Vital Signs Temp 97.9 F 05/23/24 03:00 Pulse 104 H 05/23/24 07:55 Resp 16 05/23/24 07:47 BP 113/69 05/23/24 07:47 Pulse Ox 96 05/23/24 07:47 FiO2 80 05/23/24 07:47 Intake & Output 05/22/24 05/23/24 05/23/24 18:59 06:59 18:59 Output Total 300 250 Balance -300 -250 Weight 50.8 kg Output: Urine 300 250 Other: Voiding Method Indwelling Catheter Indwelling Catheter Indwelling Catheter # Bowel Movements 2 1 - Exam PHYSICAL EXAM: VITAL SIGNS: As above GENERAL: Alert and oriented x 2, sitting up in bed, no acute distress, jaundiced. Currently wearing 80% FiO2 Airvo HEENT: Conjunctivae normal. Sclera icterus NECK: Supple no JVD. No thyroid enlargement. No LNs CARDIOVASCULAR: S1, S2 regular.No murmur RESPIRATION: Increased respiratory effort, expiratory wheezing. ABDOMEN: Soft, distended, nontender, positive ascites no guarding. Hepatomegaly.+BS. LEGS: Lower extremity edema, Calves nontender. NERVOUS SYSTEM: Cranial N 2-12 grossly normal. No focal deficits. Skin: Warm and dry, no rash - Labs CBC & Chem 7: 05/23/24 10:38 05/23/24 07:46 Labs: Abnormal Lab Results - Last 24 Hours (Table) 05/22/24 05/22/24 05/22/24 Range/Units 07:21 07:21 07:21 WBC 12.89 H (4.50-10.00) X 10*3/uL RBC 2.45 L (4.40-5.60) X 10*6/uL Hgb 8.9 L (13.0-17.0) g/dL Hct 25.6 L (39.6-50.0) % MCV 104.5 H (80.0-97.0) FL MCH 36.3 H (27.0-32.0) pg RDW 20.4 H (11.5-14.5) % Plt Count 89 L (140-440) X 10*3/uL NRBC/100 WBC Diff 0.02 H (0.00-0.01) X 10*3/uL Sodium 133 L (135-145) mmol/L Chloride (98-107) mmol/L BUN (9-20) mg/dL Creatinine (0.66-1.25) mg/dL Glucose 139 H (70-110) mg/dL POC Glucose (mg/dL) (70-110) mg/dL Calcium 8.6 L (8.7-10.3) mg/dL Magnesium (1.6-2.3) mg/dL Iron 62 L (65-175) UG/DL TIBC 95 L (228-460) UG/DL % Saturation 65.26 H (15.00-50.00) Transferrin 67.7 L (204.0-354.0) mg/dL Ferritin 1801.0 H (22.0-322.0) ng/mL Total Bilirubin 21.1 H (0.3-1.2) mg/dL Conjugated Bilirubin >14.00 H (0.20-0.40) mg/dL Unconjugated Bilirubin <7.10 H (0.20-1.00) mg/dL AST 222 H (14-35) U/L ALT 101 H (10-49) U/L Alkaline Phosphatase 201 H (41-126) U/L Ammonia (<30) umol/L Total Protein 4.9 L (6.2-8.2) g/dL Albumin 2.7 L (3.8-4.9) g/dL Albumin/Globulin Ratio 1.23 L (1.60-3.17) Ratio 05/23/24 05/23/24 05/23/24 Range/Units 00:56 07:46 07:46 WBC (4.50-10.00) X 10*3/uL RBC (4.40-5.60) X 10*6/uL Hgb (13.0-17.0) g/dL Hct (39.6-50.0) % MCV (80.0-97.0) FL MCH (27.0-32.0) pg RDW (11.5-14.5) % Plt Count (140-440) X 10*3/uL NRBC/100 WBC Diff (0.00-0.01) X 10*3/uL Sodium 128 L (135-145) mmol/L Chloride 96 L (98-107) mmol/L BUN 21 H (9-20) mg/dL Creatinine 1.86 H (0.66-1.25) mg/dL Glucose 144 H (70-110) mg/dL POC Glucose (mg/dL) 193 H (70-110) mg/dL Calcium 8.2 L (8.7-10.3) mg/dL Magnesium 1.4 L (1.6-2.3) mg/dL Iron (65-175) UG/DL TIBC (228-460) UG/DL % Saturation (15.00-50.00) Transferrin (204.0-354.0) mg/dL Ferritin (22.0-322.0) ng/mL Total Bilirubin 22.2 H* (0.3-1.2) mg/dL Conjugated Bilirubin (0.20-0.40) mg/dL Unconjugated Bilirubin (0.20-1.00) mg/dL AST 262 H (14-35) U/L ALT 103 H (10-49) U/L Alkaline Phosphatase 211 H (41-126) U/L Ammonia 38 H (<30) umol/L Total Protein 6.0 L (6.2-8.2) g/dL Albumin 2.5 L (3.8-4.9) g/dL Albumin/Globulin Ratio (1.60-3.17) Ratio Microbiology - Last 24 Hours (Table) 05/18/24 11:50 Anaerobic Culture - Final Ascites Fluid 05/18/24 11:50 Gram Stain - Final Ascites Fluid Body Fluid Culture - Final Assessment and Plan Assessment: Abdominal pain, positive ascites, hepatocellular disease. Serum alcohol 127 on admission. Status post large-volume paracentesis, 4350ml on 05/18/24 Hyperbilirubinemia Hyperammonemia Alcohol abuse, dependence since age 14 Alcoholic cirrhosis of liver, portal hypertension Acute hypoxic respiratory failure secondary to the above, procalcitonin pending. Hyponatremia Urinary retention requiring Jorge catheter Prior MRI reported pancreatic lesion 12/19 with recommended outpatient EUS at [facility]. Patient states completed some of the workup. PCP reports patient had a ERCP with no biopsy. Lactic acidosis, resolved Leukocytosis, improving Acute renal failure, possibly hepatorenal syndrome Acute metabolic acidosis secondary to the above Right renal upper pole 3.9 cm lesion, reported per CT, suspicious for malignancy. urology following, recommending second opinion at a tertiary care center upon discharge. Cholelithiasis Gastroesophageal reflux disease Hyperlipidemia Hypertension Osteoarthritis Anxiety Ongoing nicotine dependence Medical marijuana use Plan: Continue on current medication regime ,monitoring and symptomatic treatment. Pulmonary consult in place, recommendations pending. acute hep. panel reordered. Empiric antibiotics, Symbicort, IV magnesium. Procalcitonin pending; if normal will DC antibiotics. proBNP pending. maintain lactulose with goal of 3 bowel movements daily with close monitoring of ammonia, T Bili/LFTs with repeat levels ordered for a.m. CIWA protocol. Alcohol abstinence reinforced. Repeat therapeutic parancentesis with IR. INR pending .transfer to tertiary care center as patient's T. bili/INR continues worsening, with no GI specialty available at this site this week . Transfer process initiated. Prognosis guarded given multiple complex medical issues. The impression and plan of care has been dictated as directed. : I performed a history and examination of this patient, discussed the same with the dictator. I agree with the dictator's note ,documented as a scribe. Any additional findings or plans will be noted.
[2024-05-23] MEDS: AZITHROMYCIN 500 MG in SODIUM CHLORIDE 0.9% 250 ML IVPB SCH (10:22)
--- NOTE | 2024-05-23 10:28 | P.PN ---
Subjective Patient is seen in follow-up for acute kidney injury. Off IV fluids. Renal function worse today. Transferred to telemetry floor due to higher oxygen demands. Now on Airvo. Vital signs are stable. General: No acute distress. HEENT: Head exam is unremarkable. On Airvo. LUNGS: No audible rhonchi or wheezes. HEART: Rate and Rhythm are regular. ABDOMEN: Nontender. Distention noted. EXTREMITITES: No edema. Objective - Vital Signs Vital signs: Vital Signs Temp 97.9 F 05/23/24 03:00 Pulse 104 H 05/23/24 07:55 Resp 16 05/23/24 07:47 BP 113/69 05/23/24 07:47 Pulse Ox 96 05/23/24 07:47 FiO2 80 05/23/24 07:47 Intake & Output 05/22/24 05/23/24 05/23/24 18:59 06:59 18:59 Output Total 300 250 Balance -300 -250 Weight 50.8 kg Output: Urine 300 250 Other: Voiding Method Indwelling Catheter Indwelling Catheter Indwelling Catheter # Bowel Movements 2 1 - Labs CBC & Chem 7: 05/22/24 07:21 05/23/24 07:46 Labs: Abnormal Lab Results - Last 24 Hours (Table) 05/22/24 05/22/24 05/22/24 Range/Units 07:21 07:21 07:21 WBC 12.89 H (4.50-10.00) X 10*3/uL RBC 2.45 L (4.40-5.60) X 10*6/uL Hgb 8.9 L (13.0-17.0) g/dL Hct 25.6 L (39.6-50.0) % MCV 104.5 H (80.0-97.0) FL MCH 36.3 H (27.0-32.0) pg RDW 20.4 H (11.5-14.5) % Plt Count 89 L (140-440) X 10*3/uL NRBC/100 WBC Diff 0.02 H (0.00-0.01) X 10*3/uL Sodium 133 L (135-145) mmol/L Chloride (98-107) mmol/L BUN (9-20) mg/dL Creatinine (0.66-1.25) mg/dL Glucose 139 H (70-110) mg/dL POC Glucose (mg/dL) (70-110) mg/dL Calcium 8.6 L (8.7-10.3) mg/dL Magnesium (1.6-2.3) mg/dL Iron 62 L (65-175) UG/DL TIBC 95 L (228-460) UG/DL % Saturation 65.26 H (15.00-50.00) Transferrin 67.7 L (204.0-354.0) mg/dL Ferritin 1801.0 H (22.0-322.0) ng/mL Total Bilirubin 21.1 H (0.3-1.2) mg/dL Conjugated Bilirubin >14.00 H (0.20-0.40) mg/dL Unconjugated Bilirubin <7.10 H (0.20-1.00) mg/dL AST 222 H (14-35) U/L ALT 101 H (10-49) U/L Alkaline Phosphatase 201 H (41-126) U/L Ammonia (<30) umol/L Total Protein 4.9 L (6.2-8.2) g/dL Albumin 2.7 L (3.8-4.9) g/dL Albumin/Globulin Ratio 1.23 L (1.60-3.17) Ratio 05/23/24 05/23/24 05/23/24 Range/Units 00:56 07:46 07:46 WBC (4.50-10.00) X 10*3/uL RBC (4.40-5.60) X 10*6/uL Hgb (13.0-17.0) g/dL Hct (39.6-50.0) % MCV (80.0-97.0) FL MCH (27.0-32.0) pg RDW (11.5-14.5) % Plt Count (140-440) X 10*3/uL NRBC/100 WBC Diff (0.00-0.01) X 10*3/uL Sodium 128 L (135-145) mmol/L Chloride 96 L (98-107) mmol/L BUN 21 H (9-20) mg/dL Creatinine 1.86 H (0.66-1.25) mg/dL Glucose 144 H (70-110) mg/dL POC Glucose (mg/dL) 193 H (70-110) mg/dL Calcium 8.2 L (8.7-10.3) mg/dL Magnesium 1.4 L (1.6-2.3) mg/dL Iron (65-175) UG/DL TIBC (228-460) UG/DL % Saturation (15.00-50.00) Transferrin (204.0-354.0) mg/dL Ferritin (22.0-322.0) ng/mL Total Bilirubin 22.2 H* (0.3-1.2) mg/dL Conjugated Bilirubin (0.20-0.40) mg/dL Unconjugated Bilirubin (0.20-1.00) mg/dL AST 262 H (14-35) U/L ALT 103 H (10-49) U/L Alkaline Phosphatase 211 H (41-126) U/L Ammonia 38 H (<30) umol/L Total Protein 6.0 L (6.2-8.2) g/dL Albumin 2.5 L (3.8-4.9) g/dL Albumin/Globulin Ratio (1.60-3.17) Ratio Microbiology - Last 24 Hours (Table) 05/18/24 11:50 Anaerobic Culture - Final Ascites Fluid 05/18/24 11:50 Gram Stain - Final Ascites Fluid Body Fluid Culture - Final Assessment and Plan Plan: Assessment: 1. Acute kidney injury secondary to ATN with concern for hepatorenal syndrome. UA benign. No hydronephrosis noted on imaging. Renal function worse. C reatinine 1.86 today. 2. 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 Status post paracentesis this admission with 4 L drained. 3. Right renal lesion noted on ultrasound. Patient will need to see urology outpatient. 4. Metabolic acidosis secondary to acute kidney injury and lactic acidosis. Improved. 5. Volume overload. 6. Anemia. R iron replete. 7. Hypervolemic hyponatremia. 8. Hypomagnesemia from diuresis and poor intake. Being replaced. Plan: Maintain Aldactone. Lasix 20 mg IV once today. Maintain low-salt diet. Avoid nephrotoxins. Continue to monitor renal function and urine output. Paracentesis pending. 25 g IV albumin pre and postprocedure. Transferred to another facility for GI eval being considered.
[2024-05-23 11:00] LABS: Anisocytosis Slight; Basophils # (A) 0.1 k/uL (0-0.2); Basophils % (A) 1 %; Eosinophils # (A) 0.2 k/uL (0-0.7); Eosinophils % (A) 2 %; HCT 30.4 % (39.0-53.0); HGB 9.5 gm/dL (13.0-17.5); Hypochromasia Slight; Lymphocytes # (A) 0.9 k/uL (1.0-4.8); Lymphocytes % (A) 8 %; MCH 35.7 pg (25.0-35.0); MCHC 31.3 g/dL (31.0-37.0); MCV 114.2 fL (80.0-100.0); Macrocytosis Marked; Mean Platelet Volume 9.4; Monocytes # (A) 0.8 k/uL (0-1.0); Monocytes % (A) 7 %; Neutrophils # (A) 9.3 k/uL (1.3-7.7); Neutrophils % (A) 81 %; RBC 2.67 m/uL (4.30-5.90); WBC 11.5 k/uL (3.8-10.6)
[2024-05-23 11:03] LABS: Basophils # (A) 0.06 X 10*3/uL (0.00-0.10); Basophils % (A) 0.5 %; Eosinophils # (A) 0.12 X 10*3/uL (0.04-0.35); Eosinophils % (A) 0.9 %; HCT 25.2 % (39.6-50.0); HGB 8.8 g/dL (13.0-17.0); Immature Platelet Fraction 6.8 % (1.1-6.1); Lymphocytes # (A) 1.09 X 10*3/uL (0.90-5.00); Lymphocytes % (A) 8.6 %; MCH 35.6 pg (27.0-32.0); MCHC 34.9 g/dL (32.0-37.0); Mean Platelet Volume 11.3 FL (9.5-12.2); Monocytes # (A) 1.76 X 10*3/uL (0.20-1.00); Monocytes % (A) 13.9 %; NRBC Per 100 WBC 0 X 10*3/uL (0.00-0.01); Neutrophils # (A) 9.45 X 10*3/uL (1.80-7.70); Neutrophils % (A) 74.7 %; Platelet Count 87 X 10*3/uL (140-440); RBC 2.47 X 10*6/uL (4.40-5.60); RDW 20.7 % (11.5-14.5); Target Cells 2+ (None Seen); WBC 12.66 X 10*3/uL (4.50-10.00)
[2024-05-23] MEDS: FUROSEMIDE 10 MG/ML 2 ML VIAL IV STA (11:14)
[2024-05-23] MEDS: POTASSIUM CHLORIDE ER 20 MEQ TAB.ER PO STA (11:15)
[2024-05-23] MEDS: THIAMINE 100 MG TAB PO SCH (11:15)
[2024-05-23] MEDS: MAGNESIUM SULFATE-D5W PMX 1 GM in DEXTROSE/WATER 1 100ML.BAG IVPB ONE (11:15)
[2024-05-23] MEDS: FOLIC ACID 1 MG TAB PO SCH (11:15)
[2024-05-23] MEDS: MIDODRINE 5 MG TAB PO SCH (11:15)
[2024-05-23] MEDS: SYMBICORT 160-4.5 MCG INHALER INHALATION SCH (11:21)
[2024-05-23 11:36] LABS: Platelet Count 92 k/uL (150-450)
--- NOTE | 2024-05-23 11:44 | P.CNPUL ---
History of Present Illness Consult date: 05/23/24 Requesting physician: Harinder Macario Jr Reason for consult: dyspnea, hypoxemia Chief complaint: Hypoxemia. History of present illness: Pulmonary consult dated May 23, 2024. This is a 64-year-old male seen today in room 369, in consultation. The patient was actually admitted through the emergency department, on May 17. The patient apparently came in with cough, shortness of breath, ascites, significant jaundice. The patient also complains of significant weakness. We were consulted for worsening hypoxemic respiratory failure. The patient was on 15 L high flow nasal cannula, and now is on Airvo, at 50 L/min with an FiO2 of 80%. He is quite jaundiced. Somewhat confused. Not able to give much of the history. Earlier on this admission, on May 18, he had a paracentesis abdomin ous, and 4.4 L of fluid was removed. He is currently on azithromycin and Rocephin, although cultures are negative. We did order an N-terminal proBNP and a procalcitonin level. The patient was lying flat in bed, and was mildly short of breath. I believe his shortness of breath likely related to his significant abdominal ascites. His chest x-ray may show some mild fluid overload. His past history includes gastroesophageal reflux disease, hyperlipidemia, hypertension, chronic alcoholic liver disease, osteoarthritis, migraine cephalgia, and chronic anxiety. The patient is a current everyday smoker, and apparently has a history of heavy alcohol ingestion. White count is 12.7, hemoglobin 8.8, hematocrit 25.2, platelet count is 87,000. Sodium 128, potassium 3.5, chlorides 96, CO2 24, BUN 21, creatinine 1.86. Glucose is 144. Calcium 8.2, magnesium 1.4. Bilirubin is 22.2. AST is 262. ALT is 103. Alkaline phosphatase is 211. N- terminal proBNP is 632. Procalcitonin levels pending. Albumin is 2.5. The patient's chest x-ray from May 23 has been reviewed. Review of Systems REVIEW OF SYSTEMS: CONSTITUTIONAL: Weakness. NEUROLOGIC: [ Negative.] HEENT: [ Negative.] CARDIAC: [Negative.] PULMONARY: Shortness of breath. GI: Severe abdominal distention. : [Negative.] RHEUMATOLOGIC: [ Negative.] IMMUNOLOGIC: [ Negative.] ENDOCRINE: [Negative. ] DERMATOLOGIC: [Negative.] Past Medical History Past Medical History: GERD/Reflux, Hyperlipidemia, Hypertension, Liver Disease, Osteoarthritis (OA) Additional Past Medical History / Comment(s): occ.DIZZINESS; migraines; DDD. herniated disk, gets numbness right and left foot which occ has caused falls. uses cane at times, alcohol abuse History of Any Multi-Drug Resistant Organisms: None Reported Past Surgical History: Orthopedic Surgery, Tonsillectomy Additional Past Surgical History / Comment(s): RIGHT EYE surgery for shattered eye socket-plastic PLATE. JAW SURGERY age 11. Pain Procedures. back surgery 2019, lt humerus fx with repair, paracentesis Past Anesthesia/Blood Transfusion Reactions: No Reported Reaction, Previous Problems w/ Anesthesia Additional Past Anesthesia/Blood Transfusion Reaction / Comment(s): Blood pressure dropped too low, surgery was cancelled. Smoking Status: Current every day smoker - Past Family History Father Family Medical History: GERD/Reflux Mother Family Medical History: Coronary Artery Disease (CAD), Myocardial Infarction (VT) Medications and Allergies Home Medications Medication Instructions Recorded Confirmed Type Tamsulosin [Flomax] 0.4 mg PO DAILY 12/14/16 05/17/24 History Albuterol Sulfate [Proair Hfa] 2 puff INHALATION RT-Q4H PRN 12/11/20 05/17/24 History Atorvastatin [Lipitor] 20 mg PO HS 05/17/24 05/17/24 History DULoxetine HCL 40 mg PO DAILY 05/17/24 05/17/24 History Furosemide [Lasix] 20 mg PO DAILY 05/17/24 05/17/24 History Levothyroxine Sodium [Synthroid] 25 mcg PO DAILY 05/17/24 05/17/24 History SUMAtriptan succinate [Imitrex] 50 mg PO BID PRN 05/17/24 05/18/24 History Spironolactone [Aldactone] 25 mg PO DAILY 05/17/24 05/17/24 History Vitamin B Complex 1 cap PO DAILY 05/17/24 05/17/24 History amLODIPine [Norvasc] 10 mg PO DAILY 05/17/24 05/17/24 History hydrOXYzine pamoate [Vistaril] 25 mg PO TID PRN 05/17/24 05/17/24 History Allergies Allergy/AdvReac Type Severity Reaction Status Date / Time codeine Allergy Severe Itching Verified 05/17/24 17:44 hydrocodone [From Vicodin] Allergy Severe Itching Verified 05/17/24 17:44 Physical Exam Osteopathic Statement: *. No significant issues noted on an osteopathic structural exam other than those noted in the History and Physical/Consult. Vitals: Vital Signs Temp Pulse Pulse Pulse Resp BP BP 05/23/24 11:22 98 05/23/24 11:13 98 26 H 97/61 05/23/24 07:55 104 H 05/23/24 07:47 101 H 16 113/69 05/23/24 07:43 100 05/23/24 04:25 05/23/24 03:00 97.9 F 105 H 24 94/58 05/23/24 01:16 05/23/24 01:01 104 H 24 05/23/24 00:54 102 H 24 103/67 05/23/24 00:36 05/23/24 00:32 05/23/24 00:22 97.9 F 101 H 05/22/24 21:31 112 H 22 05/22/24 21:25 109 H 22 05/22/24 19:48 99.9 F H 108 H 22 111/65 05/22/24 16:12 104 H 05/22/24 16:04 105 H 05/22/24 12:16 97.9 F 105 H 17 107/61 Pulse Ox FiO2 05/23/24 11:22 78 05/23/24 11:13 91 L 80 05/23/24 07:55 05/23/24 07:47 96 80 05/23/24 07:43 96 80 05/23/24 04:25 80 05/23/24 03:00 93 L 05/23/24 01:16 92 L 80 05/23/24 01:01 05/23/24 00:54 84 L 05/23/24 00:36 92 L 05/23/24 00:32 87 L 05/23/24 00:22 05/22/24 21:31 05/22/24 21:25 05/22/24 19:48 90 L 05/22/24 16:12 05/22/24 16:04 05/22/24 12:16 90 L Intake and Output 05/22/24 05/23/24 05/23/24 22:59 06:59 14:59 Intake Total 0 Output Total 300 250 Balance -300 -250 0 Intake: Oral 0 Output: Urine 300 250 Other: Voiding Method Indwelling Catheter Indwelling Catheter # Bowel Movements 2 1 Weight 50.8 kg No acute distress, confused, likely encephalopathic. Quite jaundiced. HEENT examination is grossly unremarkable. Mucous membranes are moist. No oral lesions. There is bilateral scleral icterus. Neck supple. Full range of motion. No adenopathy thyromegaly or neck vein distention. Cardiovascular examination reveals regular rhythm rate. S1-S2 normal. No S3 or S4. No discernible murmur noted. Heart sounds are distant. Lungs reveal mostly clear breath sound. Minimal rhonchi. No wheezes or crackles. Breath sounds are equal bilaterally. Abdomen distended, but soft. No bowel sounds noted. Extremities are intact. No cyanosis clubbing or edema. Skin is without rash or lesion. Neurologic examination is difficult to assess. The patient is very confused. Results - Laboratory Findings CBC and BMP: 05/23/24 07:46 05/23/24 07:46 PT/INR, D-dimer PT 18.7 sec (9.9-11.9) H 05/20/24 04:23 INR 1.74 sec (0.93-1.11) H 05/20/24 04:23 Abnormal lab findings: Abnormal Labs 05/17/24 05/17/24 05/17/24 13:37 13:37 13:37 WBC 13.8 H RBC 3.38 L Hgb 12.2 L Hct 36.1 L MCV 106.8 H MCH 36.1 H RDW Plt Count Immature Gran # Neutrophils # 11.0 H Neutrophils # (Manual) Lymphocytes # Monocytes # 1.1 H NRBC/100 WBC Diff Immature Plt Fraction Macrocytosis Target Cells PT 14.3 H INR 1.4 H Sodium 131 L Potassium 3.2 L Chloride 93 L Carbon Dioxide 17 L Anion Gap BUN Creatinine 1.51 H Est GFR (CKD-EPI) BUN/Creatinine Ratio Glucose 101 H POC Glucose (mg/dL) Plasma Lactic Acid Bert Calcium Magnesium Iron TIBC % Saturation Transferrin Ferritin Total Bilirubin 18.9 H* Conjugated Bilirubin 10.0 H Unconjugated Bilirubin 3.8 H Delta Bilirubin 5.1 H AST 353 H ALT 129 H Alkaline Phosphatase 354 H Ammonia Total Protein 8.4 H Albumin Albumin/Globulin Ratio Lipase 496 H Urine Protein Urine Bilirubin Urine Mucus 05/17/24 05/17/24 05/17/24 13:37 16:41 20:45 WBC RBC Hgb Hct MCV MCH RDW Plt Count Immature Gran # Neutrophils # Neutrophils # (Manual) Lymphocytes # Monocytes # NRBC/100 WBC Diff Immature Plt Fraction Macrocytosis Target Cells PT INR Sodium Potassium Chloride Carbon Dioxide Anion Gap BUN Creatinine Est GFR (CKD-EPI) BUN/Creatinine Ratio Glucose POC Glucose (mg/dL) Plasma Lactic Acid Bert 5.6 H* 5.9 H* 5.2 H* Calcium Magnesium Iron TIBC % Saturation Transferrin Ferritin Total Bilirubin Conjugated Bilirubin Unconjugated Bilirubin Delta Bilirubin AST ALT Alkaline Phosphatase Ammonia Total Protein Albumin Albumin/Globulin Ratio Lipase Urine Protein Urine Bilirubin Urine Mucus 05/17/24 05/18/24 05/18/24 22:50 00:14 03:39 WBC 15.2 H RBC 2.82 L Hgb 10.2 L Hct 31.9 L MCV 113.0 H D MCH 36.3 H RDW 16.4 H Plt Count Immature Gran # Neutrophils # Neutrophils # (Manual) 12.92 H Lymphocytes # Monocytes # NRBC/100 WBC Diff Immature Plt Fraction Macrocytosis Marked A Target Cells PT INR Sodium Potassium Chloride Carbon Dioxide Anion Gap BUN Creatinine Est GFR (CKD-EPI) BUN/Creatinine Ratio Glucose POC Glucose (mg/dL) Plasma Lactic Acid Bert 6.0 H* Calcium Magnesium Iron TIBC % Saturation Transferrin Ferritin Total Bilirubin Conjugated Bilirubin Unconjugated Bilirubin Delta Bilirubin AST ALT Alkaline Phosphatase Ammonia Total Protein Albumin Albumin/Globulin Ratio Lipase Urine Protein Trace H Urine Bilirubin 3+ H Urine Mucus Rare H 05/18/24 05/18/24 05/18/24 03:39 03:39 09:30 WBC RBC Hgb Hct MCV MCH RDW Plt Count Immature Gran # Neutrophils # Neutrophils # (Manual) Lymphocytes # Monocytes # NRBC/100 WBC Diff Immature Plt Fraction Macrocytosis Target Cells PT INR Sodium 132 L Potassium Chloride 97 L Carbon Dioxide 14 L Anion Gap BUN Creatinine 1.89 H Est GFR (CKD-EPI) BUN/Creatinine Ratio Glucose POC Glucose (mg/dL) Plasma Lactic Acid Bert 6.7 H* 3.1 H* Calcium Magnesium Iron TIBC % Saturation Transferrin Ferritin Total Bilirubin 18.8 H* Conjugated Bilirubin Unconjugated Bilirubin Delta Bilirubin AST 319 H ALT 103 H Alkaline Phosphatase 271 H Ammonia 77 H Total Protein Albumin 3.2 L Albumin/Globulin Ratio Lipase Urine Protein Urine Bilirubin Urine Mucus 05/18/24 05/18/24 05/19/24 12:22 15:22 04:50 WBC 11.79 H RBC 2.47 L Hgb 8.9 L Hct 24.8 L MCV 100.4 H MCH 36.0 H RDW 19.6 H Plt Count 117 L Immature Gran # 0.12 H Neutrophils # 9.78 H Neutrophils # (Manual) Lymphocytes # 0.88 L Monocytes # NRBC/100 WBC Diff 0.02 H Immature Plt Fraction Macrocytosis Target Cells PT INR Sodium Potassium Chloride Carbon Dioxide Anion Gap BUN Creatinine Est GFR (CKD-EPI) BUN/Creatinine Ratio Glucose POC Glucose (mg/dL) Plasma Lactic Acid Bert 2.6 H* 2.8 H* Calcium Magnesium Iron TIBC % Saturation Transferrin Ferritin Total Bilirubin Conjugated Bilirubin Unconjugated Bilirubin Delta Bilirubin AST ALT Alkaline Phosphatase Ammonia Total Protein Albumin Albumin/Globulin Ratio Lipase Urine Protein Urine Bilirubin Urine Mucus 05/19/24 05/19/24 05/19/24 04:50 04:50 04:50 WBC RBC Hgb Hct MCV MCH RDW Plt Count Immature Gran # Neutrophils # Neutrophils # (Manual) Lymphocytes # Monocytes # NRBC/100 WBC Diff Immature Plt Fraction Macrocytosis Target Cells PT 17.7 H INR 1.61 H Sodium 129 L Potassium Chloride 93 L Carbon Dioxide Anion Gap 12.10 H BUN Creatinine 2.0 H Est GFR (CKD-EPI) 37 L BUN/Creatinine Ratio 11.30 L Glucose 177 H POC Glucose (mg/dL) Plasma Lactic Acid Bert Calcium 8.2 L Magnesium Iron TIBC % Saturation Transferrin Ferritin Total Bilirubin 18.3 H Conjugated Bilirubin Unconjugated Bilirubin Delta Bilirubin AST 296 H ALT 112 H Alkaline Phosphatase 215 H Ammonia 55 H Total Protein 5.5 L Albumin 3.0 L Albumin/Globulin Ratio 1.20 L Lipase Urine Protein Urine Bilirubin Urine Mucus 05/20/24 05/20/24 05/20/24 04:23 04:23 04:23 WBC 12.91 H RBC 2.43 L Hgb 8.7 L Hct 24.7 L MCV 101.6 H MCH 35.8 H RDW 19.8 H Plt Count 106 L Immature Gran # 0.20 H Neutrophils # 10.38 H Neutrophils # (Manual) Lymphocytes # Monocytes # 1.08 H NRBC/100 WBC Diff 0.03 H Immature Plt Fraction Macrocytosis Target Cells PT 18.7 H INR 1.74 H Sodium 131 L Potassium 2.7 A* Chloride 90 L Carbon Dioxide Anion Gap 15.40 H BUN Creatinine 1.6 H Est GFR (CKD-EPI) 48 L BUN/Creatinine Ratio Glucose 151 H POC Glucose (mg/dL) Plasma Lactic Acid Bert Calcium 8.3 L Magnesium Iron TIBC % Saturation Transferrin Ferritin Total Bilirubin 18.9 H Conjugated Bilirubin Unconjugated Bilirubin Delta Bilirubin AST 249 H ALT 107 H Alkaline Phosphatase 216 H Ammonia Total Protein 5.2 L Albumin 2.8 L Albumin/Globulin Ratio 1.17 L Lipase Urine Protein Urine Bilirubin Urine Mucus 05/20/24 05/20/24 05/20/24 04:23 18:18 23:59 WBC RBC Hgb Hct MCV MCH RDW Plt Count Immature Gran # Neutrophils # Neutrophils # (Manual) Lymphocytes # Monocytes # NRBC/100 WBC Diff Immature Plt Fraction Macrocytosis Target Cells PT INR Sodium Potassium 3.0 L 3.1 L Chloride Carbon Dioxide Anion Gap BUN Creatinine Est GFR (CKD-EPI) BUN/Creatinine Ratio Glucose POC Glucose (mg/dL) Plasma Lactic Acid Bert Calcium Magnesium Iron TIBC % Saturation Transferrin Ferritin Total Bilirubin Conjugated Bilirubin Unconjugated Bilirubin Delta Bilirubin AST ALT Alkaline Phosphatase Ammonia 86 H Total Protein Albumin Albumin/Globulin Ratio Lipase Urine Protein Urine Bilirubin Urine Mucus 05/21/24 05/22/24 05/22/24 07:32 07:21 07:21 WBC 12.89 H RBC 2.45 L Hgb 8.9 L Hct 25.6 L MCV 104.5 H MCH 36.3 H RDW 20.4 H Plt Count 89 L Immature Gran # Neutrophils # Neutrophils # (Manual) Lymphocytes # Monocytes # NRBC/100 WBC Diff 0.02 H Immature Plt Fraction Macrocytosis Target Cells PT INR Sodium 133 L 133 L Potassium Chloride Carbon Dioxide Anion Gap BUN Creatinine Est GFR (CKD-EPI) BUN/Creatinine Ratio Glucose 133 H 139 H POC Glucose (mg/dL) Plasma Lactic Acid Bert Calcium 8.5 L 8.6 L Magnesium Iron TIBC % Saturation Transferrin Ferritin Total Bilirubin 20.5 H 21.1 H Conjugated Bilirubin >14.00 H Unconjugated Bilirubin <7.10 H Delta Bilirubin AST 217 H 222 H ALT 102 H 101 H Alkaline Phosphatase 208 H 201 H Ammonia Total Protein 5.3 L 4.9 L Albumin 2.9 L 2.7 L Albumin/Globulin Ratio 1.21 L 1.23 L Lipase Urine Protein Urine Bilirubin Urine Mucus 05/22/24 05/23/24 05/23/24 07:21 00:56 07:46 WBC 12.66 H RBC 2.47 L Hgb 8.8 L Hct 25.2 L MCV 102.0 H MCH 35.6 H RDW 20.7 H Plt Count 87 L Immature Gran # 0.18 H Neutrophils # 9.45 H Neutrophils # (Manual) Lymphocytes # Monocytes # 1.76 H NRBC/100 WBC Diff Immature Plt Fraction 6.8 H Macrocytosis Target Cells 2+ A PT INR Sodium Potassium Chloride Carbon Dioxide Anion Gap BUN Creatinine Est GFR (CKD-EPI) BUN/Creatinine Ratio Glucose POC Glucose (mg/dL) 193 H Plasma Lactic Acid Bert Calcium Magnesium Iron 62 L TIBC 95 L % Saturation 65.26 H Transferrin 67.7 L Ferritin 1801.0 H Total Bilirubin Conjugated Bilirubin Unconjugated Bilirubin Delta Bilirubin AST ALT Alkaline Phosphatase Ammonia Total Protein Albumin Albumin/Globulin Ratio Lipase Urine Protein Urine Bilirubin Urine Mucus 05/23/24 05/23/24 07:46 07:46 WBC RBC Hgb Hct MCV MCH RDW Plt Count Immature Gran # Neutrophils # Neutrophils # (Manual) Lymphocytes # Monocytes # NRBC/100 WBC Diff Immature Plt Fraction Macrocytosis Target Cells PT INR Sodium 128 L Potassium Chloride 96 L Carbon Dioxide Anion Gap BUN 21 H Creatinine 1.86 H Est GFR (CKD-EPI) BUN/Creatinine Ratio Glucose 144 H POC Glucose (mg/dL) Plasma Lactic Acid Bert Calcium 8.2 L Magnesium 1.4 L Iron TIBC % Saturation Transferrin Ferritin Total Bilirubin 22.2 H* Conjugated Bilirubin Unconjugated Bilirubin Delta Bilirubin AST 262 H ALT 103 H Alkaline Phosphatase 211 H Ammonia 38 H Total Protein 6.0 L Albumin 2.5 L Albumin/Globulin Ratio Lipase Urine Protein Urine Bilirubin Urine Mucus - Diagnostic Findings Chest x-ray: image reviewed Assessment and Plan Assessment: Acute hypoxemic respiratory failure, likely on the basis of severe abdominal ascites, and mild fluid overload. Doubt pneumonia. Severe alcoholic liver disease, with ascites, and severe hyperbilirubinemia. Bicytopenia, likely on the basis of alcohol abuse. Hyperammonemia, secondary to chronic liver disease. Possible chronic obstructive pulmonary disease secondary to chronic tobacco use. Mental status changes, likely on the basis of portosystemic encephalopathy and chronic alcohol disease. History of hypertension. History of hyperlipidemia. History of osteoarthritis. History of migraine cephalgia. History of heavy tobacco and alcohol abuse. Plan: Plan dated May 23, 2024. The patient is currently on Airvo, 50 L/min with an FiO2 of 80%. The patient was laying flat in bed, and should be upright, at 45 degrees or higher. In addition, interventional radiology should be evaluating the patient again for another paracentesis abdominis. Labs, x-rays, and medications are reviewed. We did order an N-terminal proBNP and procalcitonin level. Procalcitonin level is normal I would discontinue antibiotics. The nurses tell me that the patient is being evaluated for possible transfer. The patient is currently on Symbicort, and updrafts with albuterol sulfate ipratropium bromide. The patient is quite confused, with hyperammonemia, and encephalopathy. We will continue to follow. Prognosis is poor. No additional recommendations at this time. Time with Patient: Greater than 30
[2024-05-23 12:42] LABS: Prothrombin Time 20.4 sec (10.0-12.5)
[2024-05-23] MEDS: MIDODRINE 5 MG TAB PO STA (21:01)
[2024-05-23 21:17] LABS: Hepatitis A Antibody IgM Nonreactive (Nonreactive); Hepatitis B Core IgM Nonreactive (Nonreactive); Hepatitis B Surface Antigen Nonreactive (Nonreactive); Hepatitis C IgG Antibody Nonreactive (Nonreactive)
[2024-05-24 07:03] LABS: African American GFR (CKD) 30 (>60 ml/min/1.73 sqM); Anion Gap 9 mmol/L; Blood Urea Nitrogen 25 mg/dL (9-20); Carbon Dioxide 23 mmol/L (22-30); Chloride 96 mmol/L (98-107); Glucose 143 mg/dL (74-99); Magnesium 1.8 mg/dL (1.6-2.3); Non-African American GFR(CKD) 26 (>60 ml/min/1.73 sqM); Potassium 3.6 mmol/L (3.5-5.1); Sodium 128 mmol/L (137-145)
[2024-05-24 07:21] LABS: INR 1.9 (<1.2); Prothrombin Time 19.3 sec (10.0-12.5)
[2024-05-24 09:54] LABS: ALT 105 U/L (4-49); AST 346 U/L (17-59); African American GFR (CKD) 27 (>60 ml/min/1.73 sqM); Albumin 2.4 g/dL (3.5-5.0); Alkaline Phosphatase 206 U/L (38-126); Anion Gap 9 mmol/L; Blood Urea Nitrogen 24 mg/dL (9-20); Carbon Dioxide 23 mmol/L (22-30); Chloride 97 mmol/L (98-107); Glucose 183 mg/dL (74-99); Non-African American GFR(CKD) 24 (>60 ml/min/1.73 sqM); Potassium 3.5 mmol/L (3.5-5.1); Sodium 129 mmol/L (137-145)
--- NOTE | 2024-05-24 10:05 | P.PN ---
Subjective Patient is seen in follow-up for acute kidney injury. Off IV fluids. Renal function worse today. Remains on Airvo. Oral intake poor. Vital signs are stable. General: Sitting up in bed. HEENT: Head exam is unremarkable. On Airvo. LUNGS: No audible rhonchi or wheezes. HEART: Rate and Rhythm are regular. ABDOMEN: Nontender. Distention noted. EXTREMITITES: No edema. Objective - Vital Signs Vital signs: Vital Signs Temp 97.9 F 05/24/24 07:41 Pulse 96 05/24/24 08:42 Resp 26 H 05/24/24 07:41 BP 98/63 05/24/24 07:41 Pulse Ox 88 L 05/24/24 08:34 FiO2 68 05/24/24 08:34 Intake & Output 05/23/24 05/24/24 05/24/24 18:59 06:59 18:59 Intake Total 0 Output Total 300 300 Balance -300 -300 Weight 50.8 kg Intake: Oral 0 Output: Urine 300 300 Other: Voiding Method Indwelling Catheter Indwelling Catheter # Bowel Movements 1 1 - Labs CBC & Chem 7: 05/23/24 10:38 05/24/24 05:50 Labs: Abnormal Lab Results - Last 24 Hours (Table) 05/23/24 05/23/24 05/23/24 Range/Units 07:46 07:46 10:38 WBC 12.66 H 11.5 H (4.50-10.00) X 10*3/uL RBC 2.47 L 2.67 L (4.40-5.60) X 10*6/uL Hgb 8.8 L 9.5 L (13.0-17.0) g/dL Hct 25.2 L 30.4 L (39.6-50.0) % MCV 102.0 H 114.2 H (80.0-97.0) FL MCH 35.6 H 35.7 H (27.0-32.0) pg RDW 20.7 H 17.0 H (11.5-14.5) % Plt Count 87 L 92 L (140-440) X 10*3/uL Immature Gran # 0.18 H (0.00-0.04) X 10*3/uL Neutrophils # 9.45 H 9.3 H (1.80-7.70) X 10*3/uL Lymphocytes # 0.9 L (1.0-4.8) k/uL Monocytes # 1.76 H (0.20-1.00) X 10*3/uL Immature Plt Fraction 6.8 H (1.1-6.1) % Macrocytosis Marked A Target Cells 2+ A (None Seen) PT (10.0-12.5) sec INR (<1.2) Sodium (137-145) mmol/L Chloride (98-107) mmol/L BUN (9-20) mg/dL Creatinine (0.66-1.25) mg/dL Glucose (74-99) mg/dL Calcium (8.4-10.2) mg/dL Lipase (23-300) U/L Procalcitonin 0.56 H (0.02-0.50) ng/mL 05/23/24 05/23/24 05/24/24 Range/Units 11:33 11:33 05:50 WBC (4.50-10.00) X 10*3/uL RBC (4.40-5.60) X 10*6/uL Hgb (13.0-17.0) g/dL Hct (39.6-50.0) % MCV (80.0-97.0) FL MCH (27.0-32.0) pg RDW (11.5-14.5) % Plt Count (140-440) X 10*3/uL Immature Gran # (0.00-0.04) X 10*3/uL Neutrophils # (1.80-7.70) X 10*3/uL Lymphocytes # (1.0-4.8) k/uL Monocytes # (0.20-1.00) X 10*3/uL Immature Plt Fraction (1.1-6.1) % Macrocytosis Target Cells (None Seen) PT 20.4 H 19.3 H (10.0-12.5) sec INR 2.0 H 1.9 H (<1.2) Sodium (137-145) mmol/L Chloride (98-107) mmol/L BUN (9-20) mg/dL Creatinine (0.66-1.25) mg/dL Glucose (74-99) mg/dL Calcium (8.4-10.2) mg/dL Lipase 413 H (23-300) U/L Procalcitonin (0.02-0.50) ng/mL 05/24/24 Range/Units 05:50 WBC (4.50-10.00) X 10*3/uL RBC (4.40-5.60) X 10*6/uL Hgb (13.0-17.0) g/dL Hct (39.6-50.0) % MCV (80.0-97.0) FL MCH (27.0-32.0) pg RDW (11.5-14.5) % Plt Count (140-440) X 10*3/uL Immature Gran # (0.00-0.04) X 10*3/uL Neutrophils # (1.80-7.70) X 10*3/uL Lymphocytes # (1.0-4.8) k/uL Monocytes # (0.20-1.00) X 10*3/uL Immature Plt Fraction (1.1-6.1) % Macrocytosis Target Cells (None Seen) PT (10.0-12.5) sec INR (<1.2) Sodium 128 L (137-145) mmol/L Chloride 96 L (98-107) mmol/L BUN 25 H (9-20) mg/dL Creatinine 2.53 H (0.66-1.25) mg/dL Glucose 143 H (74-99) mg/dL Calcium 8.0 L (8.4-10.2) mg/dL Lipase (23-300) U/L Procalcitonin (0.02-0.50) ng/mL Assessment and Plan Plan: Assessment: 1. Acute kidney injury secondary to ATN with concern for hepatorenal syndrome vs bile cast nephropathy from hyperbilirubinemia.. UA benign. No hydronephrosis noted on imaging. Renal function worsening. Creatinine 2.53. 2. 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 Status post paracentesis this admission with 4 L drained. 3. Right renal lesion noted on ultrasound. Patient will need to see urology outpatient. 4. Metabolic acidosis secondary to acute kidney injury and lactic acidosis. Stable. 5. Volume overload. 6. Anemia. Iron replete. 7. Hypervolemic hyponatremia. Stable. 8. Hypomagnesemia from diuresis and poor intake. Replaced. Better. Plan: Patient received Aldactone this morning. Hold evening dose. Hold off on Lasix today. Increased dose of midodrine to 10 mg. Maintain low-salt diet. Avoid nephrotoxins. Continue to monitor renal function and urine output. Paracentesis pending. 25 g IV albumin pre and postprocedure. Transferred to [facility] pending. Prognosis guarded. Discussed with patient and his at length.
[2024-05-24 10:21] LABS: Total Bilirubin 21.9 mg/dL (0.2-1.3); Total Protein 5.7 g/dL (6.3-8.2)
--- NOTE | 2024-05-24 11:18 | US ---
EXAMINATION TYPE: US abdomen limited DATE OF EXAM: 05/24/2024 COMPARISON: Ultrasound paracentesis 05/18/2024, abdominal ultrasound 05/18/2024, CT chest and pelvis CLINICAL INDICATION: Male, 64 years old with history of assess for ascites; cirrhosis, abd distended TECHNIQUE: Grayscale imaging of the abdomen for ascites. FINDINGS: All four quadrants shows ascites IMPRESSION: Moderate to large volume ascites. [facility], , 05/24/2024 11:15 AM
[2024-05-24] MEDS: MIDODRINE 5 MG TAB PO SCH (11:35)
[2024-05-24 11:45] LABS: Anisocytosis Slight; Basophils # (A) 0.1 k/uL (0-0.2); Basophils % (A) 1 %; Eosinophils # (A) 0.3 k/uL (0-0.7); Eosinophils % (A) 3 %; HCT 29.5 % (39.0-53.0); HGB 9.8 gm/dL (13.0-17.5); Hypochromasia Marked; Lymphocytes # (A) 0.9 k/uL (1.0-4.8); Lymphocytes % (A) 8 %; MCH 37.7 pg (25.0-35.0); MCHC 33.1 g/dL (31.0-37.0); Macrocytosis Marked; Mean Platelet Volume 11.6; Monocytes % (A) 9 %; Neutrophils # (A) 8.6 k/uL (1.3-7.7); Neutrophils % (A) 77 %; Platelet Count 102 k/uL (150-450); RBC 2.59 m/uL (4.30-5.90); RDW 16.4 % (11.5-15.5); WBC 11.2 k/uL (3.8-10.6)
--- NOTE | 2024-05-24 11:57 | P.PN ---
Subjective Progress Note Date: 05/24/24 Principal diagnosis: Shortness of breath. Pulmonary consult dated May 23, 2024. This is a 64-year-old male seen today in room 369, in consultation. The patient was actually admitted through the emergency department, on May 17. The patient apparently came in with cough, shortness of breath, ascites, significant jaundice. The patient also complains of significant weakness. We were consulted for worsening hypoxemic respiratory failure. The patient was on 15 L high flow nasal cannula, and now is on Airvo, at 50 L/min with an FiO2 of 80%. He is quite jaundiced. Somewhat confused. Not able to give much of the history. Earlier on this admission, on May 18, he had a paracentesis abdominous, and 4.4 L of fluid was removed. He is currently on azithromycin and Rocephin, although cultures are negative. We did order an N-terminal proBNP and a procalcitonin level. The patient was lying flat in bed, and was mildly short of breath. I believe his shortness of breath likely related to his significant abdominal ascites. His chest x-ray may show some mild fluid overload. His past history includes gastroesophageal reflux disease, hyperlipidemia, hypertension, chronic alcoholic liver disease, osteoarthritis, migraine cephalgia, and chronic anxiety. The patient is a current everyday smoker, and apparently has a history of heavy alcohol ingestion. White count is 12.7, hemoglobin 8.8, hematocrit 25.2, platelet count is 87,000. Sodium 128, potassium 3.5, chlorides 96, CO2 24, BUN 21, creatinine 1.86. Glucose is 144. Calcium 8.2, magnesium 1.4. Bilirubin is 22.2. AST is 262. ALT is 103. Alkaline phosphatase is 211. N- terminal proBNP is 632. Procalcitonin levels pending. Albumin is 2.5. The patient's chest x-ray from May 23 has been reviewed. Progress note dated May 24, 2024. 64-year-old male again seen today in room 369. He was seen yesterday in consultation. Please see the note above. The patient continues on Airvo, 50 L/min, with an FiO2 of 70%. He is getting saline at 20 cc an hour. Procalcitonin level was 0.56. He is on azithromycin and Rocephin. As mentioned yesterday in my consultation, I believe his shortness of breath in large part relates to his abdominal ascites, and its effect on the lungs and diaphragm. Th e patient already has had 1 paracentesis abdominal's, and should have another 1. During the first paracentesis, 4.4 L of fluid was removed. Current laboratory data includes a PT of 19.3 with an INR of 1.9. Sodium 129, potassium 3.5, chlorides 97, bicarbonate concentration 23, anion gap 9, BUN 24, creatinine 2.74. Total bilirubin is 21.9. Calcium is 8. Glucose is 183. Liver function tests show a AST of 346. ALT of 105. Alkaline phosphatase is 206. Objective - Vital Signs Vital signs: Vital Signs Temp 97.9 F 05/24/24 07:41 Pulse 96 05/24/24 11:34 Resp 26 H 05/24/24 11:34 BP 101/64 05/24/24 11:34 Pulse Ox 91 L 05/24/24 11:34 FiO2 80 05/24/24 11:34 Intake & Output 05/23/24 05/24/24 05/24/24 18:59 06:59 18:59 Intake Total 0 Output Total 300 300 Balance -300 -300 Weight 50.8 kg Intake: Oral 0 Output: Urine 300 300 Other: Voiding Method Indwelling Catheter Indwelling Catheter Indwelling Catheter # Bowel Movements 1 1 - Exam No acute distress, confused, likely encephalopathic. Quite jaundiced. HEENT examination is grossly unremarkable. Mucous membranes are moist. No oral lesions. There is bilateral scleral icterus. Neck supple. Full range of motion. No adenopathy thyromegaly or neck vein distention. Cardiovascular examination reveals regular rhythm rate. S1-S2 normal. No S3 or S4. No discernible murmur noted. Heart sounds are distant. Lungs reveal mostly clear breath sound. Minimal rhonchi. No wheezes or crackles. Breath sounds are equal bilaterally. Abdomen distended, but soft. No bowel sounds noted. Extremities are intact. No cyanosis clubbing or edema. Skin is without rash or lesion. Neurologic examination is difficult to assess. The patient is very confused. - Labs CBC & Chem 7: 05/23/24 10:38 05/24/24 09:22 Labs: Abnormal Lab Results - Last 24 Hours (Table) 05/23/24 05/23/24 05/23/24 Range/Units 07:46 10:38 11:33 Neutrophils # 9.3 H (1.3-7.7) k/uL Lymphocytes # 0.9 L (1.0-4.8) k/uL PT 20.4 H (10.0-12.5) sec INR 2.0 H (<1.2) Sodium (137-145) mmol/L Chloride (98-107) mmol/L BUN (9-20) mg/dL Creatinine (0.66-1.25) mg/dL Glucose (74-99) mg/dL Calcium (8.4-10.2) mg/dL Total Bilirubin (0.2-1.3) mg/dL AST (17-59) U/L ALT (4-49) U/L Alkaline Phosphatase (38-126) U/L Creatine Kinase (55-170) U/L Total Protein (6.3-8.2) g/dL Albumin (3.5-5.0) g/dL Lipase (23-300) U/L Procalcitonin 0.56 H (0.02-0.50) ng/mL 05/23/24 05/24/24 05/24/24 Range/Units 11:33 05:50 05:50 Neutrophils # (1.3-7.7) k/uL Lymphocytes # (1.0-4.8) k/uL PT 19.3 H (10.0-12.5) sec INR 1.9 H (<1.2) Sodium 128 L (137-145) mmol/L Chloride 96 L (98-107) mmol/L BUN 25 H (9-20) mg/dL Creatinine 2.53 H (0.66-1.25) mg/dL Glucose 143 H (74-99) mg/dL Calcium 8.0 L (8.4-10.2) mg/dL Total Bilirubin (0.2-1.3) mg/dL AST (17-59) U/L ALT (4-49) U/L Alkaline Phosphatase (38-126) U/L Creatine Kinase (55-170) U/L Total Protein (6.3-8.2) g/dL Albumin (3.5-5.0) g/dL Lipase 413 H (23-300) U/L Procalcitonin (0.02-0.50) ng/mL 05/24/24 05/24/24 Range/Units 09:22 09:22 Neutrophils # (1.3-7.7) k/uL Lymphocytes # (1.0-4.8) k/uL PT (10.0-12.5) sec INR (<1.2) Sodium 129 L (137-145) mmol/L Chloride 97 L (98-107) mmol/L BUN 24 H (9-20) mg/dL Creatinine 2.74 H (0.66-1.25) mg/dL Glucose 183 H (74-99) mg/dL Calcium 8.0 L (8.4-10.2) mg/dL Total Bilirubin 21.9 H* (0.2-1.3) mg/dL AST 346 H (17-59) U/L ALT 105 H (4-49) U/L Alkaline Phosphatase 206 H (38-126) U/L Creatine Kinase 203 H (55-170) U/L Total Protein 5.7 L (6.3-8.2) g/dL Albumin 2.4 L (3.5-5.0) g/dL Lipase (23-300) U/L Procalcitonin (0.02-0.50) ng/mL Assessment and Plan Assessment: Acute hypoxemic respiratory failure, likely on the basis of severe abdominal ascites, and mild fluid overload. Doubt pneumonia. Severe alcoholic liver disease, with ascites, and severe hyperbilirubinemia. Bicytopenia, likely on the basis of alcohol abuse. Hyperammonemia, secondary to chronic liver disease. Possible chronic obstructive pulmonary disease secondary to chronic tobacco use. Mental status changes, likely on the basis of portosystemic encephalopathy and chronic alcohol disease. History of hypertension. History of hyperlipidemia. History of osteoarthritis. History of migraine cephalgia. History of heavy tobacco and alcohol abuse. Plan: Plan dated May 23, 2024. The patient is currently on Airvo, 50 L/min with an FiO2 of 80%. The patient was laying flat in bed, and should be upright, at 45 degrees or higher. In addition, interventional radiology should be evaluating the patient again for another paracentesis abdominis. Labs, x-rays, and medications are reviewed. We did order an N-terminal proBNP and procalcitonin level. Procalcitonin level is normal I would discontinue antibiotics. The nurses tell me that the patient is being evaluated for possible transfer. The patient is currently on Symbicort, and updrafts with albuterol sulfate ipratropium bromide. The patient is quite confused, with hyperammonemia, and encephalopathy. We will continue to follow. Prognosis is poor. No additional recommendations at this time. Plan dated May 24, 2024. The patient is again seen today in room 369. His is at the bedside. He continues to lay flat in bed. I believe he would breathe easier, if he was more upright, or sitting up. Anyway, the patient continues on appropriate antibiotics, for possible pneumonia. As mentioned yesterday, it does not appear to me that he has pneumonia. Nonetheless, we will leave that up to the primary service. He continues on Symbicort, and updrafts. We have asked interventional radiology to consider another paracentesis abdominis. The patient is quite jaundiced. He is confused, and has significant hyperammonemia. Labs, x-rays, and all medications are reviewed. Prognosis is poor. Dictation was produced using Module[employer] software. Please excuse any grammatical, word or spelling errors. Time with Patient: Less than 30
[2024-05-24] MEDS: ALBUMIN HUMAN 25% 50 ML in EMPTY BAG 1 BAG IVPB SCH ×2 (12:07→13:09)
--- NOTE | 2024-05-24 12:43 | P.PN ---
Subjective Progress Note Date: 05/24/24 This is a 64-year-old male with past medical history of gastroesophageal reflux disease, hypertension, ongoing nicotine dependence, anxiety, spinal stenosis/degenerative disc disease, alcohol abuse/dependence, paracentesis presented to the ER per recommendations of his PCP with worsening abdominal pain, abdominal distention, shortness of breath and fatigue. States last drink yesterday, rum and coke. Serum alcohol 127 on admission. Denies nausea ,vomiting or diarrhea. denies chest pain, palpitations. Denies lightheadedness dizziness or focal deficits. CT of chest abdomen and pelvis reporting moderate volume ascites with marked hepatic steatosis and cirrhotic appearance, change morphology previously seen right renal upper pole 3.9 cm lesion demonstrating internal fat with some enhancement and, previously predominantly enhancing throughout, correlate for prior intervention otherwise raises concern for possible fat-containing renal cell carcinoma versus other etiologies, cholelithiasis, septal patchy groundglass opacities within the bilateral upper lobes representing air trapping versus developing infectious inflammatory process versus pulmonary edema. Afebrile, WBC 13.8, 15.2. Hemoglobin 10.2, platelets 155, INR 1.4, sodium 132 bicarb 14 BUN 19 creatinine 1.89, lactic acid 6.7, total bili 18.8, conjugated bili 10, unconjugated bili 3.8 AST 319, ALT 103, alk phos 271, albumin 3.2, lipase 496. UA reporting trace of protein negative nitrates 3+ bilirubin negative leukocytes. Viral screen negative. Mild tachycardia, blood pressures stable, maintaining O2 sats of 93% on 2-1/2 L on nasal cannula. Continues on IV fluid hydration, CIWA protocol. Recent CIWA score 9. 05/19/2024 underwent paracentesis yesterday with 4350 ml of clear straw-colored fluid drained. Denies abdominal pain, tolerated procedure well. Pathology pending. CA 19-9 33.3 (0.0-34.9). Maintained on lactulose, ammonia decreased to 55.one BM documented for yesterday. Less restless, minimal tremors,continues on CIWA protocol, recent CIWA score 0. Denies chest pain, palpitations or shortness of breath. Maintaining O2 sats in the 90s on 3 L nasal cannula. Afebrile, WBC decreased to 11.79. Hemoglobin 8.9, platelets 117. Lactic acid WNL, 1.8. Sodium 129 potassium 3.9. Continues on bicarb drip, bicarb improved ,23.9. BUN 22.6, creatinine 2. T. bili 18.3, AST 296, ALT 112, alk phos 215. Albumin 3. 05/22/2024 Maintained on lactulose, ammonia level decreased to 19. CIWA score 2. CMP pending. Continues on Sandostatin. Hemoglobin 8.9, platelets 89. Mild tachycardia. Blood pressure soft, on IV fluids. afebrile, WBC 12.89. Maintaining O2 sats in the low 90s on 5 L nasal cannula. Low-sodium diet, poor oral intake. Denies nausea or vomiting. denies abdominal pain. paracentesis pathology reported negative for malignancy. 05/23/2024 condition declined last night, requiring A team and transferred to stepdown unit. Currently requiring 80% FiO2. Chest x-ray reporting emphysema with new moderate edema versus pneumonia bilateral lungs. T. bili increased to 22.2, ammonia increased to 38 on lactulose, creatinine worsening 1.86, sodium decreased to 128. Sodium decreased to 128, potassium 3.5, magnesium 1.4. 05/24/2024 transfer in progress to [facility], awaiting bed. Renal function worsening creatinine up to 2.74 T. bili remains elevated 21.9, AST 346, ALT 105, alk phos 206. Maintained on lactulose, ammonia level currently 20. Complained of bilateral thighs burning, CK-203. Yesterday empiric antibiotics started, procalcitonin mildly elevated, 0.56. Hepatitis panel reported nonreactive A,B,C. INR 1.9. bedside paracentesis pending. Continues to require 80% FiO2 to maintain O2 sats in the low 90s. CODE STATUS discussed with both patient and significant other-patient wants to remain a full code, they do not have DURABLE POWER OF [employer] papers. Objective - Vital Signs Vital signs: Vital Signs Temp 97.9 F 05/24/24 07:41 Pulse 94 05/24/24 12:13 Resp 26 H 05/24/24 11:34 BP 101/64 05/24/24 11:34 Pulse Ox 94 L 05/24/24 12:05 FiO2 68 05/24/24 12:05 Intake & Output 05/23/24 05/24/24 05/24/24 18:59 06:59 18:59 Intake Total 0 Output Total 300 300 Balance -300 -300 Weight 50.8 kg Intake: Oral 0 Output: Urine 300 300 Other: Voiding Method Indwelling Catheter Indwelling Catheter Indwelling Catheter # Bowel Movements 1 1 - Exam PHYSICAL EXAM: VITAL SIGNS: As above GENERAL: Alert and oriented x 1- 2, encephalopathic, sitting up in bed, no acute distress, jaundiced. Restless HEENT: Conjunctivae normal. Sclera icterus NECK: Supple no JVD. No thyroid enlargement. No LNs CARDIOVASCULAR: S1, S2 regular.No murmur RESPIRATION: Increased respiratory effort, equal air entry, minimal scattered rhonchi. ABDOMEN: Soft, distended, nontender, positive ascites no guarding. Hepatomegaly.+BS. LEGS: Lower extremity edema, Calves nontender. NERVOUS SYSTEM: Cranial N 2-12 grossly normal. No focal deficits. Skin: Warm and dry, no rash - Labs CBC & Chem 7: 05/23/24 10:38 05/24/24 09:22 Labs: Abnormal Lab Results - Last 24 Hours (Table) 05/23/24 05/23/24 05/24/24 Range/Units 07:46 11:33 05:50 PT 20.4 H 19.3 H (10.0-12.5) sec INR 2.0 H 1.9 H (<1.2) Sodium (137-145) mmol/L Chloride (98-107) mmol/L BUN (9-20) mg/dL Creatinine (0.66-1.25) mg/dL Glucose (74-99) mg/dL Calcium (8.4-10.2) mg/dL Total Bilirubin (0.2-1.3) mg/dL AST (17-59) U/L ALT (4-49) U/L Alkaline Phosphatase (38-126) U/L Creatine Kinase (55-170) U/L Total Protein (6.3-8.2) g/dL Albumin (3.5-5.0) g/dL Procalcitonin 0.56 H (0.02-0.50) ng/mL 05/24/24 05/24/24 05/24/24 Range/Units 05:50 09:22 09:22 PT (10.0-12.5) sec INR (<1.2) Sodium 128 L 129 L (137-145) mmol/L Chloride 96 L 97 L (98-107) mmol/L BUN 25 H 24 H (9-20) mg/dL Creatinine 2.53 H 2.74 H (0.66-1.25) mg/dL Glucose 143 H 183 H (74-99) mg/dL Calcium 8.0 L 8.0 L (8.4-10.2) mg/dL Total Bilirubin 21.9 H* (0.2-1.3) mg/dL AST 346 H (17-59) U/L ALT 105 H (4-49) U/L Alkaline Phosphatase 206 H (38-126) U/L Creatine Kinase 203 H (55-170) U/L Total Protein 5.7 L (6.3-8.2) g/dL Albumin 2.4 L (3.5-5.0) g/dL Procalcitonin (0.02-0.50) ng/mL Assessment and Plan Assessment: Abdominal pain, positive ascites, hepatocellular disease. Serum alcohol 127 on admission. Status post large-volume paracentesis, 4350ml on 05/18/24 Hyperbilirubinemia Hyperammonemia Hepatic encephalopathy Alcohol abuse, dependence since age 14 Alcoholic cirrhosis of liver, portal hypertension Acute hypoxic respiratory failure secondary to the above, procalcitonin mildly elevated, 0.56 Hyponatremia Urinary retention requiring Jorge catheter Myositis, bilateral thighs, CK 203 Prior MRI reported pancreatic lesion 12/19 with recommended outpatient EUS at [facility]. Patient states completed some of the workup. PCP reports patient had a ERCP with no biopsy. Lactic acidosis, resolved Leukocytosis, improving Acute renal failure, possibly hepatorenal syndrome Acute metabolic acidosis secondary to the above Right renal upper pole 3.9 cm lesion, reported per CT, suspicious for malignancy . urology following, recommending second opinion at a tertiary care center upon discharge. Cholelithiasis Gastroesophageal reflux disease Hyperlipidemia Hypertension Osteoarthritis Anxiety Ongoing nicotine dependence Medical marijuana use Plan: Continue on current medication regime ,monitoring and symptomatic treatment. Repeat therapeutic paracentesis pending. patient's condition declining , encephalopathic, worsening T. bili/LFTs/INR no GI specialty available at this site , transfer to [facility] initiated yesterday, accepted-pending bed. Transfer discussed with both patient and significant other at bedside.significant other has been with patient for many years but is not patient's . maintain lactulose with close monitoring of ammonia. Renal function worsening, no Lasix today, midodrine increased, aldactone discontinued.prognosis guarded given multiple complex medical issues. The impression and plan of care has been dictated as directed. : I performed a history and examination of this patient, discussed the same with the dictator. I agree with the dictator's note ,documented as a scribe. Any additional findings or plans will be noted.
--- NOTE | 2024-05-24 13:51 | US ---
EXAMINATION TYPE: US paracentesis abd w/image DATE OF EXAM: 05/24/2024 12:33 PM COMPARISON: None. Previous Paracentesis CLINICAL INDICATION: Male, 64 years old with history of see IR consult for order details; , ascites TECHNIQUE/FINDINGS: The procedure was discussed with the patient. The risks, complications, benefits, and alternatives we re discussed and any questions were answered. Informed consent was obtained. The patient was placed s upine on the ultrasound table and prepped and draped in the usual sterile fashion. All elements of maximal barrier technique were utilized. Under ultrasound guidance, access into the left lower quadrant was obtained, via the paracentesis catheter system and direct ultrasound guidance . Approximately 6 liters of straw-colored fluid was removed. The patient was stable throughout the proc edure and remained stable upon discharge from Department of Radiology. IMPRESSION: Successful paracentesis under ultrasound guidance. [facility], , 05/24/2024 1:49 PM
[2024-05-24] MEDS: LORazepam 1 MG/0.5 ML VIAL IV PRN (22:16)
[2024-05-25 09:38] LABS: ALT 115 U/L (4-49); AST 388 U/L (17-59); African American GFR (CKD) 20 (>60 ml/min/1.73 sqM); Albumin 2.5 g/dL (3.5-5.0); Alkaline Phosphatase 202 U/L (38-126); Anion Gap 11 mmol/L; Blood Urea Nitrogen 28 mg/dL (9-20); Calcium 7.6 mg/dL (8.4-10.2); Carbon Dioxide 21 mmol/L (22-30); Chloride 93 mmol/L (98-107); Glucose 145 mg/dL (74-99); Magnesium 1.8 mg/dL (1.6-2.3); Non-African American GFR(CKD) 17 (>60 ml/min/1.73 sqM); Potassium 3.5 mmol/L (3.5-5.1); Sodium 125 mmol/L (137-145)
[2024-05-25 09:44] LABS: Total Bilirubin 20.6 mg/dL (0.2-1.3)
[2024-05-25 09:45] LABS: Total Protein 5.8 g/dL (6.3-8.2)
[2024-05-25] MEDS: FUROSEMIDE 10 MG/ML 10 ML VIAL IV STA (10:04)
--- NOTE | 2024-05-25 10:05 | P.PN ---
Subjective Patient is seen in follow-up for acute kidney injury. Off IV fluids. Renal function worsening. Oliguric. Remains on Airvo. Oral intake poor. Vital signs are stable. Blood pressure is on the lower end. General: Sitting up in bed. HEENT: Head exam is unremarkable. On Airvo. LUNGS: No audible rhonchi or wheezes. HEART: Rate and Rhythm are regular. ABDOMEN: Nontender. Distention noted. EXTREMITITES: No edema. Objective - Vital Signs Vital signs: Vital Signs Temp 98 F 05/25/24 08:00 Pulse 89 05/25/24 08:15 Resp 22 05/25/24 08:00 BP 94/59 05/25/24 08:00 Pulse Ox 88 L 05/25/24 09:32 FiO2 91 05/25/24 09:32 Intake & Output 05/24/24 05/25/24 05/25/24 18:59 06:59 18:59 Intake Total 500 480 Output Total 100 100 Balance 400 380 Intake: IV 500 Albumin Human 25% 50 ml 200 In Empty Bag 1 bag @ 50 mls/hr IVPB Q1H EDUARD Rx#: [id number] Azithromycin 500 mg In 250 Sodium Chloride 0.9% 250 ml @ 250 mls/hr IVPB DAILY EDUARD Rx#:[id number] cefTRIAXone 1 gm In 50 Sodium Chloride 0.9% 50 ml @ 100 mls/hr IVPB Q24HR EDUARD Rx#:[id number] Oral 480 Output: Urine 100 100 Other: Voiding Method Indwelling Catheter Indwelling Catheter - Labs CBC & Chem 7: 05/24/24 05:50 05/25/24 08:43 Labs: Abnormal Lab Results - Last 24 Hours (Table) 05/24/24 05/24/24 05/24/24 Range/Units 05:50 09:22 09:22 WBC 11.2 H (3.8-10.6) k/uL RBC 2.59 L (4.30-5.90) m/uL Hgb 9.8 L (13.0-17.5) gm/dL Hct 29.5 L (39.0-53.0) % MCV 114.0 H (80.0-100.0) fL MCH 37.7 H (25.0-35.0) pg RDW 16.4 H (11.5-15.5) % Plt Count 102 L (150-450) k/uL Neutrophils # 8.6 H (1.3-7.7) k/uL Lymphocytes # 0.9 L (1.0-4.8) k/uL Macrocytosis Marked A Sodium 129 L (137-145) mmol/L Chloride 97 L (98-107) mmol/L Carbon Dioxide (22-30) mmol/L BUN 24 H (9-20) mg/dL Creatinine 2.74 H (0.66-1.25) mg/dL Glucose 183 H (74-99) mg/dL Calcium 8.0 L (8.4-10.2) mg/dL Total Bilirubin 21.9 H* (0.2-1.3) mg/dL AST 346 H (17-59) U/L ALT 105 H (4-49) U/L Alkaline Phosphatase 206 H (38-126) U/L Creatine Kinase 203 H (55-170) U/L Total Protein 5.7 L (6.3-8.2) g/dL Albumin 2.4 L (3.5-5.0) g/dL 05/25/24 Range/Units 08:43 WBC (3.8-10.6) k/uL RBC (4.30-5.90) m/uL Hgb (13.0-17.5) gm/dL Hct (39.0-53.0) % MCV (80.0-100.0) fL MCH (25.0-35.0) pg RDW (11.5-15.5) % Plt Count (150-450) k/uL Neutrophils # (1.3-7.7) k/uL Lymphocytes # (1.0-4.8) k/uL Macrocytosis Sodium 125 L (137-145) mmol/L Chloride 93 L (98-107) mmol/L Carbon Dioxide 21 L (22-30) mmol/L BUN 28 H (9-20) mg/dL Creatinine 3.58 H (0.66-1.25) mg/dL Glucose 145 H (74-99) mg/dL Calcium 7.6 L (8.4-10.2) mg/dL Total Bilirubin 20.6 H* (0.2-1.3) mg/dL AST 388 H (17-59) U/L ALT 115 H (4-49) U/L Alkaline Phosphatase 202 H (38-126) U/L Creatine Kinase (55-170) U/L Total Protein 5.8 L (6.3-8.2) g/dL Albumin 2.5 L (3.5-5.0) g/dL Assessment and Plan Plan: Assessment: 1. Acute kidney injury secondary to ATN with concern for hepatorenal syndrome vs bile cast nephropathy from hyperbilirubinemia.. UA benign. No hydronephrosis noted on imaging. Renal function worsening. Creatinine 3.58 today. 2. 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 Status post paracentesis this admission with 4 L drained. 3. Right renal lesion noted on ultrasound. Patient will need to see urology outpatient. 4. Metabolic acidosis secondary to acute kidney injury and lactic acidosis. 5. Volume overload. Status post paracentesis with 6 L drained May 24, 2024. 6. Anemia. Iron replete. 7. Hypervolemic hyponatremia. 8. Hypomagnesemia from diuresis and poor intake. Replaced. Better. Plan: 60 mg IV Lasix once today. If no response in urine output in the next 2 to 3 hours, will initiate renal replacement therapy. Maintain midodrine. Maintain low-salt diet. Avoid nephrotoxins. Patient will need another paracentesis due to rapid buildup of ascites. Transferred to [facility] pending. Prognosis guarded. Discussed with patient and his at length.
[2024-05-25] MEDS: HYDROmorphone 0.5 MG/0.5 ML SYRINGE IVP PRN (11:58)
--- NOTE | 2024-05-25 13:21 | P.PN ---
Subjective Progress Note Date: 05/25/24 Principal diagnosis: Shortness of breath. Pulmonary consult dated May 23, 2024. This is a 64-year-old male seen today in room 369, in consultation. The patient was actually admitted through the emergency department, on May 17. The patient apparently came in with cough, shortness of breath, ascites, significant jaundice. The patient also complains of significant weakness. We were consulted for worsening hypoxemic respiratory failure. The patient was on 15 L high flow nasal cannula, and now is on Airvo, at 50 L/min with an FiO2 of 80%. He is quite jaundiced. Somewhat confused. Not able to give much of the history. Earlier on this admission, on May 18, he had a paracentesis abdominous, and 4.4 L of fluid was removed. He is currently on azithromycin and Rocephin, although cultures are negative. We did order an N-terminal proBNP and a procalcitonin level. The patient was lying flat in bed, and was mildly short of breath. I believe his shortness of breath likely related to his significant abdominal ascites. His chest x-ray may show some mild fluid overload. His past history includes gastroesophageal reflux disease, hyperlipidemia, hypertension, chronic alcoholic liver disease, osteoarthritis, migraine cephalgia, and chronic anxiety. The patient is a current everyday smoker, and apparently has a history of heavy alcohol ingestion. White count is 12.7, hemoglobin 8.8, hematocrit 25.2, platelet count is 87,000. Sodium 128, potassium 3.5, chlorides 96, CO2 24, BUN 21, creatinine 1.86. Glucose is 144. Calcium 8.2, magnesium 1.4. Bilirubin is 22.2. AST is 262. ALT is 103. Alkaline phosphatase is 211. N- terminal proBNP is 632. Procalcitonin levels pending. Albumin is 2.5. The patient's chest x-ray from May 23 has been reviewed. Progress note dated May 24, 2024. 64-year-old male again seen today in room 369. He was seen yesterday in consultation. Please see the note above. The patient continues on Airvo, 50 L/min, with an FiO2 of 70%. He is getting saline at 20 cc an hour. Procalcitonin level was 0.56. He is on azithromycin and Rocephin. As mentioned yesterday in my consultation, I believe his shortness of breath in large part relates to his abdominal ascites, and its effect on the lungs and diaphragm. Th e patient already has had 1 paracentesis abdominal's, and should have another 1. During the first paracentesis, 4.4 L of fluid was removed. Current laboratory data includes a PT of 19.3 with an INR of 1.9. Sodium 129, potassium 3.5, chlorides 97, bicarbonate concentration 23, anion gap 9, BUN 24, creatinine 2.74. Total bilirubin is 21.9. Calcium is 8. Glucose is 183. Liver function tests show a AST of 346. ALT of 105. Alkaline phosphatase is 206. Progress note dated May 25, 2024. 64-year-old male seen again today in room he was seen in consultation 2 days ago. Please see the notes above. The patient was admitted with a diagnosis of alcoholic liver disease and alcoholic cirrhosis. The patient continues on Airvo, along with a nonrebreather. His Airvo settings are 60 L/min with an FiO2 of 90%. In addition on top of the Airvo catheter, he has a nonrebreather mask. He is not receiving any IV fluids. He had a repeat paracentesis abdominal yesterday, and 6 L was removed. He continues on azithromycin and Rocephin. The patient's overall prognosis is very poor. I did speak to the today about possible transfer and also about the possibility of changing his CODE STATUS. I believe that if the patient ends up on life support, likely, he will require long-term life support, and may end up with a tracheostomy tube and feeding tube. That said if he survives the acute injury. Sodium 125, potassium 3.5, chlorides 93, CO2 21, anion gap 11, BUN 28, and creatinine 3.58. Yesterday's BUN and creatinine were 24 and 2.74. Also, the patient's glucose was 145, calcium 7.6, bilirubin 20.6, AST 388, ALT 115, and alkaline phosphatase 202. Ammonia levels back up to 33. Albumin is 2.5. Objective - Vital Signs Vital signs: Vital Signs Temp 97.6 F 05/25/24 11:57 Pulse 89 05/25/24 12:03 Resp 28 H 05/25/24 11:29 BP 87/54 05/25/24 11:57 Pulse Ox 92 L 05/25/24 11:57 FiO2 88 05/25/24 11:57 Intake & Output 05/24/24 05/25/24 05/25/24 18:59 06:59 18:59 Intake Total 500 480 300 Output Total 100 100 50 Balance 400 380 250 Intake: IV 500 300 Albumin Human 25% 50 ml 200 In Empty Bag 1 bag @ 50 mls/hr IVPB Q1H EDUARD Rx#: [id number] Azithromycin 500 mg In 250 250 Sodium Chloride 0.9% 250 ml @ 250 mls/hr IVPB DAILY [facility] Rx#:[id number] cefTRIAXone 1 gm In 50 50 Sodium Chloride 0.9% 50 ml @ 100 mls/hr IVPB Q24HR [facility] Rx#:[id number] Oral 480 Output: Urine 100 100 50 Other: Voiding Method Indwelling Catheter Indwelling Catheter - Exam No acute distress, confused, likely encephalopathic. Quite jaundiced. Currently on Airvo, along with a nonrebreather mask. HEENT examination is grossly unremarkable. Mucous membranes are moist. No oral lesions. There is bilateral scleral icterus. Neck supple. Full range of motion. No adenopathy thyromegaly or neck vein distention. Cardiovascular examination reveals regular rhythm rate. S1-S2 normal. No S3 or S4. No discernible murmur noted. Heart sounds are distant. Lungs reveal mostly clear breath sound. Minimal rhonchi. No wheezes or crac kles. Breath sounds are equal bilaterally. Abdomen distended, but soft. No bowel sounds noted. Extremities are intact. No cyanosis clubbing or edema. Skin is without rash or lesion. The patient is quite jaundiced. Neurologic examination is difficult to assess. The patient is very confused. - Labs CBC & Chem 7: 05/24/24 05:50 05/25/24 08:43 Labs: Abnormal Lab Results - Last 24 Hours (Table) 05/25/24 05/25/24 Range/Units 08:43 11:05 Sodium 125 L (137-145) mmol/L Chloride 93 L (98-107) mmol/L Carbon Dioxide 21 L (22-30) mmol/L BUN 28 H (9-20) mg/dL Creatinine 3.58 H (0.66-1.25) mg/dL Glucose 145 H (74-99) mg/dL Calcium 7.6 L (8.4-10.2) mg/dL Total Bilirubin 20.6 H* (0.2-1.3) mg/dL AST 388 H (17-59) U/L ALT 115 H (4-49) U/L Alkaline Phosphatase 202 H (38-126) U/L Ammonia 33 H (<30) umol/L Total Protein 5.8 L (6.3-8.2) g/dL Albumin 2.5 L (3.5-5.0) g/dL Assessment and Plan Assessment: Acute hypoxemic respiratory failure, likely on the basis of severe abdominal ascites, and mild fluid overload. Doubt pneumonia. Severe alcoholic liver disease, with ascites, and severe hyperbilirubinemia. Bicytopenia, likely on the basis of alcohol abuse. Hyperammonemia, secondary to chronic liver disease. Possible chronic obstructive pulmonary disease secondary to chronic tobacco use. Mental status changes, likely on the basis of portosystemic encephalopathy and chronic alcohol disease. History of hypertension. History of hyperlipidemia. History of osteoarthritis. History of migraine cephalgia. History of heavy tobacco and alcohol abuse. Plan: Plan dated May 23, 2024. The patient is currently on Airvo, 50 L/min with an FiO2 of 80%. The patient was laying flat in bed, and should be upright, at 45 degrees or higher. In addition, interventional radiology should be evaluating the patient again for a nother paracentesis abdominis. Labs, x-rays, and medications are reviewed. We did order an N-terminal proBNP and procalcitonin level. Procalcitonin level is normal I would discontinue antibiotics. The nurses tell me that the patient is being evaluated for possible transfer. The patient is currently on Symbicort, and updrafts with albuterol sulfate ipratropium bromide. The patient is quite confused, with hyperammonemia, and encephalopathy. We will continue to follow. Prognosis is poor. No additional recommendations at this time. Plan dated May 24, 2024. The patient is again seen today in room 369. His is at the bedside. He continues to lay flat in bed. I believe he would breathe easier, if he was more upright, or sitting up. Anyway, the patient continues on appropriate antibiotics, for possible pneumonia. As mentioned yesterday, it does not appear to me that he has pneumonia. Nonetheless, we will leave that up to the primary service. He continues on Symbicort, and updrafts. We have asked interventional radiology to consider another paracentesis abdominis. The patient is quite jaundiced. He is confused, and has significant hyperammonemia. Labs, x-rays, and all medications are reviewed. Prognosis is poor. Dictation was produced using [employer] software. Please excuse any grammatical, word or spelling errors. Plan dated May 25, 2024. The patient continues to be very restless and agitated. The patient is on Airvo, at 60 L/min with an FiO2 of 90%. In addition to that, he is wearing a nonrebreather mask. The patient had a paracentesis abdominal yesterday, May 24. 61-year-old removed. The abdomen unfortunately filled back up with fluid. He is not receiving any IV fluids. The patient is on azithromycin and Rocephin. I did have a long conversation with the patient's about CODE STATUS. I recommended DNR. In addition, discharge planning and gearcase assembler are looking to maybe get the patient transferred to a facility with a liver unit. The patient's overall prognosis is poor. We will continue to follow. Dictation was produced using [employer] software. Please excuse any grammatical, word or spelling errors. Time with Patient: Less than 30
--- NOTE | 2024-05-25 14:12 | P.PN ---
Subjective Progress Note Date: 05/25/24 This is a 64-year-old male with past medical history of gastroesophageal reflux disease, hypertension, ongoing nicotine dependence, anxiety, spinal stenosis/degenerative disc disease, alcohol abuse/dependence, paracentesis presented to the ER per recommendations of his PCP with worsening abdominal pain, abdominal distention, shortness of breath and fatigue. States last drink yesterday, rum and coke. Serum alcohol 127 on admission. Denies nausea ,vomiting or diarrhea. denies chest pain, palpitations. Denies lightheadedness dizziness or focal deficits. CT of chest abdomen and pelvis reporting moderate volume ascites with marked hepatic steatosis and cirrhotic appearance, change morphology previously seen right renal upper pole 3.9 cm lesion demonstrating internal fat with some enhancement and, previously predominantly enhancing throughout, correlate for prior intervention otherwise raises concern for possible fat-containing renal cell carcinoma versus other etiologies, cholelithiasis, septal patchy groundglass opacities within the bilateral upper lobes representing air trapping versus developing infectious inflammatory process versus pulmonary edema. Afebrile, WBC 13.8, 15.2. Hemoglobin 10.2, platelets 155, INR 1.4, sodium 132 bicarb 14 BUN 19 creatinine 1.89, lactic acid 6.7, total bili 18.8, conjugated bili 10, unconjugated bili 3.8 AST 319, ALT 103, alk phos 271, albumin 3.2, lipase 496. UA reporting trace of protein negative nitrates 3+ bilirubin negative leukocytes. Viral screen negative. Mild tachycardia, blood pressures stable, maintaining O2 sats of 93% on 2-1/2 L on nasal cannula. Continues on IV fluid hydration, CIWA protocol. Recent CIWA score 9. 05/19/2024 underwent paracentesis yesterday with 4350 ml of clear straw-colored fluid drained. Denies abdominal pain, tolerated procedure well. Pathology pending. CA 19-9 33.3 (0.0-34.9). Maintained on lactulose, ammonia decreased to 55.one BM documented for yesterday. Less restless, minimal tremors,continues on CIWA protocol, recent CIWA score 0. Denies chest pain, palpitations or shortness of breath. Maintaining O2 sats in the 90s on 3 L nasal cannula. Afebrile, WBC decreased to 11.79. Hemoglobin 8.9, platelets 117. Lactic acid WNL, 1.8. Sodium 129 potassium 3.9. Continues on bicarb drip, bicarb improved ,23.9. BUN 22.6, creatinine 2. T. bili 18.3, AST 296, ALT 112, alk phos 215. Albumin 3. 05/22/2024 Maintained on lactulose, ammonia level decreased to 19. CIWA score 2. CMP pending. Continues on Sandostatin. Hemoglobin 8.9, platelets 89. Mild tachycardia. Blood pressure soft, on IV fluids. afebrile, WBC 12.89. Maintaining O2 sats in the low 90s on 5 L nasal cannula. Low-sodium diet, poor oral intake. Denies nausea or vomiting. denies abdominal pain. paracentesis pathology reported negative for malignancy. 05/23/2024 condition declined last night, requiring A team and transferred to stepdown unit. Currently requiring 80% FiO2. Chest x-ray reporting emphysema with new moderate edema versus pneumonia bilateral lungs. T. bili increased to 22.2, ammonia increased to 38 on lactulose, creatinine worsening 1.86, sodium decreased to 128. Sodium decreased to 128, potassium 3.5, magnesium 1.4. 05/24/2024 transfer in progress to [facility], awaiting bed. Renal function worsening creatinine up to 2.74 T. bili remains elevated 21.9, AST 346, ALT 105, alk phos 206. Maintained on lactulose, ammonia level currently 20. Complained of bilateral thighs burning, CK-[id number]. Yesterday empiric antibiotics started, procalcitonin mildly elevated, 0.56. Hepatitis panel reported nonreactive A,B,C. INR 1.9. bedside paracentesis pending. Continues to require 80% FiO2 to maintain O2 sats in the low 90s. CODE STATUS discussed with both patient and significant other-patient wants to remain a full code, they do not have DURABLE POWER OF PARCEL CARRIER papers. 05/25/2024 declining condition, blood pressures soft, now requiring 88%/6 L Airvo along with nonrebreather mask on top of Airvo,to maintain O2 sats in the high 80s to low 90s.Renal function worsening, bicarb 21, BUN 28, creatinine 3.58. Urine output decreased to 200 mL over the last 24 hours , recently received a dose of Lasix 60 mg IV push x 1, response pending.Sodium decreased to 125, potassium 3.5. T. bili 20.6, AST 388, ALT 115, alk phos 202, ammonia increased to 33. No stooling yet today, lactulose increased. albumin 2.5. Underwent a second paracentesis yesterday with 6 L removed, unfortunately rapidly reoccuring today. PT/INR added onto prior labs/pending. continues on Rocephin, azithromycin for potential pneumonia-doubtful per pulmonary. Transfer attempts to multiple tertiary care centers continue with no beds available currently. Objective - Vital Signs Vital signs: Vital Signs Temp 97.6 F 05/25/24 11:57 Pulse 89 05/25/24 12:03 Resp 28 H 05/25/24 11:29 BP 87/54 05/25/24 11:57 Pulse Ox 92 L 05/25/24 11:57 FiO2 88 05/25/24 11:57 Intake & Output 05/24/24 05/25/24 05/25/24 18:59 06:59 18:59 Intake Total 500 480 300 Output Total 100 100 50 Balance 400 380 250 Intake: IV 500 300 Albumin Human 25% 50 ml 200 In Empty Bag 1 bag @ 50 mls/hr IVPB Q1H [facility] Rx#: [id number] Azithromycin 500 mg In 250 250 Sodium Chloride 0.9% 250 ml @ 250 mls/hr IVPB DAILY [facility] Rx#:[id number] cefTRIAXone 1 gm In 50 50 Sodium Chloride 0.9% 50 ml @ 100 mls/hr IVPB Q24HR [facility] Rx#:[id number] Oral 480 Output: Urine 100 100 50 Other: Voiding Method Indwelling Catheter Indwelling Catheter - Exam PHYSICAL EXAM: VITAL SIGNS: As above GENERAL: Alert and oriented x 1- 2, encephalopathic, sitting up in bed, jaundiced. HEENT: Conjunctivae normal. Sclera icterus, NECK: Supple no JVD. CARDIOVASCULAR: S1, S2 regular.No murmur RESPIRATION: Increased respiratory effort, equal air entry, minimal scattered rhonchi, bilateral bases diminished. ABDOMEN: Soft, distended, nontender, positive ascites no guarding. Hepatomegaly. LEGS: No edema NERVOUS SYSTEM: Limited, unable to evaluate currently given patient's confusion. Skin: Warm and dry, no rash, jaundiced - Labs CBC & Chem 7: 05/24/24 05:50 05/25/24 08:43 Labs: Abnormal Lab Results - Last 24 Hours (Table) 05/25/24 05/25/24 Range/Units 08:43 11:05 Sodium 125 L (137-145) mmol/L Chloride 93 L (98-107) mmol/L Carbon Dioxide 21 L (22-30) mmol/L BUN 28 H (9-20) mg/dL Creatinine 3.58 H (0.66-1.25) mg/dL Glucose 145 H (74-99) mg/dL Calcium 7.6 L (8.4-10.2) mg/dL Total Bilirubin 20.6 H* (0.2-1.3) mg/dL AST 388 H (17-59) U/L ALT 115 H (4-49) U/L Alkaline Phosphatase 202 H (38-126) U/L Ammonia 33 H (<30) umol/L Total Protein 5.8 L (6.3-8.2) g/dL Albumin 2.5 L (3.5-5.0) g/dL Assessment and Plan Assessment: Abdominal pain, positive ascites, hepatocellular disease. Serum alcohol 127 on admission. Status post large-volume paracentesis, 4350ml on 05/18/24 Hyperbilirubinemia Hyperammonemia Hepatic encephalopathy Alcohol abuse, dependence since age 14 Alcoholic cirrhosis of liver, portal hypertension Acute hypoxic respiratory failure secondary to the above, procalcitonin mildly elevated, 0.56, possibly pneumonia-doubtful per pulmonary. Hyponatremia Urinary retention requiring Jorge catheter Myositis, bilateral thighs, CK 203 Prior MRI reported pancreatic lesion 12/19 with recommended outpatient E[facility] at [facility]. Patient states completed some of the workup. PCP reports patient had a ERCP with no biopsy. Lactic acidosis, resolved Leukocytosis, improving Acute renal failure, possibly hepatorenal syndrome Acute metabolic acidosis secondary to the above Right renal upper pole 3.9 cm lesion, reported per CT, suspicious for malignancy. urology following, recommending second opinion at a tertiary care center upon discharge. Cholelithiasis Gastroesophageal reflux disease Hyperlipidemia Hypertension Osteoarthritis Anxiety Ongoing nicotine dependence Medical marijuana use Plan: Continue on current medication regime ,monitoring and symptomatic treatment. Prognosis poor, continues to decline, transfer to ICU. Dr. Gibbons spoke with ensemble member.PCP, Dr. Gibbons spoke with U kiarra M ug designer- recommending patient receive 100 g of albumin daily in addition to pre and post albumin prior to paracentesis treatments. Nephrology discussing initiating renal replacement therapy if no response in the next couple of hours to the Lasix .Continuing attempts to transfer to multiple hospitals, including [facility], [facility], [facility] as we do not have GI or ug designer specialties available at this site. repeat therapeutic paracentesis pending. Maintain supportive care. The impression and plan of care has been dictated as directed. : I performed a history and examination of this patient, discussed the same with the dictator. I agree with the dictator's note ,documented as a scribe. Any additional findings or plans will be noted.
--- NOTE | 2024-05-25 14:39 | US ---
EXAMINATION TYPE: US abdomen limited DATE OF EXAM: 05/25/2024 COMPARISON: Ultrasound paracentesis 05/24/2024, abdominal ultrasound 05/24/2024 CLINICAL INDICATION: Male, 64 years old with history of Ascites; check for fluid drained 6 liters yes terday. TECHNIQUE: Grayscale imaging of the abdomen for ascites. FINDINGS: Multiple bowel loops visualized. Very small amount of fluid seen right upper quadrant. IMPRESSION: Small volume ascites. [facility], , 05/25/2024 2:37 PM
[2024-05-25] MEDS: LIDOCAINE 1% INJ 10MG/ML (20 ML MDV) SQ ONE (14:42)
[2024-05-25 15:05] LABS: INR 2.1 (<1.2); Prothrombin Time 21.4 sec (10.0-12.5)
[2024-05-25] MEDS: ALBUMIN HUMAN 25% 50 ML in EMPTY BAG 1 BAG IVPB SCH (16:06)
[2024-05-25] MEDS: LACTULOSE 20 GM/30 ML CUP PO SCH (17:59)
[2024-05-25] MEDS: MIDODRINE 5 MG TAB PO STA (20:05)
[2024-05-25 20:17] LABS: Glucose,Whole Blood 128 mg/dL (70-110)
--- NOTE | 2024-05-25 20:39 | OP ---
OPERATIVE REPORT DATE OF SERVICE : PREOPERATIVE DIAGNOSES: 1. Acute chronic liver failure. 2. Cirrhosis of the liver. POSTOPERATIVE DIAGNOSES: 1. Acute chronic liver failure. 2. Cirrhosis of the liver. PROCEDURE PERFORMED: Ultrasound-guided 20 cm dialysis catheter placed in right femoral approach. DESCRIPTION OF PROCEDURE: Right groin was prepped and drapes were applied in a sterile manner. 1% lidocaine plain infiltrated into the groin area. Ultrasound-guided micropuncture introduced into the right femoral vein. Micropuncture guidewire was passed and a 4-Indonesian dilator on top of the guidewire. Then, we passed a regular guidewire and dilator was advanced on top of the guidewire, and then, we placed 20 cm dialysis catheter on the top of the guidewire. Guidewire was removed, secured with 2-0 nylon. Pressure applied. The patient tolerated the procedure well. MMSIMÓN / MARION: [id number] /
--- NOTE | 2024-05-25 20:45 | CONS ---
CONSULTATION This is a 64-year-old gentleman with a history of acute kidney injury. Consulted for placement of a dialysis catheter. The patient has a history of cirrhosis with portal hypertension. The patient also has hyponatremia. PHYSICAL EXAMINATION: GENERAL: The patient was seen in the intensive care unit. NECK: Supple. No bruit appreciated. CHEST: A few crackles at the lung bases. HEART: First and second sounds present. ABDOMEN: Soft, nontender. VASCULAR: Femorals are 2+ bilaterally. PLAN: Placement of dialysis catheter. Risks and complications discussed. MMODL / IJN: [id number] /
[2024-05-25 20:49] LABS: Glucose,Whole Blood 130 mg/dL (70-110)
[2024-05-26 00:09] LABS: Glucose,Whole Blood 127 mg/dL (70-110)
[2024-05-26 03:58] LABS: ALT 113 U/L (4-49); AST 403 U/L (17-59); African American GFR (CKD) 20 (>60 ml/min/1.73 sqM); Albumin 2.7 g/dL (3.5-5.0); Alkaline Phosphatase 194 U/L (38-126); Anion Gap 8 mmol/L; Blood Urea Nitrogen 23 mg/dL (9-20); Calcium 7.6 mg/dL (8.4-10.2); Carbon Dioxide 23 mmol/L (22-30); Chloride 94 mmol/L (98-107); Glucose 117 mg/dL (74-99); Magnesium 1.8 mg/dL (1.6-2.3); Non-African American GFR(CKD) 17 (>60 ml/min/1.73 sqM); Potassium 3.4 mmol/L (3.5-5.1); Sodium 125 mmol/L (137-145); Total Protein 5.6 g/dL (6.3-8.2)
[2024-05-26 04:16] LABS: INR 2.3 (<1.2); Prothrombin Time 23.2 sec (10.0-12.5)
[2024-05-26 05:07] LABS: Anisocytosis Slight; Basophils # (A) 0.1 k/uL (0-0.2); Basophils % (A) 0 %; Eosinophils # (A) 0.2 k/uL (0-0.7); Eosinophils % (A) 1 %; HCT 25.9 % (39.0-53.0); HGB 8.6 gm/dL (13.0-17.5); Lymphocytes # (A) 1.2 k/uL (1.0-4.8); Lymphocytes % (A) 8 %; MCH 36.6 pg (25.0-35.0); MCHC 33.1 g/dL (31.0-37.0); MCV 110.8 fL (80.0-100.0); Mean Platelet Volume 10.1; Monocytes # (A) 0.7 k/uL (0-1.0); Monocytes % (A) 5 %; Neutrophils # (A) 12.5 k/uL (1.3-7.7); Neutrophils % (A) 84 %; RBC 2.33 m/uL (4.30-5.90); RDW 16.7 % (11.5-15.5)
[2024-05-26 05:23] LABS: Macrocytosis Marked; Platelet Count 96 k/uL (150-450)
[2024-05-26] MEDS: NOREPINEPHRINE 4 MG in SODIUM CHLORIDE 0.9% 250 ML IV SCH (05:25)
[2024-05-26] MEDS ORDERED: Magnesium Replacement Protocol 1 EACH MISC MISCELLANE PRN (06:13)
[2024-05-26 06:26] LABS: Glucose,Whole Blood 139 mg/dL (70-110)
[2024-05-26] MEDS: MAGNESIUM SULFATE-D5W PMX 1 GM in DEXTROSE/WATER 1 100ML.BAG IVPB ONE (06:35)
--- NOTE | 2024-05-26 07:21 | XR ---
EXAMINATION TYPE: XR chest 1V portable DATE OF EXAM: 05/26/2024 5:18 AM COMPARISON: Chest radiographs from 05/17/2024, CT chest and abdomen pelvis 04/19/2024 TECHNIQUE: XR chest 1V portable Portable AP radiograph of the chest. CLINICAL INDICATION:Male, 64 years old with history of pneumonia; FINDINGS: Lungs/Pleura: Diffuse multifocal patchy airspace opacities. No pleural effusion or pneumothorax. Pulmonary vascularity: Unremarkable. Heart/mediastinum: Cardiomediastinal silhouette is unremarkable. Musculoskeletal: No acute osseous pathology. Partial visualization of left proximal humerus fixation hardware. IMPRESSION: Worsening multifocal patchy airspace opacities most consistent with pneumonia. [facility], , 05/26/2024 7:19 AM
[2024-05-26] MEDS: POTASSIUM CHLORIDE ER 20 MEQ TAB.ER PO SCH (08:17)
--- NOTE | 2024-05-26 09:46 | P.PN ---
Subjective Patient is seen in follow-up for acute kidney injury. Receiving albumin. Oliguric. Remains on Airvo. Oral intake poor. Started on hemodialysis May 25, 2024. Unable to tolerate any ultrafiltration. On Levophed. Vital signs are stable. Blood pressure is low. On vasopressor support. General: Sitting up in bed. HEENT: Head exam is unremarkable. On Airvo. LUNGS: Scattered rhonchi. HEART: Rate and Rhythm are regular. ABDOMEN: Nontender. Distention noted. EXTREMITITES: No edema. Objective - Vital Signs Vital signs: Vital Signs Temp 98.4 F 05/26/24 00:00 Pulse 92 05/26/24 08:47 Resp 28 H 05/26/24 07:00 BP 103/60 05/26/24 07:00 Pulse Ox 92 L 05/26/24 08:27 FiO2 88 05/26/24 08:27 Intake & Output 05/25/24 05/26/24 05/26/24 18:59 06:59 18:59 Intake Total 300 409.718 16.525 Output Total 50 405 0 Balance 250 4.718 16.525 Weight 104.1 kg Intake: IV 300 Azithromycin 500 mg In 250 Sodium Chloride 0.9% 250 ml @ 250 mls/hr IVPB DAILY [facility] Rx#:[id number] cefTRIAXone 1 gm In 50 Sodium Chloride 0.9% 50 ml @ 100 mls/hr IVPB Q24HR [facility] Rx#:[id number] Intake, IV Titration 9.718 16.525 Amount Norepinephrine 4 mg In 9.718 16.525 Sodium Chloride 0.9% 250 ml @ 0.03 MCG/KG/MIN 11. 899 mls/hr IV .[id number] [facility] Rx#:[id number] Hemodialysis 400 Output: Urine 50 5 0 Hemodialysis 100 Hemodialysis Net Amount 300 Other: Voiding Method Indwelling Catheter Indwelling Catheter # Bowel Movements 1 - Labs CBC & Chem 7: 05/26/24 02:52 05/26/24 02:52 Labs: Abnormal Lab Results - Last 24 Hours (Table) 05/25/24 05/25/24 05/25/24 Range/Units 08:43 11:05 14:23 WBC (3.8-10.6) k/uL RBC (4.30-5.90) m/uL Hgb (13.0-17.5) gm/dL Hct (39.0-53.0) % MCV (80.0-100.0) fL MCH (25.0-35.0) pg RDW (11.5-15.5) % Plt Count (150-450) k/uL Neutrophils # (1.3-7.7) k/uL Macrocytosis PT 21.4 H (10.0-12.5) sec INR 2.1 H (<1.2) Sodium 125 L (137-145) mmol/L Potassium (3.5-5.1) mmol/L Chloride 93 L (98-107) mmol/L Carbon Dioxide 21 L (22-30) mmol/L BUN 28 H (9-20) mg/dL Creatinine 3.58 H (0.66-1.25) mg/dL Glucose 145 H (74-99) mg/dL POC Glucose (mg/dL) (70-110) mg/dL Calcium 7.6 L (8.4-10.2) mg/dL Total Bilirubin 20.6 H* (0.2-1.3) mg/dL AST 388 H (17-59) U/L ALT 115 H (4-49) U/L Alkaline Phosphatase 202 H (38-126) U/L Ammonia 33 H (<30) umol/L Total Protein 5.8 L (6.3-8.2) g/dL Albumin 2.5 L (3.5-5.0) g/dL 05/25/24 05/25/24 05/26/24 Range/Units 20:16 20:48 00:08 WBC (3.8-10.6) k/uL RBC (4.30-5.90) m/uL Hgb (13.0-17.5) gm/dL Hct (39.0-53.0) % MCV (80.0-100.0) fL MCH (25.0-35.0) pg RDW (11.5-15.5) % Plt Count (150-450) k/uL Neutrophils # (1.3-7.7) k/uL Macrocytosis PT (10.0-12.5) sec INR (<1.2) Sodium (137-145) mmol/L Potassium (3.5-5.1) mmol/L Chloride (98-107) mmol/L Carbon Dioxide (22-30) mmol/L BUN (9-20) mg/dL Creatinine (0.66-1.25) mg/dL Glucose (74-99) mg/dL POC Glucose (mg/dL) 128 H 130 H 127 H (70-110) mg/dL Calcium (8.4-10.2) mg/dL Total Bilirubin (0.2-1.3) mg/dL AST (17-59) U/L ALT (4-49) U/L Alkaline Phosphatase (38-126) U/L Ammonia (<30) umol/L Total Protein (6.3-8.2) g/dL Albumin (3.5-5.0) g/dL 05/26/24 05/26/24 05/26/24 Range/Units 02:52 02:52 02:52 WBC 15.0 H (3.8-10.6) k/uL RBC 2.33 L (4.30-5.90) m/uL Hgb 8.6 L (13.0-17.5) gm/dL Hct 25.9 L (39.0-53.0) % MCV 110.8 H (80.0-100.0) fL MCH 36.6 H (25.0-35.0) pg RDW 16.7 H (11.5-15.5) % Plt Count 96 L (150-450) k/uL Neutrophils # 12.5 H (1.3-7.7) k/uL Macrocytosis Marked A PT 23.2 H (10.0-12.5) sec INR 2.3 H (<1.2) Sodium 125 L (137-145) mmol/L Potassium 3.4 L (3.5-5.1) mmol/L Chloride 94 L (98-107) mmol/L Carbon Dioxide (22-30) mmol/L BUN 23 H (9-20) mg/dL Creatinine 3.52 H (0.66-1.25) mg/dL Glucose 117 H (74-99) mg/dL POC Glucose (mg/dL) (70-110) mg/dL Calcium 7.6 L (8.4-10.2) mg/dL Total Bilirubin 20.0 H* (0.2-1.3) mg/dL AST 403 H (17-59) U/L ALT 113 H (4-49) U/L Alkaline Phosphatase 194 H (38-126) U/L Ammonia (<30) umol/L Total Protein 5.6 L (6.3-8.2) g/dL Albumin 2.7 L (3.5-5.0) g/dL 05/26/24 Range/Units 06:24 WBC (3.8-10.6) k/uL RBC (4.30-5.90) m/uL Hgb (13.0-17.5) gm/dL Hct (39.0-53.0) % MCV (80.0-100.0) fL MCH (25.0-35.0) pg RDW (11.5-15.5) % Plt Count (150-450) k/uL Neutrophils # (1.3-7.7) k/uL Macrocytosis PT (10.0-12.5) sec INR (<1.2) Sodium (137-145) mmol/L Potassium (3.5-5.1) mmol/L Chloride (98-107) mmol/L Carbon Dioxide (22-30) mmol/L BUN (9-20) mg/dL Creatinine (0.66-1.25) mg/dL Glucose (74-99) mg/dL POC Glucose (mg/dL) 139 H (70-110) mg/dL Calcium (8.4-10.2) mg/dL Total Bilirubin (0.2-1.3) mg/dL AST (17-59) U/L ALT (4-49) U/L Alkaline Phosphatase (38-126) U/L Ammonia (<30) umol/L Total Protein (6.3-8.2) g/dL Albumin (3.5-5.0) g/dL Assessment and Plan Plan: Assessment: 1. Acute kidney injury secondary to ATN with concern for hepatorenal syndrome vs bile cast nephropathy from hyperbilirubinemia.. UA benign. No hydronephrosis noted on imaging. Started on hemodialysis May 25, 2024 due to worsening renal function and oliguria. 2. 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 Status post paracentesis this admission with 4 L drained. 3. Right renal lesion noted on ultrasound. Patient will need to see urology outpatient. 4. Metabolic acidosis secondary to acute kidney injury and lactic acidosis. 5. Volume overload. Status post paracentesis with 6 L drained May 24, 2024. 6. Anemia. Iron replete. 7. Hypervolemic hyponatremia. 8. Hypomagnesemia from diuresis and poor intake. Replaced. Better. Plan: Hold off on dialysis today. Plan for another treatment tomorrow. Maintain midodrine. Also receiving IV albumin. Wean Levophed. Maintain low-salt diet. Avoid nephrotoxins. Add Aranesp. Transfer to [facility] pending. Prognosis guarded. Discussed with patient and his at length this admission.
--- NOTE | 2024-05-26 11:07 | P.PN ---
Subjective Progress Note Date: 05/26/24 Principal diagnosis: Shortness of breath. Pulmonary consult dated May 23, 2024. This is a 64-year-old male seen today in room 369, in consultation. The patient was actually admitted through the emergency department, on May 17. The patient apparently came in with cough, shortness of breath, ascites, significant jaundice. The patient also complains of significant weakness. We were consulted for worsening hypoxemic respiratory failure. The patient was on 15 L high flow nasal cannula, and now is on Airvo, at 50 L/min with an FiO2 of 80%. He is quite jaundiced. Somewhat confused. Not able to give much of the history. Earlier on this admission, on May 18, he had a paracentesis abdominous, and 4.4 L of fluid was removed. He is currently on azithromycin and Rocephin, although cultures are negative. We did order an N-terminal proBNP and a procalcitonin level. The patient was lying flat in bed, and was mildly short of breath. I believe his shortness of breath likely related to his significant abdominal ascites. His chest x-ray may show some mild fluid overload. His past history includes gastroesophageal reflux disease, hyperlipidemia, hypertension, chronic alcoholic liver disease, osteoarthritis, migraine cephalgia, and chronic anxiety. The patient is a current everyday smoker, and apparently has a history of heavy alcohol ingestion. White count is 12.7, hemoglobin 8.8, hematocrit 25.2, platelet count is 87,000. Sodium 128, potassium 3.5, chlorides 96, CO2 24, BUN 21, creatinine 1.86. Glucose is 144. Calcium 8.2, magnesium 1.4. Bilirubin is 22.2. AST is 262. ALT is 103. Alkaline phosphatase is 211. N- terminal proBNP is 632. Procalcitonin levels pending. Albumin is 2.5. The patient's chest x-ray from May 23 has been reviewed. Progress note dated May 24, 2024. 64-year-old male again seen today in room 369. He was seen yesterday in consultation. Please see the note above. The patient continues on Airvo, 50 L/min, with an FiO2 of 70%. He is getting saline at 20 cc an hour. Procalcitonin level was 0.56. He is on azithromycin and Rocephin. As mentioned yesterday in my consultation, I believe his shortness of breath in large part relates to his abdominal ascites, and its effect on the lungs and diaphragm. Th e patient already has had 1 paracentesis abdominal's, and should have another 1. During the first paracentesis, 4.4 L of fluid was removed. Current laboratory data includes a PT of 19.3 with an INR of 1.9. Sodium 129, potassium 3.5, chlorides 97, bicarbonate concentration 23, anion gap 9, BUN 24, creatinine 2.74. Total bilirubin is 21.9. Calcium is 8. Glucose is 183. Liver function tests show a AST of 346. ALT of 105. Alkaline phosphatase is 206. Progress note dated May 25, 2024. 64-year-old male seen again today in room he was seen in consultation 2 days ago. Please see the notes above. The patient was admitted with a diagnosis of alcoholic liver disease and alcoholic cirrhosis. The patient continues on Airvo, along with a nonrebreather. His Airvo settings are 60 L/min with an FiO2 of 90%. In addition on top of the Airvo catheter, he has a nonrebreather mask. He is not receiving any IV fluids. He had a repeat paracentesis abdominal yesterday, and 6 L was removed. He continues on azithromycin and Rocephin. The patient's overall prognosis is very poor. I did speak to the today about possible transfer and also about the possibility of changing his CODE STATUS. I believe that if the patient ends up on life support, likely, he will require long-term life support, and may end up with a tracheostomy tube and feeding tube. That said if he survives the acute injury. Sodium 125, potassium 3.5, chlorides 93, CO2 21, anion gap 11, BUN 28, and creatinine 3.58. Yesterday's BUN and creatinine were 24 and 2.74. Also, the patient's glucose was 145, calcium 7.6, bilirubin 20.6, AST 388, ALT 115, and alkaline phosphatase 202. Ammonia levels back up to 33. Albumin is 2.5. Progress note dated May 26, 2024. 64-year-old male seen today in the intensive care unit, room 259. He was moved to the ICU yesterday because of respiratory compromise, and hypotension. A rapid response was called on this patient, and my ICU nurse, Gerardo, went and evaluated the patient. We talked about the patient afterwards, and decided that the patient should be transferred to the intensive care unit. The patient is currently on Airvo at 60 L/min with an FiO2 of 90%. On top of that, he is on nonrebreather mask. He is getting saline at KVO. He is on norepinephrine at 3 mcg/min. Hemodialysis was done yesterday, but only half a liter was able to be removed, because of instability of his blood pressure. Chest x-ray shows diffuse bilateral infiltrates. White count 15, hemoglobin 8.6, hematocrit 25.9, platelet count 96,000. PT 23.2, INR 2.3. Sodium 125, potassium 3.4, chlorides 94, CO2 23, BUN 23, creatinine 3.52. Glucose 139. Calcium 7.6. Bilirubin is 20 AST is 403. ALT 113. Alkaline phosphatase 194. Albumin is 2.7. As mentioned, chest x-ray shows worsening bilateral patchy opacities. Objective - Vital Signs Vital signs: Vital Signs Temp 98.2 F 05/26/24 08:00 Pulse 93 05/26/24 10:00 Resp 17 05/26/24 10:00 BP 82/45 05/26/24 10:00 Pulse Ox 90 L 05/26/24 10:00 FiO2 88 05/26/24 08:27 Intake & Output 05/25/24 05/26/24 05/26/24 18:59 06:59 18:59 Intake Total 300 409.718 96.525 Output Total 50 405 5 Balance 250 4.718 91.525 Weight 104.1 kg Intake: IV 300 80 0.9 30 Azithromycin 500 mg In 250 Sodium Chloride 0.9% 250 ml @ 250 mls/hr IVPB DAILY [facility] Rx#:[id number] cefTRIAXone 1 gm In 50 50 Sodium Chloride 0.9% 50 ml @ 100 mls/hr IVPB Q24HR [facility] Rx#:[id number] Intake, IV Titration 9.718 16.525 Amount Norepinephrine 4 mg In 9.718 16.525 Sodium Chloride 0.9% 250 ml @ 0.03 MCG/KG/MIN 11. 899 mls/hr IV .[id number] [facility] Rx#:[id number] Hemodialysis 400 Output: Urine 50 5 5 Hemodialysis 100 Hemodialysis Net Amount 300 Other: Voiding Method Indwelling Catheter Indwelling Catheter # Bowel Movements 1 - Exam No acute distress, confused, likely encephalopathic. Quite jaundiced. Currently on Airvo, along with a nonrebreather mask. HEENT examination is grossly unremarkable. Mucous membranes are moist. No oral lesions. There is bilateral scleral icterus. Neck supple. Full range of motion. No adenopathy thyromegaly or neck vein distention. Cardiovascular examination reveals regular rhythm rate. S1-S2 normal. No S3 or S4. No discernible murmur noted. Heart sounds are distant. Lungs reveal mostly clear breath sound. Minimal rhonchi. No wheezes or crackles. Breath sounds are equal bilaterally. Abdomen distended, but soft. No bowel sounds noted. Extremities are intact. No cyanosis clubbing or edema. Skin is without rash or lesion. The patient is quite jaundiced. Neurologic examination is difficult to assess. The patient is very confused. - Labs CBC & Chem 7: 05/26/24 02:52 05/26/24 02:52 Labs: Abnormal Lab Results - Last 24 Hours (Table) 05/25/24 05/25/24 05/25/24 Range/Units 11:05 14:23 20:16 WBC (3.8-10.6) k/uL RBC (4.30-5.90) m/uL Hgb (13.0-17.5) gm/dL Hct (39.0-53.0) % MCV (80.0-100.0) fL MCH (25.0-35.0) pg RDW (11.5-15.5) % Plt Count (150-450) k/uL Neutrophils # (1.3-7.7) k/uL Macrocytosis PT 21.4 H (10.0-12.5) sec INR 2.1 H (<1.2) Sodium (137-145) mmol/L Potassium (3.5-5.1) mmol/L Chloride (98-107) mmol/L BUN (9-20) mg/dL Creatinine (0.66-1.25) mg/dL Glucose (74-99) mg/dL POC Glucose (mg/dL) 128 H (70-110) mg/dL Calcium (8.4-10.2) mg/dL Total Bilirubin (0.2-1.3) mg/dL AST (17-59) U/L ALT (4-49) U/L Alkaline Phosphatase (38-126) U/L Ammonia 33 H (<30) umol/L Total Protein (6.3-8.2) g/dL Albumin (3.5-5.0) g/dL 05/25/24 05/26/24 05/26/24 Range/Units 20:48 00:08 02:52 WBC 15.0 H (3.8-10.6) k/uL RBC 2.33 L (4.30-5.90) m/uL Hgb 8.6 L (13.0-17.5) gm/dL Hct 25.9 L (39.0-53.0) % MCV 110.8 H (80.0-100.0) fL MCH 36.6 H (25.0-35.0) pg RDW 16.7 H (11.5-15.5) % Plt Count 96 L (150-450) k/uL Neutrophils # 12.5 H (1.3-7.7) k/uL Macrocytosis Marked A PT (10.0-12.5) sec INR (<1.2) Sodium (137-145) mmol/L Potassium (3.5-5.1) mmol/L Chloride (98-107) mmol/L BUN (9-20) mg/dL Creatinine (0.66-1.25) mg/dL Glucose (74-99) mg/dL POC Glucose (mg/dL) 130 H 127 H (70-110) mg/dL Calcium (8.4-10.2) mg/dL Total Bilirubin (0.2-1.3) mg/dL AST (17-59) U/L ALT (4-49) U/L Alkaline Phosphatase (38-126) U/L Ammonia (<30) umol/L Total Protein (6.3-8.2) g/dL Albumin (3.5-5.0) g/dL 05/26/24 05/26/24 05/26/24 Range/Units 02:52 02:52 06:24 WBC (3.8-10.6) k/uL RBC (4.30-5.90) m/uL Hgb (13.0-17.5) gm/dL Hct (39.0-53.0) % MCV (80.0-100.0) fL MCH (25.0-35.0) pg RDW (11.5-15.5) % Plt Count (150-450) k/uL Neutrophils # (1.3-7.7) k/uL Macrocytosis PT 23.2 H (10.0-12.5) sec INR 2.3 H (<1.2) Sodium 125 L (137-145) mmol/L Potassium 3.4 L (3.5-5.1) mmol/L Chloride 94 L (98-107) mmol/L BUN 23 H (9-20) mg/dL Creatinine 3.52 H (0.66-1.25) mg/dL Glucose 117 H (74-99) mg/dL POC Glucose (mg/dL) 139 H (70-110) mg/dL Calcium 7.6 L (8.4-10.2) mg/dL Total Bilirubin 20.0 H* (0.2-1.3) mg/dL AST 403 H (17-59) U/L ALT 113 H (4-49) U/L Alkaline Phosphatase 194 H (38-126) U/L Ammonia (<30) umol/L Total Protein 5.6 L (6.3-8.2) g/dL Albumin 2.7 L (3.5-5.0) g/dL Assessment and Plan Assessment: Acute hypoxemic respiratory failure, likely on the basis of severe abdominal a scites, and mild fluid overload. Doubt pneumonia. Severe alcoholic liver disease, with ascites, and severe hyperbilirubinemia. Bicytopenia, likely on the basis of alcohol abuse. Hyperammonemia, secondary to chronic liver disease. Possible chronic obstructive pulmonary disease secondary to chronic tobacco use. Mental status changes, likely on the basis of portosystemic encephalopathy and chronic alcohol disease. History of hypertension. History of hyperlipidemia. History of osteoarthritis. History of migraine cephalgia. History of heavy tobacco and alcohol abuse. Plan: Plan dated May 23, 2024. The patient is currently on Airvo, 50 L/min with an FiO2 of 80%. The patient was laying flat in bed, and should be upright, at 45 degrees or higher. In addition, interventional radiology should be evaluating the patient again for another paracentesis abdominis. Labs, x-rays, and medications are reviewed. We did order an N-terminal proBNP and procalcitonin level. Procalcitonin level is normal I would discontinue antibiotics. The nurses tell me that the patient is being evaluated for possible transfer. The patient is currently on Symbicort, and updrafts with albuterol sulfate ipratropium bromide. The patient is quite confused, with hyperammonemia, and encephalopathy. We will continue to follow. Prognosis is poor. No additional recommendations at this time. Plan dated May 24, 2024. The patient is again seen today in room 369. His is at the bedside. He continues to lay flat in bed. I believe he would breathe easier, if he was more upright, or sitting up. Anyway, the patient continues on appropriate antibiotics, for possible pneumonia. As mentioned yesterday, it does not appear to me that he has pneumonia. Nonetheless, we will leave that up to the primary service. He continues on Symbicort, and updrafts. We have asked interventional radiology to consider another paracentesis abdominis. The patient is quite jaundiced. He is confused, and has significant hyperammonemia. Labs, x-rays, and all medications are reviewed. Prognosis is poor. Dictation was produced using [employer] software. Please excuse any grammatical, word or spelling errors. Plan dated May 25, 2024. The patient continues to be very restless and agitated. The patient is on Airvo, at 60 L/min with an FiO2 of 90%. In addition to that, he is wearing a nonrebreather mask. The patient had a paracentesis abdominal yesterday, May 24. 61-year-old removed. The abdomen unfortunately filled back up with fluid. He is not receiving any IV fluids. The patient is on azithromycin and Rocephin. I did have a long conversation with the patient's about CODE STATUS. I recommended DNR. In addition, discharge planning and human services case manager are looking to maybe get the patient transferred to a facility with a liver unit. The patient's overall prognosis is poor. We will continue to follow. Dictation was produced using [employer] software. Please excuse any grammatical, word or spelling errors. Plan dated May 26, 2024. The patient deteriorated last night, and was transferred down to the intensive care unit. His respiratory status was marginal. In addition, the patient developed hypotension, and required norepinephrine. Labs, x-rays, and all medications are reviewed. We will continue to follow the patient. I was speaking to a woman that I thought with his , but apparently it is not. The patient at this time remains a full code. The patient is quite ill, and has a very poor prognosis. The primary service is trying to transfer the patient to an outside hospital, with a liver unit. Labs, x-rays, and all medications are reviewed. Prognosis is very poor. We will continue to follow. Dictation was produced using [employer] software. Please excuse any grammatical, word or spelling errors. Time with Patient: Greater than 30
--- NOTE | 2024-05-26 12:17 | P.PN ---
Subjective Progress Note Date: 05/26/24 This is a 64-year-old male with past medical history of gastroesophageal reflux disease, hypertension, ongoing nicotine dependence, anxiety, spinal stenosis/degenerative disc disease, alcohol abuse/dependence, paracentesis presented to the ER per recommendations of his PCP with worsening abdominal pain, abdominal distention, shortness of breath and fatigue. States last drink yesterday, rum and coke. Serum alcohol 127 on admission. Denies nausea ,vomiting or diarrhea. denies chest pain, palpitations. Denies lightheadedness dizziness or focal deficits. CT of chest abdomen and pelvis reporting moderate volume ascites with marked hepatic steatosis and cirrhotic appearance, change morphology previously seen right renal upper pole 3.9 cm lesion demonstrating internal fat with some enhancement and, previously predominantly enhancing throughout, correlate for prior intervention otherwise raises concern for possible fat-containing renal cell carcinoma versus other etiologies, cholelithiasis, septal patchy groundglass opacities within the bilateral upper lobes representing air trapping versus developing infectious inflammatory process versus pulmonary edema. Afebrile, WBC 13.8, 15.2. Hemoglobin 10.2, platelets 155, INR 1.4, sodium 132 bicarb 14 BUN 19 creatinine 1.89, lactic acid 6.7, total bili 18.8, conjugated bili 10, unconjugated bili 3.8 AST 319, ALT 103, alk phos 271, albumin 3.2, lipase 496. UA reporting trace of protein negative nitrates 3+ bilirubin negative leukocytes. Viral screen negative. Mild tachycardia, blood pressures stable, maintaining O2 sats of 93% on 2-1/2 L on nasal cannula. Continues on IV fluid hydration, CIWA protocol. Recent CIWA score 9. 05/19/2024 underwent paracentesis yesterday with 4350 ml of clear straw-colored fluid drained. Denies abdominal pain, tolerated procedure well. Pathology pending. CA 19-9 33.3 (0.0-34.9). Maintained on lactulose, ammonia decreased to 55.one BM documented for yesterday. Less restless, minimal tremors,continues on CIWA protocol, recent CIWA score 0. Denies chest pain, palpitations or shortness of breath. Maintaining O2 sats in the 90s on 3 L nasal cannula. Afebrile, WBC decreased to 11.79. Hemoglobin 8.9, platelets 117. Lactic acid WNL, 1.8. Sodium 129 potassium 3.9. Continues on bicarb drip, bicarb improved ,23.9. BUN 22.6, creatinine 2. T. bili 18.3, AST 296, ALT 112, alk phos 215. Albumin 3. 05/22/2024 Maintained on lactulose, ammonia level decreased to 19. CIWA score 2. CMP pending. Continues on Sandostatin. Hemoglobin 8.9, platelets 89. Mild tachycardia. Blood pressure soft, on IV fluids. afebrile, WBC 12.89. Maintaining O2 sats in the low 90s on 5 L nasal cannula. Low-sodium diet, poor oral intake. Denies nausea or vomiting. denies abdominal pain. paracentesis pathology reported negative for malignancy. 05/23/2024 condition declined last night, requiring A team and transferred to stepdown unit. Currently requiring 80% FiO2. Chest x-ray reporting emphysema with new moderate edema versus pneumonia bilateral lungs. T. bili increased to 22.2, ammonia increased to 38 on lactulose, creatinine worsening 1.86, sodium decreased to 128. Sodium decreased to 128, potassium 3.5, magnesium 1.4. 05/24/2024 transfer in progress to [facility], awaiting bed. Renal function worsening creatinine up to 2.74 T. bili remains elevated 21.9, AST 346, ALT 105, alk phos 206. Maintained on lactulose, ammonia level currently 20. Complained of bilateral thighs burning, CK-203. Yesterday empiric antibiotics started, procalcitonin mildly elevated, 0.56. Hepatitis panel reported nonreactive A,B,C. INR 1.9. bedside paracentesis pending. Continues to require 80% FiO2 to maintain O2 sats in the low 90s. CODE STATUS discussed with both patient and significant other-patient wants to remain a full code, they do not have DURABLE POWER OF CREDIT PROCESSOR papers. 05/25/2024 declining condition, blood pressures soft, now requiring 88%/6 L Airvo along with nonrebreather mask on top of Airvo,to maintain O2 sats in the high 80s to low 90s.Renal function worsening, bicarb 21, BUN 28, creatinine 3.58. Urine output decreased to 200 mL over the last 24 hours , recently received a dose of Lasix 60 mg IV push x 1, response pending.Sodium decreased to 125, potassium 3.5. T. bili 20.6, AST 388, ALT 115, alk phos 202, ammonia increased to 33. No stooling yet today, lactulose increased. albumin 2.5. Underwent a second paracentesis yesterday with 6 L removed, unfortunately rapidly reoccuring today. PT/INR added onto prior labs/pending. continues on Rocephin, azithromycin for potential pneumonia-doubtful per pulmonary. Transfer attempts to multiple tertiary care centers continue with no beds available currently. 05/26/2024 Yesterday no paracentesis performed as abdominal ultrasound reported only small volume ascites.last night A team called secondary to hypotension, respiratory distress and transferred to ICU. Continues on Airvo 60 L/min and nonrebreather mask. Chest x-ray reporting worsening multifocal patchy airspace opacities/infiltrates .Afebrile, WBC 15.hemoglobin decreased to 8.6, platelets 96. yesterday patient had a right femoral dialysis catheter placed by vascular surgery. Ultrafiltration attempted but unable to tolerate due to unstable hypotension. Maintained on Levophed. Continues on midodrine. INR 2.3, sodium 125, potassium 3.4, supplemented, bicarb 23, BUN 23, creatinine 3.52, magnesium 1.8, supplemented. T. bili 20 AST 403 ALT 113 alk phos 194 , ammonia 28 ,albumin 2.7. Yesterday,PCP, Dr. Gibbons spoke with [facility] ball mill mixer- recommending patient receive 100 g of albumin daily in addition to pre and post albumin prior to paracentesis treatments-which was initiated. Objective - Vital Signs Vital signs: Vital Signs Temp 98.2 F 05/26/24 08:00 Pulse 92 05/26/24 11:34 Resp 30 H 05/26/24 11:00 BP 124/63 05/26/24 11:00 Pulse Ox 93 L 05/26/24 11:00 FiO2 88 05/26/24 11:23 Intake & Output 05/25/24 05/26/24 05/26/24 18:59 06:59 18:59 Intake Total 300 409.718 156.525 Output Total 50 405 5 Balance 250 4.718 151.525 Weight 104.1 kg Intake: IV 300 140 0.9 40 Albumin Human 25% 50 ml 50 In Empty Bag 1 bag @ 200 mls/hr IVPB Q3HR [facility] Rx#: [id number] Azithromycin 500 mg In 250 Sodium Chloride 0.9% 250 ml @ 250 mls/hr IVPB DAILY [facility] Rx#:[id number] cefTRIAXone 1 gm In 50 50 Sodium Chloride 0.9% 50 ml @ 100 mls/hr IVPB Q24HR [facility] Rx#:[id number] Intake, IV Titration 9.718 16.525 Amount Norepinephrine 4 mg In 9.718 16.525 Sodium Chloride 0.9% 250 ml @ 0.03 MCG/KG/MIN 11. 899 mls/hr IV .[id number] [facility] Rx#:[id number] Hemodialysis 400 Output: Urine 50 5 5 Hemodialysis 100 Hemodialysis Net Amount 300 Other: Voiding Method Indwelling Catheter Indwelling Catheter Indwelling Catheter # Voids 0 # Bowel Movements 1 - Exam PHYSICAL EXAM: VITAL SIGNS: As above GENERAL: Alert and oriented x 2, encephalopathic, sitting up in bed, jaundiced. HEENT: Conjunctivae normal. Sclera icterus, NECK: Supple no JVD. CARDIOVASCULAR: S1, S2 regular.No murmur RESPIRATION: Increased respiratory effort, equal air entry, scattered rhonchi, bilateral bases diminished. ABDOMEN: Soft, distended, nontender, positive ascites no guarding. Hepatomegaly. LEGS: No edema NERVOUS SYSTEM: Limited, unable to evaluate currently given patient's confusion Skin: Warm and dry, no rash, jaundiced - Labs CBC & Chem 7: 05/26/24 02:52 05/26/24 02:52 Labs: Abnormal Lab Results - Last 24 Hours (Table) 05/25/24 05/25/24 05/25/24 Range/Units 14:23 20:16 20:48 WBC (3.8-10.6) k/uL RBC (4.30-5.90) m/uL Hgb (13.0-17.5) gm/dL Hct (39.0-53.0) % MCV (80.0-100.0) fL MCH (25.0-35.0) pg RDW (11.5-15.5) % Plt Count (150-450) k/uL Neutrophils # (1.3-7.7) k/uL Macrocytosis PT 21.4 H (10.0-12.5) sec INR 2.1 H (<1.2) Sodium (137-145) mmol/L Potassium (3.5-5.1) mmol/L Chloride (98-107) mmol/L BUN (9-20) mg/dL Creatinine (0.66-1.25) mg/dL Glucose (74-99) mg/dL POC Glucose (mg/dL) 128 H 130 H (70-110) mg/dL Calcium (8.4-10.2) mg/dL Total Bilirubin (0.2-1.3) mg/dL AST (17-59) U/L ALT (4-49) U/L Alkaline Phosphatase (38-126) U/L Total Protein (6.3-8.2) g/dL Albumin (3.5-5.0) g/dL 05/26/24 05/26/24 05/26/24 Range/Units 00:08 02:52 02:52 WBC 15.0 H (3.8-10.6) k/uL RBC 2.33 L (4.30-5.90) m/uL Hgb 8.6 L (13.0-17.5) gm/dL Hct 25.9 L (39.0-53.0) % MCV 110.8 H (80.0-100.0) fL MCH 36.6 H (25.0-35.0) pg RDW 16.7 H (11.5-15.5) % Plt Count 96 L (150-450) k/uL Neutrophils # 12.5 H (1.3-7.7) k/uL Macrocytosis Marked A PT (10.0-12.5) sec INR (<1.2) Sodium 125 L (137-145) mmol/L Potassium 3.4 L (3.5-5.1) mmol/L Chloride 94 L (98-107) mmol/L BUN 23 H (9-20) mg/dL Creatinine 3.52 H (0.66-1.25) mg/dL Glucose 117 H (74-99) mg/dL POC Glucose (mg/dL) 127 H (70-110) mg/dL Calcium 7.6 L (8.4-10.2) mg/dL Total Bilirubin 20.0 H* (0.2-1.3) mg/dL AST 403 H (17-59) U/L ALT 113 H (4-49) U/L Alkaline Phosphatase 194 H (38-126) U/L Total Protein 5.6 L (6.3-8.2) g/dL Albumin 2.7 L (3.5-5.0) g/dL 05/26/24 05/26/24 Range/Units 02:52 06:24 WBC (3.8-10.6) k/uL RBC (4.30-5.90) m/uL Hgb (13.0-17.5) gm/dL Hct (39.0-53.0) % MCV (80.0-100.0) fL MCH (25.0-35.0) pg RDW (11.5-15.5) % Plt Count (150-450) k/uL Neutrophils # (1.3-7.7) k/uL Macrocytosis PT 23.2 H (10.0-12.5) sec INR 2.3 H (<1.2) Sodium (137-145) mmol/L Potassium (3.5-5.1) mmol/L Chloride (98-107) mmol/L BUN (9-20) mg/dL Creatinine (0.66-1.25) mg/dL Glucose (74-99) mg/dL POC Glucose (mg/dL) 139 H (70-110) mg/dL Calcium (8.4-10.2) mg/dL Total Bilirubin (0.2-1.3) mg/dL AST (17-59) U/L ALT (4-49) U/L Alkaline Phosphatase (38-126) U/L Total Protein (6.3-8.2) g/dL Albumin (3.5-5.0) g/dL Assessment and Plan Assessment: Abdominal pain, positive ascites, hepatocellular disease. Serum alcohol 127 on admission. Status post large-volume paracentesisX2 , 4350ml on 05/18/24, 6 L on 05/24/2024. Hyperbilirubinemia Hyperammonemia Hepatic encephalopathy Alcohol abuse, dependence since age 14 Alcoholic cirrhosis of liver, portal hypertension Acute hypoxic respiratory failure secondary to the above, procalcitonin mildly elevated, 0.56, possibly pneumonia-doubtful per pulmonary. Acute renal failure, possibly hepatorenal syndrome, hemodialysis initiated 05/25/2024 Acute metabolic acidosis secondary to the above Hyponatremia Urinary retention requiring Jorge catheter Myositis, bilateral thighs, CK 203 Prior MRI reported pancreatic lesion 12/19 with recommended outpatient EUS at [facility]. Patient states completed some of the workup. PCP reports patient had a ERCP with no biopsy. Lactic acidosis, resolved Leukocytosis, improving Right renal upper pole 3.9 cm lesion, reported per CT, suspicious for malignancy. urology following, recommending second opinion at a tertiary care center upon discharge. Cholelithiasis Gastroesophageal reflux disease Hyperlipidemia Hypertension Osteoarthritis Anxiety Ongoing nicotine dependence Medical marijuana use Plan: Continue on current medication regime ,monitoring and symptomatic treatment. Prognosis poor, CODE STATUS recently changed to no code as per patient and significant other.ICU management as per rotary cutter operator. No hemodia lysis today as per nephrology.multiple hospitals attempted for transfer. Currently transfer to [facility] as we do not have GI or ball mill mixer specialties available at this site. The impression and plan of care has been dictated as directed. : I performed a history and examination of this patient, discussed the same with the dictator. I agree with the dictator's note ,documented as a scribe. Any additional findings or plans will be noted.
[2024-05-26 13:09] VITALS: BMI 34.9
[2024-05-26] MEDS: DARBEPOETIN ALFA 40 MCG/0.4 ML SYRINGE SQ SCH (16:53)
[2024-05-26] MEDS: TERBUTALINE FOR EXTRAVASATION 1 MG/ML VIAL SQ STA (18:34)
[2024-05-26 18:53] LABS: Glucose,Whole Blood 228 mg/dL (70-110)
[2024-05-27 03:40] LABS: WBC 18.9 k/uL (3.8-10.6)
[2024-05-27 03:41] LABS: Anisocytosis Slight; HCT 25.1 % (39.0-53.0); HGB 8.1 gm/dL (13.0-17.5); Hypochromasia Slight; MCH 36.5 pg (25.0-35.0); MCHC 32.5 g/dL (31.0-37.0); MCV 112.4 fL (80.0-100.0); Macrocytosis Marked; Mean Platelet Volume 10.5; RBC 2.23 m/uL (4.30-5.90); RDW 16.8 % (11.5-15.5)
[2024-05-27 03:44] LABS: Platelet Count 85 k/uL (150-450)
[2024-05-27 04:01] LABS: African American GFR (CKD) 14 (>60 ml/min/1.73 sqM); Anion Gap 15 mmol/L; Blood Urea Nitrogen 31 mg/dL (9-20); Calcium 7.5 mg/dL (8.4-10.2); Carbon Dioxide 19 mmol/L (22-30); Chloride 93 mmol/L (98-107); Glucose 149 mg/dL (74-99); Non-African American GFR(CKD) 12 (>60 ml/min/1.73 sqM); Potassium 3.5 mmol/L (3.5-5.1); Sodium 127 mmol/L (137-145)
[2024-05-27 06:37] LABS: Glucose,Whole Blood 175 mg/dL (70-110)
--- NOTE | 2024-05-27 06:43 | XR ---
EXAMINATION TYPE: XR chest 1V portable DATE OF EXAM: 05/27/2024 COMPARISON: 05/26/2024 CLINICAL INDICATION: Male, 64 years old with history of opacities; TECHNIQUE: Single frontal view of the chest is obtained. FINDINGS: There are diffuse small alveolar consolidative opacities throughout both lungs is unchanged compared to the prior study. Consistent with diffuse pneumonia or pulmonary edema. There is no pleural effusion or pneumothorax. Heart size is normal. The osseous structures are intact . IMPRESSION: Marked acute cardiopulmonary disease with no interval change. [facility], , 05/27/2024 6:41 AM
[2024-05-27 09:49] VITALS: TEMP 96.5
[2024-05-27] MEDS: NOREPINEPHRINE 8 MG in SODIUM CHLORIDE 0.9% 250 ML IV SCH (10:14)
--- NOTE | 2024-05-27 10:15 | P.PN ---
Subjective Patient remains in the intensive care unit. He remains on norepinephrine and midodrine for blood pressure control. He has a hemodialysis catheter in may need dialysis, but due to his soft blood pressures they may deferred again. He remains on nonrebreather and Airvo to maintain his oxygen saturations which remain low. His girlfriend at bedside is planning on comfort care for him shortly. Vitals most recently show heart rate 93 respiratory 18 blood pressure 87/57 with pulse oximetry 87% on high flow. Labs show WBC 18.9 with a hemoglobin of 8.1 platelets are 85. LFTs are pending. Chemistries show a GFR now of 12. Objective - Vital Signs Vital signs: Vital Signs Temp 96.5 F L 05/27/24 08:00 Pulse 93 05/27/24 09:45 Resp 18 05/27/24 09:45 BP 87/57 05/27/24 09:45 Pulse Ox 87 L 05/27/24 09:45 FiO2 90 05/27/24 08:52 Intake & Output 05/26/24 05/27/24 05/27/24 18:59 06:59 18:59 Intake Total 351.687 337.727 198.484 Output Total 10 25 0 Balance 341.687 312.727 198.484 Weight 104.1 kg 106.5 kg Intake: IV 260 220 130 0.9 110 120 30 Albumin Human 25% 50 ml 100 100 In Empty Bag 1 bag @ 200 mls/hr IVPB Q3HR [facility] Rx#: [id number] cefTRIAXone 1 gm In 50 100 Sodium Chloride 0.9% 50 ml @ 100 mls/hr IVPB Q24HR [facility] Rx#:[id number] Intake, IV Titration 91.687 117.727 68.484 Amount Norepinephrine 4 mg In 91.687 117.727 68.484 Sodium Chloride 0.9% 250 ml @ 0.03 MCG/KG/MIN 11. 899 mls/hr IV .[id number] [facility] Rx#:[id number] Output: Urine 10 25 0 Other: Voiding Method Indwelling Catheter Indwelling Catheter # Voids 0 0 # Bowel Movements 1 - Exam GENERAL: Somnolent but arousable encephalopathic, sitting up in bed, jaundiced. Girlfriend at bedside HEENT: Conjunctivae normal. Sclera icterus, NECK: Supple no JVD. CARDIOVASCULAR: S1, S2 regular.No murmur RESPIRATION: Increased respiratory effort, equal air entry, scattered rhonchi, bilateral bases diminished. ABDOMEN: Soft, distended, nontender, positive ascites no guarding. Hepatomegaly. LEGS: No edema NERVOUS SYSTEM: Limited, unable to evaluate currently given patient's confusion Skin: Warm and dry, no rash, jaundiced - Labs CBC & Chem 7: 05/27/24 03:23 05/27/24 03:23 Labs: Abnormal Lab Results - Last 24 Hours (Table) 05/26/24 05/27/24 05/27/24 Range/Units 18:52 03:23 03:23 WBC 18.9 H (3.8-10.6) k/uL RBC 2.23 L (4.30-5.90) m/uL Hgb 8.1 L (13.0-17.5) gm/dL Hct 25.1 L (39.0-53.0) % MCV 112.4 H (80.0-100.0) fL MCH 36.5 H (25.0-35.0) pg RDW 16.8 H (11.5-15.5) % Plt Count 85 L (150-450) k/uL Macrocytosis Marked A Sodium 127 L (137-145) mmol/L Chloride 93 L (98-107) mmol/L Carbon Dioxide 19 L (22-30) mmol/L BUN 31 H (9-20) mg/dL Creatinine 4.87 H (0.66-1.25) mg/dL Glucose 149 H (74-99) mg/dL POC Glucose (mg/dL) 228 H (70-110) mg/dL Calcium 7.5 L (8.4-10.2) mg/dL 05/27/24 Range/Units 06:36 WBC (3.8-10.6) k/uL RBC (4.30-5.90) m/uL Hgb (13.0-17.5) gm/dL Hct (39.0-53.0) % MCV (80.0-100.0) fL MCH (25.0-35.0) pg RDW (11.5-15.5) % Plt Count (150-450) k/uL Macrocytosis Sodium (137-145) mmol/L Chloride (98-107) mmol/L Carbon Dioxide (22-30) mmol/L BUN (9-20) mg/dL Creatinine (0.66-1.25) mg/dL Glucose (74-99) mg/dL POC Glucose (mg/dL) 175 H (70-110) mg/dL Calcium (8.4-10.2) mg/dL Assessment and Plan Plan: Acute liver failure acute alcoholic hepatitis hepatocellular disease. Serum alcohol 127 on admission. Status post large- volume paracentesisX2 , 4350ml on 05/18/24, 6 L on 05/24/2024. Hyperbilirubinemia Hyperammonemia Hepatic encephalopathy Alcohol abuse, dependence since age 14 Alcoholic cirrhosis of liver, portal hypertension Acute hypoxic respiratory failure secondary to the above, procalcitonin mildly elevated, 0.56, possibly pneumonia-doubtful per pulmonary. Acute renal failure, possibly hepatorenal syndrome, hemodialysis initiated 05/25/2024 Acute metabolic acidosis secondary to the above Hyponatremia Urinary retention requiring Jorge catheter Myositis, bilateral thighs, CK 203 Prior MRI reported pancreatic lesion 12/19 with recommended outpatient EUS at [facility]. Patient states completed some of the workup. PCP reports patient had a ERCP with no biopsy. Lactic acidosis, resolved Leukocytosis, improving Right renal upper pole 3.9 cm lesion, reported per CT, suspicious for malignancy. urology following, recommending second opinion at a tertiary care center upon discharge. Cholelithiasis Gastroesophageal reflux disease Hyperlipidemia Hypertension Osteoarthritis Anxiety Ongoing nicotine dependence Medical marijuana use Plan most likely will need comfort care soon.
--- NOTE | 2024-05-27 10:25 | P.PN ---
Subjective Progress Note Date: 05/27/24 Principal diagnosis: Shortness of breath. Pulmonary consult dated May 23, 2024. This is a 64-year-old male seen today in room 369, in consultation. The patient was actually admitted through the emergency department, on May 17. The patient apparently came in with cough, shortness of breath, ascites, significant jaundice. The patient also complains of significant weakness. We were consulted for worsening hypoxemic respiratory failure. The patient was on 15 L high flow nasal cannula, and now is on Airvo, at 50 L/min with an FiO2 of 80%. He is quite jaundiced. Somewhat confused. Not able to give much of the history. Earlier on this admission, on May 18, he had a paracentesis abdominous, and 4.4 L of fluid was removed. He is currently on azithromycin and Rocephin, although cultures are negative. We did order an N-terminal proBNP and a procalcitonin level. The patient was lying flat in bed, and was mildly short of breath. I believe his shortness of breath likely related to his significant abdominal ascites. His chest x-ray may show some mild fluid overload. His past history includes gastroesophageal reflux disease, hyperlipidemia, hypertension, chronic alcoholic liver disease, osteoarthritis, migraine cephalgia, and chronic anxiety. The patient is a current everyday smoker, and apparently has a history of heavy alcohol ingestion. White count is 12.7, hemoglobin 8.8, hematocrit 25.2, platelet count is 87,000. Sodium 128, potassium 3.5, chlorides 96, CO2 24, BUN 21, creatinine 1.86. Glucose is 144. Calcium 8.2, magnesium 1.4. Bilirubin is 22.2. AST is 262. ALT is 103. Alkaline phosphatase is 211. N- terminal proBNP is 632. Procalcitonin levels pending. Albumin is 2.5. The patient's chest x-ray from May 23 has been reviewed. Progress note dated May 24, 2024. 64-year-old male again seen today in room 369. He was seen yesterday in consultation. Please see the note above. The patient continues on Airvo, 50 L/min, with an FiO2 of 70%. He is getting saline at 20 cc an hour. Procalcitonin level was 0.56. He is on azithromycin and Rocephin. As mentioned yesterday in my consultation, I believe his shortness of breath in large part relates to his abdominal ascites, and its effect on the lungs and diaphragm. Th e patient already has had 1 paracentesis abdominal's, and should have another 1. During the first paracentesis, 4.4 L of fluid was removed. Current laboratory data includes a PT of 19.3 with an INR of 1.9. Sodium 129, potassium 3.5, chlorides 97, bicarbonate concentration 23, anion gap 9, BUN 24, creatinine 2.74. Total bilirubin is 21.9. Calcium is 8. Glucose is 183. Liver function tests show a AST of 346. ALT of 105. Alkaline phosphatase is 206. Progress note dated May 25, 2024. 64-year-old male seen again today in room he was seen in consultation 2 days ago. Please see the notes above. The patient was admitted with a diagnosis of alcoholic liver disease and alcoholic cirrhosis. The patient continues on Airvo, along with a nonrebreather. His Airvo settings are 60 L/min with an FiO2 of 90%. In addition on top of the Airvo catheter, he has a nonrebreather mask. He is not receiving any IV fluids. He had a repeat paracentesis abdominal yesterday, and 6 L was removed. He continues on azithromycin and Rocephin. The patient's overall prognosis is very poor. I did speak to the today about possible transfer and also about the possibility of changing his CODE STATUS. I believe that if the patient ends up on life support, likely, he will require long-term life support, and may end up with a tracheostomy tube and feeding tube. That said if he survives the acute injury. Sodium 125, potassium 3.5, chlorides 93, CO2 21, anion gap 11, BUN 28, and creatinine 3.58. Yesterday's BUN and creatinine were 24 and 2.74. Also, the patient's glucose was 145, calcium 7.6, bilirubin 20.6, AST 388, ALT 115, and alkaline phosphatase 202. Ammonia levels back up to 33. Albumin is 2.5. Progress note dated May 26, 2024. 64-year-old male seen today in the intensive care unit, room 259. He was moved to the ICU yesterday because of respiratory compromise, and hypotension. A rapid response was called on this patient, and my ICU nurse, Gerardo, went and evaluated the patient. We talked about the patient afterwards, and decided that the patient should be transferred to the intensive care unit. The patient is currently on Airvo at 60 L/min with an FiO2 of 90%. On top of that, he is on nonrebreather mask. He is getting saline at KVO. He is on norepinephrine at 3 mcg/min. Hemodialysis was done yesterday, but only half a liter was able to be removed, because of instability of his blood pressure. Chest x-ray shows diffuse bilateral infiltrates. White count 15, hemoglobin 8.6, hematocrit 25.9, platelet count 96,000. PT 23.2, INR 2.3. Sodium 125, potassium 3.4, chlorides 94, CO2 23, BUN 23, creatinine 3.52. Glucose 139. Calcium 7.6. Bilirubin is 20 AST is 403. ALT 113. Alkaline phosphatase 194. Albumin is 2.7. As mentioned, chest x-ray shows worsening bilateral patchy opacities. Progress note dated May 27, 2024. 64-year-old male seen in intensive care unit, room 259. The patient was to be transferred to an outside hospital, yesterday, but it was felt that it was unsafe to transfer the patient, without him being intubated. Prior to this, the patient was a DO NOT RESUSCITATE/DO NOT INTUBATE patient. He is currently seen in the intensive care unit. He has been on Airvo through the night, with settings of 60 L/min and FiO2 of 90%. On top of that, he is got a nonrebreather mask but he is getting saline at 20 cc an hour, and norepinephrine has been increased up to 17 mcg/min. Clinically, he is doing very poorly. I discussed that with his common-law this morning. Current labs include a white count 18.9, hemoglobin 8.1, hematocrit 25.1, and a platelet count of 85,000. Sodium 127, potassium 3.5, chlorides 93, CO2 19, anion gap 15, up from 8, BUN 31, creatinine 4.87, increased from 23 and 3.52 respectively. Glucose 175. Calcium 7.5. Magnesium 2.2. Chest x-ray shows diffuse alveolar consolidative opacities throughout both lung munguia, likely consistent with diffuse edema. Pneumonia cannot be excluded. Objective - Vital Signs Vital signs: Vital Signs Temp 96.5 F L 05/27/24 08:00 Pulse 93 05/27/24 09:45 Resp 18 05/27/24 09:45 BP 87/57 05/27/24 09:45 Pulse Ox 87 L 05/27/24 09:45 FiO2 90 05/27/24 08:52 Intake & Output 05/26/24 05/27/24 05/27/24 18:59 06:59 18:59 Intake Total 351.687 337.727 198.484 Output Total 10 25 0 Balance 341.687 312.727 198.484 Weight 104.1 kg 106.5 kg Intake: IV 260 220 130 0.9 110 120 30 Albumin Human 25% 50 ml 100 100 In Empty Bag 1 bag @ 200 mls/hr IVPB Q3HR [facility] Rx#: [id number] cefTRIAXone 1 gm In 50 100 Sodium Chloride 0.9% 50 ml @ 100 mls/hr IVPB Q24HR [facility] Rx#:[id number] Intake, IV Titration 91.687 117.727 68.484 Amount Norepinephrine 4 mg In 91.687 117.727 68.484 Sodium Chloride 0.9% 250 ml @ 0.03 MCG/KG/MIN 11. 899 mls/hr IV .[id number] [facility] Rx#:[id number] Output: Urine 10 25 0 Other: Voiding Method Indwelling Catheter Indwelling Catheter # Voids 0 0 # Bowel Movements 1 - Exam No acute distress, confused, likely encephalopathic. Quite jaundiced. Current ly on Airvo, along with a nonrebreather mask. HEENT examination is grossly unremarkable. Mucous membranes are moist. No oral lesions. There is bilateral scleral icterus. Neck supple. Full range of motion. No adenopathy thyromegaly or neck vein distention. Cardiovascular examination reveals regular rhythm rate. S1-S2 normal. No S3 or S4. No discernible murmur noted. Heart sounds are distant. Lungs reveal mostly clear breath sound. Minimal rhonchi. No wheezes or crackles. Breath sounds are equal bilaterally. Abdomen distended, but soft. No bowel sounds noted. Extremities are intact. No cyanosis clubbing or edema. Skin is without rash or lesion. The patient is quite jaundiced. Neurologic examination is difficult to assess. The patient is very confused. - Labs CBC & Chem 7: 05/27/24 03:23 05/27/24 03:23 Labs: Abnormal Lab Results - Last 24 Hours (Table) 05/26/24 05/27/24 05/27/24 Range/Units 18:52 03:23 03:23 WBC 18.9 H (3.8-10.6) k/uL RBC 2.23 L (4.30-5.90) m/uL Hgb 8.1 L (13.0-17.5) gm/dL Hct 25.1 L (39.0-53.0) % MCV 112.4 H (80.0-100.0) fL MCH 36.5 H (25.0-35.0) pg RDW 16.8 H (11.5-15.5) % Plt Count 85 L (150-450) k/uL Macrocytosis Marked A Sodium 127 L (137-145) mmol/L Chloride 93 L (98-107) mmol/L Carbon Dioxide 19 L (22-30) mmol/L BUN 31 H (9-20) mg/dL Creatinine 4.87 H (0.66-1.25) mg/dL Glucose 149 H (74-99) mg/dL POC Glucose (mg/dL) 228 H (70-110) mg/dL Calcium 7.5 L (8.4-10.2) mg/dL 05/27/24 Range/Units 06:36 WBC (3.8-10.6) k/uL RBC (4.30-5.90) m/uL Hgb (13.0-17.5) gm/dL Hct (39.0-53.0) % MCV (80.0-100.0) fL MCH (25.0-35.0) pg RDW (11.5-15.5) % Plt Count (150-450) k/uL Macrocytosis Sodium (137-145) mmol/L Chloride (98-107) mmol/L Carbon Dioxide (22-30) mmol/L BUN (9-20) mg/dL Creatinine (0.66-1.25) mg/dL Glucose (74-99) mg/dL POC Glucose (mg/dL) 175 H (70-110) mg/dL Calcium (8.4-10.2) mg/dL Assessment and Plan Assessment: Acute hypoxemic respiratory failure, likely on the basis of severe abdominal ascites, and mild fluid overload. Doubt pneumonia. Severe alcoholic liver disease, with ascites, and severe hyperbilirubinemia. Bicytopenia, likely on the basis of alcohol abuse. Hyperammonemia, secondary to chronic liver disease. Possible chronic obstructive pulmonary disease secondary to chronic tobacco use. Mental status changes, likely on the basis of portosystemic encephalopathy and chronic alcohol disease. History of hypertension. History of hyperlipidemia. History of osteoarthritis. History of migraine cephalgia. History of heavy tobacco and alcohol abuse. Plan: Plan dated May 23, 2024. The patient is currently on Airvo, 50 L/min with an FiO2 of 80%. The patient was laying flat in bed, and should be upright, at 45 degrees or higher. In addition, interventional radiology should be evaluating the patient again for another paracentesis abdominis. Labs, x-rays, and medications are reviewed. We did order an N-terminal proBNP and procalcitonin level. Procalcitonin level is normal I would discontinue antibiotics. The nurses tell me that the patient is being evaluated for possible transfer. The patient is currently on Symbicort, and updrafts with albuterol sulfate ipratropium bromide. The patient is quite confused, with hyperammonemia, and encephalopathy. We will continue to follow. Prognosis is poor. No additional recommendations at this time. Plan dated May 24, 2024. The patient is again seen today in room 369. His is at the bedside. He continues to lay flat in bed. I believe he would breathe easier, if he was more upright, or sitting up. Anyway, the patient continues on appropriate antibiotics, for possible pneumonia. As mentioned yesterday, it does not appear to me that he has pneumonia. Nonetheless, we will leave that up to the primary service. He continues on Symbicort, and updrafts. We have asked interventional radiology to consider another paracentesis abdominis. The patient is quite jaundiced. He is confused, and has significant hyperammonemia. Labs, x-rays, and all medications are reviewed. Prognosis is poor. Dictation was produced using [employer] software. Please excuse any grammatical, word or spelling errors. Plan dated May 25, 2024. The patient continues to be very restless and agitated. The patient is on Airvo, at 60 L/min with an FiO2 of 90%. In addition to that, he is wearing a nonrebreather mask. The patient had a paracentesis abdominal yesterday, May 24. 61-year-old removed. The abdomen unfortunately filled back up with fluid. He is not receiving any IV fluids. The patient is on azithromycin and Rocephin. I did have a long conversation with the patient's about CODE STATUS. I recommended DNR. In addition, discharge planning and shelter case manager are looking to maybe get the patient transferred to a facility with a liver unit. The patient's overall prognosis is poor. We will continue to follow. Dictation was produced using [employer] software. Please excuse any grammatical, word or spelling errors. Plan dated May 26, 2024. The patient deteriorated last night, and was transferred down to the intensive care unit. His respiratory status was marginal. In addition, the patient dev eloped hypotension, and required norepinephrine. Labs, x-rays, and all medications are reviewed. We will continue to follow the patient. I was speaking to a woman that I thought with his , but apparently it is not. The patient at this time remains a full code. The patient is quite ill, and has a very poor prognosis. The primary service is trying to transfer the patient to an outside hospital, with a liver unit. Labs, x-rays, and all medications are reviewed. Prognosis is very poor. We will continue to follow. Dictation was produced using [employer] software. Please excuse any grammatical, word or spelling errors. Plan dated May 27, 2024. The patient is seen today in room 259. The patient has done very poorly from yesterday, through the night and into this morning. I did call his, the , Jase Waters, spoke to her on the phone this morning. I told her how poorly he was doing. The patient is currently a DO NOT RESUSCITATE/DO NOT INTUBATE patient. For that reason, he could not be transferred safely to the outside hospital. Labs, x-rays, and medications are reviewed. He is up to norepinephrine at 17 mcg/min. We will continue to follow make recommendations. Prognosis is very poor. Dictation was produced using [employer] software. Please excuse any grammatical, word or spelling errors. Time with Patient: Greater than 30
[2024-05-27] MEDS ORDERED: LORazepam 1 MG/0.5 ML VIAL IV PRN (10:35)
[2024-05-27] MEDS ORDERED: HYDROmorphone 0.5 MG/0.5 ML SYRINGE IVP PRN (10:47)
--- NOTE | 2024-05-27 10:49 | P.PN ---
Subjective Progress Note Date: 05/27/24 Patient is seen in follow-up for acute kidney injury. labored breathing on High flow O2 and non rebreather, at bedside planning to initiate comfort measure/ hospice care Started on hemodialysis May 25, 2024. Unable to tolerate any ultrafiltration. On Levophed. Vital signs are stable. Blood pressure is low. On vasopressor support. General: Sitting up in bed. in moderate distress, lethargic HEENT: Head exam is unremarkable. On high flow. LUNGS: Scattered rhonchi. HEART: Rate and Rhythm are regular. ABDOMEN: Nontender. Distention noted. EXTREMITITES: No edema. Objective - Vital Signs Vital signs: Vital Signs Temp 96.5 F L 05/27/24 08:00 Pulse 85 05/27/24 10:00 Resp 18 05/27/24 10:00 BP 84/55 05/27/24 10:00 Pulse Ox 83 L 05/27/24 10:00 FiO2 90 05/27/24 10:00 Intake & Output 05/26/24 05/27/24 05/27/24 18:59 06:59 18:59 Intake Total 351.687 337.727 208.484 Output Total 10 25 5 Balance 341.687 312.727 203.484 Weight 104.1 kg 106.5 kg Intake: IV 260 220 140 0.9 110 120 40 Albumin Human 25% 50 ml 100 100 In Empty Bag 1 bag @ 200 mls/hr IVPB Q3HR [facility] Rx#: [id number] cefTRIAXone 1 gm In 50 100 Sodium Chloride 0.9% 50 ml @ 100 mls/hr IVPB Q24HR [facility] Rx#:[id number] Intake, IV Titration 91.687 117.727 68.484 Amount Norepinephrine 4 mg In 91.687 117.727 68.484 Sodium Chloride 0.9% 250 ml @ 0.03 MCG/KG/MIN 11. 899 mls/hr IV .[id number] [facility] Rx#:[id number] Output: Urine 10 25 5 Other: Voiding Method Indwelling Catheter Indwelling Catheter # Voids 0 0 # Bowel Movements 1 - Labs CBC & Chem 7: 05/27/24 03:23 05/27/24 03:23 Labs: Abnormal Lab Results - Last 24 Hours (Table) 05/26/24 05/27/24 05/27/24 Range/Units 18:52 03:23 03:23 WBC 18.9 H (3.8-10.6) k/uL RBC 2.23 L (4.30-5.90) m/uL Hgb 8.1 L (13.0-17.5) gm/dL Hct 25.1 L (39.0-53.0) % MCV 112.4 H (80.0-100.0) fL MCH 36.5 H (25.0-35.0) pg RDW 16.8 H (11.5-15.5) % Plt Count 85 L (150-450) k/uL Macrocytosis Marked A Sodium 127 L (137-145) mmol/L Chloride 93 L (98-107) mmol/L Carbon Dioxide 19 L (22-30) mmol/L BUN 31 H (9-20) mg/dL Creatinine 4.87 H (0.66-1.25) mg/dL Glucose 149 H (74-99) mg/dL POC Glucose (mg/dL) 228 H (70-110) mg/dL Calcium 7.5 L (8.4-10.2) mg/dL 05/27/24 Range/Units 06:36 WBC (3.8-10.6) k/uL RBC (4.30-5.90) m/uL Hgb (13.0-17.5) gm/dL Hct (39.0-53.0) % MCV (80.0-100.0) fL MCH (25.0-35.0) pg RDW (11.5-15.5) % Plt Count (150-450) k/uL Macrocytosis Sodium (137-145) mmol/L Chloride (98-107) mmol/L Carbon Dioxide (22-30) mmol/L BUN (9-20) mg/dL Creatinine (0.66-1.25) mg/dL Glucose (74-99) mg/dL POC Glucose (mg/dL) 175 H (70-110) mg/dL Calcium (8.4-10.2) mg/dL Assessment and Plan Plan: Assessment: 1. Acute kidney injury secondary to ATN with concern for hepatorenal syndrome vs bile cast nephropathy from hyperbilirubinemia.. UA benign. No hydronephrosis noted on imaging. Started on hemodialysis May 25, 2024 due to worsening renal function and oliguria. 2. 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 Status post paracentesis this admission with 4 L drained. 3. Right renal lesion noted on ultrasound. Patient will need to see urology outpatient. 4. Metabolic acidosis secondary to acute kidney injury and lactic acidosis. 5. Volume overload. Status post paracentesis with 6 L drained May 24, 2024. 6. Anemia. Iron replete. 7. Hypervolemic hyponatremia. 8. Hypomagnesemia from diuresis and poor intake. Replaced. Better. Plan: plan to transition to comfort measures/ hospice care no further HD please call back with any questions or concerns Discussed with patient's and RN
[2024-05-27] MEDS: HYDROmorphone 1 MG/ML 1 ML SYRINGE IVP PRN (10:58)
[2024-05-27 16:52] VITALS: BP 80/45; PULSE 81; RESP 17
--- NOTE | 2024-05-29 10:17 | P.DS ---
Providers Date of admission: 05/17/24 17:01 Expected date of discharge: 05/27/24 Attending physician: Harinder Macario Consults: 05/17/24 17:01 Consult Physician Routine Consulting Provider: Amanda Tobin Consult Reason/Comments: liver cirrhosis, hyperbilirubinemia, ascites Do you want consulting provider notified?: Yes 05/18/24 09:17 Consult Physician Routine Consulting Provider: Barbara Chiu Consult Reason/Comments: Acute renal failure Do you want consulting provider notified?: Yes 05/18/24 10:47 Consult Physician Routine Consulting Provider: Jesus Phillips Consult Reason/Comments: Right renal upper pole 3.9 cm lesion, reported per CT, suspicious Do you want consulting provider notified?: Yes 05/23/24 04:50 Consult Physician Routine Consulting Provider: Bhavna Spencer Consult Reason/Comments: Worsening Respiratory Status Do you want consulting provider notified?: Yes, Notify in am 05/25/24 12:01 Consult Physician Urgent Consulting Provider: Sudeep Covington Consult Reason/Comments: temp dialysis cath Do you want consulting provider notified?: Yes Primary care physician: [facility] Course: Patient me long-term girlfriend, decided to be comfort care as he was unable to be transferred without being in baited, and he did not wish to be intubated. After being made comfort care transferred to the step down floor and pass quietly at 17:56 Plan - Discharge Summary Discharge Rx Participant: No New Discharge Prescriptions: No Action Tamsulosin [Flomax] 0.4 mg PO DAILY amLODIPine [Norvasc] 10 mg PO DAILY Spironolactone [Aldactone] 25 mg PO DAILY Furosemide [Lasix] 20 mg PO DAILY DULoxetine HCL 40 mg PO DAILY Vitamin B Complex 1 cap PO DAILY Levothyroxine Sodium [Synthroid] 25 mcg PO DAILY Albuterol Sulfate [Proair Hfa] 2 puff INHALATION RT-Q4H PRN PRN Reason: Shortness Of Breath Atorvastatin [Lipitor] 20 mg PO HS hydrOXYzine pamoate [Vistaril] 25 mg PO TID PRN PRN Reason: Anxiety SUMAtriptan succinate [Imitrex] 50 mg PO BID PRN PRN Reason: Migraine Headache Discharge Medication List Tamsulosin [Flomax] 0.4 mg PO DAILY 12/14/16 [History] Albuterol Sulfate [Proair Hfa] 2 puff INHALATION RT-Q4H PRN 12/11/20 [History] Atorvastatin [Lipitor] 20 mg PO HS 05/17/24 [History] DULoxetine HCL 40 mg PO DAILY 05/17/24 [History] Furosemide [Lasix] 20 mg PO DAILY 05/17/24 [History] Levothyroxine Sodium [Synthroid] 25 mcg PO DAILY 05/17/24 [History] SUMAtriptan succinate [Imitrex] 50 mg PO BID PRN 05/17/24 [History] Spironolactone [Aldactone] 25 mg PO DAILY 05/17/24 [History] Vitamin B Complex 1 cap PO DAILY 05/17/24 [History] amLODIPine [Norvasc] 10 mg PO DAILY 05/17/24 [History] hydrOXYzine pamoate [Vistaril] 25 mg PO TID PRN 05/17/24 [History] Activity/Diet/Wound Care/Special Instructions: Discharge Disposition: - Preliminary Cause of Preliminary Cause of : acute liver failure
== END 2024-05-27 21:30 | disposition expired | DRG 280 ==
LOC: EC 12:03 → 3SCARD 17:01 → 5NMEDONC 05-18 13:26 → 4SSUR 05-18 15:34 → 3SCARD 05-23 02:01 → 2SICU 05-25 20:52 → 5NMEDONC 05-27 17:58
PROVIDERS: ADMIT Family Medicine; ATTEND Family Medicine
PROC: 0W9G3ZX Drainage of Peritoneal Cavity, Percutaneous Approach, Diagnostic (ICD-10-PCS; principal; 2024-05-18)
PROC: 0W9G3ZZ Drainage of Peritoneal Cavity, Percutaneous Approach (ICD-10-PCS; 2024-05-24)
PROC: 06HY33Z Insertion of Infusion Device into Lower Vein, Percutaneous Approach (ICD-10-PCS; 2024-05-25)
PROC: 5A1D70Z Performance of Urinary Filtration, Intermittent, Less than 6 Hours Per Day (ICD-10-PCS; 2024-05-25)
PROC: 3E033XZ Introduction of Vasopressor into Peripheral Vein, Percutaneous Approach (ICD-10-PCS; 2024-05-26)
DX: K70.11 Alcoholic hepatitis with ascites (principal); J96.01 Acute respiratory failure with hypoxia; F10.229 Alcohol dependence with intoxication, unspecified; Y90.6 Blood alcohol level of 120-199 mg/100 ml; K21.9 Gastro-esophageal reflux disease without esophagitis; E78.5 Hyperlipidemia, unspecified; I10 Essential (primary) hypertension; K70.31 Alcoholic cirrhosis of liver with ascites; Z51.5 Encounter for palliative care; Z66 Do not resuscitate; K76.6 Portal hypertension; N17.0 Acute kidney failure with tubular necrosis; K76.9 Liver disease, unspecified; D64.9 Anemia, unspecified; E87.1 Hypo-osmolality and hyponatremia; E87.21 Acute metabolic acidosis; E87.6 Hypokalemia; K76.82 Hepatic encephalopathy; E87.70 Fluid overload, unspecified; E83.42 Hypomagnesemia; F41.9 Anxiety disorder, unspecified; F17.200 Nicotine dependence, unspecified, uncomplicated; K80.20 Calculus of gallbladder without cholecystitis without obstruction; M19.90 Unspecified osteoarthritis, unspecified site; G43.909 Migraine, unspecified, not intractable, without status migrainosus; R33.9 Retention of urine, unspecified; M60.9 Myositis, unspecified; N28.89 Other specified disorders of kidney and ureter; K72.10 Chronic hepatic failure without coma; Z79.899 Other long term (current) drug therapy; Z79.890 Hormone replacement therapy
CPT/HCPCS: 36410; 36415; 36556; 49083; 51702; 51798; 71045; 71260; 74177; 76705; 76937; 80048; 80053; 80074; 80320; 81001; 82042; 82140; 82150; 82248; 82550; 82728; 83540; 83550; 83605; 83690; 83735; 83880; 84132; 84145; 84157; 85025; 85027; 85610; 85730; 86301; 87070; 87075; 87205; 87636; 88108; 88305; 89050; 90935; 93005; 94640; 94760; 96361; 96365; 96366; 96368; 96372; 96375; 96376; 99285